=== PATIENT | female | born 1955 | race African-American/Black ===

== ENCOUNTER 2016-12-27 11:03 | Emergency (ER) | payer MEDICARE, OTHER ==
[~2016-12-27] VITALS: Ht 170.2 cm; Wt 100.7 kg
[~2016-12-27 11:03] MED LIST: ALBUTEROL SULF8.5 GM INH; ATORVASTATIN CA20 MG ORAL; BENADRYL50 MG ORAL; ELIMITE 5% CREA60 GM TOPIC; FUROSEMIDE40 MG ORAL; HYDROCHLOROTHIA25 MG ORAL; LANTUS SOL100 UNIT/1 SUBQ; LEVAQUIN500 MG ORAL; LEVAQUIN750 MG ORAL; LIPITOR20 MG ORAL; LOSARTAN POTASS50 MG ORAL; LOTREL 10-20 M1 EACH ORAL; METOPROLOL SUCC50 MG ORAL; NITROSTAT0.4 M1 SL; NORCO 5-325 TA1 EACH ORAL; NORVASC5 MG ORAL; PREDNISONE10 M2 PO; PREDNISONE20 MG ORAL; PREDNISONE5 MG ORAL; TRAMADOL HCL50 MG ORAL; TRAZODONE HCL100 MG ORAL; ativan; lasix
[2016-12-27 11:43] VITALS: BP 152/81
[2016-12-27] MEDS ORDERED: CLINDAMYCIN HC150 MG ORAL (11:44)
[2016-12-27] MEDS ORDERED: NORCO 5-325 TA1 EACH ORAL (11:44)
[2016-12-27 11:56] VITALS: BP 146/76
--- NOTE | 2016-12-27 15:38 | Emergency Room Report ---
History of Present Illness General Chief Complaint: Skin Rash/Abscess Source: Patient, Medical Record Present Illness HPI Patient presents emergency department today complaining of right axilla pain and swelling for 2 days. Patient denies any fever nausea vomiting diarrhea chills. She denies prior episodes of this. No other complaints were noted.No other modifying factors. No other associated signs and symptoms. No other complaints were noted. Symptoms noted to be moderate. Allergies: Coded Allergies: MIDAZOLAM (Verified Adverse Reaction, Unknown, 05/15/15) Patient History Past Medical History: DM, HTN, CHF, COPD, CVA/TIA, other - hernia Past Surgical History: none Pertinent Family History: none Social History: Denies: alcohol use, drug use, smoking Reviewed Nursing Documentation: PMH: Agreed, PSxH: Agreed Nursing Documentation-PMH Past Medical History: No History, Except For Hx Cardiac Problems: Yes - CHF Hx Hypertension: Yes Hx COPD: Yes Hx Diabetes: Yes Hx Cancer: No Hx Gastrointestinal Problems: Yes - hernia Hx Neurological Problems: Yes Hx Cerebrovascular Accident: Yes - 2006 Hx Headaches: Yes Hx Neurologic Surgery: No Hx Brain Shunt: No Review of Systems All Other Systems: negative except mentioned in HPI Physical Exam Vital Signs Date Time Temp Pulse Resp B/P Pulse Ox O2 Delivery O2 Flow Rate FiO2 12/27/16 11:12 98.4 90 16 152/81 100 Room Air Sp02 EP Interpretation: reviewed, normal General Appearance: normal inspection, well appearing, no apparent distress, alert Head: atraumatic Eyes: bilateral eye normal inspection ENT: normal ENT inspection, hearing grossly normal, normal voice Neck: normal inspection, full range of motion, supple, no bony tend Respiratory: normal inspection, lungs clear, normal breath sounds, no respiratory distress, no retraction, no wheezing Cardiovascular #1: regular rate, rhythm, no edema Gastrointestinal: normal inspection, normal bowel sounds, non tender, soft, no guarding, no hernia Genitourinary: no CVA tenderness Musculoskeletal: back normal, normal range of motion, swelling - right axilla swelling and tenderness Neurologic: normal inspection, alert, responsive, speech normal Psychiatric: normal inspection, judgement/insight normal, mood/affect normal Skin: other - right axila swelling/abscess Medical Decision Making Diagnostic Impression: Primary Impression: Hidradenitis suppurativa Additional Impression: Hidradenitis axillaris ER Course Patient presents emergency department today complaining of right axilla swelling. Differential diagnoses include abscess, cellulitis, allergic reaction , lymphadenopathy. Patient exam is consistent with hidradenitis. I felt the patient would benefit antibiotics. I offered any incision and drainage today patient preferred to try a therapeutic trial of antibiotics. I felt that this is reasonable given that there was no evidence of sepsis. We'll start patient on clindamycin recommend close followup.Patient is advised to follow up with primary doctor in 2-3 days and return the emergency room for any worsening symptoms and as needed. Last Vital Signs Date Time Temp Pulse Resp B/P Pulse Ox O2 Delivery O2 Flow Rate FiO2 12/27/16 11:56 98.4 85 16 146/76 100 Room Air Status: improved Disposition: HOME, SELF-CARE Condition: Stable Scripts Hydrocodone Bit/Acetaminophen 5-325* (NORCO 5-325*) 1 Each Tablet 1 TAB ORAL Q6H Y for For Pain, #10 TAB 0 Refills Prov: KAMINI GONZALEZ M.D. 12/27/16 Clindamycin Hcl* (CLINDAMYCIN HCL*) 150 Mg Capsule 150 MG ORAL FOUR TIMES A DAY for 7 Days, CAP Prov: KAMINI GONZALEZ M.D. 12/27/16 Referrals: TONE MATTA (PCP) Patient Instructions: Hidradenitis Suppurativa KAMINI GONZALEZ M.D. Dec 27, 2016 15:38
== END 2016-12-27 12:35 | disposition home or self-care (01) ==
LOC: EMR 12:25
DX: L73.2 Hidradenitis suppurativa (principal); I10 Essential (primary) hypertension; I50.9 Heart failure, unspecified; Z86.73 Personal history of transient ischemic attack (TIA), and cerebral infarction without residual deficits; E11.9 Type 2 diabetes mellitus without complications; J44.9 Chronic obstructive pulmonary disease, unspecified
CPT/HCPCS: 99284

== ENCOUNTER 2017-08-05 12:07 | Emergency (ER) | payer MEDICARE, OTHER ==
[~2017-08-05] VITALS: Ht 170.2 cm; Wt 95.3 kg
[~2017-08-05 12:07] MED LIST changes: +CLINDAMYCIN HC150 MG ORAL
--- NOTE | 2017-08-05 12:51 | Emergency Room Report ---
History of Present Illness General Chief Complaint: Skin Rash/Abscess Source: Patient Present Illness HPI 62 yo female patient presents to ER complaining of nail infection of middle nail x1 week. Patient reports she "pulled out her hangnail" a week ago and then was seen at an Urgent Care where they drained pus from the finger. Patient reports they gave her Keflex but the pus returned and finger is swollen again. Patient denies use of medication for pain relief. Patient denies fever, chest pain, SOB. Allergies: Coded Allergies: MIDAZOLAM (Verified Adverse Reaction, Unknown, 05/15/15) Patient History Past Medical History: see triage record Reviewed Nursing Documentation: PMH: Agreed, PSxH: Agreed Nursing Documentation-PMH Past Medical History: No History, Except For Hx Cardiac Problems: Yes - CHF Hx Hypertension: Yes Hx COPD: Yes Hx Diabetes: Yes Hx Cancer: No Hx Gastrointestinal Problems: Yes - hernia Hx Neurological Problems: Yes Hx Cerebrovascular Accident: Yes - 2006 Hx Headaches: Yes Hx Neurologic Surgery: No Hx Brain Shunt: No Review of Systems All Other Systems: negative except mentioned in HPI Physical Exam Vital Signs Date Time Temp Pulse Resp B/P (MAP) Pulse Ox O2 Delivery O2 Flow Rate FiO2 08/05/17 12:22 98.6 76 18 145/70 97 Room Air 98.6 Sp02 EP Interpretation: reviewed, normal General Appearance: well appearing, no apparent distress, alert, GCS 15 Head: normocephalic, atraumatic Eyes: bilateral eye normal inspection, bilateral eye PERRL ENT: hearing grossly normal, normal pharynx, no angioedema, normal voice, uvula midline, moist mucus membranes Neck: full range of motion Respiratory: lungs clear, normal breath sounds, no rhonchi, no respiratory distress, no accessory muscle use, no wheezing, speaking full sentences Cardiovascular #1: regular rate, rhythm Cardiovascular #2: 2+ radial (R), 2+ radial (L) Genitourinary: no CVA tenderness Musculoskeletal: back normal, gait/station normal, normal range of motion, non- tender, other - NVI Neurologic: alert, oriented x3, responsive, motor strength/tone normal, sensory intact Psychiatric: mood/affect normal Skin: no rash, other - left hand: middle finger, 1cm swelling at lateral nail, TTP, no pus draining, no open wound Lymphatic: no adenopathy Procedures Incision and Drainage Incision and Drainage : Consent: Verbal Site: left hand middle finger Blade Size: 11 I & D Procedure: betadine prep, sterile dressing applied Wound Location: upper extremity Wound's Depth, Shape: superficial Wound Length (cm): 1 Wound Explored: contaminated Anesthesia: 1% Lidocaine Splint Applied?: No Sling Applied?: No Patient Tolerated: Well Complications: None Medical Decision Making PA Attestation Dr. Cuellar is my supervising Physician whom patient management has been discussed with. Diagnostic Impression: Primary Impression: Paronychia ER Course Pt. presents to the ED c/o abscess on finger. Ddx considered but are not limited to rash, cellulitis, abscess, felon, paronychia, hangnail, herpetic charli. Vital signs: are WNL, pt. is afebrile Ordered Bacitracin and culture. ED COURSE: Digital block of finger performed with lidocaine. I&D of paronychia performed. Pus expressed from finger and sample sent for culture. Will contact patient with results of culture if new antibiotic is required. Patient finger no longer swollen, patient reports decrease in pain symptoms. Sterile dressing and Bacitracin applied to wound following procedure. Patient instructed to keep wound clean and dry and to followup with primary care provider in 2 days for wound check. Patient previously treated with Keflex, will treat with Clindamycin to cover for possible MRSA. DISCHARGE: -Rx provided for Clindamycin to cover for MRSA. -Rx provided for Tylenol At this time pt. is stable for d/c to home. Patient resting comfortably, in no acute distress, nontoxic appearing, laughing and smiling. Will provide printed patient care instructions and any necessary prescriptions. Care plan and follow up instructions have been discussed with the patient prior to discharge. Patient instructed to follow-up with primary care provider in 2 - 3 days for wound recheck. Patient questions asked and answered. Patient reports understanding and agreement to treatment plan. ER precautions given. Patient instructed to return to ER immediately for any new or worsening of symptoms including but not limited to fever, worsening of pain symptoms, worsening of erythema, red streaking. Last Vital Signs Date Time Temp Pulse Resp B/P (MAP) Pulse Ox O2 Delivery O2 Flow Rate FiO2 3 12:22 98.6 76 18 145/70 97 Room Air 98.6 Disposition: HOME, SELF-CARE Condition: Stable Scripts Acetaminophen* (TYLENOL EXTRA STRENGTH*) 500 Mg Tablet 500 MG ORAL Q8H Y for Prn Headache/Temp > 101, #30 TAB 0 Refills Prov: Morales Sanchez 08/05/17 Clindamycin Hcl* (CLINDAMYCIN HCL*) 150 Mg Capsule 150 MG ORAL TID for 7 Days, #21 CAP Prov: Morales Sanchez 08/05/17 Patient Instructions: Paronychia, [id number] Additional Instructions: Followup with primary care provider in 2-3 days for wound check. Take medications as directed. Patient questions asked and answered. ER precautions given, patient instructed to return to ER immediately for any new or worsening of symptoms. Morales Sanchez Aug 05, 2017 12:51
[2017-08-05] MEDS ORDERED: Bacitracin Oint UD TOPIC ONE (13:00)
[2017-08-05 13:43] VITALS: BP 145/70
[2017-08-05] MEDS ORDERED: CLINDAMYCIN HC150 MG ORAL (14:29)
[2017-08-05] MEDS ORDERED: TYLENOL EXTRA500 MG ORAL (14:29)
[2017-08-05 15:03] VITALS: BP 145/70
== END 2017-08-05 15:05 | disposition home or self-care (01) ==
LOC: EMR 13:30
DX: L03.012 Cellulitis of left finger (principal); I11.0 Hypertensive heart disease with heart failure; I50.9 Heart failure, unspecified; E11.9 Type 2 diabetes mellitus without complications; J44.9 Chronic obstructive pulmonary disease, unspecified; Z86.73 Personal history of transient ischemic attack (TIA), and cerebral infarction without residual deficits
CPT/HCPCS: 10060; 87070; 87181; 87205; 99284

== ENCOUNTER 2017-09-11 23:40 | Inpatient (IN) | payer MEDICARE, OTHER ==
[~2017-09-11] VITALS: Ht 167.6 cm; Wt 94.7 kg
[~2017-09-11 23:40] MED LIST changes: +TYLENOL EXTRA500 MG ORAL
[2017-09-11 23:50] VITALS: BP 174/89
[2017-09-12] VITALS (35 sets, daily range): BP systolic 115–206; BP diastolic 53–131
[2017-09-12] MEDS ORDERED: Solu-MEDROL 125mg Inj IVP ONE
[2017-09-12] MEDS ORDERED: dilTIAZem HCl 25mg/5ml Inj IVP ONE
[2017-09-12] MEDS ORDERED: LORazepam Inj 2mg/ml 1ml IV ONE
[2017-09-12] MEDS ORDERED: Levalbuterol Inh UD 1.25mg/0.5ml HHN ONE
[2017-09-12 00:17] LABS: HEMATOCRIT 48.6 % (37.0-47.0); HEMOGLOBIN 16.9 G/DL (12.0-16.0); MEAN CORPUSCULAR VOLUME 89 FL (80-99); PLATELET COUNT 278 K/UL (150-450); RED BLOOD COUNT 5.45 M/UL (4.20-5.40); RED CELL DISTRIBUTION WIDTH 12.4 % (11.6-14.8); WHITE BLOOD COUNT 18.5 K/UL (4.8-10.8)
--- NOTE | 2017-09-12 00:19 | Emergency Room Report ---
History of Present Illness General Chief Complaint: Dyspnea/Respdistress Source: Patient Present Illness HPI 62-year-old female with history of COPD, P/w SOB and chest pain for few hours Patient denies using any albuterol at home Not providing much history, denying any fever chills abdominal pain Allergies: Coded Allergies: MIDAZOLAM (Verified Adverse Reaction, Unknown, 05/15/15) Patient History Past Medical History: see triage record Past Surgical History: none Pertinent Family History: none Reviewed Nursing Documentation: PMH: Agreed; PSxH: Agreed Nursing Documentation-PMH Hx Cardiac Problems: Yes - CHF Hx Hypertension: Yes Hx COPD: Yes Hx Diabetes: Yes Hx Cancer: No Hx Gastrointestinal Problems: Yes - hernia Hx Neurological Problems: Yes Hx Cerebrovascular Accident: Yes - 2006 Hx Headaches: Yes Hx Neurologic Surgery: No Hx Brain Shunt: No Review of Systems All Other Systems: negative except mentioned in HPI Physical Exam Vital Signs Date Time Temp Pulse Resp B/P (MAP) Pulse Ox O2 Delivery O2 Flow Rate FiO2 09/11/17 23:41 72 22 174/89 100 Non-Rebreather 15.0 09/11/17 23:50 98.0 98.0 09/11/17 23:50 90 Sp02 EP Interpretation: abnormal General Appearance: alert, GCS 15, severe distress Head: normocephalic, atraumatic Eyes: bilateral eye normal inspection, bilateral eye PERRL, bilateral eye EOMI ENT: normal ENT inspection, normal pharynx, normal voice, moist mucus membranes Neck: normal inspection, full range of motion, supple Respiratory: respiratory distress, decreased breath sounds, accessory muscle use, other - DEC B/S B/L Cardiovascular #1: tachycardia, irregularly irregular Cardiovascular #2: 2+ radial (R), 2+ radial (L) Gastrointestinal: normal inspection, non tender, soft, non-distended, no guarding Musculoskeletal: normal inspection, back normal, normal range of motion, non- tender Neurologic: normal inspection, alert, oriented x3, responsive, motor strength/ tone normal, sensory intact, speech normal Psychiatric: normal inspection, judgement/insight normal, memory normal Skin: normal inspection, normal color, no rash, warm/dry, well hydrated, normal turgor Procedures Critical Care Time Critical Care Time 40 minutes of CC time 62-year-old female with shortness of breath VS: Tachycardic, tachypneic, hypoxic PLAN: IV access, labs, lactate, troponin, Blood/Urine Cx, Abx, IVF Anticipate admission to Tele vs. YURIDIA CC time also includes review of labs, review of EMR, discussion with family and paperwork from SNF, d/w hospitalist CC could include dosing of pressors, additional Abx CC time does not include procedures Medical Decision Making Diagnostic Impression: Primary Impression: CHF exacerbation Additional Impressions: COPD exacerbation Respiratory distress ER Course 62-year-old female with COPD p/w SOB DDX: COPD/asthma, CHF exacerbation, ACS, pneumonia Plan: IV access, potline monitor, O2 nasal cannula obtain basic labs including blood gas, troponin, BNP Nitro, lasix, Will consider BIPAP for persistent or worsening respiratory status Anticipate admission ER course: BIPAP required immediately upon arrival Unclear if COPD or CHF, Solu-Medrol was given, upon bedside ultrasound patient with multiple B lines on lung ultrasound so more likely pulm edema/chf Nitroglycerin and Lasix was given. Patient now feels much better, she is currently on nitro drip. Empiric antibiotics also given to cover for pneumonia Disposition: Patient to be admitted to ICU D/w hospitalist Dr Briceño who is covering for Dr tai Please note that this Emergency Department Report was dictated using [employer] coordinator technology software, occasionally this can lead to erroneous entry secondary to interpretation by the dictation equipment. EKG Diagnostic Results EP Interpretation: Yes Rate: Tachycardic Rhythm: Atrial fibrillation ST Segments: No acute changes ASA given to patient: NO Rhythm Strip EP Interpretation: Yes Rate: 120 Rhythm: Atrial fibrillation Chest X-ray CXR: Ordered: Yes 1 view Indication: SOB EP interpretation: Yes Interpretation: CARDIOMEGALY, ++congestion Impression: CARDIOMEGALY, ++congestion Electronically signed by Kate Palmer MD Laboratory Tests Test 09/12/17 00:10 09/12/17 00:20 09/12/17 00:50 White Blood Count 18.5 K/UL (4.8-10.8) H Red Blood Count 5.45 M/UL (4.20-5.40) H Hemoglobin 16.9 G/DL (12.0-16.0) H Hematocrit 48.6 % (37.0-47.0) H Mean Corpuscular Volume 89 FL (80-99) Mean Corpuscular Hemoglobin 31.1 PG (27.0-31.0) H Mean Corpuscular Hemoglobin Concent 34.9 G/DL (32.0-36.0) Red Cell Distribution Width 12.4 % (11.6-14.8) Platelet Count 278 K/UL (150-450) Mean Platelet Volume 8.8 FL (6.5-10.1) Neutrophils (%) (Auto) % (45.0-75.0) Lymphocytes (%) (Auto) % (20.0-45.0) Monocytes (%) (Auto) % (1.0-10.0) Eosinophils (%) (Auto) % (0.0-3.0) Basophils (%) (Auto) % (0.0-2.0) Neutrophils % (Manual) Pending Lymphocytes % (Manual) Pending Platelet Estimate Pending Platelet Morphology Pending Sodium Level 140 MMOL/L (136-145) Potassium Level 3.6 MMOL/L (3.5-5.1) Chloride Level 104 MMOL/L (98-107) Carbon Dioxide Level 25 MMOL/L (21-32) Anion Gap 11 mmol/L (5-15) Blood Urea Nitrogen 17 mg/dL (7-18) Creatinine 0.9 MG/DL (0.55-1.30) Estimate Glomerular Filtration Rate > 60 mL/min (>60) Glucose Level 233 MG/DL (74-106) H Lactic Acid Level 2.50 mmol/L (0.66-2.22) H Calcium Level 10.1 MG/DL (8.5-10.1) Total Bilirubin 0.6 MG/DL (0.2-1.0) Aspartate Amino Transferase (AST) 31 U/L (15-37) Alanine Aminotransferase (ALT) 80 U/L (12-78) H Alkaline Phosphatase 114 U/L (46-116) Troponin I 0.034 ng/mL (0.000-0.056) Pro-B-Type Natriuretic Peptide 547 pg/mL (0-125) H Total Protein 8.9 G/DL (6.4-8.2) H Albumin 4.4 G/DL (3.4-5.0) Globulin 4.5 g/dL Albumin/Globulin Ratio 1.0 (1.0-2.7) Arterial Blood pH 7.338 (7.350-7.450) Arterial Blood Partial Pressure CO2 45.5 mmHg (35.0-45.0) H Arterial Blood Partial Pressure O2 92.0 mmHg (75.0-100.0) Arterial Blood HCO3 23.9 mmol/L (22.0-26.0) Arterial Blood Oxygen Saturation 96.2 % (92.0-98.0) Arterial Blood Base Excess -2.2 [place] Test Positive Urine Color Pending Urine Appearance Pending Urine pH Pending Urine Specific [place] Pending Urine Protein Pending Urine Glucose (UA) Pending Urine Ketones Pending Urine Occult Blood Pending Urine Nitrite Pending Urine Bilirubin Pending Urine Urobilinogen Pending Urine Leukocyte Esterase Pending Last Vital Signs Date Time Temp Pulse Resp B/P (MAP) Pulse Ox O2 Delivery O2 Flow Rate FiO2 09/11/17 23:50 72 22 Non-Rebreather 15.0 90 09/11/17 23:50 98.0 174/89 90 98.0 Disposition: ADMITTED INPATIENT Condition: Critical Kate Palmer M.D. Sep 12, 2017 00:18
[2017-09-12 00:28] LABS: ANION GAP 11 mmol/L (5-15); BLOOD UREA NITROGEN 17 mg/dL (7-18); CALCIUM 10.1 MG/DL (8.5-10.1); CARBON DIOXIDE 25 MMOL/L (21-32); CHLORIDE 104 MMOL/L (98-107); CREATININE 0.9 MG/DL (0.55-1.30); POTASSIUM 3.6 MMOL/L (3.5-5.1); SODIUM 140 MMOL/L (136-145)
[2017-09-12] MEDS: Nitroglycerin Subl 0.4mg tab SL PRN ×2 (00:28→00:37)
[2017-09-12 00:38] LABS: ALANINE AMINOTRANSFERASE 80 U/L (12-78); ALBUMIN 4.4 G/DL (3.4-5.0); ALKALINE PHOSPHATASE 114 U/L (46-116); ASPARTATE AMINO TRANSFERASE 31 U/L (15-37); BILIRUBIN,TOTAL 0.6 MG/DL (0.2-1.0)
[2017-09-12] MEDS: Nitroglycerin 50mg/250ml btl 250 ML IV SCH ×2 (00:39→08:44)
[2017-09-12 01:09] LABS: BILIRUBIN, URINE NEGATIVE (NEGATIVE); COLOR,URINE PALE YELLOW; GLUCOSE, URINE (UA) 3+ (NEGATIVE); KETONES,URINE NEGATIVE (NEGATIVE); NITRITE,URINE NEGATIVE (NEGATIVE); PH,URINE 7 (4.5-8.0); PROTEIN,URINE 4+ (NEGATIVE); UROBILINOGEN,URINE NORMAL MG/DL (0.0-1.0)
[2017-09-12] MEDS ORDERED: Azithromycin 500 MG in NS 275 ML IV ONE (01:15)
[2017-09-12] MEDS ORDERED: cefTRIAXone 1 GM in NS 55 ML IVPB ONE (01:15)
[2017-09-12 01:20] LABS: APPEARANCE,URINE SLIGHTLY CLOUDY; LEUKOCYTE ESTERASE ,URINE 1+ (NEGATIVE)
[2017-09-12] MEDS ORDERED: Pantoprazole 80 MG in NS 250 ML IV SCH (02:15)
[2017-09-12] MEDS ORDERED: Heparin 5000 units/ml inj SUBQ ONE (04:15)
[2017-09-12 06:23] LABS: HEMATOCRIT 43.8 % (37.0-47.0); HEMOGLOBIN 14.7 G/DL (12.0-16.0); MEAN CORPUSCULAR VOLUME 90 FL (80-99); PLATELET COUNT 264 K/UL (150-450); RED BLOOD COUNT 4.88 M/UL (4.20-5.40); RED CELL DISTRIBUTION WIDTH 12.5 % (11.6-14.8); WHITE BLOOD COUNT 14.9 K/UL (4.8-10.8)
[2017-09-12 06:30] LABS: ANION GAP 8 mmol/L (5-15); BLOOD UREA NITROGEN 20 mg/dL (7-18); CALCIUM 9.3 MG/DL (8.5-10.1); CARBON DIOXIDE 26 MMOL/L (21-32); CHLORIDE 103 MMOL/L (98-107); POTASSIUM 3.9 MMOL/L (3.5-5.1); SODIUM 137 MMOL/L (136-145)
[2017-09-12] MEDS: NovoLOG Insulin Flexpen SUBQ SCH ×4 (06:44→21:18)
[2017-09-12] MEDS ORDERED: Metoprolol Succinate XL 50mg tab ORAL SCH (09:00)
[2017-09-12] MEDS ORDERED: Aspirin EC 81mg tab ORAL SCH (09:00)
[2017-09-12] MEDS ORDERED: Pantoprazole Inj IVP SCH (09:00)
--- NOTE | 2017-09-12 09:25 | History and Physical ---
History of Present Illness General Date patient seen: Sep 12, 2017 Time patient seen: 09:23 Reason for Hospitalization: Dyspnea/Respdistress Present Illness HPI 62y/o female with pmh of HTN, HLD, DM2, CHF, COPD, CVA in 2006 who presented with chest pain and SOB. Pt is poor historian. Per notes, pt had chest pain and SOB abt 20min prior to arrival in ER. Chest pain is substernal and constant, no association with activity. Pt states she had angiogram at [facility] 2 weeks ago but doesn't know results. She is on lasix, but unclear compliance. C/o cough. Denies f/c, n/v, d/c, abd pain. In ED, pt was noted to be in fluid overload w/ pulmonary edema and to be in hypertensive emergency. Pt was hypoxic. She was placed on BiPAP. She was given lasix IV and started on nitro gtt. She was also in Afib with rate to 120-130s. She was given diltiazem IV w/ improvement in rate. WBC 18K. Given ceftriaxone and azithro for possible pneumonia. Given solumdrol 125mg IV and duonebs for possible COPD exacerbation. Allergies: Coded Allergies: MIDAZOLAM (Verified Adverse Reaction, Unknown, 05/15/15) Medication History Scheduled Amlodipine Besylate (Norvasc), 5 MG ORAL BID, (Reported) Atorvastatin Calcium* (Lipitor*), 20 MG ORAL BEDTIME, (Reported) Clindamycin Hcl* (Clindamycin Hcl*), 150 MG ORAL FOUR TIMES A DAY Clindamycin Hcl* (Clindamycin Hcl*), 150 MG ORAL TID Furosemide* (Lasix*), 40 MG ORAL BID, (Reported) Insulin Glargine (Lantus), 30 SUBQ BEDTIME, (Reported) Levofloxacin* (Levaquin*), 500 MG ORAL DAILY, (Reported) Losartan Potassium* (Losartan Potassium*), 100 MG ORAL DAILY, (Reported) Metoprolol Succinate* (Metoprolol Succinate*), 50 MG ORAL DAILY, (Reported) Prednisone (Prednisone), 5 MG ORAL DAILY, (Reported) Trazodone Hcl* (Desyrel*), 150 MG ORAL BEDTIME, (Reported) Scheduled PRN Acetaminophen* (Tylenol Extra Strength*), 500 MG ORAL Q8H PRN for Prn Headache/ Temp > 101 Albuterol Sulfate* (Albuterol Sulfate Mdi*), 2 PUFF INH Q4H PRN for For Cough Hydrocodone Bit/Acetaminophen 5-325* ([place] 5-325*), 1 TAB ORAL Q6H PRN for For Pain Nitroglycerin (Nitrostat), 0.4 MG SL Q5M X3 DOSES PRN for For Pain, (Reported) Tramadol Hcl* (Ultram*), 50 MG ORAL BID PRN for For Pain, (Reported) Patient History History Provided By: Patient, Medical Record Healthcare decision maker Resuscitation status Full Code Advanced Directive on File No Past Medical/Surgical History Past Medical/Surgical History: (1) Hypertensive heart disease (2) DM2 (diabetes mellitus, type 2) (3) HTN (hypertension) (4) HLD (hyperlipidemia) (5) s/p brain aneurysm clipping (6) H/o CVA (7) CHF (congestive heart failure) Family History Family History: Patient reports no known family medical history. Social History Social History: (1) lives at home (2) smokes 1 pack cig every 2 days for many years Review of Systems Constitutional: Reports: weakness Eye: Reports: no symptoms ENT: Reports: no symptoms Respiratory: Reports: cough, shortness of breath Cardiovascular: Reports: no symptoms, chest pain, edema Gastrointestinal: Reports: no symptoms Genitourinary: Reports: no symptoms Musculoskeletal: Reports: no symptoms Skin: Reports: no symptoms Psychiatric: Reports: no symptoms Neurological: Reports: no symptoms Endocrine: Reports: no symptoms Hematologic/Lymphatic: Reports: no symptoms All Other Systems: negative except mentioned in HPI Physical Exam Physical Exam Narrative General: alert, cooperative, no distress, appears stated age, lethargic Head: normocephalic, without obvious abnormality, atraumatic Eyes: conjunctivae/corneas clear. PERRL, EOM's intact Throat: lips, mucosa, and tongue normal. MMM Neck: supple, symmetrical, trachea midline, and no JVD Lungs:+decreased breath sunds b/l Heart: irregularly irregular rhythm, S1, S2 normal, no murmur, click, rub or gallop Abdomen: soft, non-tender, non-distended, bowel sounds normal; no masses or organomegaly Extremities: extremities normal, atraumatic, no cyanosis, 1+ BLE edema Pulses: 2+ and symmetric Skin: skin color, texture, turgor normal; no rashes or lesions Neurologic: grossly normal, no focal deficits Last 24 Hour Vital Signs Date Time Temp Pulse Resp B/P (MAP) Pulse Ox O2 Delivery O2 Flow Rate FiO2 09/12/17 08:44 122/86 09/12/17 08:42 90 122/86 09/12/17 07:00 95 18 137/83 95 Nasal Cannula 2.0 09/12/17 06:30 90 18 159/85 95 Nasal Cannula 2.0 09/12/17 06:00 95 18 159/92 95 Nasal Cannula 2.0 09/12/17 05:30 95 18 150/92 95 Nasal Cannula 2.0 09/12/17 05:00 98.0 95 18 139/76 95 Nasal Cannula 2.0 98.0 09/12/17 04:50 98.2 101 22 142/68 96 Nasal Cannula 4.0 100 98.2 09/12/17 04:30 98.2 95 20 142/88 96 Nasal Cannula 2.0 98.2 09/12/17 04:00 96 09/12/17 03:21 98.2 101 22 142/68 96 Nasal Cannula 4.0 98.2 09/12/17 02:35 98.2 107 22 149/89 96 Bi-pap 98.2 09/12/17 02:20 98.4 103 24 141/53 94 Bi-pap 98.4 09/12/17 02:00 98.4 104 27 141/53 94 Bi-pap 98.4 09/12/17 01:45 98.2 104 22 164/65 94 Bi-pap 98.2 09/12/17 01:30 98.2 110 26 160/66 94 Bi-pap 98.2 09/12/17 01:00 98.4 118 28 170/89 94 Bi-pap 98.4 09/12/17 00:49 15.0 100 09/12/17 00:40 98.2 109 27 178/109 93 Bi-pap 98.2 09/12/17 00:39 175/112 09/12/17 00:37 174/107 09/12/17 00:37 127 34 93 Nasal 100 09/12/17 00:28 206/131 09/12/17 00:17 127 206/131 09/12/17 00:14 98.2 132 27 206/131 93 Bi-pap 98.2 09/11/17 23:50 72 22 Non-Rebreather 15.0 90 09/11/17 23:50 98.0 22 174/89 90 Non-Rebreather 15.0 98.0 09/11/17 23:41 72 22 174/89 100 Non-Rebreather 15.0 Intake and Output 09/11/17 09/12/17 19:00 07:00 Intake Total 520 ml Output Total 2750 ml Balance -2230 ml Intake Oral 0 ml IV Total 520 ml Output Urine Total 2750 ml # Bowel Movements 4 Laboratory Tests Test 09/12/17 00:10 09/12/17 00:20 09/12/17 00:50 09/12/17 04:00 White Blood Count 18.5 K/UL (4.8-10.8) H Red Blood Count 5.45 M/UL (4.20-5.40) H Hemoglobin 16.9 G/DL (12.0-16.0) H Hematocrit 48.6 % (37.0-47.0) H Mean Corpuscular Volume 89 FL (80-99) Mean Corpuscular Hemoglobin 31.1 PG (27.0-31.0) H Mean Corpuscular Hemoglobin Concent 34.9 G/DL (32.0-36.0) Red Cell Distribution Width 12.4 % (11.6-14.8) Platelet Count 278 K/UL (150-450) Mean Platelet Volume 8.8 FL (6.5-10.1) Neutrophils (%) (Auto) % (45.0-75.0) Lymphocytes (%) (Auto) % (20.0-45.0) Monocytes (%) (Auto) % (1.0-10.0) Eosinophils (%) (Auto) % (0.0-3.0) Basophils (%) (Auto) % (0.0-2.0) Differential Total Cells Counted 100 Neutrophils % (Manual) 68 % (45-75) Lymphocytes % (Manual) 24 % (20-45) Monocytes % (Manual) 8 % (1-10) Eosinophils % (Manual) 0 % (0-3) Basophils % (Manual) 0 % (0-2) Band Neutrophils 0 % (0-8) Platelet Estimate Adequate Platelet Morphology Normal Sodium Level 140 MMOL/L (136-145) Potassium Level 3.6 MMOL/L (3.5-5.1) Chloride Level 104 MMOL/L (98-107) Carbon Dioxide Level 25 MMOL/L (21-32) Anion Gap 11 mmol/L (5-15) Blood Urea Nitrogen 17 mg/dL (7-18) Creatinine 0.9 MG/DL (0.55-1.30) Estimat Glomerular Filtration Rate > 60 mL/min (>60) Glucose Level 233 MG/DL (74-106) H Lactic Acid Level 2.50 mmol/L (0.66-2.22) H 1.10 mmol/L (0.66-2.22) Calcium Level 10.1 MG/DL (8.5-10.1) Total Bilirubin 0.6 MG/DL (0.2-1.0) Aspartate Amino Transf (AST/SGOT) 31 U/L (15-37) Alanine Aminotransferase (ALT/SGPT) 80 U/L (12-78) H Alkaline Phosphatase 114 U/L (46-116) Troponin I 0.034 ng/mL (0.000-0.056) Pro-B-Type Natriuretic Peptide 547 pg/mL (0-125) H Total Protein 8.9 G/DL (6.4-8.2) H Albumin 4.4 G/DL (3.4-5.0) Globulin 4.5 g/dL Albumin/Globulin Ratio 1.0 (1.0-2.7) Arterial Blood pH 7.338 (7.350-7.450) Arterial Blood Partial Pressure CO2 45.5 mmHg (35.0-45.0) H Arterial Blood Partial Pressure O2 92.0 mmHg (75.0-100.0) Arterial Blood HCO3 23.9 mmol/L (22.0-26.0) Arterial Blood Oxygen Saturation 96.2 % (92.0-98.0) Arterial Blood Base Excess -2.2 Devon Test Positive Urine Color Pale yellow Urine Appearance Slightly cloudy Urine pH 7 (4.5-8.0) Urine Specific [place] 1.010 (1.005-1.035) Urine Protein 4+ (NEGATIVE) H Urine Glucose (UA) 3+ (NEGATIVE) H Urine Ketones Negative (NEGATIVE) Urine Occult Blood 2+ (NEGATIVE) H Urine Nitrite Negative (NEGATIVE) Urine Bilirubin Negative (NEGATIVE) Urine Urobilinogen Normal MG/DL (0.0-1.0) Urine Leukocyte Esterase 1+ (NEGATIVE) H Urine RBC 5-10 /HPF (0 - 2) H Urine WBC 5-10 /HPF (0 - 2) H Urine Squamous Epithelial Cells Few /LPF (NONE/OCC) Urine Bacteria Many /HPF (NONE) H Test 09/12/17 05:00 White Blood Count 14.9 K/UL (4.8-10.8) H Red Blood Count 4.88 M/UL (4.20-5.40) Hemoglobin 14.7 G/DL (12.0-16.0) Hematocrit 43.8 % (37.0-47.0) Mean Corpuscular Volume 90 FL (80-99) Mean Corpuscular Hemoglobin 30.1 PG (27.0-31.0) Mean Corpuscular Hemoglobin Concent 33.6 G/DL (32.0-36.0) Red Cell Distribution Width 12.5 % (11.6-14.8) Platelet Count 264 K/UL (150-450) Mean Platelet Volume 9.0 FL (6.5-10.1) Neutrophils (%) (Auto) % (45.0-75.0) Lymphocytes (%) (Auto) % (20.0-45.0) Monocytes (%) (Auto) % (1.0-10.0) Eosinophils (%) (Auto) % (0.0-3.0) Basophils (%) (Auto) % (0.0-2.0) Differential Total Cells Counted 100 Neutrophils % (Manual) 96 % (45-75) H Lymphocytes % (Manual) 2 % (20-45) L Monocytes % (Manual) 2 % (1-10) Eosinophils % (Manual) 0 % (0-3) Basophils % (Manual) 0 % (0-2) Band Neutrophils 0 % (0-8) Platelet Estimate Adequate Platelet Morphology Normal Sodium Level 137 MMOL/L (136-145) Potassium Level 3.9 MMOL/L (3.5-5.1) Chloride Level 103 MMOL/L (98-107) Carbon Dioxide Level 26 MMOL/L (21-32) Anion Gap 8 mmol/L (5-15) Blood Urea Nitrogen 20 mg/dL (7-18) H Creatinine 1.0 MG/DL (0.55-1.30) Estimat Glomerular Filtration Rate > 60 mL/min (>60) Glucose Level 371 MG/DL (74-106) #H Calcium Level 9.3 MG/DL (8.5-10.1) Height (Feet): 5 Height (Inches): 6.00 Weight (Pounds): 211 Medications Current Medications Medications (Trade) Dose Ordered Sig/Guillermo Route PRN Reason Start Time Stop Time Status Last Admin Dose Admin Acetaminophen (Tylenol) 650 mg Q4H PRN ORAL Mild Pain/Temp > 100.5 09/12/17 09:15 10/12/17 09:14 UNV Aspirin (Ecotrin) 81 mg DAILY ORAL 09/12/17 09:00 10/12/17 08:59 09/12/17 08:41 Azithromycin 500 mg/Dextrose 275 ml @ 275 mls/hr ONCE ONCE IV 09/13/17 02:30 09/13/17 03:29 Ceftriaxone Sodium 1 gm/ Dextrose 55 ml @ 110 mls/hr ONCE ONCE IVPB 09/13/17 01:00 09/13/17 01:29 Dextrose 1,000 ml @ 50 mls/hr Q20H IV 09/12/17 04:15 09/12/17 10:15 09/12/17 05:27 Dextrose (Dextrose 50%) 25 ml STAT PRN IV Hypoglycemia 09/12/17 04:45 10/12/17 04:44 Dextrose (Dextrose 50%) 50 ml STAT PRN IV Hypoglycemia 09/12/17 04:45 10/12/17 04:44 Furosemide (Lasix) 40 mg DAILY IV 09/12/17 09:00 10/12/17 08:59 09/12/17 08:42 Insulin Aspart (NovoLOG) BEFORE MEALS AND HS SUBQ 09/12/17 06:30 10/12/17 06:29 09/12/17 06:44 Metoprolol Succinate (Toprol XL) 50 mg DAILY ORAL 09/12/17 09:00 10/12/17 08:59 09/12/17 08:42 Nitroglycerin 250 ml @ 0 mls/hr Q24H IV 09/12/17 00:15 10/12/17 00:14 09/12/17 08:44 Pantoprazole (Protonix) 40 mg EVERY 12 HOURS IVP 09/12/17 09:00 10/12/17 08:59 09/12/17 08:41 Assessment/Plan Problem List: (1) Acute on chronic diastolic (congestive) heart failure ICD Codes: I50.33 - Acute on chronic diastolic (congestive) heart failure SNOMED: 02957249, 589394969 (2) Acute respiratory failure with hypoxia and hypercapnia ICD Codes: J96.01 - Acute respiratory failure with hypoxia; J96.02 - Acute respiratory failure with hypercapnia SNOMED: 75433952, 10671398, 234926596 (3) Atrial fibrillation with RVR ICD Codes: I48.91 - Unspecified atrial fibrillation SNOMED: 339853499710779 (4) Sepsis ICD Codes: A41.9 - Sepsis, unspecified organism SNOMED: 18222436 (5) Lactic acidosis ICD Codes: E87.2 - Acidosis SNOMED: 36022367 (6) Hypertensive heart disease ICD Codes: I11.9 - Hypertensive heart disease without heart failure SNOMED: 00188940 (7) HTN (hypertension) ICD Codes: I10 - Essential (primary) hypertension SNOMED: 53031966 (8) COPD (chronic obstructive pulmonary disease) ICD Codes: J44.9 - Chronic obstructive pulmonary disease, unspecified SNOMED: 64596374 (9) UTI (urinary tract infection) ICD Codes: N39.0 - Urinary tract infection, site not specified SNOMED: 21192074 (10) DM2 (diabetes mellitus, type 2) ICD Codes: E11.9 - Type 2 diabetes mellitus without complications SNOMED: 13420416 (11) HLD (hyperlipidemia) ICD Codes: E78.5 - Hyperlipidemia, unspecified SNOMED: 61783230 (12) H/o CVA (13) Tobacco abuse ICD Codes: Z72.0 - Tobacco use SNOMED: 071782069 Status: stable Assessment/Plan Admit to ICU Cardiology, pulmonology consulted Trend trop Diurese w/ lasix 40mg IV BID Strict I/O's, daily weights Monitor lytes and replete Wean nitro gtt as tolerated Cardiology to assess abt starting AC (Afib appears to be new onset) Check TTE BiPAP qHS and PRN Check BLE venous duplex Duonebs ATC and PRN Empiric ceftriaxone and azithro F/u urine culture, blood cultures Cont home meds Pain control, bowel regimen Supportive care Integration Aide on tobacco cessation DVT ppx: SCDs, HSQ At the time of my involvement, the patient's condition was critical with high potential for and/or physiologic deterioration secondary to acute respiratory failure, hypertensive emergency, CHF as delineated in the note above. On the above date of service, I spent a total of 50 minutes in the ICU evaluating, managing, and providing critical care services to this patient, including time spent documenting these activities, counseling patient/family, and coordinating care. Critical care services performed include: Telemetry Review Hemodynamic measurement interpretation Laboratory data review and interpretation Discussion of care plans with patient, family, and/or surrogate decision makers Discussion of patient's care with primary medical team, surgical team, and/or consulting service Decision to obtain further radiologic evaluation, after consideration of risk/ benefit ratio Decision to perform invasive procedure, after consideration of risk/benefit ratio Review of most recent microbiology results with assessment and modification of antimicrobial coverage Discussion of patient's code status and further advancement towards the ultimate goals of care Plan outlined above discussed with patient/family, cardiology, and pulmonology regarding mgmt and dispo. Time of note may not reflect time of encounter. Venkat Marquez M.D. Sep 12, 2017 09:25
[2017-09-12] MEDS ORDERED: TraZODone 50mg tab ORAL PRN ×2 (09:45→17:30)
[2017-09-12] MEDS ORDERED: traMADol 50mg tab ORAL PRN ×4 (09:45→17:30)
[2017-09-12] MEDS ORDERED: Levemir Flexpen SUBQ SCH (10:00)
[2017-09-12] MEDS ORDERED: Morphine Sulfate 2mg/ml Inj IVP PRN (10:15)
--- NOTE | 2017-09-12 10:16 | Cardiac Electrophysiology PN ---
Subjective Subjective [id number] Objective Last 24 Hour Vital Signs Date Time Temp Pulse Resp B/P (MAP) Pulse Ox O2 Delivery O2 Flow Rate FiO2 09/12/17 08:44 122/86 09/12/17 08:42 90 122/86 09/12/17 07:00 95 18 137/83 95 Nasal Cannula 2.0 09/12/17 06:30 90 18 159/85 95 Nasal Cannula 2.0 09/12/17 06:00 95 18 159/92 95 Nasal Cannula 2.0 09/12/17 05:30 95 18 150/92 95 Nasal Cannula 2.0 09/12/17 05:00 98.0 95 18 139/76 95 Nasal Cannula 2.0 98.0 09/12/17 04:50 98.2 101 22 142/68 96 Nasal Cannula 4.0 100 98.2 09/12/17 04:30 98.2 95 20 142/88 96 Nasal Cannula 2.0 98.2 09/12/17 04:00 96 09/12/17 03:21 98.2 101 22 142/68 96 Nasal Cannula 4.0 98.2 09/12/17 02:35 98.2 107 22 149/89 96 Bi-pap 98.2 09/12/17 02:20 98.4 103 24 141/53 94 Bi-pap 98.4 09/12/17 02:00 98.4 104 27 141/53 94 Bi-pap 98.4 09/12/17 01:45 98.2 104 22 164/65 94 Bi-pap 98.2 09/12/17 01:30 98.2 110 26 160/66 94 Bi-pap 98.2 09/12/17 01:00 98.4 118 28 170/89 94 Bi-pap 98.4 09/12/17 00:49 15.0 100 09/12/17 00:40 98.2 109 27 178/109 93 Bi-pap 98.2 09/12/17 00:39 175/112 09/12/17 00:37 174/107 09/12/17 00:37 127 34 93 Nasal 100 09/12/17 00:28 206/131 09/12/17 00:17 127 206/131 09/12/17 00:14 98.2 132 27 206/131 93 Bi-pap 98.2 09/11/17 23:50 72 22 Non-Rebreather 15.0 90 09/11/17 23:50 98.0 22 174/89 90 Non-Rebreather 15.0 98.0 09/11/17 23:41 72 22 174/ 100 Non-Rebreather 15.0 Intake and Output 09/11/17 09/12/17 19:00 07:00 Intake Total 520 ml Output Total 2750 ml Balance -2230 ml Intake Oral 0 ml IV Total 520 ml Output Urine Total 2750 ml # Bowel Movements 4 Laboratory Tests Test 09/12/17 00:10 09/12/17 00:20 09/12/17 00:50 09/12/17 04:00 White Blood Count 18.5 K/UL (4.8-10.8) H Red Blood Count 5.45 M/UL (4.20-5.40) H Hemoglobin 16.9 G/DL (12.0-16.0) H Hematocrit 48.6 % (37.0-47.0) H Mean Corpuscular Volume 89 FL (80-99) Mean Corpuscular Hemoglobin 31.1 PG (27.0-31.0) H Mean Corpuscular Hemoglobin Concent 34.9 G/DL (32.0-36.0) Red Cell Distribution Width 12.4 % (11.6-14.8) Platelet Count 278 K/UL (150-450) Mean Platelet Volume 8.8 FL (6.5-10.1) Neutrophils (%) (Auto) % (45.0-75.0) Lymphocytes (%) (Auto) % (20.0-45.0) Monocytes (%) (Auto) % (1.0-10.0) Eosinophils (%) (Auto) % (0.0-3.0) Basophils (%) (Auto) % (0.0-2.0) Differential Total Cells Counted 100 Neutrophils % (Manual) 68 % (45-75) Lymphocytes % (Manual) 24 % (20-45) Monocytes % (Manual) 8 % (1-10) Eosinophils % (Manual) 0 % (0-3) Basophils % (Manual) 0 % (0-2) Band Neutrophils 0 % (0-8) Platelet Estimate Adequate Platelet Morphology Normal Sodium Level 140 MMOL/L (136-145) Potassium Level 3.6 MMOL/L (3.5-5.1) Chloride Level 104 MMOL/L (98-107) Carbon Dioxide Level 25 MMOL/L (21-32) Anion Gap 11 mmol/L (5-15) Blood Urea Nitrogen 17 mg/dL (7-18) Creatinine 0.9 MG/DL (0.55-1.30) Estimat Glomerular Filtration Rate > 60 mL/min (>60) Glucose Level 233 MG/DL (74-106) H Lactic Acid Level 2.50 mmol/L (0.66-2.22) H 1.10 mmol/L (0.66-2.22) Calcium Level 10.1 MG/DL (8.5-10.1) Total Bilirubin 0.6 MG/DL (0.2-1.0) Aspartate Amino Transf (AST/SGOT) 31 U/L (15-37) Alanine Aminotransferase (ALT/SGPT) 80 U/L (12-78) H Alkaline Phosphatase 114 U/L (46-116) Troponin I 0.034 ng/mL (0.000-0.056) Pro-B-Type Natriuretic Peptide 547 pg/mL (0-125) H Total Protein 8.9 G/DL (6.4-8.2) H Albumin 4.4 G/DL (3.4-5.0) Globulin 4.5 g/dL Albumin/Globulin Ratio 1.0 (1.0-2.7) Arterial Blood pH 7.338 (7.350-7.450) Arterial Blood Partial Pressure CO2 45.5 mmHg (35.0-45.0) H Arterial Blood Partial Pressure O2 92.0 mmHg (75.0-100.0) Arterial Blood HCO3 23.9 mmol/L (22.0-26.0) Arterial Blood Oxygen Saturation 96.2 % (92.0-98.0) Arterial Blood Base Excess -2.2 Devon Test Positive Urine Color Pale yellow Urine Appearance Slightly cloudy Urine pH 7 (4.5-8.0) Urine Specific [place] 1.010 (1.005-1.035) Urine Protein 4+ (NEGATIVE) H Urine Glucose (UA) 3+ (NEGATIVE) H Urine Ketones Negative (NEGATIVE) Urine Occult Blood 2+ (NEGATIVE) H Urine Nitrite Negative (NEGATIVE) Urine Bilirubin Negative (NEGATIVE) Urine Urobilinogen Normal MG/DL (0.0-1.0) Urine Leukocyte Esterase 1+ (NEGATIVE) H Urine RBC 5-10 /HPF (0 - 2) H Urine WBC 5-10 /HPF (0 - 2) H Urine Squamous Epithelial Cells Few /LPF (NONE/OCC) Urine Bacteria Many /HPF (NONE) H Test 09/12/17 05:00 White Blood Count 14.9 K/UL (4.8-10.8) H Red Blood Count 4.88 M/UL (4.20-5.40) Hemoglobin 14.7 G/DL (12.0-16.0) Hematocrit 43.8 % (37.0-47.0) Mean Corpuscular Volume 90 FL (80-99) Mean Corpuscular Hemoglobin 30.1 PG (27.0-31.0) Mean Corpuscular Hemoglobin Concent 33.6 G/DL (32.0-36.0) Red Cell Distribution Width 12.5 % (11.6-14.8) Platelet Count 264 K/UL (150-450) Mean Platelet Volume 9.0 FL (6.5-10.1) Neutrophils (%) (Auto) % (45.0-75.0) Lymphocytes (%) (Auto) % (20.0-45.0) Monocytes (%) (Auto) % (1.0-10.0) Eosinophils (%) (Auto) % (0.0-3.0) Basophils (%) (Auto) % (0.0-2.0) Differential Total Cells Counted 100 Neutrophils % (Manual) 96 % (45-75) H Lymphocytes % (Manual) 2 % (20-45) L Monocytes % (Manual) 2 % (1-10) Eosinophils % (Manual) 0 % (0-3) Basophils % (Manual) 0 % (0-2) Band Neutrophils 0 % (0-8) Platelet Estimate Adequate Platelet Morphology Normal Sodium Level 137 MMOL/L (136-145) Potassium Level 3.9 MMOL/L (3.5-5.1) Chloride Level 103 MMOL/L (98-107) Carbon Dioxide Level 26 MMOL/L (21-32) Anion Gap 8 mmol/L (5-15) Blood Urea Nitrogen 20 mg/dL (7-18) H Creatinine 1.0 MG/DL (0.55-1.30) Estimat Glomerular Filtration Rate > 60 mL/min (>60) Glucose Level 371 MG/DL (74-106) #H Calcium Level 9.3 MG/DL (8.5-10.1) René Roman MD Sep 12, 2017 10:16
--- NOTE | 2017-09-12 10:56 | Consultation ---
History of Present Illness General Date patient seen: Sep 12, 2017 Chief Complaint: Dyspnea/Respdistress Reason for Consultation: dysnpnea Present Illness HPI 62-year-old female with history of COPD, HTN, CHF, prsented to ER with CC of SOB and chest pain for few hours. Pt was found to be in pulmonary edema. She had hypertensive emergency as well. She was started on BIPAP and nitro drip and transferred to ICU. Pt is still complaining of chest pain and epigastric pain. BP is controlled Allergies: Coded Allergies: MIDAZOLAM (Verified Adverse Reaction, Unknown, 05/15/15) Medication History Scheduled Amlodipine Besylate (Norvasc), 5 MG ORAL BID, (Reported) Atorvastatin Calcium* (Lipitor*), 20 MG ORAL BEDTIME, (Reported) Clindamycin Hcl* (Clindamycin Hcl*), 150 MG ORAL FOUR TIMES A DAY Clindamycin Hcl* (Clindamycin Hcl*), 150 MG ORAL TID Furosemide* (Lasix*), 40 MG ORAL BID, (Reported) Insulin Glargine (Lantus), 30 SUBQ BEDTIME, (Reported) Levofloxacin* (Levaquin*), 500 MG ORAL DAILY, (Reported) Losartan Potassium* (Losartan Potassium*), 100 MG ORAL DAILY, (Reported) Metoprolol Succinate* (Metoprolol Succinate*), 50 MG ORAL DAILY, (Reported) Prednisone (Prednisone), 5 MG ORAL DAILY, (Reported) Trazodone Hcl* (Desyrel*), 150 MG ORAL BEDTIME, (Reported) Scheduled PRN Acetaminophen* (Tylenol Extra Strength*), 500 MG ORAL Q8H PRN for Prn Headache/ Temp > 101 Albuterol Sulfate* (Albuterol Sulfate Mdi*), 2 PUFF INH Q4H PRN for For Cough Hydrocodone Bit/Acetaminophen 5-325* ([place] 5-325*), 1 TAB ORAL Q6H PRN for For Pain Nitroglycerin (Nitrostat), 0.4 MG SL Q5M X3 DOSES PRN for For Pain, (Reported) Tramadol Hcl* (Ultram*), 50 MG ORAL BID PRN for For Pain, (Reported) Patient History Healthcare decision maker Resuscitation status Full Code Advanced Directive on File No Past Medical/Surgical History Past Medical/Surgical History: (1) COPD (chronic obstructive pulmonary disease) (2) CHF (congestive heart failure) (3) Diabetes mellitus Review of Systems Cardiovascular: Reports: chest pain Physical Exam General Appearance: WD/WN Lines, tubes and drains: peripheral HEENT: normocephalic, atraumatic Neck: non-tender, normal alignment Respiratory/Chest: chest wall non-tender, lungs clear Breasts: no masses Cardiovascular/Chest: normal peripheral pulses Abdomen: normal bowel sounds, soft Genitourinary/Rectal: normal rectal exam Extremities: normal range of motion Last 24 Hour Vital Signs Date Time Temp Pulse Resp B/P (MAP) Pulse Ox O2 Delivery O2 Flow Rate FiO2 09/12/17 10:32 98.0 09/12/17 10:17 98.0 09/12/17 08:44 122/86 09/12/17 08:42 90 122/86 09/12/17 07:00 95 18 137/83 95 Nasal Cannula 2.0 09/12/17 06:30 90 18 159/85 95 Nasal Cannula 2.0 09/12/17 06:00 95 18 159/92 95 Nasal Cannula 2.0 09/12/17 05:30 95 18 150/92 95 Nasal Cannula 2.0 09/12/17 05:00 98.0 95 18 139/76 95 Nasal Cannula 2.0 98.0 09/12/17 04:50 98.2 101 22 142/68 96 Nasal Cannula 4.0 100 98.2 09/12/17 04:30 98.2 95 20 142/88 96 Nasal Cannula 2.0 98.2 09/12/17 04:00 96 09/12/17 03:21 98.2 101 22 142/68 96 Nasal Cannula 4.0 98.2 09/12/17 02:35 98.2 107 22 149/89 96 Bi-pap 98.2 09/12/17 02:20 98.4 103 24 141/53 94 Bi-pap 98.4 09/12/17 02:00 98.4 104 27 141/53 94 Bi-pap 98.4 09/12/17 01:45 98.2 104 22 164/65 94 Bi-pap 98.2 09/12/17 01:30 98.2 110 26 160/66 94 Bi-pap 98.2 09/12/17 01:00 98.4 118 28 170/89 94 Bi-pap 98.4 09/12/17 00:49 15.0 100 09/12/17 00:40 98.2 109 27 178/109 93 Bi-pap 98.2 09/12/17 00:39 175/112 09/12/17 00:37 174/107 09/12/17 00:37 127 34 93 Nasal 100 09/12/17 00:28 206/131 09/12/17 00:17 127 206/131 09/12/17 00:14 98.2 132 27 206/131 93 Bi-pap 98.2 09/11/17 23:50 72 22 Non-Rebreather 15.0 90 09/11/17 23:50 98.0 22 174/89 90 Non-Rebreather 15.0 98.0 09/11/17 23:41 72 22 174/89 100 Non-Rebreather 15.0 Intake and Output 09/11/17 09/12/17 19:00 07:00 Intake Total 520 ml Output Total 2750 ml Balance -2230 ml Intake Oral 0 ml IV Total 520 ml Output Urine Total 2750 ml # Bowel Movements 4 Laboratory Tests Test 09/12/17 00:10 09/12/17 00:20 09/12/17 00:50 09/12/17 04:00 White Blood Count 18.5 K/UL (4.8-10.8) H Red Blood Count 5.45 M/UL (4.20-5.40) H Hemoglobin 16.9 G/DL (12.0-16.0) H Hematocrit 48.6 % (37.0-47.0) H Mean Corpuscular Volume 89 FL (80-99) Mean Corpuscular Hemoglobin 31.1 PG (27.0-31.0) H Mean Corpuscular Hemoglobin Concent 34.9 G/DL (32.0-36.0) Red Cell Distribution Width 12.4 % (11.6-14.8) Platelet Count 278 K/UL (150-450) Mean Platelet Volume 8.8 FL (6.5-10.1) Neutrophils (%) (Auto) % (45.0-75.0) Lymphocytes (%) (Auto) % (20.0-45.0) Monocytes (%) (Auto) % (1.0-10.0) Eosinophils (%) (Auto) % (0.0-3.0) Basophils (%) (Auto) % (0.0-2.0) Differential Total Cells Counted 100 Neutrophils % (Manual) 68 % (45-75) Lymphocytes % (Manual) 24 % (20-45) Monocytes % (Manual) 8 % (1-10) Eosinophils % (Manual) 0 % (0-3) Basophils % (Manual) 0 % (0-2) Band Neutrophils 0 % (0-8) Platelet Estimate Adequate Platelet Morphology Normal Sodium Level 140 MMOL/L (136-145) Potassium Level 3.6 MMOL/L (3.5-5.1) Chloride Level 104 MMOL/L (98-107) Carbon Dioxide Level 25 MMOL/L (21-32) Anion Gap 11 mmol/L (5-15) Blood Urea Nitrogen 17 mg/dL (7-18) Creatinine 0.9 MG/DL (0.55-1.30) Estimat Glomerular Filtration Rate > 60 mL/min (>60) Glucose Level 233 MG/DL (74-106) H Lactic Acid Level 2.50 mmol/L (0.66-2.22) H 1.10 mmol/L (0.66-2.22) Calcium Level 10.1 MG/DL (8.5-10.1) Total Bilirubin 0.6 MG/DL (0.2-1.0) Aspartate Amino Transf (AST/SGOT) 31 U/L (15-37) Alanine Aminotransferase (ALT/SGPT) 80 U/L (12-78) H Alkaline Phosphatase 114 U/L (46-116) Troponin I 0.034 ng/mL (0.000-0.056) Pro-B-Type Natriuretic Peptide 547 pg/mL (0-125) H Total Protein 8.9 G/DL (6.4-8.2) H Albumin 4.4 G/DL (3.4-5.0) Globulin 4.5 g/dL Albumin/Globulin Ratio 1.0 (1.0-2.7) Arterial Blood pH 7.338 (7.350-7.450) Arterial Blood Partial Pressure CO2 45.5 mmHg (35.0-45.0) H Arterial Blood Partial Pressure O2 92.0 mmHg (75.0-100.0) Arterial Blood HCO3 23.9 mmol/L (22.0-26.0) Arterial Blood Oxygen Saturation 96.2 % (92.0-98.0) Arterial Blood Base Excess -2.2 [place] Test Positive Urine Color Pale yellow Urine Appearance Slightly cloudy Urine pH 7 (4.5-8.0) Urine Specific [place] 1.010 (1.005-1.035) Urine Protein 4+ (NEGATIVE) H Urine Glucose (UA) 3+ (NEGATIVE) H Urine Ketones Negative (NEGATIVE) Urine Occult Blood 2+ (NEGATIVE) H Urine Nitrite Negative (NEGATIVE) Urine Bilirubin Negative (NEGATIVE) Urine Urobilinogen Normal MG/DL (0.0-1.0) Urine Leukocyte Esterase 1+ (NEGATIVE) H Urine RBC 5-10 /HPF (0 - 2) H Urine WBC 5-10 /HPF (0 - 2) H Urine Squamous Epithelial Cells Few /LPF (NONE/OCC) Urine Bacteria Many /HPF (NONE) H Test 09/12/17 05:00 White Blood Count 14.9 K/UL (4.8-10.8) H Red Blood Count 4.88 M/UL (4.20-5.40) Hemoglobin 14.7 G/DL (12.0-16.0) Hematocrit 43.8 % (37.0-47.0) Mean Corpuscular Volume 90 FL (80-99) Mean Corpuscular Hemoglobin 30.1 PG (27.0-31.0) Mean Corpuscular Hemoglobin Concent 33.6 G/DL (32.0-36.0) Red Cell Distribution Width 12.5 % (11.6-14.8) Platelet Count 264 K/UL (150-450) Mean Platelet Volume 9.0 FL (6.5-10.1) Neutrophils (%) (Auto) % (45.0-75.0) Lymphocytes (%) (Auto) % (20.0-45.0) Monocytes (%) (Auto) % (1.0-10.0) Eosinophils (%) (Auto) % (0.0-3.0) Basophils (%) (Auto) % (0.0-2.0) Differential Total Cells Counted 100 Neutrophils % (Manual) 96 % (45-75) H Lymphocytes % (Manual) 2 % (20-45) L Monocytes % (Manual) 2 % (1-10) Eosinophils % (Manual) 0 % (0-3) Basophils % (Manual) 0 % (0-2) Band Neutrophils 0 % (0-8) Platelet Estimate Adequate Platelet Morphology Normal Sodium Level 137 MMOL/L (136-145) Potassium Level 3.9 MMOL/L (3.5-5.1) Chloride Level 103 MMOL/L (98-107) Carbon Dioxide Level 26 MMOL/L (21-32) Anion Gap 8 mmol/L (5-15) Blood Urea Nitrogen 20 mg/dL (7-18) H Creatinine 1.0 MG/DL (0.55-1.30) Estimat Glomerular Filtration Rate > 60 mL/min (>60) Glucose Level 371 MG/DL (74-106) #H Calcium Level 9.3 MG/DL (8.5-10.1) Troponin I Pending Height (Feet): 5 Height (Inches): 6.00 Weight (Pounds): 211 Medications Current Medications Medications (Trade) Dose Ordered Sig/Guillermo Route PRN Reason Start Time Stop Time Status Last Admin Dose Admin Acetaminophen (Tylenol) 650 mg Q4H PRN ORAL Mild Pain/Temp > 100.5 09/12/17 09:15 10/12/17 09:14 09/12/17 10:17 Amlodipine Besylate (Norvasc) 5 mg BID ORAL 09/12/17 18:00 10/12/17 17:59 Aspirin (Ecotrin) 81 mg DAILY ORAL 09/12/17 09:00 10/12/17 08:59 09/12/17 08:41 Atorvastatin Calcium (Lipitor) 20 mg BEDTIME ORAL 09/12/17 21:00 10/12/17 20:59 Azithromycin 500 mg/Dextrose 275 ml @ 275 mls/hr DAILY@0100 IV 09/13/17 01:00 09/20/17 00:59 Ceftriaxone Sodium 1 gm/ Dextrose 110 ml @ 220 mls/hr DAILY@0030 IVPB 09/13/17 00:30 09/20/17 00:29 Dextrose (Dextrose 50%) 25 ml STAT PRN IV Hypoglycemia 09/12/17 04:45 10/12/17 04:44 Dextrose (Dextrose 50%) 50 ml STAT PRN IV Hypoglycemia 09/12/17 04:45 10/12/17 04:44 Furosemide (Lasix) 40 mg BID IV 09/12/17 18:00 10/12/17 08:59 Insulin Aspart (NovoLOG) BEFORE MEALS AND HS SUBQ 09/12/17 06:30 10/12/17 06:29 09/12/17 06:44 Insulin Detemir (Levemir) 25 units DAILY SUBQ 09/12/17 10:00 10/12/17 09:59 09/12/17 10:32 Losartan Potassium (Cozaar) 100 mg DAILY ORAL 09/13/17 09:00 10/13/17 08:59 Metoprolol Succinate (Toprol XL) 50 mg DAILY ORAL 09/12/17 09:00 10/12/17 08:59 09/12/17 08:42 Morphine Sulfate (Morphine Sulfate) 1 mg Q2H PRN IVP Moderate Pain (Pain Scale 4-6) 09/12/17 10:15 09/19/17 10:14 09/12/17 10:32 Nitroglycerin 250 ml @ 0 mls/hr Q24H IV 09/12/17 00:15 09/12/17 13:00 09/12/17 08:44 Pantoprazole (Protonix) 40 mg EVERY 12 HOURS IVP 09/12/17 09:00 10/12/17 08:59 09/12/17 08:41 Tramadol HCl (Ultram) 50 mg Q6H PRN ORAL MOD-SEVERE BREAKTHRU PAIN >4 09/12/17 10:30 09/19/17 09:44 Trazodone HCl (Desyrel) 150 mg HSPRN PRN ORAL insomnia 09/12/17 09:45 10/12/17 09:44 Assessment/Plan Problem List: (1) Acute respiratory failure ICD Codes: J96.00 - Acute respiratory failure, unspecified whether with hypoxia or hypercapnia SNOMED: 80382721 (2) Hypertensive emergency ICD Codes: I16.1 - Hypertensive emergency SNOMED: 133536316588337 (3) COPD exacerbation ICD Codes: J44.1 - Chronic obstructive pulmonary disease with (acute) exacerbation SNOMED: 952540427 (4) Diabetes mellitus ICD Codes: E11.9 - Type 2 diabetes mellitus without complications SNOMED: 60106279 (5) COPD (chronic obstructive pulmonary disease) ICD Codes: J44.9 - Chronic obstructive pulmonary disease, unspecified SNOMED: 10065863 Respiratory: monitor respiratory rate, adjust FIO2, CXR - no w and in am. if pulmonary edema resolved i will taper down lasix Cardiac: continue to monitor HR/BP, other - on nitro drip Renal: F/U I&O, check electrolytes Infectious Disease: continue antibiotics - on Ceftriaxone for UTI Gastrointestinal: continue feedings/current rate Endocrine: monitor blood sugar Hematologic: monitor H/H Neurologic: PRN Ativan Prophylaxis: Protonix Time Spent (Minutes): 40 Notes Reviewed: exhauster, cardio Discussed with: nurses, consultants, family independence case manager aMvis Edward MD Sep 12, 2017 10:56
--- NOTE | 2017-09-12 11:30 | Diagnostic Imaging Report ---
Indication: Chest pain Comparison: 08/26/2015 A single view chest radiograph was obtained. Findings: Moderate interstitial edema present with prominent vascularity and heart size. IMPRESSION: Congestive heart failure
--- NOTE | 2017-09-12 12:50 | Diagnostic Imaging Report ---
Indication: Dyspnea Comparison: 09/11/2017 A single view chest radiograph was obtained. Findings: Pulmonary edema significantly improved since the last study. Heart size is normal size. IMPRESSION: Interval resolution of CHF
--- NOTE | 2017-09-12 19:15 | Consultation ---
DATE OF CONSULTATION: 09/12/2017 CARDIOLOGY CONSULTATION CONSULTING PHYSICIAN: René Roman M.D. REFERRING PHYSICIANS: 1. Venkat Marquez M.D. 2. Joseph Muñoz M.D. REASON FOR CONSULTATION: Exacerbation of congestive heart failure as well as atrial fibrillation with rapid ventricular response. HISTORY OF PRESENT ILLNESS: The patient is a 62-year-old -[place] lady with history of hypertension, congestive heart failure as well as diabetes and COPD who presented to the emergency room complaining of chest pain and shortness of breath of few hours duration. The patient's blood pressure was 174/89. The patient was placed initially on non-rebreather and BiPAP and was transferred to intensive care unit on nitroglycerin drip. The patient, however states that she has had a cardiac catheterization last week at [facility] that was negative for any coronary artery disease. In the emergency room, the patient was in atrial fibrillation with rapid ventricular response, heart rate of 144 beats per minute with nonspecific ST-T wave abnormalities. PAST MEDICAL HISTORY: 1. hypertension. 2. Congestive heart failure. 3. COPD. 4. Diabetes. 5. History of hernia. 6. History of cardiac catheterization last week at [facility]. FAMILY HISTORY: Noncontributory. SOCIAL HISTORY: Denies smoking or drinking alcohol. REVIEW OF SYSTEMS: Review of systems was performed and was negative other than what was mentioned in the history of present illness. PHYSICAL EXAMINATION: VITAL SIGNS: Blood pressure of 122/86, pulse is 80, respirations 18, and she is afebrile. HEAD AND NECK: Positive JVD. LUNGS: Coarse rhonchi with decreased breath sounds. CARDIOVASCULAR: Regular S1 and S2 with no gallop or murmur, already converted to sinus rhythm. ABDOMEN: Soft. EXTREMITIES: There is 1+ pitting edema. LABORATORY AND DIAGNOSTIC DATA: Labs show white count was 18.5 went down to 14.9, hemoglobin of 14.7, hematocrit 42.8, and platelet count 264,000. Sodium 137, potassium 3.9, BUN of 21, and glucose of 371. Troponin is negative. Urinalysis showed many bacteria. ASSESSMENT AND PLAN: 1. Exacerbation of congestive heart failure. This is likely due to nonischemic cardiomyopathy based on cardiac catheterization from [facility]. We will obtain a cardiac catheterization report for confirmation. In the meantime, increase the Lasix to 40 mg IV b.i.d. Continue Cozaar 100 mg daily. The patient is also on metoprolol 50 mg daily. 2. Accelerated hypertension. Continue Cozaar 100 mg daily and Norvasc 5 mg b.i.d. and 50 mg daily. Add p.r.n. clonidine to her medical regimen. I will try to taper off nitroglycerin. 3. Atrial fibrillation with rapid ventricular response. The patient converted already to sinus rhythm. Toprol-XL 50 mg daily. The patient is on aspirin. No known prior history of atrial fibrillation, could be precipitated by congestive heart failure. She has clear evidence of recurrent atrial fibrillation. She needs anticoagulation in view of her high risk for thromboembolic event in view of high [id number] score. 4. Possible pneumonia, on ceftriaxone and azithromycin. Thank you very much, Dr. Muñoz, for allowing me to participate in the care of this patient. Please do not hesitate to contact me for any questions regarding my evaluation. René Roman M.D. DR: CÉSAR JOB#: [id number] CC:
[2017-09-12] MEDS: Morphine Sulfate 4mg/ml Inj IVP PRN (20:02)
[2017-09-12] MEDS ORDERED: Atorvastatin 20mg tab ORAL SCH ×2 (21:00)
[2017-09-12] MEDS ORDERED: Heparin 5000 units/ml inj SUBQ SCH (21:00)
[2017-09-12] MEDS: Heparin 5000 units/ml inj SUBQ SCH (21:15)
[2017-09-12] MEDS: Pantoprazole Inj IVP SCH (21:16)
[2017-09-13] VITALS: BP 145/71
[2017-09-13] MEDS: Morphine Sulfate 4mg/ml Inj IVP PRN ×4 (00:06→23:19)
[2017-09-13] MEDS ORDERED: cefTRIAXone 1 GM in D5W 110 ML IVPB SCH ×4 (00:30)
[2017-09-13] MEDS ORDERED: Azithromycin 500 MG in D5W 275 ML IV SCH ×4 (01:00)
[2017-09-13] MEDS ORDERED: cefTRIAXone 1 GM in D5W 55 ML IVPB ONE (01:00)
[2017-09-13] MEDS ORDERED: Azithromycin 500 MG in D5W 275 ML IV ONE (02:30)
[2017-09-13 03:57] LABS: BASOPHILS % (AUTO) 0.4 % (0.0-2.0); EOSINOPHILS % (AUTO) 0.1 % (0.0-3.0); HEMOGLOBIN 13.7 G/DL (12.0-16.0); LYMPHOCYTES % (AUTO) 14.5 % (20.0-45.0); MEAN CORPUSCULAR VOLUME 89 FL (80-99); MONOCYTES % (AUTO) 7.4 % (1.0-10.0); NEUTROPHILS % (AUTO) 77.6 % (45.0-75.0); PLATELET COUNT 233 K/UL (150-450); RED BLOOD COUNT 4.37 M/UL (4.20-5.40); RED CELL DISTRIBUTION WIDTH 12.4 % (11.6-14.8); WHITE BLOOD COUNT 15.3 K/UL (4.8-10.8)
[2017-09-13 04:00] VITALS: BP 157/82
[2017-09-13 04:22] LABS: CHOLESTEROL 183 MG/DL (< 200); HDL CHOLESTEROL 33 MG/DL (40-60); PHOSPHORUS 2.7 MG/DL (2.5-4.9); TRIGLYCERIDES 223 MG/DL (30-150)
[2017-09-13 04:34] LABS: ALANINE AMINOTRANSFERASE 51 U/L (12-78); ALBUMIN 3.4 G/DL (3.4-5.0); ALKALINE PHOSPHATASE 83 U/L (46-116); ANION GAP 10 mmol/L (5-15); ASPARTATE AMINO TRANSFERASE 14 U/L (15-37); BILIRUBIN,TOTAL 0.4 MG/DL (0.2-1.0); BLOOD UREA NITROGEN 26 mg/dL (7-18); CARBON DIOXIDE 27 MMOL/L (21-32); CHLORIDE 102 MMOL/L (98-107); CREATININE 1.1 MG/DL (0.55-1.30); POTASSIUM 3.4 MMOL/L (3.5-5.1); SODIUM 139 MMOL/L (136-145)
[2017-09-13] MEDS: NovoLOG Insulin Flexpen SUBQ SCH ×4 (05:58→21:27)
[2017-09-13 08:00] VITALS: BP 155/83
[2017-09-13] MEDS ORDERED: Aspirin EC 81mg tab ORAL SCH (09:00)
[2017-09-13] MEDS ORDERED: Levemir Flexpen SUBQ SCH (09:00)
[2017-09-13] MEDS ORDERED: Metoprolol Succinate XL 50mg tab ORAL SCH (09:00)
[2017-09-13] MEDS ORDERED: Losartan 50mg tab ORAL SCH ×2 (09:00)
[2017-09-13] MEDS: Pantoprazole Inj IVP SCH ×2 (09:26→21:23)
[2017-09-13] MEDS: Heparin 5000 units/ml inj SUBQ SCH ×2 (09:56→21:25)
[2017-09-13 12:00] VITALS: BP 157/92
[2017-09-13] MEDS ORDERED: NS 275ml ONE (12:09)
[2017-09-13] MEDS ORDERED: Tubing IV Secondary IV ONE (12:09)
--- NOTE | 2017-09-13 12:20 | Pulmonology Progress Note ---
Assessment/Plan Problems: (1) Acute respiratory failure (2) Hypertensive emergency (3) COPD exacerbation (4) Diabetes mellitus (5) COPD (chronic obstructive pulmonary disease) Assessment/Plan respiratory treatment watch intake and output add Spiriva, as she was taking it before sliding scale taper down lasix? Subjective ROS Limited/Unobtainable: No Constitutional: Reports: no symptoms HEENT: Repors: no symptoms Allergies: Coded Allergies: MIDAZOLAM (Verified Adverse Reaction, Unknown, 05/15/15) Objective Last 24 Hour Vital Signs Date Time Temp Pulse Resp B/P (MAP) Pulse Ox O2 Delivery O2 Flow Rate FiO2 09/13/17 09:53 Nasal Cannula 2.0 28 09/13/17 09:52 94 Nasal Cannula 2.0 28 09/13/17 09:27 64 155/83 09/13/17 09:26 155/83 09/13/17 09:26 64 155/83 09/13/17 08:00 97.3 64 24 155/83 100 Bi-pap 97.3 09/13/17 07:53 71 09/13/17 04:00 98.2 65 20 157/82 95 Room Air 98.2 09/13/17 03:41 67 09/13/17 00:00 97.9 69 20 145/71 93 Room Air 97.9 09/13/17 00:00 73 09/12/17 20:00 98.0 105 24 146/84 98 98.0 09/12/17 19:30 Room Air 21 09/12/17 19:30 93 Room Air 21 09/12/17 19:03 85 09/12/17 18:32 65 146/78 09/12/17 17:00 80 14 120/80 100 09/12/17 16:00 98.8 87 16 119/79 99 98.8 09/12/17 16:00 87 09/12/17 15:30 89 16 134/77 100 Nasal Cannula 2.0 09/12/17 15:00 90 18 136/81 100 Nasal Cannula 2.0 09/12/17 14:30 92 16 131/79 100 Nasal Cannula 2.0 09/12/17 14:00 92 16 127/80 100 Nasal Cannula 2.0 09/12/17 13:30 94 17 133/79 99 Nasal Cannula 2.0 09/12/17 13:00 95 18 115/83 98 Nasal Cannula 2.0 09/12/17 12:30 93 17 119/81 99 Nasal Cannula 2.0 Intake and Output 09/12/17 09/13/17 19:00 07:00 Intake Total 368 ml 585 ml Output Total 1770 ml 750 ml Balance -1402 ml -165 ml Intake Oral 250 ml 200 ml IV Total 118 ml 385 ml Output Urine Total 1770 ml 750 ml # Bowel Movements 1 2 General Appearance: WD/WN HEENT: normocephalic Respiratory/Chest: chest wall non-tender, lungs clear Cardiovascular: normal peripheral pulses, regular rhythm Abdomen: normal bowel sounds, soft, non tender, no scars Extremities: no clubbing Skin: no lesions Microbiology Date/Time Source Procedure Growth Status 09/12/17 01:00 Blood Blood Culture - Preliminary NO GROWTH AFTER 24 HOURS Resulted 09/12/17 00:45 Blood Blood Culture - Preliminary NO GROWTH AFTER 24 HOURS Resulted 09/12/17 00:50 Urine,Clean Catch Urine Culture - Preliminary Gram Negative Bacillus 1 Resulted Laboratory Tests 09/13/17 03:25: White Blood Count 15.3H, Red Blood Count 4.37, Hemoglobin 13.7, Hematocrit 39.0 , Mean Corpuscular Volume 89, Mean Corpuscular Hemoglobin 31.4H, Mean Corpuscular Hemoglobin Concent 35.2, Red Cell Distribution Width 12.4, Platelet Count 233, Mean Platelet Volume 9.3, Neutrophils (%) (Auto) 77.6H, Lymphocytes ( %) (Auto) 14.5L, Monocytes (%) (Auto) 7.4, Eosinophils (%) (Auto) 0.1, Basophils (%) (Auto) 0.4, Sodium Level 139, Potassium Level 3.4L, Chloride Level 102, Carbon Dioxide Level 27, Anion Gap 10, Blood Urea Nitrogen 26H, Creatinine 1.1, Estimat Glomerular Filtration Rate > 60, Glucose Level 271#H, Hemoglobin A1c 8.6H, Calcium Level 9.0, Phosphorus Level 2.7, Magnesium Level 1.8, Total Bilirubin 0.4, Aspartate Amino Transf (AST/SGOT) 14L, Alanine Aminotransferase (ALT/SGPT) 51, Alkaline Phosphatase 83, Total Protein 6.8, Albumin 3.4, Globulin 3.4, Albumin/Globulin Ratio 1.0, Triglycerides Level 223H , Cholesterol Level 183, LDL Cholesterol 120H, HDL Cholesterol 33L, Cholesterol/ HDL Ratio 5.5H, Thyroid Stimulating Hormone (TSH) 0.332L Current Medications Medications (Trade) Dose Ordered Sig/Guillermo Route PRN Reason Start Time Stop Time Status Last Admin Dose Admin Acetaminophen (Tylenol) 650 mg Q4H PRN ORAL Mild Pain/Temp > 100.5 09/12/17 17:30 10/12/17 17:29 Amlodipine Besylate (Norvasc) 5 mg BID ORAL 09/12/17 18:00 10/12/17 17:59 09/13/17 09:26 Aspirin (Ecotrin) 81 mg DAILY ORAL 09/13/17 09:00 10/12/17 08:59 09/13/17 09:27 Atorvastatin Calcium (Lipitor) 20 mg BEDTIME ORAL 09/12/17 21:00 10/12/17 20:59 09/12/17 21:14 Azithromycin 500 mg/Dextrose 275 ml @ 275 mls/hr DAILY@0100 IV 09/13/17 01:00 09/20/17 00:59 09/13/17 01:29 Ceftriaxone Sodium 1 gm/ Dextrose 110 ml @ 220 mls/hr DAILY@0030 IVPB 09/13/17 00:30 09/20/17 00:29 09/13/17 00:49 Dextrose (Dextrose 50%) 25 ml STAT PRN IV Hypoglycemia 09/12/17 17:30 10/12/17 17:29 Dextrose (Dextrose 50%) 50 ml STAT PRN IV Hypoglycemia 09/12/17 17:30 10/12/17 17:29 Furosemide (Lasix) 40 mg BID IV 09/12/17 18:00 10/12/17 08:59 09/13/17 09:25 Heparin Sodium (Porcine) (Heparin 5000 units/ml) 5,000 units EVERY 12 HOURS SUBQ 09/12/17 21:00 10/12/17 20:59 09/13/17 09:56 Insulin Aspart (NovoLOG) BEFORE MEALS AND HS SUBQ 09/12/17 21:00 10/12/17 06:29 09/13/17 05:58 Insulin Detemir (Levemir) 25 units DAILY SUBQ 09/13/17 09:00 10/12/17 09:59 09/13/17 10:00 Losartan Potassium (Cozaar) 100 mg DAILY ORAL 09/13/17 09:00 10/13/17 08:59 09/13/17 09:26 Metoprolol Succinate (Toprol XL) 50 mg DAILY ORAL 09/13/17 09:00 10/12/17 08:59 09/13/17 09:27 Morphine Sulfate (Morphine Sulfate) 1 mg Q2H PRN IVP Moderate Pain (Pain Scale 4-6) 09/12/17 18:00 09/19/17 17:59 09/13/17 10:04 Ondansetron HCl (Zofran) 4 mg Q6H PRN IVP Nausea & Vomiting 09/12/17 17:30 10/12/17 11:29 09/13/17 10:25 Pantoprazole (Protonix) 40 mg EVERY 12 HOURS IVP 09/12/17 21:00 10/12/17 08:59 09/13/17 09:26 Tramadol HCl (Ultram) 50 mg Q6H PRN ORAL MOD-SEVERE BREAKTHRU PAIN >4 09/12/17 17:30 09/19/17 17:29 09/12/17 18:32 Trazodone HCl (Desyrel) 150 mg HSPRN PRN ORAL insomnia 09/12/17 17:30 10/12/17 17:29 Mavis Edward MD Sep 13, 2017 12:20
[2017-09-13 16:00] VITALS: BP 140/81
--- NOTE | 2017-09-13 16:06 | Cardiac Electrophysiology PN ---
Assessment/Plan Assessment/Plan 1. Exacerbation of congestive heart failure. This is likely due to nonischemic cardiomyopathy based on cardiac catheterization from [facility].EF 60-65% ?! Awaiting cardiac catheterization report. Continue Lasix to 40 mg IV b.i.d. Cozaar 100 mg daily and metoprolol 50 mg daily. 2. Accelerated hypertension. Continue Cozaar 100 mg daily and Norvasc 5 mg b.i.d., Lasix and Toprol 50 mg daily. 3. Atrial fibrillation with rapid ventricular response. The patient converted already to sinus rhythm. Toprol-XL 50 mg daily. The patient is on aspirin. No known prior history of atrial fibrillation, could be precipitated by congestive heart failure. If she has clear evidence of recurrent atrial fibrillation, she needs anticoagulation in view of her high risk for thromboembolic event in view of high [id number] score. 4. Possible pneumonia, on ceftriaxone and azithromycin. Subjective Subjective Comfortable in NAD. No chest pain. Objective Last 24 Hour Vital Signs Date Time Temp Pulse Resp B/P (MAP) Pulse Ox O2 Delivery O2 Flow Rate FiO2 09/13/17 12:00 97.2 65 19 157/92 99 Bi-pap 97.2 09/13/17 11:37 66 09/13/17 09:53 Nasal Cannula 2.0 28 09/13/17 09:52 94 Nasal Cannula 2.0 28 09/13/17 09:27 64 155/83 09/13/17 09:26 155/83 09/13/17 09:26 64 155/83 09/13/17 08:00 97.3 64 24 155/83 100 Bi-pap 97.3 09/13/17 07:53 71 09/13/17 04:00 98.2 65 20 157/82 95 Room Air 98.2 09/13/17 03:41 67 09/13/17 00:00 97.9 69 20 145/71 93 Room Air 97.9 09/13/17 00:00 73 09/12/17 20:00 98.0 105 24 146/84 98 98.0 09/12/17 19:30 Room Air 21 09/12/17 19:30 93 Room Air 21 09/12/17 19:03 85 09/12/17 18:32 65 146/78 09/12/17 17:00 80 14 120/80 100 09/12/17 16:00 98.8 87 16 119/79 99 98.8 09/12/17 16:00 87 Intake and Output 09/12/17 09/13/17 19:00 07:00 Intake Total 368 ml 585 ml Output Total 1770 ml 750 ml Balance -1402 ml -165 ml Intake Oral 250 ml 200 ml IV Total 118 ml 385 ml Output Urine Total 1770 ml 750 ml # Bowel Movements 1 2 Laboratory Tests Test 09/13/17 03:25 White Blood Count 15.3 K/UL (4.8-10.8) H Red Blood Count 4.37 M/UL (4.20-5.40) Hemoglobin 13.7 G/DL (12.0-16.0) Hematocrit 39.0 % (37.0-47.0) Mean Corpuscular Volume 89 FL (80-99) Mean Corpuscular Hemoglobin 31.4 PG (27.0-31.0) H Mean Corpuscular Hemoglobin Concent 35.2 G/DL (32.0-36.0) Red Cell Distribution Width 12.4 % (11.6-14.8) Platelet Count 233 K/UL (150-450) Mean Platelet Volume 9.3 FL (6.5-10.1) Neutrophils (%) (Auto) 77.6 % (45.0-75.0) H Lymphocytes (%) (Auto) 14.5 % (20.0-45.0) L Monocytes (%) (Auto) 7.4 % (1.0-10.0) Eosinophils (%) (Auto) 0.1 % (0.0-3.0) Basophils (%) (Auto) 0.4 % (0.0-2.0) Sodium Level 139 MMOL/L (136-145) Potassium Level 3.4 MMOL/L (3.5-5.1) L Chloride Level 102 MMOL/L (98-107) Carbon Dioxide Level 27 MMOL/L (21-32) Anion Gap 10 mmol/L (5-15) Blood Urea Nitrogen 26 mg/dL (7-18) H Creatinine 1.1 MG/DL (0.55-1.30) Estimat Glomerular Filtration Rate > 60 mL/min (>60) Glucose Level 271 MG/DL (74-106) #H Hemoglobin A1c 8.6 % (4.3-6.0) H Calcium Level 9.0 MG/DL (8.5-10.1) Phosphorus Level 2.7 MG/DL (2.5-4.9) Magnesium Level 1.8 MG/DL (1.8-2.4) Total Bilirubin 0.4 MG/DL (0.2-1.0) Aspartate Amino Transf (AST/SGOT) 14 U/L (15-37) L Alanine Aminotransferase (ALT/SGPT) 51 U/L (12-78) Alkaline Phosphatase 83 U/L (46-116) Total Protein 6.8 G/DL (6.4-8.2) Albumin 3.4 G/DL (3.4-5.0) Globulin 3.4 g/dL Albumin/Globulin Ratio 1.0 (1.0-2.7) Triglycerides Level 223 MG/DL (30-150) H Cholesterol Level 183 MG/DL (< 200) LDL Cholesterol 120 mg/dL (<100) H HDL Cholesterol 33 MG/DL (40-60) L Cholesterol/HDL Ratio 5.5 (3.3-4.4) H Thyroid Stimulating Hormone (TSH) 0.332 uiU/mL (0.358-3.740) Microbiology Date/Time Source Procedure Growth Status 09/12/17 01:00 Blood Blood Culture - Preliminary NO GROWTH AFTER 24 HOURS Resulted 09/12/17 00:45 Blood Blood Culture - Preliminary NO GROWTH AFTER 24 HOURS Resulted 09/12/17 00:50 Urine,Clean Catch Urine Culture - Preliminary Gram Negative Bacillus 1 Resulted Objective HEAD AND NECK: Positive JVD. LUNGS: Coarse rhonchi with decreased breath sounds. CARDIOVASCULAR: Regular S1 and S2 with no gallop or murmur, already converted to sinus rhythm. ABDOMEN: Soft. EXTREMITIES: 1+ pitting edema. René Roman MD Sep 13, 2017 16:06
[2017-09-13 20:00] VITALS: BP 140/81
[2017-09-13] MEDS: Atorvastatin 20mg tab ORAL SCH (21:23)
--- NOTE | 2017-09-13 23:05 | General Progress Note ---
Assessment/Plan Problem List: (1) UTI (urinary tract infection) ICD Codes: N39.0 - Urinary tract infection, site not specified SNOMED: 91447540 (2) Lactic acidosis ICD Codes: E87.2 - Acidosis SNOMED: 97695055 (3) Acute respiratory failure with hypoxia and hypercapnia ICD Codes: J96.01 - Acute respiratory failure with hypoxia; J96.02 - Acute respiratory failure with hypercapnia SNOMED: 63964108, 15511638, 894850317 (4) Acute on chronic diastolic (congestive) heart failure ICD Codes: I50.33 - Acute on chronic diastolic (congestive) heart failure SNOMED: 12977073, 877135108 (5) Atrial fibrillation with RVR ICD Codes: I48.91 - Unspecified atrial fibrillation SNOMED: 040322096950730 (6) Sepsis ICD Codes: A41.9 - Sepsis, unspecified organism SNOMED: 30968368 (7) Tobacco abuse ICD Codes: Z72.0 - Tobacco use SNOMED: 568354945 (8) lives at home (9) smokes 1 pack cig every 2 days for many years (10) s/p brain aneurysm clipping (11) smokes 1 pack cigarettes every 2 days (12) H/o CVA (13) DM2 (diabetes mellitus, type 2) ICD Codes: E11.9 - Type 2 diabetes mellitus without complications SNOMED: 22421572 (14) HLD (hyperlipidemia) ICD Codes: E78.5 - Hyperlipidemia, unspecified SNOMED: 00233737 (15) HTN (hypertension) ICD Codes: I10 - Essential (primary) hypertension SNOMED: 35076667 (16) Hypertensive heart disease ICD Codes: I11.9 - Hypertensive heart disease without heart failure SNOMED: 72418340 (17) Acute respiratory failure ICD Codes: J96.00 - Acute respiratory failure, unspecified whether with hypoxia or hypercapnia SNOMED: 04848682 (18) CHF (congestive heart failure) ICD Codes: I50.9 - Heart failure, unspecified SNOMED: 83853179 (19) Diabetes mellitus ICD Codes: E11.9 - Type 2 diabetes mellitus without complications SNOMED: 63435617 (20) COPD (chronic obstructive pulmonary disease) ICD Codes: J44.9 - Chronic obstructive pulmonary disease, unspecified SNOMED: 43373356 Status: stable Assessment/Plan Cardiology, pulmonology consulted Trend trop, downtrending Diurese w/ lasix 40mg IV BID Strict I/O's, daily weights Monitor lytes and replete Wean nitro gtt as tolerated Cardiology to assess abt starting AC (Afib appears to be new onset) - patient's CHADS-VASC2 score is high At this time, patient is on ASA but will need anticoagulation prior to discharge. Check TTE BiPAP qHS and PRN Check BLE venous duplex Duonebs ATC and PRN Empiric ceftriaxone and azithro F/u urine culture, blood cultures Cont home meds Pain control, bowel regimen Supportive care Credentialing Specialist on tobacco cessation DVT ppx: SCDs, HSQ At the time of my involvement, the patient's condition was critical with high potential for and/or physiologic deterioration secondary to acute respiratory failure, hypertensive emergency, CHF as delineated in the note above. On the above date of service, I spent a total of 50 minutes in the ICU evaluating, managing, and providing critical care services to this patient, including time spent documenting these activities, counseling patient/family, and coordinating care. Critical care services performed include: Telemetry Review Hemodynamic measurement interpretation Laboratory data review and interpretation Discussion of care plans with patient, family, and/or surrogate decision makers Discussion of patient's care with primary medical team, surgical team, and/or consulting service Decision to obtain further radiologic evaluation, after consideration of risk/ benefit ratio Decision to perform invasive procedure, after consideration of risk/benefit ratio Review of most recent microbiology results with assessment and modification of antimicrobial coverage Discussion of patient's code status and further advancement towards the ultimate goals of care Plan outlined above discussed with patient/family, cardiology, and pulmonology regarding mgmt and dispo. Time of note may not reflect time of encounter. Subjective Date patient seen: Sep 13, 2017 Time patient seen: 15:00 Allergies: Coded Allergies: MIDAZOLAM (Verified Adverse Reaction, Unknown, 05/15/15) Subjective - doing well, denies chest pain or sob - patient continues to be sinus rhythm on tele - TTE showing 55-60% - net negative output 1700 Objective Last 24 Hour Vital Signs Date Time Temp Pulse Resp B/P (MAP) Pulse Ox O2 Delivery O2 Flow Rate FiO2 09/13/17 21:54 81 23 98 Facial 30 09/13/17 20:00 68 09/13/17 20:00 98.1 65 18 140/81 98 Bi-pap 98.1 09/13/17 19:54 98 Nasal Cannula 3.0 32 09/13/17 19:54 70 22 98 Facial 30 09/13/17 19:54 Nasal Cannula 3.0 32 09/13/17 18:00 Room Air 09/13/17 17:46 64 140/81 09/13/17 16:40 92 19 97 Nasal 97 09/13/17 16:00 61 09/13/17 16:00 98.0 64 20 140/81 97 Bi-pap 98.0 09/13/17 15:00 Room Air 09/13/17 14:30 Bi-pap 30 09/13/17 13:30 Bi-pap 30 09/13/17 12:00 97.2 65 19 157/92 99 Bi-pap 97.2 09/13/17 11:37 66 09/13/17 09:53 Nasal Cannula 2.0 28 09/13/17 09:52 94 Nasal Cannula 2.0 28 09/13/17 09:27 64 155/83 09/13/17 09:26 155/83 09/13/17 09:26 64 155/83 09/13/17 08:00 97.3 64 24 155/83 100 Bi-pap 97.3 09/13/17 07:53 71 09/13/17 04:00 98.2 65 20 157/82 95 Room Air 98.2 09/13/17 03:41 67 09/13/17 00:00 97.9 69 20 145/71 93 Room Air 97.9 09/13/17 00:00 73 Intake and Output 09/12/17 09/13/17 19:00 07:00 Intake Total 368 ml 585 ml Output Total 1770 ml 750 ml Balance -1402 ml -165 ml Intake Oral 250 ml 200 ml IV Total 118 ml 385 ml Output Urine Total 1770 ml 750 ml # Bowel Movements 1 2 Laboratory Tests Test 09/13/17 03:25 White Blood Count 15.3 K/UL (4.8-10.8) H Red Blood Count 4.37 M/UL (4.20-5.40) Hemoglobin 13.7 G/DL (12.0-16.0) Hematocrit 39.0 % (37.0-47.0) Mean Corpuscular Volume 89 FL (80-99) Mean Corpuscular Hemoglobin 31.4 PG (27.0-31.0) H Mean Corpuscular Hemoglobin Concent 35.2 G/DL (32.0-36.0) Red Cell Distribution Width 12.4 % (11.6-14.8) Platelet Count 233 K/UL (150-450) Mean Platelet Volume 9.3 FL (6.5-10.1) Neutrophils (%) (Auto) 77.6 % (45.0-75.0) H Lymphocytes (%) (Auto) 14.5 % (20.0-45.0) L Monocytes (%) (Auto) 7.4 % (1.0-10.0) Eosinophils (%) (Auto) 0.1 % (0.0-3.0) Basophils (%) (Auto) 0.4 % (0.0-2.0) Sodium Level 139 MMOL/L (136-145) Potassium Level 3.4 MMOL/L (3.5-5.1) L Chloride Level 102 MMOL/L (98-107) Carbon Dioxide Level 27 MMOL/L (21-32) Anion Gap 10 mmol/L (5-15) Blood Urea Nitrogen 26 mg/dL (7-18) H Creatinine 1.1 MG/DL (0.55-1.30) Estimat Glomerular Filtration Rate > 60 mL/min (>60) Glucose Level 271 MG/DL (74-106) #H Hemoglobin A1c 8.6 % (4.3-6.0) H Calcium Level 9.0 MG/DL (8.5-10.1) Phosphorus Level 2.7 MG/DL (2.5-4.9) Magnesium Level 1.8 MG/DL (1.8-2.4) Total Bilirubin 0.4 MG/DL (0.2-1.0) Aspartate Amino Transf (AST/SGOT) 14 U/L (15-37) L Alanine Aminotransferase (ALT/SGPT) 51 U/L (12-78) Alkaline Phosphatase 83 U/L (46-116) Total Protein 6.8 G/DL (6.4-8.2) Albumin 3.4 G/DL (3.4-5.0) Globulin 3.4 g/dL Albumin/Globulin Ratio 1.0 (1.0-2.7) Triglycerides Level 223 MG/DL (30-150) H Cholesterol Level 183 MG/DL (< 200) LDL Cholesterol 120 mg/dL (<100) H HDL Cholesterol 33 MG/DL (40-60) L Cholesterol/HDL Ratio 5.5 (3.3-4.4) H Thyroid Stimulating Hormone (TSH) 0.332 uiU/mL (0.358-3.740) Intake and Output 09/13/17 09/14/17 19:00 07:00 Intake Total 1050 ml Output Total 2700 ml Balance -1650 ml Intake Oral 1050 ml Output Urine Total 2700 ml # Voids 4 Laboratory Tests 09/13/17 03:25: White Blood Count 15.3H, Red Blood Count 4.37, Hemoglobin 13.7, Hematocrit 39.0 , Mean Corpuscular Volume 89, Mean Corpuscular Hemoglobin 31.4H, Mean Corpuscular Hemoglobin Concent 35.2, Red Cell Distribution Width 12.4, Platelet Count 233, Mean Platelet Volume 9.3, Neutrophils (%) (Auto) 77.6H, Lymphocytes ( %) (Auto) 14.5L, Monocytes (%) (Auto) 7.4, Eosinophils (%) (Auto) 0.1, Basophils (%) (Auto) 0.4, Sodium Level 139, Potassium Level 3.4L, Chloride Level 102, Carbon Dioxide Level 27, Anion Gap 10, Blood Urea Nitrogen 26H, Creatinine 1.1, Estimat Glomerular Filtration Rate > 60, Glucose Level 271#H, Hemoglobin A1c 8.6H, Calcium Level 9.0, Phosphorus Level 2.7, Magnesium Level 1.8, Total Bilirubin 0.4, Aspartate Amino Transf (AST/SGOT) 14L, Alanine Aminotransferase (ALT/SGPT) 51, Alkaline Phosphatase 83, Total Protein 6.8, Albumin 3.4, Globulin 3.4, Albumin/Globulin Ratio 1.0, Triglycerides Level 223H , Cholesterol Level 183, LDL Cholesterol 120H, HDL Cholesterol 33L, Cholesterol/ HDL Ratio 5.5H, Thyroid Stimulating Hormone (TSH) 0.332L Height (Feet): 5 Height (Inches): 6.00 Weight (Pounds): 209 General Appearance: no apparent distress, alert EENT: PERRL/EOMI, normal ENT inspection Neck: non-tender, normal alignment Cardiovascular: normal peripheral pulses, normal rate, regular rhythm Respiratory/Chest: chest wall non-tender, lungs clear, normal breath sounds Abdomen: normal bowel sounds, non tender Edema: trace edema 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 Sep 13, 2017 23:05
[2017-09-13] MEDS ORDERED: traMADol 50mg tab ORAL PRN (23:30)
[2017-09-14] VITALS: BP 142/90
[2017-09-14] MEDS: cefTRIAXone 1 GM in D5W 110 ML IVPB SCH (00:30)
[2017-09-14] MEDS: Azithromycin 500 MG in D5W 275 ML IV SCH (01:00)
[2017-09-14 04:00] VITALS: BP 134/81
[2017-09-14] MEDS: NovoLOG Insulin Flexpen SUBQ SCH ×4 (06:08→21:28)
[2017-09-14 08:01] VITALS: BP 154/84
[2017-09-14] MEDS: Levemir Flexpen SUBQ SCH (09:00)
[2017-09-14] MEDS: Losartan 50mg tab ORAL SCH (09:39)
[2017-09-14] MEDS: Aspirin EC 81mg tab ORAL SCH (09:42)
[2017-09-14] MEDS: Metoprolol Succinate XL 50mg tab ORAL SCH (09:42)
[2017-09-14] MEDS: Pantoprazole Inj IVP SCH ×2 (09:43→21:57)
[2017-09-14] MEDS: Heparin 5000 units/ml inj SUBQ SCH ×2 (09:46→21:29)
[2017-09-14 10:23] LABS: ANION GAP 11 mmol/L (5-15); BLOOD UREA NITROGEN 20 mg/dL (7-18); CALCIUM 9.8 MG/DL (8.5-10.1); CARBON DIOXIDE 22 MMOL/L (21-32); CHLORIDE 103 MMOL/L (98-107); CREATININE 0.9 MG/DL (0.55-1.30); POTASSIUM 3.5 MMOL/L (3.5-5.1); SODIUM 136 MMOL/L (136-145)
[2017-09-14 10:28] LABS: ALANINE AMINOTRANSFERASE 46 U/L (12-78); ALBUMIN 3.6 G/DL (3.4-5.0); ALBUMIN/GLOBULIN RATIO 0.8 (1.0-2.7); ALKALINE PHOSPHATASE 82 U/L (46-116); ASPARTATE AMINO TRANSFERASE 20 U/L (15-37); BILIRUBIN,TOTAL 0.6 MG/DL (0.2-1.0)
[2017-09-14 10:35] LABS: BASOPHILS % (AUTO) 0.8 % (0.0-2.0); EOSINOPHILS % (AUTO) 0.9 % (0.0-3.0); HEMATOCRIT 49.9 % (37.0-47.0); HEMOGLOBIN 17.3 G/DL (12.0-16.0); LYMPHOCYTES % (AUTO) 22.4 % (20.0-45.0); MEAN CORPUSCULAR VOLUME 89 FL (80-99); MONOCYTES % (AUTO) 7.5 % (1.0-10.0); NEUTROPHILS % (AUTO) 68.3 % (45.0-75.0); PLATELET COUNT 241 K/UL (150-450); RED BLOOD COUNT 5.59 M/UL (4.20-5.40); RED CELL DISTRIBUTION WIDTH 12.4 % (11.6-14.8); WHITE BLOOD COUNT 10.8 K/UL (4.8-10.8)
[2017-09-14] MEDS: Morphine Sulfate 4mg/ml Inj IVP PRN ×2 (11:54→21:58)
[2017-09-14 12:00] VITALS: BP 140/86
--- NOTE | 2017-09-14 12:30 | Pulmonology Progress Note ---
Assessment/Plan Problems: (1) Acute respiratory failure (2) Hypertensive emergency (3) COPD exacerbation (4) Diabetes mellitus (5) COPD (chronic obstructive pulmonary disease) Assessment/Plan respiratory treatment watch intake and output add Spiriva, as she was taking it before sliding scale check cxr and bnp in am on Lasix 40 BIC Subjective ROS Limited/Unobtainable: No Interval Events: st Constitutional: Reports: no symptoms HEENT: Repors: no symptoms Respiratory: Reports: no symptoms Allergies: Coded Allergies: MIDAZOLAM (Verified Adverse Reaction, Unknown, 05/15/15) Objective Last 24 Hour Vital Signs Date Time Temp Pulse Resp B/P (MAP) Pulse Ox O2 Delivery O2 Flow Rate FiO2 09/14/17 09:42 61 154/84 09/14/17 09:41 61 154/84 09/14/17 09:39 154/84 09/14/17 08:40 88 18 98 Room Air 21 09/14/17 08:37 88 18 98 Room Air 21 09/14/17 08:01 97.0 57 18 154/84 100 97.0 09/14/17 08:00 57 09/14/17 06:30 Room Air 21 09/14/17 06:30 97 Room Air 21 09/14/17 04:00 97.5 68 20 134/81 94 Bi-pap 97.5 09/14/17 04:00 68 09/14/17 00:00 66 09/14/17 00:00 97.7 64 20 142/90 96 Bi-pap 97.7 09/13/17 23:08 75 23 97 Facial 30 09/13/17 21:54 81 23 98 Facial 30 09/13/17 20:00 68 09/13/17 20:00 98.1 65 18 140/81 98 Bi-pap 98.1 09/13/17 19:54 98 Nasal Cannula 3.0 32 09/13/17 19:54 70 22 98 Facial 30 09/13/17 19:54 Nasal Cannula 3.0 32 09/13/17 18:00 Room Air 09/13/17 17:46 64 140/81 09/13/17 16:40 92 19 97 Nasal 97 09/13/17 16:00 61 09/13/17 16:00 98.0 64 20 140/81 97 Bi-pap 98.0 09/13/17 15:00 Room Air 09/13/17 14:30 Bi-pap 30 09/13/17 13:30 Bi-pap 30 Intake and Output 09/13/17 09/14/17 19:00 07:00 Intake Total 1050 ml Output Total 2700 ml 900 ml Balance -1650 ml -900 ml Intake Oral 1050 ml Output Urine Total 2700 ml 900 ml # Voids 4 Objective General Appearance: WD/WN Lines, tubes and drains: peripheral, central line HEENT: normocephalic, atraumatic Neck: non-tender, supple Chest: decreased breath sound Breasts: no masses Cardiovascular/Chest: normal rate Abdomen: normal bowel sounds, non tender Extremities: moderate edema Skin Exam: other Microbiology Date/Time Source Procedure Growth Status 09/12/17 01:00 Blood Blood Culture - Preliminary NO GROWTH AFTER 48 HOURS Resulted 09/12/17 00:45 Blood Blood Culture - Preliminary NO GROWTH AFTER 48 HOURS Resulted 09/12/17 02:00 Nasal Nares MRSA Culture - Final NO METHICILLIN RESISTANT STAPH AUREUS... Complete 09/12/17 00:50 Urine,Clean Catch Urine Culture - Final Escherichia Coli Mixed Gram Positive Organism Complete 09/12/17 02:00 Rectum VRE Culture - Final NO VANCOMYCIN RESISTANT ENTEROCOCCUS ... Complete Laboratory Tests 09/14/17 09:45: White Blood Count 10.8, Red Blood Count 5.59H, Hemoglobin 17.3H, Hematocrit 49.9H, Mean Corpuscular Volume 89, Mean Corpuscular Hemoglobin 31.0, Mean Corpuscular Hemoglobin Concent 34.7, Red Cell Distribution Width 12.4, Platelet Count 241, Mean Platelet Volume 9.0, Neutrophils (%) (Auto) 68.3, Lymphocytes (% ) (Auto) 22.4, Monocytes (%) (Auto) 7.5, Eosinophils (%) (Auto) 0.9, Basophils ( %) (Auto) 0.8, Sodium Level 136, Potassium Level 3.5, Chloride Level 103, Carbon Dioxide Level 22, Anion Gap 11, Blood Urea Nitrogen 20H, Creatinine 0.9, Estimat Glomerular Filtration Rate > 60, Glucose Level 190H, Calcium Level 9.8, Magnesium Level 2.0, Total Bilirubin 0.6, Aspartate Amino Transf (AST/SGOT) 20, Alanine Aminotransferase (ALT/SGPT) 46, Alkaline Phosphatase 82, Pro-B-Type Natriuretic Peptide 1101H, Total Protein 8.1, Albumin 3.6, Globulin 4.5, Albumin /Globulin Ratio 0.8L Current Medications Medications (Trade) Dose Ordered Sig/Guillermo Route PRN Reason Start Time Stop Time Status Last Admin Dose Admin Acetaminophen (Tylenol) 650 mg Q4H PRN ORAL Mild Pain/Temp > 100.5 09/13/17 21:30 10/12/17 17:29 Amlodipine Besylate (Norvasc) 5 mg BID ORAL 09/14/17 09:00 10/12/17 17:59 09/14/17 09:41 Aspirin (Ecotrin) 81 mg DAILY ORAL 09/14/17 09:00 10/12/17 08:59 09/14/17 09:42 Atorvastatin Calcium (Lipitor) 20 mg BEDTIME ORAL 09/13/17 21:00 10/12/17 20:59 09/13/17 21:23 Azithromycin 500 mg/Dextrose 275 ml @ 275 mls/hr DAILY@0100 IV 09/14/17 01:00 09/20/17 00:59 09/14/17 01:00 Ceftriaxone Sodium 1 gm/ Dextrose 110 ml @ 220 mls/hr DAILY@0030 IVPB 09/14/17 00:30 09/20/17 00:29 09/14/17 00:30 Dextrose (Dextrose 50%) 25 ml STAT PRN IV Hypoglycemia 09/14/17 17:30 10/12/17 17:29 Dextrose (Dextrose 50%) 50 ml STAT PRN IV Hypoglycemia 09/14/17 17:30 10/12/17 17:29 Furosemide (Lasix) 40 mg BID IV 09/14/17 09:00 10/12/17 08:59 09/14/17 09:43 Heparin Sodium (Porcine) (Heparin 5000 units/ml) 5,000 units EVERY 12 HOURS SUBQ 09/13/17 21:00 10/12/17 20:59 09/14/17 09:46 Insulin Aspart (NovoLOG) BEFORE MEALS AND HS SUBQ 09/13/17 21:00 10/12/17 06:29 09/14/17 06:08 Insulin Detemir (Levemir) 25 units DAILY SUBQ 09/14/17 09:00 10/12/17 09:59 Losartan Potassium (Cozaar) 100 mg DAILY ORAL 09/14/17 09:00 10/13/17 08:59 09/14/17 09:39 Metoprolol Succinate (Toprol XL) 50 mg DAILY ORAL 09/14/17 09:00 10/12/17 08:59 09/14/17 09:42 Morphine Sulfate (Morphine Sulfate) 1 mg Q2H PRN IVP Moderate Pain (Pain Scale 4-6) 09/13/17 20:00 09/19/17 17:59 09/14/17 11:54 Ondansetron HCl (Zofran) 4 mg Q6H PRN IVP Nausea & Vomiting 09/13/17 23:30 10/12/17 11:29 09/13/17 22:59 Pantoprazole (Protonix) 40 mg EVERY 12 HOURS IVP 09/13/17 21:00 10/12/17 08:59 09/14/17 09:43 Tiotropium [place] (Spiriva Inhaler) 1 puff TWICE A DAY INH 09/14/17 09:00 10/13/17 17:59 09/14/17 08:37 Tramadol HCl (Ultram) 50 mg Q6H PRN ORAL MOD-SEVERE BREAKTHRU PAIN >4 09/13/17 23:30 09/19/17 17:29 09/14/17 02:06 Trazodone HCl (Desyrel) 150 mg HSPRN PRN ORAL insomnia 09/14/17 17:30 10/12/17 17:29 Mavis Edward MD Sep 14, 2017 12:30
--- NOTE | 2017-09-14 12:38 | Cardiac Electrophysiology PN ---
Assessment/Plan Assessment/Plan 1. Exacerbation of congestive heart failure. Has Hx of nonischemic cardiomyopathy based on cardiac catheterization from [facility].Here EF 60-65% ?! Awaiting cardiac catheterization report. Decrease Lasix to 40 mg IV daily Cozaar 100 mg daily and metoprolol 50 mg daily. 2. Accelerated hypertension. Continue Cozaar 100 mg daily and Norvasc 5mg b.i.d., Lasix and Toprol 50 mg daily. 3. Atrial fibrillation with rapid ventricular response. The patient converted already to sinus rhythm. Toprol-XL 50 mg daily. The patient is on aspirin. No known prior history of atrial fibrillation, could be precipitated by congestive heart failure. If she has recurrent atrial fibrillation, she needs anticoagulation in view of her high risk for thromboembolic event in view of high [id number] score. 4. Possible pneumonia, on ceftriaxone and azithromycin. JITENDRA RN Subjective Subjective Comfortable in NAD. No chest pain or arrhythmias Objective Last 24 Hour Vital Signs Date Time Temp Pulse Resp B/P (MAP) Pulse Ox O2 Delivery O2 Flow Rate FiO2 09/14/17 09:42 61 154/84 09/14/17 09:41 61 154/84 09/14/17 09:39 154/84 09/14/17 08:40 88 18 98 Room Air 21 09/14/17 08:37 88 18 98 Room Air 21 09/14/17 08:01 97.0 57 18 154/84 100 97.0 09/14/17 08:00 57 09/14/17 06:30 Room Air 21 09/14/17 06:30 97 Room Air 21 09/14/17 04:00 97.5 68 20 134/81 94 Bi-pap 97.5 09/14/17 04:00 68 09/14/17 00:00 66 09/14/17 00:00 97.7 64 20 142/90 96 Bi-pap 97.7 09/13/17 23:08 75 23 97 Facial 30 09/13/17 21:54 81 23 98 Facial 30 09/13/17 20:00 68 09/13/17 20:00 98.1 65 18 140/81 98 Bi-pap 98.1 09/13/17 19:54 98 Nasal Cannula 3.0 32 09/13/17 19:54 70 22 98 Facial 30 09/13/17 19:54 Nasal Cannula 3.0 32 09/13/17 18:00 Room Air 09/13/17 17:46 64 140/81 09/13/17 16:40 92 19 97 Nasal 97 09/13/17 16:00 61 09/13/17 16:00 98.0 64 20 140/81 97 Bi-pap 98.0 09/13/17 15:00 Room Air 09/13/17 14:30 Bi-pap 30 09/13/17 13:30 Bi-pap 30 Intake and Output 09/13/17 09/14/17 19:00 07:00 Intake Total 1050 ml Output Total 2700 ml 900 ml Balance -1650 ml -900 ml Intake Oral 1050 ml Output Urine Total 2700 ml 900 ml # Voids 4 Laboratory Tests Test 09/14/17 09:45 White Blood Count 10.8 K/UL (4.8-10.8) Red Blood Count 5.59 M/UL (4.20-5.40) H Hemoglobin 17.3 G/DL (12.0-16.0) H Hematocrit 49.9 % (37.0-47.0) H Mean Corpuscular Volume 89 FL (80-99) Mean Corpuscular Hemoglobin 31.0 PG (27.0-31.0) Mean Corpuscular Hemoglobin Concent 34.7 G/DL (32.0-36.0) Red Cell Distribution Width 12.4 % (11.6-14.8) Platelet Count 241 K/UL (150-450) Mean Platelet Volume 9.0 FL (6.5-10.1) Neutrophils (%) (Auto) 68.3 % (45.0-75.0) Lymphocytes (%) (Auto) 22.4 % (20.0-45.0) Monocytes (%) (Auto) 7.5 % (1.0-10.0) Eosinophils (%) (Auto) 0.9 % (0.0-3.0) Basophils (%) (Auto) 0.8 % (0.0-2.0) Sodium Level 136 MMOL/L (136-145) Potassium Level 3.5 MMOL/L (3.5-5.1) Chloride Level 103 MMOL/L (98-107) Carbon Dioxide Level 22 MMOL/L (21-32) Anion Gap 11 mmol/L (5-15) Blood Urea Nitrogen 20 mg/dL (7-18) H Creatinine 0.9 MG/DL (0.55-1.30) Estimat Glomerular Filtration Rate > 60 mL/min (>60) Glucose Level 190 MG/DL (74-106) H Calcium Level 9.8 MG/DL (8.5-10.1) Magnesium Level 2.0 MG/DL (1.8-2.4) Total Bilirubin 0.6 MG/DL (0.2-1.0) Aspartate Amino Transf (AST/SGOT) 20 U/L (15-37) Alanine Aminotransferase (ALT/SGPT) 46 U/L (12-78) Alkaline Phosphatase 82 U/L (46-116) Pro-B-Type Natriuretic Peptide 1101 pg/mL (0-125) H Total Protein 8.1 G/DL (6.4-8.2) Albumin 3.6 G/DL (3.4-5.0) Globulin 4.5 g/dL Albumin/Globulin Ratio 0.8 (1.0-2.7) L Microbiology Date/Time Source Procedure Growth Status 09/12/17 01:00 Blood Blood Culture - Preliminary NO GROWTH AFTER 48 HOURS Resulted 09/12/17 00:45 Blood Blood Culture - Preliminary NO GROWTH AFTER 48 HOURS Resulted 09/12/17 02:00 Nasal Nares MRSA Culture - Final NO METHICILLIN RESISTANT STAPH AUREUS... Complete 09/12/17 00:50 Urine,Clean Catch Urine Culture - Final Escherichia Coli Mixed Gram Positive Organism Complete 09/12/17 02:00 Rectum VRE Culture - Final NO VANCOMYCIN RESISTANT ENTEROCOCCUS ... Complete Objective HEAD AND NECK: Positive JVD. LUNGS: Coarse rhonchi with decreased breath sounds. CARDIOVASCULAR: Regular S1 and S2 with no gallop or murmur ABDOMEN: Soft. EXTREMITIES: 1+ pitting edema. René Roman MD Sep 14, 2017 12:38
[2017-09-14 16:00] VITALS: BP 160/92
[2017-09-14] MEDS ORDERED: TraZODone 50mg tab ORAL PRN (17:30)
[2017-09-14 20:00] VITALS: BP 143/91
[2017-09-14] MEDS: Atorvastatin 20mg tab ORAL SCH (21:24)
[2017-09-14] MEDS: Miralax 17gm pkt ORAL SCH (21:24)
--- NOTE | 2017-09-14 23:43 | General Progress Note ---
Assessment/Plan Problem List: (1) UTI (urinary tract infection) ICD Codes: N39.0 - Urinary tract infection, site not specified SNOMED: 57307618 (2) Lactic acidosis ICD Codes: E87.2 - Acidosis SNOMED: 84234772 (3) Acute respiratory failure with hypoxia and hypercapnia ICD Codes: J96.01 - Acute respiratory failure with hypoxia; J96.02 - Acute respiratory failure with hypercapnia SNOMED: 77054493, 53309108, 655497638 (4) Acute on chronic diastolic (congestive) heart failure ICD Codes: I50.33 - Acute on chronic diastolic (congestive) heart failure SNOMED: 54573964, 838710154 (5) Atrial fibrillation with RVR ICD Codes: I48.91 - Unspecified atrial fibrillation SNOMED: 193884115851724 (6) Sepsis ICD Codes: A41.9 - Sepsis, unspecified organism SNOMED: 19633026 (7) Tobacco abuse ICD Codes: Z72.0 - Tobacco use SNOMED: 589479955 (8) lives at home (9) smokes 1 pack cig every 2 days for many years (10) s/p brain aneurysm clipping (11) smokes 1 pack cigarettes every 2 days (12) H/o CVA (13) DM2 (diabetes mellitus, type 2) ICD Codes: E11.9 - Type 2 diabetes mellitus without complications SNOMED: 87554903 (14) HLD (hyperlipidemia) ICD Codes: E78.5 - Hyperlipidemia, unspecified SNOMED: 97587237 (15) HTN (hypertension) ICD Codes: I10 - Essential (primary) hypertension SNOMED: 12794041 (16) Hypertensive heart disease ICD Codes: I11.9 - Hypertensive heart disease without heart failure SNOMED: 28165285 (17) Acute respiratory failure ICD Codes: J96.00 - Acute respiratory failure, unspecified whether with hypoxia or hypercapnia SNOMED: 41428316 (18) CHF (congestive heart failure) ICD Codes: I50.9 - Heart failure, unspecified SNOMED: 59539885 (19) Diabetes mellitus ICD Codes: E11.9 - Type 2 diabetes mellitus without complications SNOMED: 64406803 (20) COPD (chronic obstructive pulmonary disease) ICD Codes: J44.9 - Chronic obstructive pulmonary disease, unspecified SNOMED: 16058590 Status: stable Assessment/Plan Cardiology, pulmonology consulted Trend trop, downtrending Diurese w/ lasix 40mg IV BID --> decreased to lasix 40mg IV qd Strict I/O's, daily weights Monitor lytes and replete Wean nitro gtt as tolerated Cardiology to assess abt starting AC (Afib appears to be new onset) - patient's CHADS-VASC2 score is high At this time, patient is on ASA and if patient has recurrent A. fibb, patient will need anticoagulation Check TTE --> 55-60% EF BiPAP qHS and PRN Check BLE venous duplex - negative Duonebs ATC and PRN Empiric ceftriaxone and azithro F/u urine culture - E. 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 Time of note may not reflect time of encounter. Subjective Date patient seen: Sep 14, 2017 Time patient seen: 11:10 Allergies: Coded Allergies: MIDAZOLAM (Verified Adverse Reaction, Unknown, 05/15/15) Subjective - WBC 10.8 today - awaiting cardiac cath report - doing well, denies chest pain or sob - patient continues to be sinus rhythm on tele - TTE showing 55-60% Objective Last 24 Hour Vital Signs Date Time Temp Pulse Resp B/P (MAP) Pulse Ox O2 Delivery O2 Flow Rate FiO2 09/14/17 20:27 65 18 94 Room Air 21 09/14/17 20:22 65 18 94 Room Air 21 09/14/17 20:20 94 Room Air 21 09/14/17 20:20 Room Air 21 09/14/17 20:00 98.1 65 18 143/91 94 98.1 09/14/17 17:51 64 160/92 09/14/17 16:00 97.3 60 18 160/92 100 Room Air 97.3 09/14/17 16:00 64 09/14/17 12:00 61 09/14/17 12:00 97.9 83 18 140/86 100 Room Air 97.9 09/14/17 09:42 61 154/84 09/14/17 09:41 61 154/84 09/14/17 09:39 154/84 09/14/17 08:40 88 18 98 Room Air 21 09/14/17 08:37 88 18 98 Room Air 21 09/14/17 08:01 97.0 57 18 154/84 100 97.0 09/14/17 08:00 57 09/14/17 06:30 Room Air 21 09/14/17 06:30 97 Room Air 21 09/14/17 04:00 97.5 68 20 134/81 94 Bi-pap 97.5 09/14/17 04:00 68 09/14/17 00:00 66 09/14/17 00:00 97.7 64 20 142/90 96 Bi-pap 97.7 Intake and Output 09/13/17 09/14/17 19:00 07:00 Intake Total 1050 ml Output Total 2700 ml 900 ml Balance -1650 ml -900 ml Intake Oral 1050 ml Output Urine Total 2700 ml 900 ml # Voids 4 Intake and Output 09/13/17 09/14/17 19:00 07:00 Intake Total 1050 ml Output Total 2700 ml 900 ml Balance -1650 ml -900 ml Intake Oral 1050 ml Output Urine Total 2700 ml 900 ml # Voids 4 Laboratory Tests Test 09/14/17 09:45 White Blood Count 10.8 K/UL (4.8-10.8) Red Blood Count 5.59 M/UL (4.20-5.40) H Hemoglobin 17.3 G/DL (12.0-16.0) H Hematocrit 49.9 % (37.0-47.0) H Mean Corpuscular Volume 89 FL (80-99) Mean Corpuscular Hemoglobin 31.0 PG (27.0-31.0) Mean Corpuscular Hemoglobin Concent 34.7 G/DL (32.0-36.0) Red Cell Distribution Width 12.4 % (11.6-14.8) Platelet Count 241 K/UL (150-450) Mean Platelet Volume 9.0 FL (6.5-10.1) Neutrophils (%) (Auto) 68.3 % (45.0-75.0) Lymphocytes (%) (Auto) 22.4 % (20.0-45.0) Monocytes (%) (Auto) 7.5 % (1.0-10.0) Eosinophils (%) (Auto) 0.9 % (0.0-3.0) Basophils (%) (Auto) 0.8 % (0.0-2.0) Sodium Level 136 MMOL/L (136-145) Potassium Level 3.5 MMOL/L (3.5-5.1) Chloride Level 103 MMOL/L (98-107) Carbon Dioxide Level 22 MMOL/L (21-32) Anion Gap 11 mmol/L (5-15) Blood Urea Nitrogen 20 mg/dL (7-18) H Creatinine 0.9 MG/DL (0.55-1.30) Estimat Glomerular Filtration Rate > 60 mL/min (>60) Glucose Level 190 MG/DL (74-106) H Calcium Level 9.8 MG/DL (8.5-10.1) Magnesium Level 2.0 MG/DL (1.8-2.4) Total Bilirubin 0.6 MG/DL (0.2-1.0) Aspartate Amino Transf (AST/SGOT) 20 U/L (15-37) Alanine Aminotransferase (ALT/SGPT) 46 U/L (12-78) Alkaline Phosphatase 82 U/L (46-116) Pro-B-Type Natriuretic Peptide 1101 pg/mL (0-125) H Total Protein 8.1 G/DL (6.4-8.2) Albumin 3.6 G/DL (3.4-5.0) Globulin 4.5 g/dL Albumin/Globulin Ratio 0.8 (1.0-2.7) L Laboratory Tests 09/14/17 09:45: White Blood Count 10.8, Red Blood Count 5.59H, Hemoglobin 17.3H, Hematocrit 49.9H, Mean Corpuscular Volume 89, Mean Corpuscular Hemoglobin 31.0, Mean Corpuscular Hemoglobin Concent 34.7, Red Cell Distribution Width 12.4, Platelet Count 241, Mean Platelet Volume 9.0, Neutrophils (%) (Auto) 68.3, Lymphocytes (% ) (Auto) 22.4, Monocytes (%) (Auto) 7.5, Eosinophils (%) (Auto) 0.9, Basophils ( %) (Auto) 0.8, Sodium Level 136, Potassium Level 3.5, Chloride Level 103, Carbon Dioxide Level 22, Anion Gap 11, Blood Urea Nitrogen 20H, Creatinine 0.9, Estimat Glomerular Filtration Rate > 60, Glucose Level 190H, Calcium Level 9.8, Magnesium Level 2.0, Total Bilirubin 0.6, Aspartate Amino Transf (AST/SGOT) 20, Alanine Aminotransferase (ALT/SGPT) 46, Alkaline Phosphatase 82, Pro-B-Type Natriuretic Peptide 1101H, Total Protein 8.1, Albumin 3.6, Globulin 4.5, Albumin /Globulin Ratio 0.8L Height (Feet): 5 Height (Inches): 6.00 Weight (Pounds): 209 General Appearance: no apparent distress, alert EENT: PERRL/EOMI, normal ENT inspection Neck: non-tender, normal alignment, supple Cardiovascular: normal peripheral pulses, normal rate, regular rhythm Respiratory/Chest: chest wall non-tender, lungs clear, normal breath sounds Abdomen: normal bowel sounds, non tender, soft Extremities: normal range of motion, non-tender 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 Sep 14, 2017 23:43
[2017-09-15] VITALS: BP 155/85
[2017-09-15] MEDS: cefTRIAXone 1 GM in D5W 110 ML IVPB SCH (00:39)
[2017-09-15] MEDS: Azithromycin 500 MG in D5W 275 ML IV SCH (01:29)
[2017-09-15 04:00] VITALS: BP 134/66
[2017-09-15] MEDS: NovoLOG Insulin Flexpen SUBQ SCH ×2 (07:04→12:25)
[2017-09-15 07:51] LABS: BASOPHILS % (AUTO) 0.8 % (0.0-2.0); EOSINOPHILS % (AUTO) 1.7 % (0.0-3.0); HEMATOCRIT 42.6 % (37.0-47.0); HEMOGLOBIN 14.9 G/DL (12.0-16.0); LYMPHOCYTES % (AUTO) 29.3 % (20.0-45.0); MEAN CORPUSCULAR VOLUME 89 FL (80-99); MONOCYTES % (AUTO) 7.4 % (1.0-10.0); NEUTROPHILS % (AUTO) 60.8 % (45.0-75.0); PLATELET COUNT 229 K/UL (150-450); RED BLOOD COUNT 4.79 M/UL (4.20-5.40); WHITE BLOOD COUNT 7.9 K/UL (4.8-10.8)
[2017-09-15 08:00] VITALS: BP 139/66
[2017-09-15 08:14] LABS: ALANINE AMINOTRANSFERASE 36 U/L (12-78); ALBUMIN 3.2 G/DL (3.4-5.0); ALBUMIN/GLOBULIN RATIO 0.9 (1.0-2.7); ALKALINE PHOSPHATASE 71 U/L (46-116); ANION GAP 6 mmol/L (5-15); ASPARTATE AMINO TRANSFERASE 12 U/L (15-37); BILIRUBIN,TOTAL 0.7 MG/DL (0.2-1.0); BLOOD UREA NITROGEN 19 mg/dL (7-18); CALCIUM 9.7 MG/DL (8.5-10.1); CARBON DIOXIDE 29 MMOL/L (21-32); CHLORIDE 104 MMOL/L (98-107); CREATININE 0.9 MG/DL (0.55-1.30); POTASSIUM 3.4 MMOL/L (3.5-5.1); SODIUM 138 MMOL/L (136-145)
[2017-09-15] MEDS: Miralax 17gm pkt ORAL SCH (09:13)
[2017-09-15] MEDS: Pantoprazole Inj IVP SCH (09:14)
[2017-09-15] MEDS: Aspirin EC 81mg tab ORAL SCH (09:15)
[2017-09-15] MEDS: Losartan 50mg tab ORAL SCH (09:15)
[2017-09-15] MEDS: Metoprolol Succinate XL 50mg tab ORAL SCH (09:15)
[2017-09-15] MEDS: Heparin 5000 units/ml inj SUBQ SCH (09:24)
[2017-09-15] MEDS: Levemir Flexpen SUBQ SCH (09:25)
--- NOTE | 2017-09-15 10:39 | Pulmonology Progress Note ---
Assessment/Plan Problems: (1) Acute respiratory failure (2) Hypertensive emergency (3) COPD exacerbation (4) Diabetes mellitus (5) COPD (chronic obstructive pulmonary disease) Assessment/Plan respiratory treatment watch intake and output add Spiriva, as she was taking it before sliding scale dc abx, sputum negative, no fever, on Lasix 40 QD now Subjective ROS Limited/Unobtainable: No Interval Events: less SOB, sinus rhythm with PVC' Allergies: Coded Allergies: MIDAZOLAM (Verified Adverse Reaction, Unknown, 05/15/15) Objective Last 24 Hour Vital Signs Date Time Temp Pulse Resp B/P (MAP) Pulse Ox O2 Delivery O2 Flow Rate FiO2 09/15/17 09:43 72 18 95 Room Air 21 09/15/17 09:41 72 18 96 Room Air 21 09/15/17 09:15 68 139/66 09/15/17 09:15 139/66 09/15/17 09:15 68 139/66 09/15/17 08:12 Room Air 21 09/15/17 08:12 95 Room Air 21 09/15/17 08:00 96.8 68 18 139/66 100 Room Air 96.8 09/15/17 04:00 98.1 65 20 134/66 97 Room Air 21 98.1 09/15/17 04:00 60 09/15/17 00:00 61 09/15/17 00:00 98.1 68 20 155/85 94 98.1 09/14/17 20:27 65 18 94 Room Air 21 09/14/17 20:22 65 18 94 Room Air 21 09/14/17 20:20 94 Room Air 21 09/14/17 20:20 Room Air 21 09/14/17 20:00 58 09/14/17 20:00 98.1 65 18 143/91 94 98.1 09/14/17 17:51 64 160/92 09/14/17 16:00 97.3 60 18 160/92 100 Room Air 97.3 09/14/17 16:00 64 09/14/17 12:00 61 09/14/17 12:00 97.9 83 18 140/86 100 Room Air 97.9 Intake and Output 09/14/17 09/15/17 19:00 07:00 Intake Total 640 ml 625 ml Output Total 1 ml Balance 639 ml 625 ml Intake Oral 640 ml 240 ml IV Total 385 ml Output Urine Total 1 ml # Voids 5 Objective General Appearance: WD/WN Lines, tubes and drains: peripheral, central line HEENT: normocephalic, atraumatic Neck: non-tender, supple Chest: decreased breath sound Breasts: no masses Cardiovascular/Chest: normal rate Abdomen: normal bowel sounds, non tender Extremities: moderate edema Skin Exam: other Laboratory Tests 09/15/17 06:35: White Blood Count 7.9, Red Blood Count 4.79, Hemoglobin 14.9, Hematocrit 42.6, Mean Corpuscular Volume 89, Mean Corpuscular Hemoglobin 31.0, Mean Corpuscular Hemoglobin Concent 34.9, Red Cell Distribution Width 12.0, Platelet Count 229, Mean Platelet Volume 8.9, Neutrophils (%) (Auto) 60.8, Lymphocytes (%) (Auto) 29.3, Monocytes (%) (Auto) 7.4, Eosinophils (%) (Auto) 1.7, Basophils (%) (Auto ) 0.8, Sodium Level 138, Potassium Level 3.4L, Chloride Level 104, Carbon Dioxide Level 29, Anion Gap 6, Blood Urea Nitrogen 19H, Creatinine 0.9, Estimat Glomerular Filtration Rate > 60, Glucose Level 169H, Calcium Level 9.7, Total Bilirubin 0.7, Aspartate Amino Transf (AST/SGOT) 12L, Alanine Aminotransferase ( ALT/SGPT) 36, Alkaline Phosphatase 71, Pro-B-Type Natriuretic Peptide 1007H, Total Protein 6.9, Albumin 3.2L, Globulin 3.7, Albumin/Globulin Ratio 0.9L Current Medications Medications (Trade) Dose Ordered Sig/Guillermo Route PRN Reason Start Time Stop Time Status Last Admin Dose Admin Acetaminophen (Tylenol) 650 mg Q4H PRN ORAL Mild Pain/Temp > 100.5 09/13/17 21:30 10/12/17 17:29 Amlodipine Besylate (Norvasc) 5 mg BID ORAL 09/14/17 09:00 10/12/17 17:59 09/15/17 09:15 Aspirin (Ecotrin) 81 mg DAILY ORAL 09/14/17 09:00 10/12/17 08:59 09/15/17 09:15 Atorvastatin Calcium (Lipitor) 20 mg BEDTIME ORAL 09/13/17 21:00 10/12/17 20:59 09/14/17 21:24 Azithromycin 500 mg/Dextrose 275 ml @ 275 mls/hr DAILY@0100 IV 09/14/17 01:00 09/20/17 00:59 09/15/17 01:29 Ceftriaxone Sodium 1 gm/ Dextrose 110 ml @ 220 mls/hr DAILY@0030 IVPB 09/14/17 00:30 09/20/17 00:29 09/15/17 00:39 Dextrose (Dextrose 50%) 25 ml STAT PRN IV Hypoglycemia 09/14/17 17:30 10/12/17 17:29 Dextrose (Dextrose 50%) 50 ml STAT PRN IV Hypoglycemia 09/14/17 17:30 10/12/17 17:29 Furosemide (Lasix) 40 mg DAILY IV 09/15/17 09:00 10/12/17 08:59 09/15/17 09:14 Heparin Sodium (Porcine) (Heparin 5000 units/ml) 5,000 units EVERY 12 HOURS SUBQ 09/13/17 21:00 10/12/17 20:59 09/15/17 09:24 Insulin Aspart (NovoLOG) BEFORE MEALS AND HS SUBQ 09/13/17 21:00 10/12/17 06:29 09/15/17 07:04 Insulin Detemir (Levemir) 25 units DAILY SUBQ 09/14/17 09:00 10/12/17 09:59 09/15/17 09:25 Losartan Potassium (Cozaar) 100 mg DAILY ORAL 09/14/17 09:00 10/13/17 08:59 09/15/17 09:15 Metoprolol Succinate (Toprol XL) 50 mg DAILY ORAL 09/14/17 09:00 10/12/17 08:59 09/15/17 09:15 Morphine Sulfate (Morphine Sulfate) 1 mg Q2H PRN IVP Moderate Pain (Pain Scale 4-6) 09/13/17 20:00 09/19/17 17:59 09/14/17 21:58 Ondansetron HCl (Zofran) 4 mg Q6H PRN IVP Nausea & Vomiting 09/13/17 23:30 10/12/17 11:29 09/14/17 21:57 Pantoprazole (Protonix) 40 mg EVERY 12 HOURS IVP 09/13/17 21:00 10/12/17 08:59 09/15/17 09:14 Polyethylene Glycol (Miralax) 17 gm DAILY ORAL 09/14/17 20:30 10/14/17 20:29 09/15/17 09:13 Tiotropium Colman (Spiriva Inhaler) 1 puff TWICE A DAY INH 09/14/17 09:00 10/13/17 17:59 09/15/17 09:33 Tramadol HCl (Ultram) 50 mg Q6H PRN ORAL MOD-SEVERE BREAKTHRU PAIN >4 09/13/17 23:30 09/19/17 17:29 09/14/17 02:06 Trazodone HCl (Desyrel) 150 mg HSPRN PRN ORAL insomnia 09/14/17 17:30 10/12/17 17:29 09/14/17 23:19 Mavis Edward MD Sep 15, 2017 10:39
--- NOTE | 2017-09-15 11:19 | Diagnostic Imaging Report ---
Indication: Dyspnea Technique: One view of the chest Comparison: 09/12/2017 Findings: Patient is rotated to the right. The lungs and pleural spaces are clear. The aorta is tortuous and ectatic. Findings are unchanged Impression: Unchanged, over 3 days, findings as above.
[2017-09-15 12:00] VITALS: BP 139/77
[2017-09-15] MEDS ORDERED: CEPHALEXIN500 MG ORAL (12:42)
[2017-09-15] MEDS ORDERED: ASPIRIN EC81 MG ORAL (12:42)
[2017-09-15 16:00] VITALS: BP 128/69
--- NOTE | 2017-09-16 08:30 | Cardiology Report ---
APPROVED REPORT EXAM: Two-dimensional and M-mode echocardiogram with Doppler and color Doppler. INDICATION Congestive Heart Failure M-Mode DIMENSIONS IVSd1.3 (0.7-1.1cm)Left Atrium (MM)3.6 (1.6-4.0cm) LVDd5.2 (3.5-5.6cm)Aortic Root3.5 (2.0-3.7cm) PWd1.5 (0.7-1.1cm)Aortic Cusp Exc.2.3 (1.5-2.0cm) IVSs1.7 cm LVDs3.9 (2.5-4.0cm) PWs2.1 cm Normal left ventricular chamber size, systolic function and wall motion . Left ventricular ejection fraction estimated to be 60-65 %. Moderate left ventricular hypertrophy by 2-D. No evidence of pericardial effusion. Mild left atrial enlargements . All other cardiac chamber sizes are within normal limits. Focal aortic valve sclerosis with adequate cusp excursion. Mildly Thickened mitral valve leaflets with normal excursion. Mildly Mitral annulus and aortic root calcification. Pulmonic valve not well visualized. Normal tricuspid valve structure. IVC dilated at 2.7 cm without physiologic collapse suggestive of increased RA pressure. A color flow and spectral Doppler study was performed and revealed: Trace aortic regurgitation. Trace mitral regurgitation. Normal left ventricular diastolic function . Mild tricuspid regurgitation. Tricuspid systolic velocities suggests peak right ventricular systolic pressure of 32mmHg, consistent with mild pulmonary hypertension. No Pulmonic regurgitation present.
--- NOTE | 2017-09-16 11:57 | Discharge Summary ---
Discharge Summary Hospital Course Date of Admission Sep 12, 2017 at 00:48 Date of Discharge Sep 15, 2017 at 16:00 Admitting Diagnosis RESPIRATORY DISTRESS HPI Wen Thompson is a 62 year old female who was admitted on Sep 12, 2017 at 00: 48 for Respiratory Distress History of COPD, P/w SOB and chest pain for few hours. Not providing much history, denying any fever chills abdominal pain Past Medical/Surgical History (1) Hypertensive heart disease (2) DM2 (diabetes mellitus, type 2) (3) HTN (hypertension) (4) HLD (hyperlipidemia) (5) s/p brain aneurysm clipping (6) H/o CVA (7) CHF (congestive heart failure) Diagnostic Impression: Primary Impression: CHF exacerbation Additional Impressions: COPD exacerbation Respiratory distress ER Course BIPAP required immediately upon arrival Unclear if COPD or CHF, Solu-Medrol was given, upon bedside ultrasound patient with multiple B lines on lung ultrasound so more likely pulm edema/chf Nitroglycerin and Lasix was given. Patient now feels much better, she is currently on nitro drip. Empiric antibiotics also given to cover for pneumonia Consultations Cardiology - René Roman MD Pulmonary - Mavis Barber MD Procedures EKG Diagnostic Results EP Interpretation: Yes Rate: Tachycardic Rhythm: Atrial fibrillation ST Segments: No acute changes ASA given to patient: NO Rhythm Strip EP Interpretation: Yes Rate: 120 Rhythm: Atrial fibrillation Chest X-ray CXR: Ordered: Yes 1 view Indication: SOB EP interpretation: Yes Interpretation: CARDIOMEGALY, ++congestion Impression: CARDIOMEGALY, ++congestion Hospital Course Primary Assessment/Plan Admit to ICU Cardiology, pulmonology consulted Trend trop Diurese w/ lasix 40mg IV BID Strict I/O's, daily weights Monitor lytes and replete Wean nitro gtt as tolerated Cardiology to assess abt starting AC (Afib appears to be new onset) Check TTE BiPAP qHS and PRN Check BLE venous duplex Duonebs ATC and PRN Empiric ceftriaxone and azithro F/u urine culture, blood cultures Cont home meds Pain control, bowel regimen 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 Exacerbation of congestive heart failure. This is likely due to nonischemic cardiomyopathy based on cardiac catheterization from [facility]. We will obtain a cardiac catheterization report for confirmation. In the meantime, increase the Lasix to 40 mg IV b.i.d. Continue Cozaar 100 mg daily. The patient is also on metoprolol 50 mg daily. 2. Accelerated hypertension. Continue Cozaar 100 mg daily and Norvasc 5 mg b.i.d. and metoprolol 50 mg daily. Add p.r.n. clonidine to her medical regimen. I will try to taper off nitroglycerin. 3. Atrial fibrillation with rapid ventricular response. The patient converted already to sinus rhythm. Toprol-XL 50 mg daily. The patient is on aspirin. No known prior history of atrial fibrillation, could be precipitated by congestive heart failure. She has clear evidence of recurrent atrial fibrillation. She needs anticoagulation in view of her high risk for thromboembolic event in view of high [id number] score. 4. Possible pneumonia, on ceftriaxone and azithromycin. Pulmonary - Mavis Barber MD Begin patient on respiratory treatment. Monitor/record strict intake and output. Continue Spiriva, in which the patient has taken before. Standard insulin sliding scale. Discharge Course Cardiology, pulmonary consultations reviewed. Downtrending troponin levels. Tapered Lasix 40mg IV BID to daily for diurese. continue strict I/O's and daily weight. Nitro gtt was weaned off as tolerated. Cardiology to assess about starting AC (Afib appears to be new onset) - patient's CHADS-VASC2 score is high At this time, patient is on ASA and if patient has recurrent A. fibb, patient will need anticoagulation. TTE --> 55-60% EF. BiPAP to continue qHS and PRN. BLE venous duplex - negative. Duonebs ATC and PRN Empiric ceftriaxone and azithro, at this time was dc'd due to negative sputum culture and no fever. F/u urine culture - E. coli, sensitive to CTX. Blood cx NGTD. Cont home meds. Pain control, bowel regimen. Supportive care. 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 Will need follow up with cardiac catheterization report. At this time, the patient was stable for discharge. Discharge Condition Upon Discharge: stable Discharge Disposition Patient was discharged to Home with Home Health(06) Please refer to the medical reconciliation for home medications. Discharge Diagnoses: (1) Acute respiratory failure with hypoxia and hypercapnia (2) Atrial fibrillation with RVR (3) Tobacco abuse (4) DM2 (diabetes mellitus, type 2) (5) HLD (hyperlipidemia) (6) Hypertensive emergency (7) CHF exacerbation Discharge Instructions Discharge Instructions Special Instructions Note I have been assigned to create this discharge summary, but did not partake in any care for the patient. Lana Carter N.P. Sep 16, 2017 11:57
--- NOTE | 2017-09-16 21:23 | Cardiology Report ---
APPROVED REPORT EKG Measurement Heart [id number] Sinus bradycardia with 1st degree AV block Left axis deviation Left ventricular hypertrophy with repolarization abnormality Prolonged QT Abnormal ECG
== END 2017-09-15 16:00 | disposition home health service (06) | DRG 291 ==
LOC: EDUNIT# 23:40 → EDBD 23:40 → EMR 23:55 → EDBEDREQDT 09-12 00:43 → EDBEDREQTM 09-12 00:43 → EDBEDREQSVC 09-12 00:43 → ICU 09-12 00:48 → EDBEDREQ 09-12 01:05 → 2W 09-12 17:30 → 2E 09-13 20:25
PROC: 5A09357 Assistance with Respiratory Ventilation, Less than 24 Consecutive Hours, Continuous Positive Airway Pressure (ICD-10-PCS; principal; 2017-09-13)
DX: I11.0 Hypertensive heart disease with heart failure (principal); J96.01 Acute respiratory failure with hypoxia; J96.02 Acute respiratory failure with hypercapnia; J18.9 Pneumonia, unspecified organism; I16.1 Hypertensive emergency; J44.1 Chronic obstructive pulmonary disease with (acute) exacerbation; N39.0 Urinary tract infection, site not specified; I50.33 Acute on chronic diastolic (congestive) heart failure; E11.9 Type 2 diabetes mellitus without complications; E78.5 Hyperlipidemia, unspecified; I48.91 Unspecified atrial fibrillation; Z86.73 Personal history of transient ischemic attack (TIA), and cerebral infarction without residual deficits; F17.200 Nicotine dependence, unspecified, uncomplicated; Z88.8 Allergy status to other drugs, medicaments and biological substances; I25.5 Ischemic cardiomyopathy
CPT/HCPCS: 36415; 36600; 71045; 80048; 80053; 80061; 81003; 82803; 82962; 83036; 83605; 83735; 83880; 84100; 84443; 84484; 85007; 85025; 87040; 87081; 87086; 87181; 93005; 93306; 93970; 94640; 94660; 94760; 99291; J1815; J2405; J8499; S5561

== ENCOUNTER 2018-09-06 07:18 | Inpatient (IN) | payer MEDICARE, OTHER ==
[~2018-09-06] VITALS: Ht 167.6 cm; Wt 93.0 kg
[~2018-09-06 07:18] MED LIST changes: +ASPIRIN EC81 MG ORAL; +CEPHALEXIN500 MG ORAL
--- NOTE | 2018-09-06 07:18 | NUR ---
ED Nurse Note: Patient brought in by ambulance from home RA #[id number] from home c/o SOB for 3 days. Patient is on 99% on room air. Alert awake x4 ambulatory. patient c/o SOB on exertion. patient reports hx of CHF, HTN, DM, Stroke.
[2018-09-06] MEDS ORDERED: Ipratropium 0.02% Inh Soln 2.5ml UD HHN ONE (07:30)
[2018-09-06] MEDS ORDERED: Albuterol ud Inhalation HHN ONE ×2 (07:30→11:15)
--- NOTE | 2018-09-06 07:31 | Emergency Room Report ---
History of Present Illness General Chief Complaint: Dyspnea/Respdistress Source: Patient, EMS Present Illness HPI Patient presents with 3 days of increasing dyspnea with nonproductive cough. She has a history of CHF and COPD. She states that his been 2 days since she's not been smoking. She denies any nausea or vomiting. She denies fevers or chills. No edema or calf pain. She also complains of some chest pressure. She rates this pain at 10/10, substernal and not radiating. She has not taken her blood pressure medications today. Patient diabetic, on insulin. Not check glucose recently. Last admitted September 2017 with these d/c diagnoses: (1) Acute respiratory failure with hypoxia and hypercapnia (2) Atrial fibrillation with RVR (3) Tobacco abuse (4) DM2 (diabetes mellitus, type 2) (5) HLD (hyperlipidemia) (6) Hypertensive emergency (7) CHF exacerbation Allergies: Coded Allergies: MIDAZOLAM (Verified Adverse Reaction, Unknown, 05/15/15) Patient History Past Medical History: see triage record Past Surgical History: PTCA, hysterectomy Social History: Reports: smoking, drug use - [facility] Social History Narrative from home Last Menstrual Period: N/A Now: No Reviewed Nursing Documentation: PMH: Agreed; PSxH: Agreed Nursing Documentation-PMH Hx Cardiac Problems: Yes - CHF, CVA Hx Hypertension: Yes Hx COPD: Yes Hx Diabetes: Yes Hx Cancer: No Hx Gastrointestinal Problems: Yes - hernia Hx Neurological Problems: Yes Hx Cerebrovascular Accident: Yes - 2006 Hx Headaches: Yes Hx Neurologic Surgery: No Hx Brain Shunt: No Review of Systems All Other Systems: negative except mentioned in HPI Physical Exam Vital Signs Date Time Temp Pulse Resp B/P (MAP) Pulse Ox O2 Delivery O2 Flow Rate FiO2 09/06/18 07:09 97.9 86 18 212/121 99 Room Air Sp02 EP Interpretation: reviewed, normal General Appearance: well appearing, no apparent distress, GCS 15 Head: normocephalic Eyes: bilateral eye normal inspection, bilateral eye PERRL ENT: moist mucus membranes Neck: supple Respiratory: rales, wheezing, expiration Cardiovascular #1: regular rate, rhythm, no edema, JVD Cardiovascular #2: 2+ radial (R) Gastrointestinal: normal inspection, normal bowel sounds, non tender, no mass, non-distended Genitourinary: no CVA tenderness Musculoskeletal: back normal, normal range of motion, no calf tenderness Neurologic: alert, oriented x3, grossly normal Psychiatric: mood/affect normal - tearful Skin: normal inspection, warm/dry Medical Decision Making Diagnostic Impression: Primary Impression: Dyspnea Qualified Codes: R06.09 - Other forms of dyspnea Additional Impressions: Elevated troponin Hyperglycemia CHF exacerbation Qualified Codes: I50.33 - Acute on chronic diastolic (congestive) heart failure Hypertensive urgency ER Course Patient is a history of CHF and COPD presents with dyspnea. Differential includes acute myocardial infarction, congestive heart failure, COPD exacerbation, bronchitis, pneumonia amongst others. Based on her exam PE is less likely. Evaluation will be with EKG, chest x-ray and labs. The patient will be treated with breathing treatments and depending with the x-ray reveals she may need to receive Lasix and nitrates. Blood pressure is high. Nitrates ordered. EKG NSR, LVH, NSSTTW changes. CXR with increased evans bilaterally. Normal WBC. Elevated BUN. Elevated glucose. BNP also elevated. Meds given for HTN. Called with elevated troponin. Aspirin given. Still with dyspnea and rales. Tachycardia - metoprolol, lasix and morphine given. IV insulin given for hyperglycemia. Glucose improved. BP improved. (Each metoprolol dose with review of VS.) Discussed with Dr. Bella. Admit tele - Dr. Han will cover. Laboratory Tests Test 09/06/18 08:11 09/06/18 18:05 White Blood Count 8.7 K/UL (4.8-10.8) Red Blood Count 5.14 M/UL (4.20-5.40) Hemoglobin 15.0 G/DL (12.0-16.0) Hematocrit 44.5 % (37.0-47.0) Mean Corpuscular Volume 87 FL (80-99) Mean Corpuscular Hemoglobin 29.2 PG (27.0-31.0) Mean Corpuscular Hemoglobin Concent 33.7 G/DL (32.0-36.0) Red Cell Distribution Width 13.2 % (11.6-14.8) Platelet Count 208 K/UL (150-450) Mean Platelet Volume 8.1 FL (6.5-10.1) Neutrophils (%) (Auto) 71.2 % (45.0-75.0) Lymphocytes (%) (Auto) 20.7 % (20.0-45.0) Monocytes (%) (Auto) 6.5 % (1.0-10.0) Eosinophils (%) (Auto) 0.8 % (0.0-3.0) Basophils (%) (Auto) 0.8 % (0.0-2.0) Prothrombin Time 10.4 SEC (9.30-11.50) Prothrombin Time INR 1.0 (0.9-1.1) PTT 27 SEC (23-33) Urine Color Pale yellow Pale yellow Urine Appearance Clear Slightly cloudy Urine pH 7 (4.5-8.0) 5 (4.5-8.0) Urine Specific [place] 1.010 (1.005-1.035) 1.015 (1.005-1.035) Urine Protein 2+ (NEGATIVE) H 2+ (NEGATIVE) H Urine Glucose (UA) 4+ (NEGATIVE) H 4+ (NEGATIVE) H Urine Ketones 2+ (NEGATIVE) H Negative (NEGATIVE) Urine Blood Negative (NEGATIVE) Negative (NEGATIVE) Urine Nitrite Negative (NEGATIVE) Negative (NEGATIVE) Urine Bilirubin Negative (NEGATIVE) Negative (NEGATIVE) Urine Urobilinogen Normal MG/DL (0.0-1.0) Normal MG/DL (0.0-1.0) Urine Leukocyte Esterase Negative (NEGATIVE) 1+ (NEGATIVE) H Urine RBC 0 /HPF (0 - 2) 0-2 /HPF (0 - 2) Urine WBC 0-2 /HPF (0 - 2) 5-10 /HPF (0 - 2) H Urine Squamous Epithelial Cells Few /LPF (NONE/OCC) Moderate /LPF (NONE/OCC) H Urine Bacteria Occasional /HPF (NONE) Moderate /HPF (NONE) H Sodium Level 139 MMOL/L (136-145) Potassium Level 4.0 MMOL/L (3.5-5.1) Chloride Level 103 MMOL/L (98-107) Carbon Dioxide Level 25 MMOL/L (21-32) Anion Gap 11 mmol/L (5-15) Blood Urea Nitrogen 21 mg/dL (7-18) H Creatinine 1.0 MG/DL (0.55-1.30) Estimate Glomerular Filtration Rate > 60 mL/min (>60) Glucose Level 392 MG/DL (74-106) H Calcium Level 9.7 MG/DL (8.5-10.1) Total Bilirubin 0.6 MG/DL (0.2-1.0) Aspartate Amino Transferase (AST) 25 U/L (15-37) Alanine Aminotransferase (ALT) 46 U/L (12-78) Alkaline Phosphatase 117 U/L (46-116) H Total Creatine Kinase 71 U/L (26-308) Troponin I 0.118 ng/mL (0.000-0.056) Pro-B-Type Natriuretic Peptide 986 pg/mL (0-125) H Total Protein 7.4 G/DL (6.4-8.2) Albumin 3.7 G/DL (3.4-5.0) Globulin 3.7 g/dL Albumin/Globulin Ratio 1.0 (1.0-2.7) Urine Opiates Screen Negative (NEGATIVE) Urine Barbiturates Screen Negative (NEGATIVE) Phencyclidine (PCP) Screen Negative (NEGATIVE) Urine Amphetamines Screen Negative (NEGATIVE) Urine Benzodiazepines Screen Negative (NEGATIVE) Urine Cocaine Screen Negative (NEGATIVE) Urine Marijuana (THC) Screen Positive (NEGATIVE) H Urine Mucus Few /LPF (NONE/OCC) H Urine Yeast Few /HPF (NONE) H EKG Diagnostic Results Rate: normal Rhythm: NSR ST Segments: no acute changes - LVH Rhythm Strip Diag. Results EP Interpretation: yes Rhythm: NSR, no PVC's, no ectopy Chest X-Ray Diagnostic Results Chest X-Ray Diagnostic Results : Chest X-Ray Ordered: Yes # of Views/Limited/Complete: 1 View Indication: Shortness of Breath EP Interpretation: Yes Interpretation: no effusion, no pneumothorax, other - increased evans R base Impression: Other Electronically Signed by: Electronically signed by Ant Jett MD Last Vital Signs Date Time Temp Pulse Resp B/P (MAP) Pulse Ox O2 Delivery O2 Flow Rate FiO2 09/06/18 16:00 70 09/06/18 16:00 97.6 18 168/94 (118) 96 09/06/18 14:34 Room Air 21 Status: improved Disposition: ADMITTED INPATIENT Condition: Serious Ant Jett MD Sep 06, 2018 07:31
[2018-09-06] MEDS ORDERED: Nitroglycerin Subl 0.4mg tab SL STA (07:42)
[2018-09-06] MEDS ORDERED: Nitroglycerin 2% oint pkt TOPIC ONE (07:45)
[2018-09-06 07:48] VITALS: BP 193/103
[2018-09-06] MEDS ORDERED: Losartan 25mg tab ORAL ONE (08:00)
[2018-09-06 08:39] LABS: APPEARANCE,URINE CLEAR; BILIRUBIN, URINE NEGATIVE (NEGATIVE); COLOR,URINE PALE YELLOW; GLUCOSE, URINE (UA) 4+ (NEGATIVE); KETONES,URINE 2+ (NEGATIVE); LEUKOCYTE ESTERASE ,URINE NEGATIVE (NEGATIVE); NITRITE,URINE NEGATIVE (NEGATIVE); PH,URINE 7 (4.5-8.0); PROTEIN,URINE 2+ (NEGATIVE); UROBILINOGEN,URINE NORMAL MG/DL (0.0-1.0)
[2018-09-06 08:40] LABS: BASOPHILS % (AUTO) 0.8 % (0.0-2.0); EOSINOPHILS % (AUTO) 0.8 % (0.0-3.0); HEMATOCRIT 44.5 % (37.0-47.0); LYMPHOCYTES % (AUTO) 20.7 % (20.0-45.0); MEAN CORPUSCULAR VOLUME 87 FL (80-99); MONOCYTES % (AUTO) 6.5 % (1.0-10.0); NEUTROPHILS % (AUTO) 71.2 % (45.0-75.0); PLATELET COUNT 208 K/UL (150-450); RED BLOOD COUNT 5.14 M/UL (4.20-5.40); RED CELL DISTRIBUTION WIDTH 13.2 % (11.6-14.8); WHITE BLOOD COUNT 8.7 K/UL (4.8-10.8)
[2018-09-06 08:59] LABS: ANION GAP 11 mmol/L (5-15); BLOOD UREA NITROGEN 21 mg/dL (7-18); CALCIUM 9.7 MG/DL (8.5-10.1); CARBON DIOXIDE 25 MMOL/L (21-32); CHLORIDE 103 MMOL/L (98-107); SODIUM 139 MMOL/L (136-145)
[2018-09-06 09:10] LABS: ALANINE AMINOTRANSFERASE 46 U/L (12-78); ALBUMIN 3.7 G/DL (3.4-5.0); ALKALINE PHOSPHATASE 117 U/L (46-116); ASPARTATE AMINO TRANSFERASE 25 U/L (15-37); BILIRUBIN,TOTAL 0.6 MG/DL (0.2-1.0); CREATINE KINASE 71 U/L (26-308)
[2018-09-06] MEDS ORDERED: Insulin Human Regular 100units/ml 3ml IV ONE (09:15)
[2018-09-06] MEDS ORDERED: Morphine Sulfate 4mg/ml Inj (IV USE ONLY) IVP ONE (09:30)
[2018-09-06] MEDS: Metoprolol 5mg/5ml Inj IVP SCH ×3 (09:31→10:26)
--- NOTE | 2018-09-06 10:31 | NUR ---
ED Nurse Note: patient provided with breakfast tray, per Dr. Jett ok to eat
--- NOTE | 2018-09-06 11:21 | NUR ---
ED Nurse Note: report given to Sulaiman RN Sulaiman said to give 10 minutes.
[2018-09-06 11:40] VITALS: BP 153/89
--- NOTE | 2018-09-06 11:46 | NUR ---
ED Nurse Note: transferred patient to room 205-2 without complication endorsed all belongings to Sulaiman HUNT
--- NOTE | 2018-09-06 11:47 | NUR ---
NURSE NOTES: Patient is transferred from ED and received report from GILBERT Vang. Patient is alert and oriented x4 and is in stable condition. on Room air. No acute distress/SOB noted. Was able to transfer shahidarney to hospital bed with steady gait. No edema on all extremities. Patient still complains of chest pain, 5/10. Will continue plan of care.
--- NOTE | 2018-09-06 12:02 | NUR ---
NURSE NOTES: Called Dr. Han for admission orders. He said he will come to see patient within 15min.
[2018-09-06] MEDS ORDERED: Nitroglycerin Subl 0.4mg tab SL PRN (12:56)
[2018-09-06] MEDS ORDERED: HYDROcodone/Acetamin 5/325 tab ORAL PRN ×2 (13:06→13:15)
[2018-09-06] MEDS ORDERED: Metoprolol Succinate XL 50mg tab ORAL SCH (14:00)
[2018-09-06] MEDS: Albuterol/Ipratropium 3ml neb HHN SCH ×3 (14:23→22:46)
--- NOTE | 2018-09-06 14:45 | History and Physical Report ---
DATE OF ADMISSION: 09/06/2018 CHIEF COMPLAINT/REASON FOR HOSPITALIZATION: The patient admitted with chest tightness and shortness of breath. HISTORY OF PRESENT ILLNESS: The patient is a 63-year-old lady with a history of hypertension, hyperlipidemia, type 2 diabetes, CHF, and COPD. She presents with a new onset of chest tightness, feeling like they are bricks in her chest and shortness of breath, onset today. She stated she stopped smoking three days ago, but she does smoke weed. The patient has had a coronary angiogram in the past a few years ago and she states that no stents were done or angioplasty, but I do not have the details nor try to get them. She was hospitalized at [place] in September 2017 with pulmonary edema. ALLERGIES: To [employer]. HOME MEDICATIONS: She could not give me a list, but the list apparently taken from the paramedics include Tylenol p.r.n., albuterol inhaler p.r.n., Norvasc 5 mg b.i.d., aspirin 81 mg daily, Lipitor 20 mg daily, furosemide 40 mg b.i.d., [employer] p.r.n., Lantus 30 units at bedtime, losartan 100 mg daily, metoprolol succinate 50 mg daily, nitroglycerin 0.4 p.r.n., tramadol 50 mg b.i.d. p.r.n., and Desyrel 100 mg at bedtime. HABITS: She has been a cigarette smoker most of her life. She does use marijuana. Denies alcohol or drugs. SURGICAL HISTORY: She has had surgery for cerebral aneurysm on the left side, colostomy for diverticular disease and takedown of colostomy and hysterectomy. SYSTEM REVIEW: HEAD, EYES, EARS, NOSE, AND THROAT: Vision and hearing is good. ENDOCRINE: No diabetes. No obesity. Hyperlipidemia. No thyroid disease. PULMONARY: History of COPD and bronchospasm. CARDIAC: History of paroxysmal atrial fibrillation in the past and CHF, and hypertensive heart disease. GASTROINTESTINAL: History of queasy stomach on and off. She has had GI bleeding associated with diverticular disease in the past. No recent hematochezia or melena or vomiting. GENITOURINARY: No dysuria, hematuria, or kidney stones. MUSCULOSKELETAL: History of some back pain and chest pain. PHYSICAL EXAMINATION: GENERAL: The patient is an alert lady, looking in no acute distress. VITAL SIGNS: Temperature 97.9, pulse 69, respiratory rate 20, blood pressure 149/97. HEAD, EYES, EARS, NOSE, AND THROAT: Sclerae are nonicteric. Ocular motions intact in all directions. Oral mucosa moist. NECK: No adenopathy or thyroid enlargement. LUNGS: Clear. No wheezes. HEART: Regular rhythm. Normal S1, S2. No murmur. ABDOMEN: Soft without organomegaly or masses. EXTREMITIES: No edema, cyanosis, or clubbing. NEUROLOGIC: She is alert and oriented. No focal findings. LABORATORY AND DIAGNOSTIC DATA: Pertinent labs show white count of 8.7, hemoglobin of 15. Electrolytes normal. Glucose 392. Troponin 0.118. BNP 8986. The EKG shows sinus rhythm with PVCs, left anterior fascicular block, left ventricular hypertrophy with repolarization abnormality, prolonged QT. IMPRESSION: 1. Acute coronary syndrome, rule out acute IL. Note that in the past, it is noted that she has a nonischemic cardiomyopathy. The patient prior angiogram, which I do not have records of at this time. 2. Chronic diastolic congestive heart failure. 3. COPD with acute exacerbation. 4. Diabetes with hyperglycemia. 5. Hyperlipidemia. 6. History of paroxysmal atrial fibrillation. PLAN: The patient will be placed on anti-ischemic regimen, telemetry, rule out myocardial infarction. Get Cardiology consultation. Pulmonary care and we will watch closely in view of her comorbidities. Matti Han M.D. : ILDA JOB#: [id number] CC:
[2018-09-06 16:00] VITALS: BP 168/94
[2018-09-06] MEDS: NovoLOG Insulin Flexpen SUBQ SCH ×2 (16:23→20:30)
[2018-09-06] MEDS: Furosemide 40mg tab ORAL SCH (18:05)
[2018-09-06 18:33] LABS: APPEARANCE,URINE SLIGHTLY CLOUDY; BILIRUBIN, URINE NEGATIVE (NEGATIVE); COLOR,URINE PALE YELLOW; GLUCOSE, URINE (UA) 4+ (NEGATIVE); KETONES,URINE NEGATIVE (NEGATIVE); LEUKOCYTE ESTERASE ,URINE 1+ (NEGATIVE); NITRITE,URINE NEGATIVE (NEGATIVE); PH,URINE 5 (4.5-8.0); PROTEIN,URINE 2+ (NEGATIVE); UROBILINOGEN,URINE NORMAL MG/DL (0.0-1.0)
--- NOTE | 2018-09-06 19:01 | NUR ---
NURSE NOTES: Talked with Dr. Han regarding c/o chest pain. New orders carried out.
--- NOTE | 2018-09-06 19:34 | NUR ---
HAND-OFF: Report given to GILBERT Camilo. Patient is in stable condition. Family members are at the bedside. Will continue plan of care.
--- NOTE | 2018-09-06 19:35 | NUR ---
NURSE NOTES: Received pt from GILBERT Hilario. Pt awake, alert, and talkative. Bed in lowest position. Call light within reach. Family at bedside. Will continue to monitor.
[2018-09-06 20:00] VITALS: BP 178/99
[2018-09-06] MEDS: Atorvastatin 20mg tab ORAL SCH (20:26)
[2018-09-06] MEDS: Docusate 100mg cap ORAL SCH (20:28)
[2018-09-06] MEDS: Heparin 5000 units/ml inj SUBQ SCH (20:31)
[2018-09-06] MEDS ORDERED: Zolpidem 5mg tab ORAL PRN (21:00)
[2018-09-06] MEDS ORDERED: Levemir Flexpen SUBQ SCH (21:00)
[2018-09-06] MEDS ORDERED: Milk of Magnesia 30ml Ud ORAL PRN (21:00)
[2018-09-06] MEDS: TraZODone 50mg tab ORAL SCH (21:34)
[2018-09-07] VITALS: BP 155/87
--- NOTE | 2018-09-07 00:23 | NUR ---
NURSE NOTES: Called and left a message with Dr. Bella regarding pts request for morphine. Awaiting call back
[2018-09-07] MEDS ORDERED: HYDROmorphone 1mg/ml Carpuject IVP PRN (00:45)
--- NOTE | 2018-09-07 02:01 | Consultation ---
DATE OF CONSULTATION: 09/06/2018 CARDIOLOGY CONSULTATION Cardiology consult being done as coverage for Dr. Messina. REQUESTING PHYSICIAN: Miguel A Bella M.D. REASON FOR CONSULTATION: Chest pain and shortness of breath. HISTORY OF PRESENT ILLNESS: The patient is a 63-year-old woman with a history of type 2 diabetes, hypertension, hyperlipidemia, previous tobacco use, chronic obstructive pulmonary disease, and diastolic heart failure, who was admitted with chest pain and shortness of breath. She states that over the past week, she has been increasingly short of breath. She denied cough, sputum production, fever, chills, or sweats. Over the past one to two days, she has experienced episodes of chest tightness, which occur at rest with no clear precipitant. She has a history of tobacco use 10 to 15 cigarettes per day, but last smoked 5 days ago. Her cardiac history is significant for a stress nuclear study done at [facility] last year, which showed a large fixed anteroseptal perfusion defect and with no clear precipitant. She has not had diaphoresis, dizziness, palpitations, nausea, or vomiting. Her past cardiac history is significant for a stress myocardial perfusion study in 2013 showing a large anteroseptal infarct and some tez-infarct ischemia, ejection fraction was 34%. Subsequently, she had an echo in September 2017 showing an EF of 60 to 65 percent, normal wall motion, and no significant valve lesions. The patient reports having had a coronary angiogram showing no lesions ([facility]). She reports having had a coronary angiogram, which did not show any lesions (done at [facility], patient unsure of the year). PAST MEDICAL HISTORY: As noted above. PAST SURGICAL HISTORY: Status post partial colectomy for diverticulitis and previous colostomy with subsequent closure, history of surgery for cerebral aneurysm in 2006, and hysterectomy. MEDICATIONS: Per chart, Tylenol, Norvasc 5 mg b.i.d., aspirin 81 mg daily, Lipitor 20 mg daily, Lasix 40 mg b.i.d., Lantus 30 units at bedtime, Losartan 100 mg daily, metoprolol 50 mg daily, nitroglycerin p.r.n., tramadol 50 mg b.i.d. p.r.n., and Desyrel 100 mg at bedtime. SOCIAL HISTORY: The patient has history of tobacco use 10 to 15 cigarettes per day. No history of alcohol abuse. She smokes marijuana occasionally. REVIEW OF SYSTEMS: Negative except as per history of present illness. PHYSICAL EXAMINATION: VITAL SIGNS: Blood pressure is 178/99, pulse 70 and regular, respiration 18, afebrile. GENERAL: Alert, well-developed female, in no acute distress. HEENT: Normocephalic and atraumatic. Pupils are equal, round, and reactive to light. Sclerae anicteric. Oral mucosa are moist. NECK: Supple. There is no adenopathy. No jugular venous distention. Carotid pulses 2+ with normal upstrokes. No bruits. LUNGS: Clear to auscultation bilaterally. HEART: Regular S1 and S2. No murmurs, rubs, S3, or S4. ABDOMEN: Soft, obese, and nontender. No palpable mass. EXTREMITIES: No cyanosis, clubbing, or edema. NEUROLOGIC: No gross focal motor deficits. LABORATORY AND DIAGNOSTIC DATA: Troponin 0.118. ProBNP 986. Sodium 139, potassium 4.0, chloride 103, bicarbonate 25, BUN 21, and creatinine 1.0. Hemoglobin 15, hematocrit 44, white blood count 8700, and platelets 208,000. EKG shows normal sinus rhythm at a rate of 70 beats per minute, occasional premature ventricular contractions, left anterior fascicular block, left ventricular hypertrophy with inverted T-waves in 1 and L consistent with repolarization. Chest x-ray shows clear lungs. ASSESSMENT AND RECOMMENDATIONS: The patient is a 63-year-old woman with a history of hypertension, type 2 diabetes, tobacco use, chronic obstructive pulmonary disease, history of diastolic heart failure, hyperlipidemia, tobacco use, chronic obstructive pulmonary disease, and previous diastolic heart failure, who presents with chest pain and dyspnea. Her troponin is mildly elevated. BNP is elevated. She is noted to be hypertensive. She has had normal coronaries per report by cardiac catheterization. We will check records from [facility] to confirm her symptoms. Currently, may be due to diastolic dysfunction in the setting of uncontrolled hypertension. I would recommend up titrating her medications. We will increase metoprolol. Continue amlodipine and losartan. Continue diuretics if blood pressure does not improve with that hydralazine, further recommendations will be made. Based on her clinical course, additional EKGs and troponin levels will be obtained though doubt acute coronary syndrome causing her presentation. Chantal Flores M.D. DR: RADHIKA JOB#: [id number] CC:
[2018-09-07 04:00] VITALS: BP 156/102
[2018-09-07] MEDS: NovoLOG Insulin Flexpen SUBQ SCH ×4 (05:31→20:23)
[2018-09-07] MEDS ORDERED: HydrALAZINE 25mg tab ORAL SCH (06:00)
[2018-09-07] MEDS: Albuterol/Ipratropium 3ml neb HHN SCH ×6 (07:00→23:52)
--- NOTE | 2018-09-07 07:17 | NUR ---
HAND-OFF: Report given to GILBERT Hilario. Pt stable.
[2018-09-07 08:00] VITALS: BP 158/104
--- NOTE | 2018-09-07 08:01 | NUR ---
NURSE NOTES: Received report from GILBERT Camilo. Pt is sitting up in bed complaining of headache. Bed is in lowest position, side rails up X2, and call light is within reach. Will continue to monitor.
[2018-09-07 08:03] LABS: BASOPHILS % (AUTO) 0.6 % (0.0-2.0); EOSINOPHILS % (AUTO) 1.4 % (0.0-3.0); HEMATOCRIT 43.5 % (37.0-47.0); HEMOGLOBIN 14.7 G/DL (12.0-16.0); MEAN CORPUSCULAR VOLUME 87 FL (80-99); PLATELET COUNT 206 K/UL (150-450); RED BLOOD COUNT 4.99 M/UL (4.20-5.40); RED CELL DISTRIBUTION WIDTH 13.2 % (11.6-14.8); WHITE BLOOD COUNT 8.3 K/UL (4.8-10.8)
[2018-09-07] MEDS: Metoprolol Succinate XL 50mg tab ORAL SCH (08:34)
[2018-09-07] MEDS: Docusate 100mg cap ORAL SCH ×2 (08:35→20:19)
[2018-09-07] MEDS: Aspirin Baby 81mg ORAL SCH (08:35)
[2018-09-07] MEDS: Furosemide 40mg tab ORAL SCH ×2 (08:35→17:24)
[2018-09-07] MEDS: Losartan 50mg tab ORAL SCH (08:36)
[2018-09-07] MEDS: Heparin 5000 units/ml inj SUBQ SCH ×2 (08:38→20:20)
[2018-09-07 08:54] LABS: ANION GAP 12 mmol/L (5-15); BLOOD UREA NITROGEN 21 mg/dL (7-18); CALCIUM 9.6 MG/DL (8.5-10.1); CARBON DIOXIDE 26 MMOL/L (21-32); CHLORIDE 104 MMOL/L (98-107); CREATININE 1.1 MG/DL (0.55-1.30); SODIUM 142 MMOL/L (136-145)
[2018-09-07] MEDS: HYDROmorphone 1mg/ml Carpuject IVP PRN ×2 (11:42→18:39)
[2018-09-07 12:00] VITALS: BP 161/111
--- NOTE | 2018-09-07 12:05 | General Progress Note ---
Assessment/Plan Problem List: (1) Shortness of breath ICD Codes: R06.02 - Shortness of breath SNOMED: 908762837 (2) COPD exacerbation ICD Codes: J44.1 - Chronic obstructive pulmonary disease with (acute) exacerbation SNOMED: 421885722 (3) Diabetes mellitus ICD Codes: E11.9 - Type 2 diabetes mellitus without complications SNOMED: 84749880 (4) CHF (congestive heart failure) ICD Codes: I50.9 - Heart failure, unspecified SNOMED: 73867125 (5) HTN (hypertension) ICD Codes: I10 - Essential (primary) hypertension SNOMED: 85296782 (6) Acute on chronic diastolic (congestive) heart failure ICD Codes: I50.33 - Acute on chronic diastolic (congestive) heart failure SNOMED: 84990109, 919713514 (7) Hyperglycemia ICD Codes: R73.9 - Hyperglycemia, unspecified SNOMED: 33550767 (8) Elevated troponin ICD Codes: R74.8 - Abnormal levels of other serum enzymes SNOMED: 160708266, 186034506, 472064214 Assessment/Plan diuresis, replace K, spironolactone, addd hydralazine, increase insulin Subjective Constitutional: Reports: weakness HEENT: Reports: no symptoms Cardiovascular: Reports: chest pain Respiratory: Reports: shortness of breath Gastrointestinal/Abdominal: Reports: nausea Genitourinary: Reports: no symptoms Neurologic/Psychiatric: Reports: headache Endocrine: Reports: no symptoms Hematologic/Lymphatic: Reports: no symptoms Allergies: Coded Allergies: MIDAZOLAM (Verified Adverse Reaction, Unknown, 05/15/15) Objective Last 24 Hour Vital Signs Date Time Temp Pulse Resp B/P (MAP) Pulse Ox O2 Delivery O2 Flow Rate FiO2 09/07/18 11:11 70 18 96 Room Air 09/07/18 09:00 Room Air 09/07/18 08:36 158/104 09/07/18 08:35 102 158/104 09/07/18 08:34 102 158/104 09/07/18 08:00 98.1 102 23 158/104 (122) 93 102 09/07/18 08:00 66 09/07/18 07:41 90 18 100 Room Air 09/07/18 07:31 99 18 99 Room Air 09/07/18 07:31 99 18 Room Air 09/07/18 05:20 155/87 09/07/18 04:00 98.4 66 12 156/102 (120) 98 66 09/07/18 04:00 67 09/07/18 00:00 66 09/07/18 00:00 98.0 63 18 155/87 (109) 95 63 09/06/18 22:46 Room Air 21 09/06/18 22:46 Room Air 21 09/06/18 21:00 Room Air 09/06/18 20:28 70 178/99 09/06/18 20:00 98.0 70 18 178/99 (125) 95 09/06/18 19:44 69 18 98 Room Air 21 09/06/18 19:33 68 18 Room Air 21 09/06/18 19:33 68 18 96 Room Air 21 09/06/18 16:00 70 09/06/18 16:00 97.6 67 18 168/94 (118) 96 09/06/18 14:34 66 20 100 Room Air 21 09/06/18 14:23 82 20 98 Room Air 21 09/06/18 13:33 69 149/97 09/06/18 13:03 Room Air Intake and Output 09/06/18 09/07/18 18:59 06:59 Intake Total 120 ml Output Total 250 ml Balance -130 ml Intake Oral 120 ml Output Urine Total 250 ml # Voids 1 4 Laboratory Tests 09/06/18 18:05: Urine Color Pale yellow, Urine Appearance Slightly cloudy, Urine pH 5, Urine Specific [place] 1.015, Urine Protein 2+H, Urine Glucose (UA) 4+H, Urine Ketones Negative, Urine Blood Negative, Urine Nitrite Negative, Urine Bilirubin Negative, Urine Urobilinogen Normal, Urine Leukocyte Esterase 1+H, Urine RBC 0-2 , Urine WBC 5-10H, Urine Squamous Epithelial Cells ModerateH, Urine Bacteria ModerateH, Urine Mucus FewH, Urine Yeast FewH 09/07/18 06:40: White Blood Count 8.3, Red Blood Count 4.99, Hemoglobin 14.7, Hematocrit 43.5, Mean Corpuscular Volume 87, Mean Corpuscular Hemoglobin 29.4, Mean Corpuscular Hemoglobin Concent 33.8, Red Cell Distribution Width 13.2, Platelet Count 206, Mean Platelet Volume 8.5, Neutrophils (%) (Auto) 67.0, Lymphocytes (%) (Auto) 24.0, Monocytes (%) (Auto) 7.0, Eosinophils (%) (Auto) 1.4, Basophils (%) (Auto ) 0.6, Sodium Level 142, Potassium Level 3.0L, Chloride Level 104, Carbon Dioxide Level 26, Anion Gap 12, Blood Urea Nitrogen 21H, Creatinine 1.1, Estimat Glomerular Filtration Rate > 60, Glucose Level 245#H, Calcium Level 9.6 , Troponin I 0.097H, Thyroid Stimulating Hormone (TSH) 1.250 Height (Feet): 5 Height (Inches): 6.00 Weight (Pounds): 205 General Appearance: no apparent distress, alert EENT: normal ENT inspection Neck: normal alignment Cardiovascular: normal rate, regular rhythm Respiratory/Chest: lungs clear, no respiratory distress Abdomen: non tender, soft Edema: no edema noted Arm (L), no edema noted Arm (R), no edema noted Leg (L), no edema noted Leg (R), no edema noted Pedal (L), no edema noted Pedal (R), no edema noted Generalized Neurologic: supervisor cab II-XII grossly normal Matti Han MD Sep 07, 2018 12:05
--- NOTE | 2018-09-07 12:25 | NUR ---
HAND-OFF: Report given to GILBERT Hilario. Plan of care endorsed.
--- NOTE | 2018-09-07 12:28 | NUR ---
NURSE NOTES: Received report from GILBERT Frederick. Patient is in stable condition. No acute distress/SOB noted. Patient denies any pain/discomfort. Will continue plan of care.
[2018-09-07] MEDS: Spironolactone 25mg tab ORAL SCH (12:47)
[2018-09-07] MEDS ORDERED: HydrALAZINE 50mg tab ORAL SCH (14:00)
--- NOTE | 2018-09-07 14:36 | Cardiology Progress Note ---
Assessment/Plan Status: stable, unchanged Status Narrative Chest pain. Mild troponin elevation.? small vessel CAD. ? demand ischemia w/ uncontrolled HTN. Prev cath without significant epicardial disease HTN- bp not controlled COPD hx of tobacco use Assessment/Plan Adjust meds - inc hydralazine and change norvasc to procardia XL Review records from [facility] regarding previous cardiac eval. Dr Messina to follow starting 09/08 Subjective ROS Limited/Unobtainable: No Subjective Cardiology for Dr. Messina Pt reports dizziness. Some improvement in chest pain and dyspnea Objective Last 24 Hour Vital Signs Date Time Temp Pulse Resp B/P (MAP) Pulse Ox O2 Delivery O2 Flow Rate FiO2 09/07/18 14:13 159/89 09/07/18 12:00 98.4 100 23 161/111 (128) 95 102 09/07/18 12:00 87 09/07/18 11:21 72 18 100 Room Air 21 09/07/18 11:11 70 18 96 Room Air 21 09/07/18 09:00 Room Air 09/07/18 08:36 158/104 09/07/18 08:35 102 158/104 09/07/18 08:34 102 158/104 09/07/18 08:00 98.1 102 23 158/104 (122) 93 102 09/07/18 08:00 66 09/07/18 07:41 90 18 100 Room Air 09/07/18 07:31 99 18 99 Room Air 09/07/18 07:31 99 18 Room Air 09/07/18 05:20 155/87 09/07/18 04:00 98.4 66 12 156/102 (120) 98 66 09/07/18 04:00 67 09/07/18 00:00 66 09/07/18 00:00 98.0 63 18 155/87 (109) 95 63 09/06/18 22:46 Room Air 21 09/06/18 22:46 Room Air 21 09/06/18 21:00 Room Air 09/06/18 20:28 70 178/99 09/06/18 20:00 98.0 70 18 178/99 (125) 95 09/06/18 19:44 69 18 98 Room Air 21 09/06/18 19:33 68 18 Room Air 21 09/06/18 19:33 68 18 96 Room Air 21 09/06/18 16:00 70 09/06/18 16:00 97.6 67 18 168/94 (118) 96 09/06/18 14:34 66 20 100 Room Air 21 General Appearance: WD/WN, no apparent distress, alert Neck: supple, no JVD Rhythm: NSR Cardiovascular: normal rate, regular rhythm, no gallop/murmur Respiratory/Chest: lungs clear, normal breath sounds Abdomen: non tender, soft, no mass Extremities: non-tender, no swelling Intake and Output 09/06/18 09/07/18 18:59 06:59 Intake Total 120 ml Output Total 250 ml Balance -130 ml Intake Oral 120 ml Output Urine Total 250 ml # Voids 1 4 Laboratory Tests Test 09/06/18 18:05 09/07/18 06:40 Urine Color Pale yellow Urine Appearance Slightly cloudy Urine pH 5 (4.5-8.0) Urine Specific [place] 1.015 (1.005-1.035) Urine Protein 2+ (NEGATIVE) H Urine Glucose (UA) 4+ (NEGATIVE) H Urine Ketones Negative (NEGATIVE) Urine Blood Negative (NEGATIVE) Urine Nitrite Negative (NEGATIVE) Urine Bilirubin Negative (NEGATIVE) Urine Urobilinogen Normal MG/DL (0.0-1.0) Urine Leukocyte Esterase 1+ (NEGATIVE) H Urine RBC 0-2 /HPF (0 - 2) Urine WBC 5-10 /HPF (0 - 2) H Urine Squamous Epithelial Cells Moderate /LPF (NONE/OCC) H Urine Bacteria Moderate /HPF (NONE) H Urine Mucus Few /LPF (NONE/OCC) H Urine Yeast Few /HPF (NONE) H White Blood Count 8.3 K/UL (4.8-10.8) Red Blood Count 4.99 M/UL (4.20-5.40) Hemoglobin 14.7 G/DL (12.0-16.0) Hematocrit 43.5 % (37.0-47.0) Mean Corpuscular Volume 87 FL (80-99) Mean Corpuscular Hemoglobin 29.4 PG (27.0-31.0) Mean Corpuscular Hemoglobin Concent 33.8 G/DL (32.0-36.0) Red Cell Distribution Width 13.2 % (11.6-14.8) Platelet Count 206 K/UL (150-450) Mean Platelet Volume 8.5 FL (6.5-10.1) Neutrophils (%) (Auto) 67.0 % (45.0-75.0) Lymphocytes (%) (Auto) 24.0 % (20.0-45.0) Monocytes (%) (Auto) 7.0 % (1.0-10.0) Eosinophils (%) (Auto) 1.4 % (0.0-3.0) Basophils (%) (Auto) 0.6 % (0.0-2.0) Sodium Level 142 MMOL/L (136-145) Potassium Level 3.0 MMOL/L (3.5-5.1) L Chloride Level 104 MMOL/L (98-107) Carbon Dioxide Level 26 MMOL/L (21-32) Anion Gap 12 mmol/L (5-15) Blood Urea Nitrogen 21 mg/dL (7-18) H Creatinine 1.1 MG/DL (0.55-1.30) Estimat Glomerular Filtration Rate > 60 mL/min (>60) Glucose Level 245 MG/DL (74-106) #H Calcium Level 9.6 MG/DL (8.5-10.1) Troponin I 0.097 ng/mL (0.000-0.056) Thyroid Stimulating Hormone (TSH) 1.250 uiU/mL (0.358-3.740) Microbiology Date/Time Source Procedure Growth Status 09/06/18 18:05 Urine,Clean Catch Urine Culture - Preliminary NO GROWTH Resulted Chantal Flores MD Sep 07, 2018 14:36
[2018-09-07 16:00] VITALS: BP 135/73
--- NOTE | 2018-09-07 17:14 | NUR ---
CASE MANAGEMENT: REVIEW 63/F BIBA FROM HOME CC: SOB X3 DAYS SI: ACUTE RESP FAILURE w/HYPOXIA & HYPERCAPNIA . A-FIB w/RVR . CHF EXACERBATION T 97.9 HR 69 RR 18 BP 212/121 SAT 96% ROOM AIR GLUCOSE 392 TROPONIN I 0.118 BNP 986 IS: ATROVENT HHN X1 ALBUTEROL HHN X1 NITRO SL X1 ASA PO X1 LASIX IV X1 MORPHINE IV X1 NORVASC PO X1 LOPRESSOR IV X3 PATIENT ADMITTED TO TELEMETRY UNIT 09/06/2018 DCP: PATIENT IS FROM HOME
[2018-09-07] MEDS: HydrALAZINE 50mg tab ORAL SCH (17:24)
[2018-09-07] MEDS: Atorvastatin 20mg tab ORAL SCH (20:19)
[2018-09-07] MEDS: Levemir Flexpen SUBQ SCH (20:23)
[2018-09-07] MEDS: TraZODone 50mg tab ORAL SCH (22:50)
[2018-09-08 00:37] VITALS: BP 141/80
[2018-09-08] MEDS: HydrALAZINE 50mg tab ORAL SCH ×5 (00:39→23:37)
[2018-09-08] MEDS: HYDROmorphone 1mg/ml Carpuject IVP PRN ×4 (00:39→23:38)
[2018-09-08] MEDS: Albuterol/Ipratropium 3ml neb HHN SCH ×6 (02:59→23:18)
[2018-09-08 05:36] VITALS: BP 133/89
[2018-09-08] MEDS: NovoLOG Insulin Flexpen SUBQ SCH ×4 (05:39→20:48)
--- NOTE | 2018-09-08 07:47 | NUR ---
HAND-OFF: Report given to GILBERT Aden. Pt stable.
--- NOTE | 2018-09-08 07:49 | NUR ---
NURSE NOTES: Pt received from GILBERT Camilo currently resting in bed, sleeping. With no acute s/s of distress. IV site asymptomatic and patent. Bed in lowest position, call light and belongings within reach.
[2018-09-08 08:00] VITALS: BP 152/95
[2018-09-08 08:01] LABS: BASOPHILS % (AUTO) 0.8 % (0.0-2.0); EOSINOPHILS % (AUTO) 1.5 % (0.0-3.0); HEMATOCRIT 43.9 % (37.0-47.0); HEMOGLOBIN 14.7 G/DL (12.0-16.0); LYMPHOCYTES % (AUTO) 34.3 % (20.0-45.0); MEAN CORPUSCULAR VOLUME 88 FL (80-99); MONOCYTES % (AUTO) 6.5 % (1.0-10.0); PLATELET COUNT 201 K/UL (150-450); RED CELL DISTRIBUTION WIDTH 13.2 % (11.6-14.8)
[2018-09-08 08:29] LABS: ANION GAP 10 mmol/L (5-15); BLOOD UREA NITROGEN 21 mg/dL (7-18); CALCIUM 9.9 MG/DL (8.5-10.1); CARBON DIOXIDE 26 MMOL/L (21-32); CHLORIDE 104 MMOL/L (98-107); CREATININE 1.1 MG/DL (0.55-1.30); POTASSIUM 3.4 MMOL/L (3.5-5.1); SODIUM 140 MMOL/L (136-145)
[2018-09-08] MEDS: Furosemide 40mg tab ORAL SCH ×2 (08:52→17:22)
[2018-09-08] MEDS: Docusate 100mg cap ORAL SCH ×2 (08:52→20:43)
[2018-09-08] MEDS: Spironolactone 25mg tab ORAL SCH (08:53)
[2018-09-08] MEDS: Metoprolol Succinate XL 50mg tab ORAL SCH (08:53)
[2018-09-08] MEDS: Aspirin Baby 81mg ORAL SCH (08:53)
[2018-09-08] MEDS: Heparin 5000 units/ml inj SUBQ SCH ×2 (08:53→20:46)
[2018-09-08] MEDS: Losartan 50mg tab ORAL SCH (08:54)
--- NOTE | 2018-09-08 11:15 | NUR ---
NURSE NOTES: RN called Mirta from Medical Records ([phone]) from [facility] to obtain and Mikhail from Medical Records ([phone]) from [facility]. Per Dannie, fax over the Medical Records Request form and they will process it.
--- NOTE | 2018-09-08 11:20 | NUR ---
NURSE NOTES: RN faxed the signed Medical Records Request form to both [facility] and [facility]. Per Ruben from [facility], "I received fax, I will process it." Per Mikki from [facility], "I received the fax, I will process it as soon as I can."
[2018-09-08 12:00] VITALS: BP 145/86
--- NOTE | 2018-09-08 12:15 | NUR ---
NURSE NOTES: Pt in no acute s/s of distress. Currently eating lunch and watching television.
--- NOTE | 2018-09-08 12:44 | NUR ---
RADIOLOGY DEPT., CHEST X-RAY DONE.-P.DYE
[2018-09-08 16:00] VITALS: BP 138/89
--- NOTE | 2018-09-08 16:05 | NUR ---
NURSE NOTES: Received medical records from [facility]. Placed in chart, endorsed to Charge Nurse Michelle.
--- NOTE | 2018-09-08 16:35 | NUR ---
NURSE NOTES: Received fax from [facility] with patient's medical records. Placed in chart, endorsed to Charge Nurse Michelle.
--- NOTE | 2018-09-08 16:39 | General Progress Note ---
Assessment/Plan Assessment/Plan COPD Exacerbation - bronchodilators. AODM - stable. DJD - pain control Subjective Allergies: Coded Allergies: MIDAZOLAM (Verified Adverse Reaction, Unknown, 05/15/15) Subjective Still c/o SOB + diffuse joint pain. Objective Last 24 Hour Vital Signs Date Time Temp Pulse Resp B/P (MAP) Pulse Ox O2 Delivery O2 Flow Rate FiO2 09/08/18 15:00 Room Air 21 09/08/18 15:00 Room Air 21 09/08/18 12:36 165/86 09/08/18 12:00 94 09/08/18 11:26 68 18 100 Room Air 21 09/08/18 11:17 66 18 96 Room Air 21 09/08/18 09:00 Room Air 09/08/18 08:54 152/95 09/08/18 08:53 68 152/95 09/08/18 08:53 68 152/95 09/08/18 08:10 70 18 100 Room Air 21 09/08/18 08:00 68 18 99 Room Air 21 09/08/18 08:00 103 09/08/18 08:00 98.3 68 16 152/95 (114) 100 09/08/18 08:00 68 16 Room Air 09/08/18 05:36 67 133/89 (104) 09/08/18 05:36 133/89 09/08/18 04:00 92 09/08/18 02:59 Room Air 21 09/08/18 02:59 Room Air 21 09/08/18 00:39 141/80 09/08/18 00:37 98.3 66 18 141/80 (100) 96 09/08/18 00:00 63 09/07/18 23:59 63 16 98 Room Air 21 09/07/18 23:51 65 18 99 Room Air 21 09/07/18 21:00 Room Air 09/07/18 20:46 65 16 99 Room Air 21 09/07/18 20:38 73 16 Room Air 21 09/07/18 20:38 73 16 98 Room Air 21 09/07/18 17:24 135/73 Intake and Output 09/07/18 09/08/18 18:59 06:59 Intake Total 240 ml Balance 240 ml Intake Oral 240 ml # Voids 2 2 Laboratory Tests 09/08/18 06:00: White Blood Count 7.0, Red Blood Count 5.00, Hemoglobin 14.7, Hematocrit 43.9, Mean Corpuscular Volume 88, Mean Corpuscular Hemoglobin 29.5, Mean Corpuscular Hemoglobin Concent 33.6, Red Cell Distribution Width 13.2, Platelet Count 201, Mean Platelet Volume 8.4, Neutrophils (%) (Auto) 57.0, Lymphocytes (%) (Auto) 34.3, Monocytes (%) (Auto) 6.5, Eosinophils (%) (Auto) 1.5, Basophils (%) (Auto ) 0.8, Sodium Level 140, Potassium Level 3.4L, Chloride Level 104, Carbon Dioxide Level 26, Anion Gap 10, Blood Urea Nitrogen 21H, Creatinine 1.1, Estimat Glomerular Filtration Rate > 60, Glucose Level 257H, Calcium Level 9.9 Height (Feet): 5 Height (Inches): 6.00 Weight (Pounds): 205 Objective Obese. CV RR Lungs B wheezes Abd SNT. BS + E DjD. No CCE Miguel A Bella MD Sep 08, 2018 16:39
--- NOTE | 2018-09-08 17:54 | Diagnostic Imaging Report ---
Indication: Cough Technique: One view of the chest Comparison: 09/06/2018 Findings: There is minimal interstitial edema, appearing somewhat improved since the prior exam. The heart is enlarged. The pleural spaces are grossly clear Impression: Improving but persistent mild interstitial edema, since prior study 09/06/2018
--- NOTE | 2018-09-08 19:17 | Cardiology Report ---
APPROVED REPORT EXAM: Two-dimensional and M-mode echocardiogram with Doppler and color Doppler. INDICATION Congestive Heart Failure M-Mode DIMENSIONS IVSd1.4 (0.7-1.1cm)Left Atrium (MM)4.4 (1.6-4.0cm) LVDd5.9 (3.5-5.6cm)Aortic Root3.4 (2.0-3.7cm) PWd1.5 (0.7-1.1cm)Aortic Cusp Exc.1.6 (1.5-2.0cm) LVDs4.8 (2.5-4.0cm) PWs1.6 cm Mild left ventricular enlargement. Normal left ventricular systolic function with left ventricular ejection fraction estimated at 50%. Mild left ventricular hypertrophy. Anterior Echo-free space, may be due to pericardial fat or effusion. Moderate left atrial enlargement. Right cardiac chamber sizes are within normal limits. Focal aortic valve sclerosis with adequate cusp excursion. Thickened mitral valve leaflets with normal excursion. Mitral annulus and aortic root calcification. Pulmonic valve not well visualized. Normal tricuspid valve structure. IVC at 1.9 cm with physiologic collapse. A color flow and spectral Doppler study was performed and revealed: Mild mitral regurgitation. Mitral inflow velocities indicates possible pseudo normalization pattern implying moderately elevated left atrial pressure (Grade II). Mild tricuspid regurgitation. Tricuspid systolic velocities suggests peak right ventricular systolic pressure of 47 mmHg, consistent with moderate pulmonary hypertension.
--- NOTE | 2018-09-08 19:18 | NUR ---
HAND-OFF: Report given to GILBERT Salgado. Endorsed that pt's records from [facility] are in the chart.
--- NOTE | 2018-09-08 19:20 | NUR ---
NURSE NOTES: Got report from Markie RN. Pt in stable condition. Denies any pain. No s/s of distress noted. Pt resting in bed comfortably. Bed in low and locked position, call light within reach, bedside table within reach. continue to monitor.
--- NOTE | 2018-09-08 19:28 | Cardiology Report ---
APPROVED REPORT EKG Measurement Heart [id number] Sinus rhythm with occasional premature ventricular complexes Left anterior fascicular block Left ventricular hypertrophy with repolarization abnormality Prolonged QT Abnormal ECG
[2018-09-08 20:00] VITALS: BP 156/87
--- NOTE | 2018-09-08 20:34 | Cardiology Progress Note ---
Assessment/Plan Assessment/Plan chest pain- CHF exacerbation, acute on chronic systlic and diastolic, will diurese and place on guideline directed medical management, including b-blcokers , diuretics and arb Subjective Subjective the patient is resting in bed she feels like suffocation in her throat but it is better than when she came Objective Last 24 Hour Vital Signs Date Time Temp Pulse Resp B/P (MAP) Pulse Ox O2 Delivery O2 Flow Rate FiO2 09/08/18 19:45 74 18 100 Room Air 09/08/18 19:34 69 18 Room Air 21 09/08/18 19:32 69 18 98 Room Air 21 09/08/18 17:22 138/89 09/08/18 16:00 98.8 98 17 138/89 (105) 99 09/08/18 16:00 100 09/08/18 15:00 Room Air 21 09/08/18 15:00 Room Air 09/08/18 12:36 165/86 09/08/18 12:00 94 09/08/18 12:00 98.5 71 17 145/86 (105) 99 09/08/18 11:26 68 18 100 Room Air 09/08/18 11:17 66 18 96 Room Air 09/08/18 09:00 Room Air 09/08/18 08:54 152/95 09/08/18 08:53 68 152/95 09/08/18 08:53 68 152/95 09/08/18 08:10 70 18 100 Room Air 09/08/18 08:00 68 18 99 Room Air 09/08/18 08:00 103 09/08/18 08:00 98.3 68 16 152/95 (114) 100 09/08/18 08:00 68 16 Room Air 09/08/18 05:36 67 133/89 (104) 09/08/18 05:36 133/89 09/08/18 04:00 92 09/08/18 02:59 Room Air 09/08/18 02:59 Room Air 09/08/18 00:39 141/80 09/08/18 00:37 98.3 66 18 141/80 (100) 96 09/08/18 00:00 63 09/07/18 23:59 63 16 98 Room Air 09/07/18 23:51 65 18 99 Room Air 21 09/07/18 21:00 Room Air 09/07/18 20:46 65 16 99 Room Air 21 09/07/18 20:38 73 16 Room Air 21 09/07/18 20:38 73 16 98 Room Air 21 General Appearance: no apparent distress EENT: PERRL/EOMI Neck: JVD Rhythm: NSR Cardiovascular: normal rate Respiratory/Chest: crackles/rales Abdomen: soft, other - distended, pst srugical scar Extremities: pitting Intake and Output 09/07/18 09/08/18 18:59 06:59 Intake Total 240 ml Balance 240 ml Intake Oral 240 ml # Voids 2 2 Laboratory Tests Test 09/08/18 06:00 White Blood Count 7.0 K/UL (4.8-10.8) Red Blood Count 5.00 M/UL (4.20-5.40) Hemoglobin 14.7 G/DL (12.0-16.0) Hematocrit 43.9 % (37.0-47.0) Mean Corpuscular Volume 88 FL (80-99) Mean Corpuscular Hemoglobin 29.5 PG (27.0-31.0) Mean Corpuscular Hemoglobin Concent 33.6 G/DL (32.0-36.0) Red Cell Distribution Width 13.2 % (11.6-14.8) Platelet Count 201 K/UL (150-450) Mean Platelet Volume 8.4 FL (6.5-10.1) Neutrophils (%) (Auto) 57.0 % (45.0-75.0) Lymphocytes (%) (Auto) 34.3 % (20.0-45.0) Monocytes (%) (Auto) 6.5 % (1.0-10.0) Eosinophils (%) (Auto) 1.5 % (0.0-3.0) Basophils (%) (Auto) 0.8 % (0.0-2.0) Sodium Level 140 MMOL/L (136-145) Potassium Level 3.4 MMOL/L (3.5-5.1) L Chloride Level 104 MMOL/L (98-107) Carbon Dioxide Level 26 MMOL/L (21-32) Anion Gap 10 mmol/L (5-15) Blood Urea Nitrogen 21 mg/dL (7-18) H Creatinine 1.1 MG/DL (0.55-1.30) Estimat Glomerular Filtration Rate > 60 mL/min (>60) Glucose Level 257 MG/DL (74-106) H Calcium Level 9.9 MG/DL (8.5-10.1) Microbiology Date/Time Source Procedure Growth Status 09/06/18 18:05 Urine,Clean Catch Urine Culture - Preliminary Resulted Jimena Messina MD Sep 08, 2018 20:34
[2018-09-08] MEDS: TraZODone 50mg tab ORAL SCH (20:43)
[2018-09-08] MEDS: Atorvastatin 20mg tab ORAL SCH (20:44)
[2018-09-08] MEDS: Levemir Flexpen SUBQ SCH (20:47)
[2018-09-09] VITALS: BP 162/97
[2018-09-09] MEDS: Albuterol/Ipratropium 3ml neb HHN SCH ×4 (02:14→13:25)
[2018-09-09 04:07] VITALS: BP 142/78
[2018-09-09] MEDS: HydrALAZINE 50mg tab ORAL SCH ×2 (05:49→12:00)
[2018-09-09] MEDS: NovoLOG Insulin Flexpen SUBQ SCH ×2 (06:21→11:30)
--- NOTE | 2018-09-09 07:20 | NUR ---
HAND-OFF: Report given to Markie HUNT. Endorsed plan of care.
--- NOTE | 2018-09-09 07:23 | NUR ---
NURSE NOTES: Pt received from GILBERT Salgado alert and oriented x4 with no acute s/s of distress. IV site asymptomatic and patent. Bed in lowest position, call light and belongings within reach.
[2018-09-09 08:00] VITALS: BP 176/102
[2018-09-09] MEDS: Docusate 100mg cap ORAL SCH (08:27)
[2018-09-09] MEDS: Losartan 50mg tab ORAL SCH (08:27)
[2018-09-09] MEDS: Aspirin Baby 81mg ORAL SCH (08:28)
[2018-09-09] MEDS: Furosemide 40mg tab ORAL SCH (08:28)
[2018-09-09] MEDS: Metoprolol Succinate XL 50mg tab ORAL SCH (08:28)
[2018-09-09] MEDS: Spironolactone 25mg tab ORAL SCH (08:28)
[2018-09-09] MEDS: Heparin 5000 units/ml inj SUBQ SCH (08:28)
[2018-09-09] MEDS: HYDROmorphone 1mg/ml Carpuject IVP PRN (08:29)
[2018-09-09 08:45] VITALS: BP 155/82
[2018-09-09 12:00] VITALS: BP 152/94
--- NOTE | 2018-09-09 12:28 | NUR ---
CASE MANAGEMENT:REVIEW 09/09/18 SI: AC/CHR CHF 98.8 73 18 176/102 97% ON RA IS: PROCARDIA PO QD HYDRALAZINE PO Q6 ALDACTONE PO QD K-DUR PO BID ASA PO QD PROTONIX PO QD COZAAR PO QD TOPROL XL PO QD HEPARIN SQ Q12 : TELEMETRY STATUS DCPz: FROM HOME
--- NOTE | 2018-09-09 13:05 | General Progress Note ---
Assessment/Plan Assessment/Plan COPD Exacerbation - improved AODM - stable. DJD - pain control DC home Subjective Allergies: Coded Allergies: MIDAZOLAM (Verified Adverse Reaction, Unknown, 05/15/15) Subjective Less SOB. Objective Last 24 Hour Vital Signs Date Time Temp Pulse Resp B/P (MAP) Pulse Ox O2 Delivery O2 Flow Rate FiO2 09/09/18 10:57 73 16 100 Room Air 21 09/09/18 10:48 69 16 98 Room Air 21 09/09/18 08:28 73 176/102 09/09/18 08:27 73 176/102 09/09/18 08:27 176/102 09/09/18 08:00 98.8 73 18 176/102 (126) 97 09/09/18 08:00 100 09/09/18 07:25 Room Air 21 09/09/18 07:25 Room Air 21 09/09/18 05:49 142/78 09/09/18 04:28 65 09/09/18 04:07 98.6 68 18 142/78 (99) 97 09/09/18 02:15 Room Air 21 09/09/18 02:15 Room Air 21 09/09/18 00:08 98.2 09/09/18 00:00 98.3 95 18 162/97 (118) 96 09/09/18 00:00 62 09/08/18 23:37 156/87 09/08/18 23:32 70 18 100 Room Air 21 09/08/18 23:24 65 18 97 Room Air 21 09/08/18 21:00 Room Air 09/08/18 20:00 98.2 97 18 156/87 (110) 96 09/08/18 20:00 68 09/08/18 19:45 74 18 100 Room Air 21 09/08/18 19:34 69 18 Room Air 21 09/08/18 19:32 69 18 98 Room Air 21 09/08/18 17:22 138/89 09/08/18 16:00 98.8 98 17 138/89 (105) 99 09/08/18 16:00 100 09/08/18 15:00 Room Air 21 09/08/18 15:00 Room Air 21 Intake and Output 09/08/18 09/09/18 19:00 07:00 Intake Total 1000 ml Balance 1000 ml Intake Oral 1000 ml # Voids 3 Height (Feet): 5 Height (Inches): 6.00 Weight (Pounds): 205 Objective Obese. CV RR Lungs B wheezes Abd SNT. BS + E DjD. No CCE Miguel A Bella MD Sep 09, 2018 13:05
--- NOTE | 2018-09-09 13:45 | NUR ---
NURSE NOTES: Pt discharged in safe condition to home with home meds per Dr. Bella's orders. RN educated pt on discharge and medication information, pt verbalized understanding. IV site d/kwame and wrist band removed per protocol. No wounds noted upon discharge. Belongings signed by patient upon discharge - all with her upon discharge. Pt picked up by private vehicle in safe condition.
--- NOTE | 2018-09-09 18:19 | Cardiology Progress Note ---
Assessment/Plan Assessment/Plan the patient should take her home medications, she is not compliant. d/w with her , and nursing Subjective Subjective the patient feels a little better, still has some shortness of breath, but she wants to go home and follow as outpatient, Objective Last 24 Hour Vital Signs Date Time Temp Pulse Resp B/P (MAP) Pulse Ox O2 Delivery O2 Flow Rate FiO2 09/09/18 13:35 79 16 100 Room Air 21 09/09/18 13:25 75 16 98 Room Air 21 09/09/18 12:00 98 09/09/18 12:00 97.5 70 18 152/94 (113) 98 09/09/18 10:57 73 16 100 Room Air 21 09/09/18 10:48 69 16 98 Room Air 21 09/09/18 09:00 Room Air 09/09/18 08:45 88 155/82 (106) 09/09/18 08:28 73 176/102 09/09/18 08:27 73 176/102 09/09/18 08:27 176/102 09/09/18 08:00 98.8 73 18 176/102 (126) 97 09/09/18 08:00 100 09/09/18 07:25 Room Air 21 09/09/18 07:25 Room Air 21 09/09/18 05:49 142/78 09/09/18 04:28 65 09/09/18 04:07 98.6 68 18 142/78 (99) 97 09/09/18 02:15 Room Air 21 09/09/18 02:15 Room Air 21 09/09/18 00:08 98.2 09/09/18 00:00 98.3 95 18 162/97 (118) 96 09/09/18 00:00 62 09/08/18 23:37 156/87 09/08/18 23:32 70 18 100 Room Air 21 09/08/18 23:24 65 18 97 Room Air 21 09/08/18 21:00 Room Air 09/08/18 20:00 98.2 97 18 156/87 (110) 96 09/08/18 20:00 68 09/08/18 19:45 74 18 100 Room Air 21 09/08/18 19:34 69 18 Room Air 21 09/08/18 19:32 69 18 98 Room Air 21 General Appearance: mild distress EENT: PERRL/EOMI Neck: JVD Rhythm: NSR Cardiovascular: regular rhythm Respiratory/Chest: decreased breath sounds, crackles/rales - few Abdomen: distended Extremities: no swelling Intake and Output 09/08/18 09/09/18 19:00 07:00 Intake Total 1000 ml Balance 1000 ml Intake Oral 1000 ml # Voids 3 Jimena Messina MD Sep 09, 2018 18:19
--- NOTE | 2018-09-11 10:10 | Discharge Summary ---
Discharge Summary Discharge Summary _ DATE OF ADMISSION: 09/06/2018 DATE OF DISCHARGE: 09/09/2018 DISCHARGED BY: Dr. Bella REASON FOR ADMISSION: 63 years old female with past medical history of hypertension, hyperlipidemia, type 2 diabetes mellitus, COPD, congestive heart failure, presented with new onset of chest tightness and shortness of breath. Patient described chest discomfort feeling like bricks in her chest. She stopped smoking 3 days ago , but she still smoking weed. Patient had a history of coronary angiogram in the past/ few years ago At that time no stents were placed as per patient. Prior hospitalization in this facility was in September 2017 for pulmonary edema. Upon evaluation blood pressure was severely elevated to 12/121, pulse oximetry was stable on room air. Laboratory workup revealed no leukocytosis, stable hemoglobin and hematocrit. Stable electrolytes. Glucose 392. Troponin -0.118. Pro BNP 8986. EKG revealed sinus rhythm with premature ventricular contraction, left anterior fascicular block, left ventricular hypertrophy with repolarization abnormality and prolonged QT. Patient admitted with acute coronary syndrome. CONSULTANTS: social service liaison Dr. Messina HOSPITAL COURSE: Patient admitted to telemetry floor. Second troponin trended down -0.097. EKG and telemetry still revealed no acute ischemic changes. Echocardiogram revealed ejection fraction of 50% with mild left ventricular hypertrophy. Right ventricular systolic pressure of 47 consistent with moderate pulmonary hypertension. Moderately elevated left atrial pressure with grade 2. Patient had prior ECHO with reduced ejection fraction Website Designer closely follow. Prior cardiac catheterization records were reviewed by social service liaison , which showed normal coronary. Chest pain was likely due to exacerbation of congestive heart failure, as per social service liaison. Patient started on diuretic with close monitoring, volumes and cardiorenal parameters. Blood pressure initially was uncontrolled. Patient initially was on calcium channel magui, ARB, beta-magui and diuretics. Hydralazine later was added to existing antihypertensive regimen , and dose was uptitrated to keep blood pressure under control. Blood pressures eventually stabilized. Patient was placed on guideline directed medical management, including beta- magui, ARB, and diuretics. Antiplatelet therapy with aspirin and statin were continued. Nitroglycerin was on board as needed. Patient was encouraged on compliance with medication regimen. Blood sugar was managed with long-acting insulin and sliding scale of short acting insulin was used as needed. TSH was within normal limits. Patient started on nicotine patch. Patient was counseled to continue abstinence from smoking. Supplemental oxygen provided as needed to keep pulse oximetry above 92%. Pulmonary toilet with bronchodilator provided [id number] and as needed. Respiratory status stabilized. Pulse oximetry was stable on room air. Pain management was addressed for degenerative joint disease. Renal parameters and electrolytes were closely monitored, electrolytes/ potassium corrected as needed. Supportive care provided. Patient was counseled on compliance with medication regimen at home. 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 DISCHARGE INSTRUCTIONS: Patient was discharged home. Follow up with primary care provider in one week. I have been assigned to dictate discharge summary for this account. I was not involved in the patient's management. Alison Ruvalcaba NP Sep 11, 2018 10:10
== END 2018-09-09 13:45 | disposition home or self-care (01) | DRG 292 ==
LOC: EDBD 07:18 → EMR 07:48 → 2E 09:36 → EDBEDREQ 11:02 → 2E 09-08 13:19
DX: I11.0 Hypertensive heart disease with heart failure (principal); J44.1 Chronic obstructive pulmonary disease with (acute) exacerbation; I50.43 Acute on chronic combined systolic (congestive) and diastolic (congestive) heart failure; Z88.8 Allergy status to other drugs, medicaments and biological substances; E78.5 Hyperlipidemia, unspecified; I48.0 Paroxysmal atrial fibrillation; Z87.891 Personal history of nicotine dependence; E11.65 Type 2 diabetes mellitus with hyperglycemia; M19.90 Unspecified osteoarthritis, unspecified site; I27.20 Pulmonary hypertension, unspecified
CPT/HCPCS: 36415; 71045; 80048; 80053; 80307; 81003; 82550; 82962; 83880; 84443; 84484; 85025; 85610; 85730; 87086; 93005; 93306; 94640; 94664; 96374; 96375; 99285; J1815; J2405; J7620; J8499; S5561

== ENCOUNTER 2019-01-19 16:51 | Inpatient (IN) | payer MEDICARE, OTHER ==
[~2019-01-19] VITALS: Ht 162.6 cm; Wt 101.7 kg
--- NOTE | 2019-01-19 18:50 | NUR ---
NURSE NOTES: Received report from GILBERT Cain, from [facility]. Patient not arrived, was told chicken picker time at 1900.
--- NOTE | 2019-01-19 19:18 | NUR ---
HAND-OFF: Report given to GILBERT Bradshaw.
--- NOTE | 2019-01-19 20:20 | NUR ---
NURSE NOTES: Received patient from [facility] via gurney accompanied by 2 commercial light fixture assembler under the service of Dr. Bella. Patient is awake, lying in semi lundberg's; resting comfortably. A/O x4. Ambulatory with supervision. Verbalizes pain located at the head with a pain scale of 10/10. Able to make needs known. No signs of acute cardiorespiratory distress. Checked IV site intact and flushed. Belongings checked with patient. Body assessment done. No wounds noted. Skin is intact. Patient is placed on legal records clerk - SR>All admitting orders verified by Dr. Newton and carried out. Bed at lowest position, brakes on, siderails x3. Call light within reach. Comfort care provided. Will continue to monitor. Addendum: 01/19/19 at 2335 by Cailin Fraga RN Report received from GILBERT Graves.
[2019-01-19 20:30] VITALS: BP 163/104
--- NOTE | 2019-01-19 21:05 | NUR ---
NURSE NOTES: Paged Dr. Bella for admission orders. Received new orders including continuing [facility] medications and no lab draws for now. Noted and carried out.
[2019-01-19] MEDS ORDERED: PROAIR HFA8.5 GM INH (21:17)
[2019-01-19] MEDS ORDERED: NORCO 5-325 TA1 EACH ORAL (21:17)
[2019-01-19] MEDS ORDERED: XANAX2 MG ORAL (21:17)
[2019-01-19] MEDS ORDERED: MILK OF MA400 MG/51 ORAL (21:17)
[2019-01-19] MEDS ORDERED: COREG CR40 MG ORAL (21:17)
[2019-01-19] MEDS ORDERED: LANTUS SOL100 UNIT/1 SUBQ (21:17)
[2019-01-19] MEDS ORDERED: ENTRESTO 49 MG1 EACH PO (21:17)
[2019-01-19] MEDS ORDERED: POTASSIUM CHLO20 ME1 ORAL (21:17)
[2019-01-19] MEDS ORDERED: Albuterol/Ipratropium 3ml neb HHN PRN (21:30)
--- NOTE | 2019-01-19 21:54 | NUR ---
NURSE NOTES: Verified with patient if she has allergies to Xanax. Was told, "no I don't think so."
[2019-01-19] MEDS: Metoprolol Succinate XL 50mg tab ORAL SCH (22:30)
[2019-01-19] MEDS: HYDROcodone/Acetamin 5/325 tab ORAL PRN (22:34)
[2019-01-20] MEDS: ALPRAZolam 0.5mg tab ORAL SCH ×2 (01:10→20:57)
--- NOTE | 2019-01-20 02:12 | NUR ---
NURSE NOTES: Safety maintained throughout the night. No significant change of condition noted. Will continue to monitor.
[2019-01-20 04:00] VITALS: BP 138/66
[2019-01-20] MEDS: NovoLOG Insulin Flexpen SUBQ SCH ×4 (05:40→21:11)
--- NOTE | 2019-01-20 07:30 | NUR ---
HAND-OFF: Report given to GILBERT Wang. Addendum: 01/20/19 at 0740 by Cailin Fraga RN Plan of care endorsed.
--- NOTE | 2019-01-20 07:59 | NUR ---
NURSE NOTES: Received patient from Leslee HUNT, in bed resting, A/O X4, no signs or symptoms of acute distress noted, bed is in lowest position, brakes engaged for safety, call light is within easy reach, bed alarm on, side rails up X2. Patient is on RA. Patient has RFA 22G and LFA 20G SL, both IV's intact and patent. Will continue with the plan of care.
[2019-01-20 08:00] VITALS: BP 133/85
[2019-01-20] MEDS: Losartan 50mg tab ORAL SCH (08:55)
[2019-01-20] MEDS: Aspirin EC 81mg tab ORAL SCH (08:55)
[2019-01-20] MEDS: Metoprolol Succinate XL 50mg tab ORAL SCH (08:56)
[2019-01-20] MEDS: Furosemide 40mg tab ORAL SCH (08:56)
[2019-01-20] MEDS: Heparin 5000 units/ml inj SUBQ SCH ×2 (08:58→21:10)
[2019-01-20 12:00] VITALS: BP 141/67
--- NOTE | 2019-01-20 12:49 | NUR ---
NURSE NOTES: AGUSTINA Chavira saw and assessed the patient. Will continue to monitor.
--- NOTE | 2019-01-20 13:11 | History & Physical ---
History of Present Illness Present Illness Allergies: Coded Allergies: LEVOFLOXACIN (Verified Allergy, Severe, Hives, 01/19/19) LORAZEPAM (Verified Allergy, Severe, 01/19/19) Patient gets confusion MIDAZOLAM (Verified Adverse Reaction, Unknown, 05/15/15) Medication History Scheduled Alprazolam* (Xanax*), 2 MG ORAL DAILY, (Reported) Amlodipine Besylate (Norvasc), 5 MG ORAL BID, (Reported) Aspirin Ec* (Aspirin Ec*), 81 MG ORAL DAILY Atorvastatin Calcium* (Lipitor*), 20 MG ORAL BEDTIME, (Reported) Carvedilol Phosphate (Coreg Cr), 40 MG ORAL DAILY, (Reported) Furosemide* (Lasix*), 40 MG ORAL DAILY, (Reported) Insulin Glargine (Lantus), 35 SUBQ BEDTIME, (Reported) Losartan Potassium* (Losartan Potassium*), 100 MG ORAL DAILY, (Reported) Metoprolol Succinate* (Metoprolol Succinate*), 50 MG ORAL DAILY, (Reported) Potassium Chloride* (K-Dur*), 20 MEQ ORAL BID, (Reported) Sacubitril/Valsartan (Entresto 49 mg-51 mg Tablet), 1 EACH PO BID, (Reported) Scheduled PRN Albuterol Sulfate* (Albuterol Sulfate Mdi*), 2 PUFF INH Q4H PRN for For Cough Albuterol Sulfate* (Proair Hfa*), 2 PUFFS INH Q4HR PRN for WHEEZING, (Reported) Hydrocodone Bit/Acetaminophen 5-325* ([place] 5-325*), 1 TAB ORAL Q4H PRN for For Pain, (Reported) Magnesium Hydroxide* (Milk Of Magnesia*), 30 ML ORAL TID PRN for Constipation, ( Reported) Discontinued Medications Acetaminophen* (Tylenol Extra Strength*), 500 MG ORAL Q8H PRN for Prn Headache/ Temp > 101 Discontinued Reason: Pt stopped taking med Nitroglycerin (Nitrostat), 0.4 MG SL Q5M X3 DOSES PRN for For Pain, (Reported) Discontinued Reason: Pt stopped taking med Tramadol Hcl* (Ultram*), 50 MG ORAL BID PRN for For Pain, (Reported) Discontinued Reason: Pt stopped taking med Trazodone Hcl* (Desyrel*), 150 MG ORAL BEDTIME, (Reported) Discontinued Reason: Pt stopped taking med Patient History Healthcare decision maker N Resuscitation status Full Code Advanced Directive on File Family History Family History: Patient reports no known family medical history. Review of Systems Review of Symptoms General ROS: no weight loss or fever Psychological ROS: no depression or mood changes, no memory loss Ophthalmic ROS: no visual changes or eye irritation ENT ROS: no nasal congestion, hearing loss, dizziness Allergy and Immunology ROS: no allergic symptoms or urticaria Hematological and Lymphatic ROS: no swollen glands, unusual bleeding or bruising Endocrine ROS: reports polyuria Respiratory ROS: reports cough, shortness of breath Cardiovascular ROS: no chest pain, reports dyspnea on exertion Gastrointestinal ROS: reports abdominal pain, ttp to the RUQ and RLQ Musculoskeletal ROS: no myalgias or arthralgias Neurological ROS: no TIA or stroke symptoms, 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 PERRL, EOM's intact. Fundi benign Throat: Lips, mucosa, and tongue normal. Teeth and gums normal Neck: supple, symmetrical, trachea midline, no adenopathy, thyroid: not enlarged, symmetric, no tenderness/mass/nodules, no carotid bruit and no JVD Lungs: diminished bilat. Heart: regular rate and rhythm, S1, S2 normal, no murmur, click, rub or gallop Abdomen: Tender to palpation, greater to the RUQ/RLQ and suprapubic ttp. Bowel sounds normal. No masses, no organomegaly Extremities: extremities normal, atraumatic, no cyanosis or edema Pulses: 2+ and symmetric Skin: Skin color, texture, turgor normal. No rashes or lesions Neurologic: Grossly normal Last 24 Hour Vital Signs Date Time Temp Pulse Resp B/P (MAP) Pulse Ox O2 Delivery O2 Flow Rate FiO2 01/20/19 12:00 98.7 73 18 141/67 (91) 96 01/20/19 09:04 73 20 97 Room Air 21 01/20/19 09:00 Room Air 01/20/19 08:57 72 133/85 01/20/19 08:56 72 133/85 01/20/19 08:55 133/85 01/20/19 08:00 69 01/20/19 08:00 98.3 69 20 133/85 (101) 98 01/20/19 04:00 98.6 75 20 138/66 (90) 100 01/20/19 04:00 74 01/20/19 00:00 44 01/19/19 22:30 70 163/104 01/19/19 21:33 Room Air 01/19/19 20:30 98.5 70 18 163/104 (123) 95 01/19/19 20:25 67 Intake and Output 01/19/19 01/20/19 19:00 07:00 Intake Total 120 ml Balance 120 ml Intake Oral 120 ml # Voids 1 Height (Feet): 5 Height (Inches): 4.00 Weight (Pounds): 208 Medications Current Medications Medications (Trade) Dose Ordered Sig/Guillermo Route PRN Reason Start Time Stop Time Status Last Admin Dose Admin Acetaminophen/ Hydrocodone Bitart ([place] 5/325) 1 tab Q4H PRN ORAL For Pain 01/19/19 21:30 01/26/19 21:29 01/19/19 22:34 Albuterol Sulfate (Proventil MDI) 2 puff Q4H PRN INH WHEEZING 01/19/19 21:30 02/18/19 21:29 Albuterol/ Ipratropium (Albuterol/ Ipratropium) 3 ml Q4H PRN HHN Shortness of Breath 01/19/19 21:30 01/24/19 21:29 Alprazolam (Xanax) 2 mg BEDTIME ORAL 01/20/19 01:00 01/27/19 00:59 01/20/19 01:10 Amlodipine Besylate (Norvasc) 5 mg BID ORAL 01/20/19 09:00 02/19/19 08:59 01/20/19 08:57 Aspirin (Ecotrin) 81 mg DAILY ORAL 01/20/19 09:00 02/19/19 08:59 01/20/19 08:55 Atorvastatin Calcium (Lipitor) 20 mg BEDTIME ORAL 01/20/19 21:00 02/19/19 20:59 Dextrose (Dextrose 50%) 25 ml Q30M PRN IV Hypoglycemia 01/19/19 21:30 02/18/19 21:29 Dextrose (Dextrose 50%) 50 ml Q30M PRN IV Hypoglycemia 01/19/19 21:30 02/18/19 21:29 Furosemide (Lasix) 40 mg DAILY ORAL 01/20/19 09:00 02/19/19 08:59 01/20/19 08:56 Heparin Sodium (Porcine) (Heparin 5000 units/ml) 5,000 units EVERY 12 HOURS SUBQ 01/20/19 09:00 02/19/19 08:59 01/20/19 08:58 Insulin Aspart (NovoLOG) BEFORE MEALS AND HS SUBQ 01/20/19 06:30 02/19/19 06:29 01/20/19 11:23 Insulin Detemir (Levemir) 35 units QHS SUBQ 01/20/19 21:00 02/19/19 20:59 Losartan Potassium (Cozaar) 100 mg DAILY ORAL 01/20/19 09:00 02/19/19 08:59 01/20/19 08:55 Magnesium Hydroxide (Mom) 30 ml TIDPRN PRN ORAL Constipation 01/19/19 21:30 02/18/19 21:29 Metoprolol Succinate (Toprol XL) 50 mg DAILY ORAL 01/19/19 21:30 02/18/19 21:29 01/20/19 08:56 Nicotine (Nicoderm) 1 patch Q24H TDERMAL 01/19/19 21:30 02/18/19 21:29 01/19/19 22:31 Ondansetron HCl (Zofran) 4 mg Q6H PRN IVP Nausea & Vomiting 01/19/19 21:30 02/18/19 21:29 Potassium Chloride (K-Dur) 20 meq BID ORAL 01/20/19 09:00 02/19/19 08:59 01/20/19 08:55 Sacubitril/ Valsartan (Entresto 49mg/ 51mg) 1 tab Q12HR ORAL 01/20/19 09:00 02/19/19 08:59 01/20/19 09:09 Assessment/Plan Status: unchanged Status Narrative The patient is observed to be resting upon arrival. She is easily awoken. Endorses SOB, cough, nausea, abd pain (RUQ/LUQ), suprapubic pain and polyuria. Denies bilateral lower edema, diarrhea, polydipsia, wounds. Assessment/Plan: CBC CMP Trop BNP urinalysis HgbA1C chest x-ray MIPS Hospital declaration INPATIENT level of care is warranted for this patient because patient is a 89 year old with who presents with suspicion of . I have a high level of concern because . Patient is at high risk for . Plan of care/treatment include . Patient care is expected to be greater than 2 midnights. OBSERVATION level of care is warranted for this patient. Patient is a 89 year old with who presents with . Patient will be admitted for 1 midnight, but if additional night(s) is/are necessary, patient will be converted to inpatient status for the entire hospitalization Disposition: Once the patient is stable to leave the hospital, I anticipate the patient will likely be discharged to the following environment: Estimated discharge date: I spent 70 minutes on this patient's case, and minutes was dedicated to counseling and/or care coordination. MIPS (Merit-based Incentive Payment System) Applicable CPT: 35971, 43268 CHECK ALL THAT ARE MET: Measure #5 (CHF): All ages. Prescribe WILLIS/ARB upon discharge for patients with left ventricular systolic dysfunction. If not, the reason is clearly documented in the medical chart. Measure #8 (CHF): All ages. Prescribe a beta magui upon discharge for patients with left ventricular systolic dysfunction. If not, the reason is clearly documented in the medical chart. Measure #47 Advance care plan or surrogate decision maker documented in the medical record. Measure #130 The provider has documented, updated, or reviewed the patients current medication list and has documented it in the patients note. Measure #374 (All): Send report to referring provider. Measure #407(Sepsis due to MSSA bacteremia): Age 18+ Patient treated with a beta-lactam antibiotic (Nafcillin, Oxacillin or Cefazolin) as definitive therapy. MEDICAL COMPLEXITY High complexity medical decision making (need 2/3 categories) Problem - need 4 points Acute/new problem with new plan for workup (4 points, 1 max) Acute/new problem without additional workup (3 points, 1 max) Unstable chronic problem actively being managed (2 point each, 2 max) Stable chronic problem actively being managed (1 point each, 2 max) Self-limited/transient process (constipation, muscle ache, etc) (1 point each , 2 max) Data - need 4 points Reviewed labs/imaging studies (1 points, 2 max) Independent review of imaging (EKG, xrays, etc) (2 points, 2 max) Discussed case with consult/other MD/RN (2 points, 2 max) High Risk - qualify if have one of the following: Severe exacerbation of acute problem, acute mental status change, IV narcotics , monitoring drug levels (vancomycin, INR, tacrolimus etc) Beth Chavira N.P. Jan 20, 2019 13:11
[2019-01-20 13:39] LABS: BASOPHILS % (AUTO) 0.9 % (0.0-2.0); EOSINOPHILS % (AUTO) 1.7 % (0.0-3.0); HEMATOCRIT 43.9 % (37.0-47.0); HEMOGLOBIN 14.4 G/DL (12.0-16.0); LYMPHOCYTES % (AUTO) 28.4 % (20.0-45.0); MEAN CORPUSCULAR VOLUME 91 FL (80-99); MONOCYTES % (AUTO) 8.9 % (1.0-10.0); NEUTROPHILS % (AUTO) 60.1 % (45.0-75.0); PLATELET COUNT 219 K/UL (150-450); RED BLOOD COUNT 4.81 M/UL (4.20-5.40); WHITE BLOOD COUNT 7.5 K/UL (4.8-10.8)
[2019-01-20 14:17] LABS: ALANINE AMINOTRANSFERASE 24 U/L (12-78); ALBUMIN 3.2 G/DL (3.4-5.0); ALBUMIN/GLOBULIN RATIO 0.8 (1.0-2.7); ALKALINE PHOSPHATASE 76 U/L (46-116); ANION GAP 3 mmol/L (5-15); ASPARTATE AMINO TRANSFERASE 13 U/L (15-37); BILIRUBIN,TOTAL 0.5 MG/DL (0.2-1.0); BLOOD UREA NITROGEN 28 mg/dL (7-18); CALCIUM 10.2 MG/DL (8.5-10.1); CARBON DIOXIDE 30 MMOL/L (21-32); CHLORIDE 110 MMOL/L (98-107); CREATININE 1.5 MG/DL (0.55-1.30); POTASSIUM 3.8 MMOL/L (3.5-5.1); SODIUM 143 MMOL/L (136-145)
--- NOTE | 2019-01-20 14:29 | NUR ---
NURSE NOTES: Lab called to report Troponin of 0.169. Dr. Fletcher made aware. No new order yet.
--- NOTE | 2019-01-20 15:31 | NUR ---
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
[2019-01-20 16:00] VITALS: BP 125/77
--- NOTE | 2019-01-20 16:46 | Diagnostic Imaging Report ---
Indication: Shortness of breath Technique: 2 views of the chest Comparison: 09/08/2018 Findings: Better inspiration currently. The heart is borderline enlarged. The aorta is tortuous and ectatic. The upper mediastinum is unremarkable. Previously reported minimal interstitial edema is no longer evident Impression: No acute process
[2019-01-20] MEDS ORDERED: CRESTOR20 MG ORAL (19:26)
--- NOTE | 2019-01-20 19:39 | NUR ---
HAND-OFF: Report given to Leeann Simeon, GILBERT's.Patient is in stable condition.
--- NOTE | 2019-01-20 19:40 | NUR ---
NURSE NOTES: Received patient awake, lying in semi lundberg's; resting comfortably. A/O x 4. Denies pain at this time. No signs of acute cardiorespiratory distress noted. Able to make needs known. Checked IV site intact and flushed. No erythema, bleeding or infiltration noted. Bed at lowest position, brakes on, siderails x3. Call light within reach. Comfort care provided. Will continue to monitor.
[2019-01-20 20:00] VITALS: BP 153/83
[2019-01-20 20:15] LABS: APPEARANCE,URINE CLEAR; BILIRUBIN, URINE NEGATIVE (NEGATIVE); COLOR,URINE PALE YELLOW; GLUCOSE, URINE (UA) NEGATIVE (NEGATIVE); KETONES,URINE NEGATIVE (NEGATIVE); LEUKOCYTE ESTERASE ,URINE 1+ (NEGATIVE); NITRITE,URINE NEGATIVE (NEGATIVE); PH,URINE 5 (4.5-8.0); PROTEIN,URINE 2+ (NEGATIVE); UROBILINOGEN,URINE NORMAL MG/DL (0.0-1.0)
[2019-01-20] MEDS: Atorvastatin 20mg tab ORAL SCH (21:10)
[2019-01-20] MEDS: Levemir Flexpen SUBQ SCH (21:13)
[2019-01-20] MEDS: HYDROcodone/Acetamin 5/325 tab ORAL PRN (23:59)
[2019-01-21] VITALS: BP 144/84
--- NOTE | 2019-01-21 00:40 | NUR ---
NURSE NOTES: Patient is resting throughout the night. No significant change of condition noted. Will continue to monitor.
[2019-01-21 04:00] VITALS: BP 136/84
[2019-01-21] MEDS: NovoLOG Insulin Flexpen SUBQ SCH ×4 (05:43→20:49)
--- NOTE | 2019-01-21 07:25 | NUR ---
HAND-OFF: Report given to GILBERT Wang. Patient is in stable condition. No signs of acute distress noted.
--- NOTE | 2019-01-21 07:27 | NUR ---
NURSE NOTES: Received patient from Marshall RN's, in bed resting, A/O X4, no signs or symptoms of acute distress noted, bed is in lowest position, brakes engaged for safety, call light is within easy reach, bed alarm on, side rails up X2. Patient is on RA. Patient has LFA 20G SL, intact and patent. Will continue with the plan of care.
[2019-01-21 08:00] VITALS: BP 157/85
[2019-01-21] MEDS: Losartan 50mg tab ORAL SCH (08:33)
[2019-01-21] MEDS: Aspirin EC 81mg tab ORAL SCH (08:34)
[2019-01-21] MEDS: Furosemide 40mg tab ORAL SCH (08:35)
[2019-01-21] MEDS: Metoprolol Succinate XL 50mg tab ORAL SCH (08:35)
[2019-01-21] MEDS: Heparin 5000 units/ml inj SUBQ SCH ×2 (08:37→20:39)
[2019-01-21 11:07] LABS: HEMATOCRIT 44.6 % (37.0-47.0); HEMOGLOBIN 14.6 G/DL (12.0-16.0); MEAN CORPUSCULAR VOLUME 91 FL (80-99); RED BLOOD COUNT 4.87 M/UL (4.20-5.40); WHITE BLOOD COUNT 7.2 K/UL (4.8-10.8)
[2019-01-21 11:08] LABS: EOSINOPHILS % (AUTO) 1.2 % (0.0-3.0); LYMPHOCYTES % (AUTO) 28.4 % (20.0-45.0); MONOCYTES % (AUTO) 9.7 % (1.0-10.0); NEUTROPHILS % (AUTO) 59.8 % (45.0-75.0); PLATELET COUNT 218 K/UL (150-450); RED CELL DISTRIBUTION WIDTH 11.6 % (11.6-14.8)
--- NOTE | 2019-01-21 11:12 | Nephrology Progress Note ---
Assessment/Plan Plan CBC, CMP, Trop Today CBC, BMP, BNP tomorrow Increase Furosemide from 40mg to 60mg daily CT w/o chest, abdomen, pelvis urinalysis Subjective Interval Events/Complaints This is a 63 y.o female who reports N/V, productive cough, RUQ/RLQ pain, polyuria/polydipsia and orthopnea. The patient denies chest pain, diarrhea/ constipation, flank pain and dysuria. When questioned, the pt reports not taking her furosemide and insulin regularly. Stating "I may have skipped a few doses." Objective Objective Last 24 Hour Vital Signs Date Time Temp Pulse Resp B/P (MAP) Pulse Ox O2 Delivery O2 Flow Rate FiO2 01/21/19 08:35 67 157/85 01/21/19 08:34 67 157/85 01/21/19 08:33 157/85 01/21/19 08:06 99 18 97 Room Air 21 01/21/19 04:00 63 01/21/19 04:00 97.9 61 18 136/84 (101) 97 01/21/19 00:00 98.2 69 20 144/84 (104) 98 01/21/19 00:00 74 01/20/19 21:45 68 16 93 Room Air 21 01/20/19 21:00 Room Air 01/20/19 20:00 79 01/20/19 20:00 98.2 61 18 153/83 (106) 96 01/20/19 17:52 72 125/77 01/20/19 16:00 97.2 72 18 125/77 (93) 97 01/20/19 16:00 72 01/20/19 12:00 98.7 73 18 141/67 (91) 96 01/20/19 12:00 67 Intake and Output 01/20/19 01/21/19 19:00 07:00 Intake Total 270 ml Balance 270 ml Intake Oral 270 ml # Voids 4 # Bowel Movements 2 2 Laboratory Tests 01/20/19 13:20: White Blood Count 7.5, Red Blood Count 4.81, Hemoglobin 14.4, Hematocrit 43.9, Mean Corpuscular Volume 91, Mean Corpuscular Hemoglobin 29.9, Mean Corpuscular Hemoglobin Concent 32.8, Red Cell Distribution Width 12.0, Platelet Count 219, Mean Platelet Volume 8.3, Neutrophils (%) (Auto) 60.1, Lymphocytes (%) (Auto) 28.4, Monocytes (%) (Auto) 8.9, Eosinophils (%) (Auto) 1.7, Basophils (%) (Auto ) 0.9, Sodium Level 143, Potassium Level 3.8, Chloride Level 110H, Carbon Dioxide Level 30, Anion Gap 3L, Blood Urea Nitrogen 28H, Creatinine 1.5H, Estimat Glomerular Filtration Rate 42.8, Glucose Level 138H, Hemoglobin A1c 8.0H , Calcium Level 10.2H, Total Bilirubin 0.5, Aspartate Amino Transf (AST/SGOT) 13L, Alanine Aminotransferase (ALT/SGPT) 24, Alkaline Phosphatase 76, Troponin I 0.169H, Pro-B-Type Natriuretic Peptide 884H, Total Protein 7.2, Albumin 3.2L, Globulin 4.0, Albumin/Globulin Ratio 0.8L 01/20/19 18:50: Urine Color Pale yellow, Urine Appearance Clear, Urine pH 5, Urine Specific [place] 1.015, Urine Protein 2+H, Urine Glucose (UA) Negative, Urine Ketones Negative, Urine Blood 2+H, Urine Nitrite Negative, Urine Bilirubin Negative, Urine Urobilinogen Normal, Urine Leukocyte Esterase 1+H, Urine RBC 0-2, Urine WBC 2-4, Urine Squamous Epithelial Cells Few, Urine Transitional Epithelial Cells OccasionalH, Urine Bacteria Occasional, Urine Yeast OccasionalH Height (Feet): 5 Height (Inches): 4.00 Weight (Pounds): 217 Objective Neuro: A&Ox4, [employer]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 Jan 21, 2019 11:12
[2019-01-21 11:24] LABS: ALANINE AMINOTRANSFERASE 20 U/L (12-78); ALBUMIN 3.1 G/DL (3.4-5.0); ALBUMIN/GLOBULIN RATIO 0.8 (1.0-2.7); ALKALINE PHOSPHATASE 74 U/L (46-116); ANION GAP 6 mmol/L (5-15); ASPARTATE AMINO TRANSFERASE 14 U/L (15-37); BILIRUBIN,TOTAL 0.4 MG/DL (0.2-1.0); BLOOD UREA NITROGEN 27 mg/dL (7-18); CARBON DIOXIDE 28 MMOL/L (21-32); CHLORIDE 107 MMOL/L (98-107); CREATININE 1.4 MG/DL (0.55-1.30); SODIUM 141 MMOL/L (136-145)
--- NOTE | 2019-01-21 11:34 | NUR ---
NURSE NOTES: Juan Manuel Mejias from lab called to report Troponin of 0.139. HAM ROLLING MACHINE OPERATOR belinda aware. Will continue to monitor.
[2019-01-21 12:00] VITALS: BP 138/72
[2019-01-21 16:00] VITALS: BP 130/84
--- NOTE | 2019-01-21 17:35 | Diagnostic Imaging Report ---
CLINICAL INDICATION:Nausea vomiting, productive cough, right upper quadrant and right lower quadrant pain, polyuria and polydipsia, orthopnea TECHNIQUE: Patient ingested oral contrast. No IV contrast, per referring physician request Spiral acquisitions obtained through the chest, abdomen, and pelvis. Multiplanar reconstructions were generated. Total dose length product 1654.3 mGycm. CTDIvol(s) 25.07 mGy. Radiation dose was minimized using automated exposure control COMPARISON: 06/05/[address] angiogram, 08/24/[address] abdomen and pelvis FINDINGS Chest: There are scattered small subpleural blebs in the upper lobes bilaterally. Small scattered parenchymal cystic spaces are seen in the right middle lobe and right lower lobe. Some areas of atelectasis are seen in the left lower lobe. These findings are all evident on the previous study. The lungs and pleural spaces are otherwise clear. No infiltrates, effusions, masses, or nodules are demonstrated. The heart is borderline enlarged. No pericardial effusion. The main, right, and left pulmonary arteries are somewhat ectatic, measuring 35, 26, and 28 mm. These dimensions are grossly unchanged. No mediastinal or hilar mass or adenopathy. No axillary or chest wall mass or adenopathy. The visualized portion of the thyroid is unremarkable. The bones are unremarkable. When compared to prior study, previously demonstrated infiltrates and adenopathy are no longer evident. Abdomen pelvis: The appendix is normal. There is colonic diverticulosis. No evidence of diverticulitis. There is broad-based diastasis of the rectus abdominis tendon, with borderline broad-based ventral hernia protruding into the inferior pannus. No evidence of obstruction related to such. This appearance is similar to the previous study. No small bowel distention or small bowel wall thickening. No free or loculated intraperitoneal gas or fluid is evident. Lack of IV contrast limits assessment of the solid organs. The liver again contains multiple granulomatous calcifications. No other focal abnormality. The gallbladder, bile ducts, pancreas, spleen, adrenals are unremarkable. Again demonstrated is unusual ectasia of the right ureter. There is also unusual appearance of the bladder and apparent unusual insertion of the ureter into the bladder. The left kidney demonstrates a 3 cm soft tissue attenuation mass in the interpolar region which is not evident previously. This is very slightly hyperattenuating as compared to normal parenchyma. There are also multiple left renal cysts again demonstrated. There is a 2 mm renal calyceal calculus again noted. The uterus is surgically absent. No pelvic mass or adenopathy. There are a few prominent pericaval lymph nodes noted. IMPRESSION: No acute abdominal or thoracic pathology 3 cm mass in the left renal interpolar region, not evident previously. This is concerning for renal neoplasm. Further evaluation with contrast CT or MRI is recommended. This finding was phoned to patient's nurse at the time of interpretation Ectasia of the right ureter. Unusual appearance to the bladder, similar to previous exam. Query prior ureteral implantation surgery-correlate with surgical history. Very large broad-based ventral hernia with associated diastases of the rectus abdominis tendon, also previously reported and unchanged. No evidence of obstruction or stricture attenuation related to such Colonic diverticulosis. No evidence of diverticulitis Subpleural blebs and pulmonary pneumatoceles as described, also previously reported Ectatic but not frankly dilated pulmonary arteries, also demonstrated previously, suggestive of hypertension. Borderline cardiomegaly Other findings as noted, including granulomas calcified lesions within the liver, nonobstructive left renal calculus, left renal cysts, evidence of prior hysterectomy The CT scanner at [facility] is accredited by the [employer] and the scans are performed using protocols designed to limit radiation exposure to as low as reasonably achievable to attain images of sufficient resolution adequate for diagnostic evaluation.
--- NOTE | 2019-01-21 18:05 | NUR ---
NURSE NOTES: Dr iLra called to report the result of the CT ABD/PELVIS/ CHEST of left renal mass - 3cm, possibly kidney cancer. Notified SUPERVISOR EXTRUDING DEPARTMENT BENITEZ. Will continue to monitor.
--- NOTE | 2019-01-21 19:30 | NUR ---
NURSE NOTES: Received patient from Kathleen HUNT. Patient sitting at edge of bed. On room air, no s/s of respiratory distress. Calm and cooperative, alert and oriented x4. Bed in low position, locked, call light within reach. Patient requested that her 2100 xanax be given later when she goes to sleep.
--- NOTE | 2019-01-21 19:36 | NUR ---
HAND-OFF: Report given to Milton HUNT.Patient is in stable condition
[2019-01-21] MEDS: HYDROcodone/Acetamin 5/325 tab ORAL PRN (19:53)
[2019-01-21 20:00] VITALS: BP 152/83
[2019-01-21] MEDS: Atorvastatin 20mg tab ORAL SCH (20:32)
[2019-01-21] MEDS: Levemir Flexpen SUBQ SCH (20:48)
[2019-01-21] MEDS: ALPRAZolam 0.5mg tab ORAL SCH (22:07)
[2019-01-22] VITALS: BP 156/88
[2019-01-22 04:00] VITALS: BP 139/73
[2019-01-22] MEDS: NovoLOG Insulin Flexpen SUBQ SCH ×4 (06:27→21:20)
[2019-01-22 07:23] LABS: BASOPHILS % (AUTO) 1.2 % (0.0-2.0); EOSINOPHILS % (AUTO) 2.5 % (0.0-3.0); HEMATOCRIT 44.5 % (37.0-47.0); HEMOGLOBIN 14.7 G/DL (12.0-16.0); LYMPHOCYTES % (AUTO) 32.8 % (20.0-45.0); MEAN CORPUSCULAR VOLUME 91 FL (80-99); MONOCYTES % (AUTO) 10.7 % (1.0-10.0); NEUTROPHILS % (AUTO) 52.8 % (45.0-75.0); PLATELET COUNT 227 K/UL (150-450); RED BLOOD COUNT 4.89 M/UL (4.20-5.40); RED CELL DISTRIBUTION WIDTH 11.7 % (11.6-14.8); WHITE BLOOD COUNT 6.4 K/UL (4.8-10.8)
--- NOTE | 2019-01-22 07:37 | NUR ---
NURSE NOTES: Received report from GILBERT Rose. Pt is laying in bed, sleeping. No distress noted. Bed is in lowest position, side rails up X2, and call light is within reach. Will continue to monitor.
[2019-01-22 08:00] VITALS: BP 156/82
[2019-01-22 08:22] LABS: ANION GAP 8 mmol/L (5-15); BLOOD UREA NITROGEN 27 mg/dL (7-18); CALCIUM 9.9 MG/DL (8.5-10.1); CARBON DIOXIDE 27 MMOL/L (21-32); CHLORIDE 107 MMOL/L (98-107); CREATININE 1.3 MG/DL (0.55-1.30); POTASSIUM 3.6 MMOL/L (3.5-5.1); SODIUM 142 MMOL/L (136-145)
[2019-01-22] MEDS: Heparin 5000 units/ml inj SUBQ SCH ×2 (09:00→21:18)
[2019-01-22] MEDS: Metoprolol Succinate XL 50mg tab ORAL SCH (09:06)
[2019-01-22] MEDS: Aspirin EC 81mg tab ORAL SCH (09:06)
[2019-01-22] MEDS: Losartan 50mg tab ORAL SCH (09:07)
[2019-01-22 12:00] VITALS: BP 147/84
--- NOTE | 2019-01-22 12:21 | General Progress Note ---
Assessment/Plan Status: unchanged Assessment/Plan: QUYEN resolving COPD - better LUQ tenderness unknown etiology. GS eval Subjective Allergies: Coded Allergies: LEVOFLOXACIN (Verified Allergy, Severe, Hives, 01/19/19) LORAZEPAM (Verified Allergy, Severe, 01/19/19) Patient gets confusion MIDAZOLAM (Verified Adverse Reaction, Unknown, 05/15/15) Subjective c/o severe LUQ flank pain. Objective Last 24 Hour Vital Signs Date Time Temp Pulse Resp B/P (MAP) Pulse Ox O2 Delivery O2 Flow Rate FiO2 01/22/19 09:07 156/82 01/22/19 09:07 65 156/82 01/22/19 09:06 65 156/83 01/22/19 08:20 70 18 100 Room Air 21 01/22/19 08:00 98.1 65 18 156/82 (106) 95 01/22/19 04:00 97.5 67 19 139/73 (95) 100 01/22/19 04:00 65 01/22/19 00:00 98.1 66 18 156/88 (110) 94 01/22/19 00:00 99 01/21/19 21:00 Room Air 01/21/19 20:00 98.3 69 18 152/83 (106) 96 01/21/19 20:00 83 01/21/19 19:58 94 18 97 Room Air 21 01/21/19 17:06 69 130/84 01/21/19 16:00 74 01/21/19 16:00 98.7 69 20 130/84 (99) 97 Intake and Output 01/21/19 01/22/19 18:59 06:59 Intake Total 260 ml Balance 260 ml Intake Oral 260 ml # Voids 3 1 # Bowel Movements 2 2 Laboratory Tests 01/22/19 06:42: White Blood Count 6.4, Red Blood Count 4.89, Hemoglobin 14.7, Hematocrit 44.5, Mean Corpuscular Volume 91, Mean Corpuscular Hemoglobin 30.0, Mean Corpuscular Hemoglobin Concent 32.9, Red Cell Distribution Width 11.7, Platelet Count 227, Mean Platelet Volume 8.3, Neutrophils (%) (Auto) 52.8, Lymphocytes (%) (Auto) 32.8, Monocytes (%) (Auto) 10.7H, Eosinophils (%) (Auto) 2.5, Basophils (%) ( Auto) 1.2, Sodium Level 142, Potassium Level 3.6, Chloride Level 107, Carbon Dioxide Level 27, Anion Gap 8, Blood Urea Nitrogen 27H, Creatinine 1.3, Estimat Glomerular Filtration Rate 50.4, Glucose Level 161H, Calcium Level 9.9, Pro-B- Type Natriuretic Peptide 361H Height (Feet): 5 Height (Inches): 4.00 Weight (Pounds): 217 Objective CV RR Lungs CTA Abd -soft. Tender LUQ! E No CCE Miguel A Bella MD Jan 22, 2019 12:21
--- NOTE | 2019-01-22 13:08 | NUR ---
NURSE NOTES: PT can not have an MRI. Called Dr. Bella and notified him Per Jena Car ok to cancel orders. No other orders at this time.
--- NOTE | 2019-01-22 14:31 | NUR ---
RD ASSESSMENT & RECOMMENDATIONS SEE CARE ACTIVITY FOR COMPLETE ASSESSMENT DAILY ESTIMATED NEEDS: Needs based on DM, CHF/ 70kg abw 25-30 kcals/kg 8176-1138 total kcals 1-1.3 g protein/kg 70-91 g total protein 20-22 mL/kg 4161-6222 total fluid mLs NUTRITION DIAGNOSIS: Decreased sodium intake needs R/T cardiac dx as evidenced hy CHF + HTN dx, on lasix and BP lowering meds. CURRENT DIET:CCHO MED PO DIET RECOMMENDATIONS: LOW NA, CCHO MED ADDITIONAL RECOMMENDATIONS: * Daily standing weight * Monitor lytes daily, replete as needed: pt on lasix
[2019-01-22 16:00] VITALS: BP 130/79
--- NOTE | 2019-01-22 17:45 | Consultation ---
History of Present Illness General Date patient seen: Jan 22, 2019 Present Illness HPI This is a 63-year-old female currently admitted for medical care management that began to complain of left upper quadrant abdominal pain. CT scan was ordered and reviewed. Surgery was called to evaluate for pain and CT findings. Patient seen, patient evaluated, chart reviewed. Currently states pain is 4 out of 10. No nausea vomiting fever chills. Pain intermittent is been present for some time now. Patient states that many years ago she had perforated diverticulitis requiring a [facility] and since had a takedown. Since the takedown is when she believes most of the pain began. Allergies: Coded Allergies: LEVOFLOXACIN (Verified Allergy, Severe, Hives, 01/19/19) LORAZEPAM (Verified Allergy, Severe, 01/19/19) Patient gets confusion MIDAZOLAM (Verified Adverse Reaction, Unknown, 05/15/15) Medication History Scheduled Alprazolam* (Xanax*), 2 MG ORAL DAILY, (Reported) Aspirin Ec* (Aspirin Ec*), 81 MG ORAL DAILY Carvedilol Phosphate (Coreg Cr), 40 MG ORAL DAILY, (Reported) Furosemide* (Lasix*), 40 MG ORAL BID, (Reported) Insulin Glargine (Lantus), 35 SUBQ BEDTIME, (Reported) Potassium Chloride* (K-Dur*), 20 MEQ ORAL BID, (Reported) Rosuvastatin Calcium* (Crestor*), 20 MG ORAL BEDTIME, (Reported) Sacubitril/Valsartan (Entresto 49 mg-51 mg Tablet), 1 EACH PO BID, (Reported) Scheduled PRN Albuterol Sulfate* (Albuterol Sulfate Mdi*), 2 PUFF INH Q4H PRN for For Cough Albuterol Sulfate* (Proair Hfa*), 2 PUFFS INH Q4HR PRN for WHEEZING, (Reported) Hydrocodone Bit/Acetaminophen 5-325* ([place] 5-325*), 1 TAB ORAL Q4H PRN for For Pain, (Reported) Discontinued Medications Acetaminophen* (Tylenol Extra Strength*), 500 MG ORAL Q8H PRN for Prn Headache/ Temp > 101 Discontinued Reason: Pt stopped taking med Amlodipine Besylate (Norvasc), 5 MG ORAL BID, (Reported) Discontinued Reason: Pt stopped taking med Atorvastatin Calcium* (Lipitor*), 20 MG ORAL BEDTIME, (Reported) Discontinued Reason: Prescription changed Losartan Potassium* (Losartan Potassium*), 100 MG ORAL DAILY, (Reported) Discontinued Reason: Pt stopped taking med Magnesium Hydroxide* (Milk Of Magnesia*), 30 ML ORAL TID PRN for Constipation, ( Reported) Discontinued Reason: Pt stopped taking med Metoprolol Succinate* (Metoprolol Succinate*), 50 MG ORAL DAILY, (Reported) Discontinued Reason: Pt stopped taking med Nitroglycerin (Nitrostat), 0.4 MG SL Q5M X3 DOSES PRN for For Pain, (Reported) Discontinued Reason: Pt stopped taking med Tramadol Hcl* (Ultram*), 50 MG ORAL BID PRN for For Pain, (Reported) Discontinued Reason: Pt stopped taking med Trazodone Hcl* (Desyrel*), 150 MG ORAL BEDTIME, (Reported) Discontinued Reason: Pt stopped taking med Patient History History Provided By: Patient, Medical Record, PMD Healthcare decision maker N Resuscitation status Full Code Advanced Directive on File Past Medical/Surgical History Past Medical/Surgical History: (1) Knee contusion (2) Knee contusion (3) Pruritus (4) Rash and other nonspecific skin eruption (5) Scabies (6) Pneumonia (7) Hidradenitis suppurativa (8) Hidradenitis axillaris (9) COPD (chronic obstructive pulmonary disease) (10) Acute respiratory failure (11) Hypertensive emergency (12) Hypertensive heart disease (13) HLD (hyperlipidemia) (14) DM2 (diabetes mellitus, type 2) (15) s/p brain aneurysm clipping (16) H/o CVA (17) smokes 1 pack cigarettes every 2 days (18) lives at home (19) smokes 1 pack cig every 2 days for many years (20) Tobacco abuse (21) Sepsis (22) Atrial fibrillation with RVR (23) Acute respiratory failure with hypoxia and hypercapnia (24) Lactic acidosis (25) UTI (urinary tract infection) (26) Chest pain (27) Shortness of breath (28) Diabetes mellitus (29) CHF (congestive heart failure) (30) HTN (hypertension) (31) COPD exacerbation (32) Acute on chronic diastolic (congestive) heart failure (33) CHF exacerbation Family History Family History: Patient reports no known family medical history. Review of Systems Review of Symptoms General ROS: no weight loss or fever Psychological ROS: no depression or mood changes, no memory loss Ophthalmic ROS: no visual changes or eye irritation ENT ROS: no nasal congestion, hearing loss, dizziness Allergy and Immunology ROS: no allergic symptoms or urticaria Hematological and Lymphatic ROS: no swollen glands, unusual bleeding or bruising Endocrine ROS: no polyuria, polydipsia, weight changes, temperature intolerance Respiratory ROS: no cough, shortness of breath, or wheezing Cardiovascular ROS: no chest pain or dyspnea on exertion Gastrointestinal ROS: abdominal pain, no bright red blood in stool. Musculoskeletal ROS: no myalgias or arthralgias Neurological ROS: no TIA or stroke symptoms Dermatological ROS: no new or changing skin lesions, rashes or pruritis Physical Exam Physical Exam General appearance: alert, cooperative, no distress, appears stated age Head: Normocephalic, without obvious abnormality, atraumatic Eyes: conjunctivae/corneas clear. PERRL, EOM's intact. Fundi benign Throat: Lips, mucosa, and tongue normal. Teeth and gums normal Neck: supple, symmetrical, trachea midline, no adenopathy, thyroid: not enlarged, symmetric, no tenderness/mass/nodules, no carotid bruit and no JVD Lungs: clear to auscultation bilaterally Heart: regular rate and rhythm, S1, S2 normal, no murmur, click, rub or gallop Abdomen: soft, non-tender. Bowel sounds normal. No masses, no organomegaly. multiple well healed surgical scars Extremities: extremities normal, atraumatic, no cyanosis or edema Pulses: 2+ and symmetric Skin: Skin color, texture, turgor normal. No rashes or lesions Neurologic: Grossly normal Last 24 Hour Vital Signs Date Time Temp Pulse Resp B/P (MAP) Pulse Ox O2 Delivery O2 Flow Rate FiO2 01/22/19 16:00 98.1 71 19 130/79 (96) 95 01/22/19 12:00 98.2 66 18 147/84 (105) 94 01/22/19 12:00 75 01/22/19 09:07 156/82 01/22/19 09:07 65 156/82 01/22/19 09:06 65 156/83 01/22/19 09:00 Room Air 01/22/19 08:20 70 18 100 Room Air 21 01/22/19 08:00 98.1 65 18 156/82 (106) 95 01/22/19 08:00 75 01/22/19 04:00 97.5 67 19 139/73 (95) 100 01/22/19 04:00 65 01/22/19 00:00 98.1 66 18 156/88 (110) 94 01/22/19 00:00 99 01/21/19 21:00 Room Air 01/21/19 20:00 98.3 69 18 152/83 (106) 96 01/21/19 20:00 83 01/21/19 19:58 94 18 97 Room Air 21 Intake and Output 01/21/19 01/22/19 19:00 07:00 Intake Total 140 ml Balance 140 ml Intake Oral 140 ml # Voids 3 1 # Bowel Movements 2 2 Laboratory Tests Test 01/22/19 06:42 White Blood Count 6.4 K/UL (4.8-10.8) Red Blood Count 4.89 M/UL (4.20-5.40) Hemoglobin 14.7 G/DL (12.0-16.0) Hematocrit 44.5 % (37.0-47.0) Mean Corpuscular Volume 91 FL (80-99) Mean Corpuscular Hemoglobin 30.0 PG (27.0-31.0) Mean Corpuscular Hemoglobin Concent 32.9 G/DL (32.0-36.0) Red Cell Distribution Width 11.7 % (11.6-14.8) Platelet Count 227 K/UL (150-450) Mean Platelet Volume 8.3 FL (6.5-10.1) Neutrophils (%) (Auto) 52.8 % (45.0-75.0) Lymphocytes (%) (Auto) 32.8 % (20.0-45.0) Monocytes (%) (Auto) 10.7 % (1.0-10.0) H Eosinophils (%) (Auto) 2.5 % (0.0-3.0) Basophils (%) (Auto) 1.2 % (0.0-2.0) Sodium Level 142 MMOL/L (136-145) Potassium Level 3.6 MMOL/L (3.5-5.1) Chloride Level 107 MMOL/L (98-107) Carbon Dioxide Level 27 MMOL/L (21-32) Anion Gap 8 mmol/L (5-15) Blood Urea Nitrogen 27 mg/dL (7-18) H Creatinine 1.3 MG/DL (0.55-1.30) Estimat Glomerular Filtration Rate 50.4 mL/min (>60) Glucose Level 161 MG/DL (74-106) H Calcium Level 9.9 MG/DL (8.5-10.1) Pro-B-Type Natriuretic Peptide 361 pg/mL (0-125) H Height (Feet): 5 Height (Inches): 4.00 Weight (Pounds): 217 Medications Current Medications Medications (Trade) Dose Ordered Sig/Guillermo Route PRN Reason Start Time Stop Time Status Last Admin Dose Admin Acetaminophen/ Hydrocodone Bitart ([place] 5/325) 1 tab Q4H PRN ORAL For Pain 01/19/19 21:30 01/26/19 21:29 01/21/19 19:53 Albuterol Sulfate (Proventil MDI) 2 puff Q4H PRN INH WHEEZING 01/19/19 21:30 02/18/19 21:29 Albuterol/ Ipratropium (Albuterol/ Ipratropium) 3 ml Q4H PRN HHN Shortness of Breath 01/19/19 21:30 01/24/19 21:29 Alprazolam (Xanax) 2 mg BEDTIME ORAL 01/20/19 01:00 01/27/19 00:59 01/21/19 22:07 Amlodipine Besylate (Norvasc) 5 mg BID ORAL 01/20/19 09:00 02/19/19 08:59 01/22/19 09:07 Aspirin (Ecotrin) 81 mg DAILY ORAL 01/20/19 09:00 02/19/19 08:59 01/22/19 09:06 Atorvastatin Calcium (Lipitor) 20 mg BEDTIME ORAL 01/20/19 21:00 02/19/19 20:59 01/21/19 20:32 Barium Sulfate (Readi-Cat 2) 450 ml NOW PRN ORAL Radiology Procedure 01/21/19 11:15 01/23/19 11:14 Dextrose (Dextrose 50%) 25 ml Q30M PRN IV Hypoglycemia 01/19/19 21:30 02/18/19 21:29 Dextrose (Dextrose 50%) 50 ml Q30M PRN IV Hypoglycemia 01/19/19 21:30 02/18/19 21:29 Furosemide (Lasix) 60 mg DAILY IV 01/22/19 09:00 02/21/19 08:59 01/22/19 09:05 Heparin Sodium (Porcine) (Heparin 5000 units/ml) 5,000 units EVERY 12 HOURS SUBQ 01/20/19 09:00 02/19/19 08:59 01/21/19 20:39 Insulin Aspart (NovoLOG) BEFORE MEALS AND HS SUBQ 01/20/19 06:30 02/19/19 06:29 01/22/19 06:27 Insulin Detemir (Levemir) 35 units QHS SUBQ 01/20/19 21:00 02/19/19 20:59 01/21/19 20:48 Losartan Potassium (Cozaar) 100 mg DAILY ORAL 01/20/19 09:00 02/19/19 08:59 01/22/19 09:07 Magnesium Hydroxide (Mom) 30 ml TIDPRN PRN ORAL Constipation 01/19/19 21:30 02/18/19 21:29 Metoprolol Succinate (Toprol XL) 50 mg DAILY ORAL 01/19/19 21:30 02/18/19 21:29 01/22/19 09:06 Nicotine (Nicoderm) 1 patch Q24H TDERMAL 01/19/19 21:30 02/18/19 21:29 01/21/19 20:52 Ondansetron HCl (Zofran) 4 mg Q6H PRN IVP Nausea & Vomiting 01/20/19 13:00 02/19/19 12:59 01/21/19 20:33 Potassium Chloride (K-Dur) 20 meq BID ORAL 01/20/19 09:00 02/19/19 08:59 01/22/19 09:06 Sacubitril/ Valsartan (Entresto 49mg/ 51mg) 1 tab Q12HR ORAL 01/20/19 09:00 02/19/19 08:59 01/22/19 09:06 Assessment/Plan Problem List: (1) Abdominal pain Assessment & Plan: CT with findings : 3 cm mass in the left renal interpolar region, not evident previously. This is concerning for renal neoplasm. Ectasia of the right ureter. Unusual appearance to the bladder, similar to previous exam. Query prior ureteral implantation surgery-correlate with surgical history. Very large broad-based ventral hernia with associated diastases of the rectus abdominis tendon, also previously reported and unchanged. No evidence of obstruction or stricture attenuation related to such Colonic diverticulosis. No evidence of diverticulitis Hernia noted on exam and large with loss of domain. do not recommend intervention during hospitalization. can follow up outpatient if desired left renal mass new and concerning. will order CT with contrast to evaluation. may need MRI Consider Urology consult but can be done as outpatient as well. okay for diet will follow with recs thank you ICD Codes: R10.9 - Unspecified abdominal pain SNOMED: [id number] Qualifiers: Qualified Codes: R10.12 - Left upper quadrant pain Shiva Cunha Jan 22, 2019 17:45
[2019-01-22] MEDS ORDERED: Gadavist 7.5mMol/7.5ml vial IV PRN (18:15)
[2019-01-22] MEDS ORDERED: Isovue-300 100ml vial INJ PRN (18:45)
--- NOTE | 2019-01-22 19:29 | NUR ---
HAND-OFF: Report given to GILBERT Aden. Plan of care endorsed
--- NOTE | 2019-01-22 19:30 | NUR ---
NURSE NOTES: Pt received from GILBERT Frederick alert and oriented x4 with no acute s/s of distress noted. IV site asymptomatic and patent on L fa 20g, saline lock. Bed in lowest position, call light and belongings within reach.
[2019-01-22 20:00] VITALS: BP 132/77
[2019-01-22] MEDS: ALPRAZolam 0.5mg tab ORAL SCH (21:12)
[2019-01-22] MEDS: Atorvastatin 20mg tab ORAL SCH (21:12)
[2019-01-22] MEDS: Levemir Flexpen SUBQ SCH (21:19)
[2019-01-23] VITALS: BP 141/80
--- NOTE | 2019-01-23 01:15 | NUR ---
NURSE NOTES: Pt asleep in bed with no acute s/s of distress noted. SR on monitor. Bed alarm on, bed in lowest position. Call light and belongings within reach.
[2019-01-23 04:00] VITALS: BP 145/88
[2019-01-23] MEDS: NovoLOG Insulin Flexpen SUBQ SCH ×4 (06:26→21:55)
[2019-01-23 06:46] LABS: BASOPHILS % (AUTO) 0.9 % (0.0-2.0); HEMATOCRIT 45.2 % (37.0-47.0); HEMOGLOBIN 14.8 G/DL (12.0-16.0); LYMPHOCYTES % (AUTO) 25.7 % (20.0-45.0); MEAN CORPUSCULAR VOLUME 92 FL (80-99); MONOCYTES % (AUTO) 8.8 % (1.0-10.0); NEUTROPHILS % (AUTO) 62.5 % (45.0-75.0); PLATELET COUNT 243 K/UL (150-450); RED BLOOD COUNT 4.92 M/UL (4.20-5.40); RED CELL DISTRIBUTION WIDTH 11.6 % (11.6-14.8)
[2019-01-23 07:21] LABS: ALANINE AMINOTRANSFERASE 32 U/L (12-78); ALBUMIN 3.1 G/DL (3.4-5.0); ALBUMIN/GLOBULIN RATIO 0.8 (1.0-2.7); ALKALINE PHOSPHATASE 69 U/L (46-116); ANION GAP 7 mmol/L (5-15); ASPARTATE AMINO TRANSFERASE 24 U/L (15-37); BILIRUBIN,TOTAL 0.3 MG/DL (0.2-1.0); BLOOD UREA NITROGEN 25 mg/dL (7-18); CALCIUM 9.9 MG/DL (8.5-10.1); CARBON DIOXIDE 26 MMOL/L (21-32); CHLORIDE 109 MMOL/L (98-107); CREATININE 1.2 MG/DL (0.55-1.30); POTASSIUM 4.1 MMOL/L (3.5-5.1); SODIUM 142 MMOL/L (136-145)
--- NOTE | 2019-01-23 07:56 | NUR ---
HAND-OFF: Report given to GILBERT Kaur.
[2019-01-23 08:30] VITALS: BP 157/90
--- NOTE | 2019-01-23 08:44 | NUR ---
NURSE NOTES: pt is sleeping. Food tray is at bedside. pt is having US and CT of the abdomen with contrast this morning. 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 Bed is in lowest position and locked. Call light is within reach. She'll be having carotid vertebral duplex today. Will continue to follow plan of care.
--- NOTE | 2019-01-23 09:19 | NUR ---
CASE MANAGEMENT:REVIEW 01/23/19 SI: ABDOMINAL PAIN. DIVERTICULOSIS. COPD. QUYEN LT RENAL MASS 98.1 63 18 145/88 95% ON RA GLUCOSE+178 IS: IV LASIX QD LIPITOR PO QHS LEVEMIR SQ QHS NORVASC PO BID ASA PO QD COZAAR PO QD K-DUR PO BID HEPARIN SQ Q12 TOPROL XL PO QD : TELEMETRY STATUS DCP: FROM HOME
[2019-01-23] MEDS: Metoprolol Succinate XL 50mg tab ORAL SCH (09:59)
[2019-01-23] MEDS: Losartan 50mg tab ORAL SCH (10:00)
[2019-01-23] MEDS: Aspirin EC 81mg tab ORAL SCH (10:00)
[2019-01-23] MEDS: Heparin 5000 units/ml inj SUBQ SCH ×2 (10:03→21:56)
[2019-01-23 12:00] VITALS: BP 139/68
--- NOTE | 2019-01-23 12:50 | Surgery Progress Note ---
Surgery Progress Note Subjective Additional Comments no acute events comfortable still with abdominal discomfort all over today but improved overall no n/v/f/c had CT scan performed today pending results. Objective Last 24 Hour Vital Signs Date Time Temp Pulse Resp B/P (MAP) Pulse Ox O2 Delivery O2 Flow Rate FiO2 01/23/19 10:40 68 20 98 Room Air 21 01/23/19 10:00 157/90 01/23/19 10:00 67 157/90 01/23/19 09:59 67 157/90 01/23/19 08:30 98.0 67 17 157/90 (112) 96 01/23/19 04:00 64 01/23/19 04:00 98.1 63 18 145/88 (107) 95 01/23/19 00:00 98.3 67 18 141/80 (100) 96 01/23/19 00:00 70 01/22/19 21:44 77 18 96 Room Air 21 01/22/19 21:00 Room Air 01/22/19 20:00 68 01/22/19 20:00 97.8 73 18 132/77 (95) 95 01/22/19 18:27 71 130/79 01/22/19 16:00 98.1 71 19 130/79 (96) 95 01/22/19 16:00 72 I&O Intake and Output 01/22/19 01/23/19 18:59 06:59 Intake Total 840 ml 300 ml Balance 840 ml 300 ml Intake Oral 840 ml 300 ml # Voids 3 2 # Bowel Movements 2 Cardiovascular: RSR Respiratory: clear Abdomen: soft, non-tender, present bowel sounds, other - large ventral wide base hernia , non-distended Laboratory Tests Test 01/23/19 06:22 White Blood Count 7.0 K/UL (4.8-10.8) Red Blood Count 4.92 M/UL (4.20-5.40) Hemoglobin 14.8 G/DL (12.0-16.0) Hematocrit 45.2 % (37.0-47.0) Mean Corpuscular Volume 92 FL (80-99) Mean Corpuscular Hemoglobin 30.1 PG (27.0-31.0) Mean Corpuscular Hemoglobin Concent 32.8 G/DL (32.0-36.0) Red Cell Distribution Width 11.6 % (11.6-14.8) Platelet Count 243 K/UL (150-450) Mean Platelet Volume 8.4 FL (6.5-10.1) Neutrophils (%) (Auto) 62.5 % (45.0-75.0) Lymphocytes (%) (Auto) 25.7 % (20.0-45.0) Monocytes (%) (Auto) 8.8 % (1.0-10.0) Eosinophils (%) (Auto) 2.0 % (0.0-3.0) Basophils (%) (Auto) 0.9 % (0.0-2.0) Erythrocyte Sedimentation Rate 30 MM/HR (0-30) Prothrombin Time 10.3 SEC (9.30-11.50) Prothromb Time International Ratio 1.0 (0.9-1.1) Activated Partial Thromboplast Time 28 SEC (23-33) Sodium Level 142 MMOL/L (136-145) Potassium Level 4.1 MMOL/L (3.5-5.1) Chloride Level 109 MMOL/L (98-107) H Carbon Dioxide Level 26 MMOL/L (21-32) Anion Gap 7 mmol/L (5-15) Blood Urea Nitrogen 25 mg/dL (7-18) H Creatinine 1.2 MG/DL (0.55-1.30) Estimat Glomerular Filtration Rate 55.4 mL/min (>60) Glucose Level 178 MG/DL (74-106) H Calcium Level 9.9 MG/DL (8.5-10.1) Total Bilirubin 0.3 MG/DL (0.2-1.0) Aspartate Amino Transf (AST/SGOT) 24 U/L (15-37) Alanine Aminotransferase (ALT/SGPT) 32 U/L (12-78) Alkaline Phosphatase 69 U/L (46-116) C-Reactive Protein, Quantitative 0.8 mg/dL (0.00-0.90) Total Protein 7.2 G/DL (6.4-8.2) Albumin 3.1 G/DL (3.4-5.0) L Globulin 4.1 g/dL Albumin/Globulin Ratio 0.8 (1.0-2.7) L Plan Problems: (1) Abdominal pain Assessment & Plan: CT with findings : 3 cm mass in the left renal interpolar region, not evident previously. This is concerning for renal neoplasm. Ectasia of the right ureter. Unusual appearance to the bladder, similar to previous exam. Query prior ureteral implantation surgery-correlate with surgical history. Very large broad-based ventral hernia with associated diastases of the rectus abdominis tendon, also previously reported and unchanged. No evidence of obstruction or stricture attenuation related to such Colonic diverticulosis. No evidence of diverticulitis Hernia noted on exam and large with loss of domain. do not recommend intervention during hospitalization. can follow up outpatient if desired left renal mass new and concerning. will order CT with contrast to evaluation. cannot have MRI because of metal in head CT results pending Consider Urology consult but can be done as outpatient as well. okay for diet will follow with recs thank you Shiva Cunha Jan 23, 2019 12:50
--- NOTE | 2019-01-23 14:58 | Diagnostic Imaging Report ---
Clinical Indication: History of abdominal pain, left upper quadrant abdominal pain. Evaluation of left renal mass described on recent CT scan Technique: Patient ingested oral contrast. IV administration nonionic contrast. Arterial, venous, and delayed phase spiral acquisitions obtained through the abdomen and pelvis. Multiplanar reconstructions were generated. Total dose length product 2618.71 mGycm. CTDIvol(s) 18.6,19.07,19.07 mGy. Dose reduction achieved using automated exposure control Comparison: Noncontrast CT scan dated 01/21/2019 Findings: Contrast enhancing mass in the left renal interpolar region is confirmed, measures 2.6 cm in diameter. There is no evidence of renal vein invasion. This is slightly exophytic. It is remote from the hilar structures There is a 2 cm cyst in the left renal interpolar region, also previously demonstrated. A cyst is also seen in the left upper pole. There are subcentimeter low-attenuation renal lesions bilaterally which are too small to characterize. There is mild right hydronephrosis is again demonstrated. The right ureter is diffusely ectatic. The ureter terminates at the dome of the bladder, which is somewhat unusual in appearance. The left ureter terminates at usual location and is normal in caliber. Previously described left renal calyceal calculus is less well-demonstrated on postcontrast images. The liver demonstrates focal low-attenuation adjacent to the falciform ligament, consistent with focal fatty change. This is more apparent than on the prior noncontrast study. Granulomatous calcification again demonstrated within the liver parenchyma. The gallbladder, bile ducts, pancreas, spleen, adrenals are unremarkable. There are prominent and abundant but not frankly enlarged retroperitoneal nodes demonstrated. The uterus is surgically absent. No pelvic mass or adenopathy Again demonstrated is colonic diverticulosis. No evidence of diverticulitis. Normal appendix. No small bowel distention or small bowel wall thickening. Distal esophagus, stomach, duodenum are unremarkable. No free or loculated intraperitoneal gas or fluid. There is broad-based diastases of the rectus abdominis tendon and broad-based hernia containing bowel loops within the inferior pannus. An air cyst is again demonstrated at the right lung base. The bones are unremarkable. Impression: 2.6 cm left interpolar region enhancing mass as described above, appearance of which is concerning for renal neoplasm, confirming findings reported on prior noncontrast chest abdomen pelvis CT. Bilateral renal cysts. Bilateral subcentimeter low-attenuation renal lesions which are too small to characterize, most likely benign simple cysts. No further follow-up necessary. Ectatic right ureter and mild right hydronephrosis, with evidence of unusual ureteral insertion at the dome of the bladder which itself is unusual in appearance, also previously described. Presence of surgical clips in the region suggest that this is postsurgical in nature. Correlate with surgical history Focal fatty change in the usual location in the left hepatic lobe Colonic diverticulosis. No evidence of diverticulitis Broad-based diastases of the rectus abdominis tendon and broad-based hernia containing bowel loops within the inferior pannus, also previously reported Other findings as noted, including pneumatocele at the right lung base, right lobe liver granuloma The CT scanner at [facility] is accredited by the [employer] and the scans are performed using protocols designed to limit radiation exposure to as low as reasonably achievable to attain images of sufficient resolution adequate for diagnostic evaluation.
[2019-01-23] MEDS: HYDROcodone/Acetamin 5/325 tab ORAL PRN (15:19)
[2019-01-23 16:00] VITALS: BP 126/84
--- NOTE | 2019-01-23 16:20 | Diagnostic Imaging Report ---
Indication: Abdominal pain. Abnormal renal function tests Technique: Centeno-scale and duplex images of the upper abdomen were obtained Comparison: No comparison sonograms. Reference made to abdomen pelvis CT dated 01/21/2019 Findings: Gallbladder demonstrates a slightly shadowing but nonmobile focus at the posterior wall, wall adherent stone versus polyp. This measures 5 mm diameter. Sonographic Sanchez's sign is negative. Common bile duct measures 5 mm in diameter. No intrahepatic biliary ductal dilatation. Liver demonstrates normal echogenicity, no focal abnormality. Portal vein and hepatic veins are patent. Pancreas is unremarkable. Spleen is unremarkable. Left kidney measures 12.2 cm in length. Right kidney measures 13 cm length. Both kidneys demonstrate normal echogenicity. Small cyst is seen in the right kidney interpolar region, measuring 10 mm in diameter. Multiple left renal cysts are demonstrated, also demonstrate not recent CT. The left renal mass demonstrated on recent sonogram is not evident on sonogram, however. There is mild hydronephrosis on the right, better demonstrated on subsequent CT. Echogenic foci in the left kidney may reflect a small calculus demonstrated on earlier noncontrast study of 01/21/2019 . Abdominal aorta is partially obscured by bowel gas, visualized portions are non-aneurysmal . Impression: 5 mm nonmobile gallstone versus polyp Negative for dilated bile ducts Note that left renal mass demonstrated on CT scan later the same day is not sonographically evident Bilateral renal cysts, also previously described left renal calculus Inability visualized portions of the abdominal aorta Mild right hydronephrosis, also described on prior CT scans
--- NOTE | 2019-01-23 16:35 | Nephrology Progress Note ---
Assessment/Plan Plan CBC, CMP, Trop tomorrow morning Repeat BNP tomorrow Continue Furosemide 60mg daily Gram Positive cocci noted to initial culture results. No gram negative noted. Small colony, and pt asymptomatic. Will wait for results of full urine culture, sensitivity and resistance. Subjective Constitutional: Reports: no symptoms HEENT: Reports: no symptoms Genitourinary: Reports: no symptoms Neurologic/Psychiatric: Reports: no symptoms Subjective Reports abdominal pain greater on the LUQ and LLQ. Also endorses suprapubic pain with palpation. She denies N/V/D/C. Objective Objective Last 24 Hour Vital Signs Date Time Temp Pulse Resp B/P (MAP) Pulse Ox O2 Delivery O2 Flow Rate FiO2 01/23/19 15:49 98.0 01/23/19 10:40 68 20 98 Room Air 21 01/23/19 10:00 157/90 01/23/19 10:00 67 157/90 01/23/19 09:59 67 157/90 01/23/19 08:30 98.0 67 17 157/90 (112) 96 01/23/19 04:00 64 01/23/19 04:00 98.1 63 18 145/88 (107) 95 01/23/19 00:00 98.3 67 18 141/80 (100) 96 01/23/19 00:00 70 01/22/19 21:44 77 18 96 Room Air 21 01/22/19 21:00 Room Air 01/22/19 20:00 68 01/22/19 20:00 97.8 73 18 132/77 (95) 95 01/22/19 18:27 71 130/79 Intake and Output 01/22/19 01/23/19 19:00 07:00 Intake Total 840 ml 300 ml Balance 840 ml 300 ml Intake Oral 840 ml 300 ml # Voids 3 2 # Bowel Movements 2 Laboratory Tests 01/23/19 06:22: White Blood Count 7.0, Red Blood Count 4.92, Hemoglobin 14.8, Hematocrit 45.2, Mean Corpuscular Volume 92, Mean Corpuscular Hemoglobin 30.1, Mean Corpuscular Hemoglobin Concent 32.8, Red Cell Distribution Width 11.6, Platelet Count 243, Mean Platelet Volume 8.4, Neutrophils (%) (Auto) 62.5, Lymphocytes (%) (Auto) 25.7, Monocytes (%) (Auto) 8.8, Eosinophils (%) (Auto) 2.0, Basophils (%) (Auto ) 0.9, Erythrocyte Sedimentation Rate 30, Prothrombin Time 10.3, Prothromb Time International Ratio 1.0, Activated Partial Thromboplast Time 28, Sodium Level 142, Potassium Level 4.1, Chloride Level 109H, Carbon Dioxide Level 26, Anion Gap 7, Blood Urea Nitrogen 25H, Creatinine 1.2, Estimat Glomerular Filtration Rate 55.4, Glucose Level 178H, Calcium Level 9.9, Total Bilirubin 0.3, Aspartate Amino Transf (AST/SGOT) 24, Alanine Aminotransferase (ALT/SGPT) 32, Alkaline Phosphatase 69, C-Reactive Protein, Quantitative 0.8, Total Protein 7.2 , Albumin 3.1L, Globulin 4.1, Albumin/Globulin Ratio 0.8L Height (Feet): 5 Height (Inches): 4.00 Weight (Pounds): 217 General Appearance: WD/WN, no apparent distress EENT: PERRL/EOMI Neck: non-tender, normal alignment, supple Cardiovascular: normal peripheral pulses, normal rate, regular rhythm Respiratory/Chest: lungs clear, normal breath sounds Abdomen: normal bowel sounds, non tender Neurologic: alert, oriented x 3, normal mood/affect Objective Neuro: A&Ox4, DECORATOR MANNEQUIN intact HEENT: head atraumatic, PERRLA, denies ear pain, nose/mouth pink/moist mucosa, throat supple/no lymphadenopathy CVS:RRR, no murmur Lungs: bilateral fine rhonchi Abd: ttp ruq and llq, no organomegaly GI/: no huynh Extremities: "no" edema to the bilateral lower extremities Skin: normal for ethnicity, no wounds Beth Chavira N.P. Jan 23, 2019 16:35
--- NOTE | 2019-01-23 18:00 | NUR ---
NURSE NOTES: per pharmacy pt is positive is gram positive cocci in urine culture. contacted doctor BENITEZ to see if she wants to order antibiotics.
[2019-01-23 20:00] VITALS: BP 136/90
--- NOTE | 2019-01-23 20:00 | NUR ---
NURSE NOTES: Received pt and report from GILBERT Kaur. Observed pt resting in bed with both eyes open and watching television. Pt is A/Ox4. supervisor speech is in placed, IV site intact, asymptomatic, and patent. Bed is in the lowest position and locked, call light within reach. No signs/symptoms of acute distress noted at this time. Will continue plan of care.
--- NOTE | 2019-01-23 20:21 | NUR ---
HAND-OFF: Report given to Domenica/rn pt in stable condition,.
[2019-01-23] MEDS: Atorvastatin 20mg tab ORAL SCH (21:51)
[2019-01-23] MEDS: ALPRAZolam 0.5mg tab ORAL SCH (21:52)
[2019-01-23] MEDS: Levemir Flexpen SUBQ SCH (21:54)
--- NOTE | 2019-01-23 23:52 | Diagnostic Imaging Report ---
EXAM: US Duplex Bilateral Lower Extremity Veins CLINICAL HISTORY: PAIN TECHNIQUE: Real-time duplex ultrasound scan of the bilateral lower extremity veins integrating B-mode two-dimensional vascular structure, Doppler spectral analysis, color flow Doppler imaging and compression. COMPARISON: No relevant prior studies available. FINDINGS: Right deep veins: Unremarkable. No DVT in the right common femoral, femoral, proximal deep femoral or popliteal veins. The veins demonstrate normal color flow, are normally compressible, with normal phasic flow and/or augmentation response. Right superficial veins: Unremarkable. No thrombus in the visualized right great saphenous vein. Left deep veins: Unremarkable. No DVT in the left common femoral, femoral, proximal deep femoral or popliteal veins. The veins demonstrate normal color flow, are normally compressible, with normal phasic flow and/or augmentation response. Left superficial veins: Unremarkable. No thrombus in the visualized left great saphenous vein. IMPRESSION: No DVT
[2019-01-24] VITALS: BP 144/88
--- NOTE | 2019-01-24 03:00 | Consultation ---
DATE OF CONSULTATION: 01/23/2019 NOTE: POOR AUDIO REFERRING PHYSICIAN: Miguel A Bella M.D. REASON FOR CONSULTATION: Kidney mass. HISTORY OF PRESENT ILLNESS: The patient is a very pleasant female with multiple medical problems including history of hypertension, history of apparent perforated diverticulitis status post abdominal surgery, significant chronic abdominal pain. The patient had worsening abdominal pain as well as shortness of breath with COPD exacerbation. The patient had undergone CT scan of the chest, abdomen and pelvis and subsequently CT scan of the abdomen and pelvis with contrast demonstrating evidence of of approximately 3 cm kidney lesion with possible malignancy. Therefore, at this time, Hematology/Oncology consultation has been requested. PAST MEDICAL HISTORY: Hypertension, hyperlipidemia, diverticulitis, multiple abdominal surgeries, COPD, history of brain aneurysm. PAST SURGICAL HISTORY: Brain aneurysm clipping. MEDICATIONS: . FAMILY HISTORY: The patient does not recall any cancer in family. SOCIAL HISTORY: The patient has had extensive history of tobacco use. REVIEW OF SYSTEMS: CONSTITUTIONAL: The patient denies any headaches. PULMONARY: The patient has shortness of breath. The patient has significant COPD. GASTROINTESTINAL: The patient has abdominal pain. NEUROLOGIC: The patient has no focal weakness or numbness. SKIN: The patient denies any bruising or petechiae. PHYSICAL EXAMINATION: GENERAL: The patient is a relatively well-developed female, in no acute distress. VITAL SIGNS: Temperature 98.7, pulse 73, respirations 18, blood pressure 141/67. HEAD AND NECK: Pupils are equal and reactive to light. CHEST: Distant breath sounds. CARDIAC: Regular rhythm. S1 and S2. ABDOMEN: Multiple abdominal scars. Tenderness mostly in the left abdominal region and lower abdomen. EXTREMITIES: No cyanosis or clubbing. The patient does have trace edema bilaterally. NEUROLOGIC: Nonfocal. LABORATORY WELL INVESTIGATIONAL STUDIES: Have been noted. CT scan of her chest, abdomen, and pelvis has been ordered as noted above. White count 7, hemoglobin 14.8, platelet count 243,000. The patient did have a creatinine of 1.4 on admission and currently at 1.2. 61. Albumin of 3.1. Globulin of 4. ASSESSMENT AND PLAN: 1. Kidney lesion, left sided, consistent with possible malignancy. The patient is to be evaluated by Urology for possibility of nephrectomy. The patient had abnormal ureteral findings as well. Consideration of cystoscopy with upper and lower tract evaluation prior to surgery. the patient will most likely need a partial nephrectomy. This surgery would be quite complicated given significant abdominal surgeries done with abdominal scars. 2. History of COPD. The patient is a smoker nicotine patch. 3. Increased abdominal pain. The patient's abdomen is quite tender. Follow up with the surgical team. 4. Code status. Full code. 5. Trace edema, venous Duplex rule out DVT. Renard Thomas M.D. DR: DELANEY JOB#: [id number] CC:
[2019-01-24 04:00] VITALS: BP 147/91
[2019-01-24 06:02] LABS: EOSINOPHILS % (AUTO) 1.9 % (0.0-3.0); HEMATOCRIT 45.3 % (37.0-47.0); LYMPHOCYTES % (AUTO) 28.8 % (20.0-45.0); MEAN CORPUSCULAR VOLUME 91 FL (80-99); MONOCYTES % (AUTO) 8.8 % (1.0-10.0); NEUTROPHILS % (AUTO) 59.5 % (45.0-75.0); PLATELET COUNT 225 K/UL (150-450); RED BLOOD COUNT 4.97 M/UL (4.20-5.40); RED CELL DISTRIBUTION WIDTH 11.8 % (11.6-14.8)
[2019-01-24 06:25] LABS: ANION GAP 7 mmol/L (5-15); BLOOD UREA NITROGEN 25 mg/dL (7-18); CALCIUM 9.8 MG/DL (8.5-10.1); CARBON DIOXIDE 27 MMOL/L (21-32); CHLORIDE 108 MMOL/L (98-107); CREATININE 1.2 MG/DL (0.55-1.30); POTASSIUM 3.8 MMOL/L (3.5-5.1); SODIUM 142 MMOL/L (136-145)
[2019-01-24] MEDS: NovoLOG Insulin Flexpen SUBQ SCH ×4 (06:35→20:55)
--- NOTE | 2019-01-24 07:27 | NUR ---
HAND-OFF: Report given to GILBERT Kaur.
[2019-01-24 08:00] VITALS: BP 144/79
--- NOTE | 2019-01-24 08:14 | NUR ---
NURSE NOTES: pt is in bed will eat at a later time, food tray is at bedside. Pt AOx4. Pt on athletic monitor no signs of cardiac or respiratory distress. Call light within reach bed locked and in lowest position. Will continue to follow plan of care.
[2019-01-24] MEDS: Metoprolol Succinate XL 50mg tab ORAL SCH (09:52)
[2019-01-24] MEDS: Aspirin EC 81mg tab ORAL SCH (09:53)
[2019-01-24] MEDS: Losartan 50mg tab ORAL SCH (09:53)
[2019-01-24] MEDS: Heparin 5000 units/ml inj SUBQ SCH ×2 (09:56→20:53)
[2019-01-24 12:00] VITALS: BP 150/81
--- NOTE | 2019-01-24 12:09 | General Progress Note ---
Assessment/Plan Problem List: (1) Diabetes mellitus ICD Codes: E11.9 - Type 2 diabetes mellitus without complications SNOMED: 11731083 (2) CHF (congestive heart failure) ICD Codes: I50.9 - Heart failure, unspecified SNOMED: 44149359 (3) HTN (hypertension) ICD Codes: I10 - Essential (primary) hypertension SNOMED: 28724497 (4) CHF exacerbation ICD Codes: I50.9 - Heart failure, unspecified SNOMED: 42009552 (5) Renal mass ICD Codes: N28.89 - Other specified disorders of kidney and ureter SNOMED: 601329989 Status: unchanged Assessment/Plan: still some LLQ pain, no distress, consideration of partial nephrectomy, continue rx for copd, dm Subjective Constitutional: Reports: weakness HEENT: Reports: no symptoms Cardiovascular: Reports: no symptoms Respiratory: Reports: shortness of breath Gastrointestinal/Abdominal: Reports: abdominal pain Genitourinary: Reports: no symptoms Neurologic/Psychiatric: Reports: no symptoms Endocrine: Reports: no symptoms Hematologic/Lymphatic: Reports: no symptoms Allergies: Coded Allergies: LEVOFLOXACIN (Verified Allergy, Severe, Hives, 01/19/19) LORAZEPAM (Verified Allergy, Severe, 01/19/19) Patient gets confusion MIDAZOLAM (Verified Adverse Reaction, Unknown, 05/15/15) Objective Last 24 Hour Vital Signs Date Time Temp Pulse Resp B/P (MAP) Pulse Ox O2 Delivery O2 Flow Rate FiO2 01/24/19 09:54 78 144/79 01/24/19 09:53 144/79 01/24/19 09:52 78 144/79 01/24/19 09:16 78 18 97 Room Air 21 01/24/19 09:00 67 01/24/19 09:00 Room Air 01/24/19 08:00 97.3 60 20 144/79 (100) 97 01/24/19 04:00 98.2 70 19 147/91 (109) 96 01/24/19 04:00 69 01/24/19 00:00 98.3 71 18 144/88 (106) 95 01/24/19 00:00 70 01/23/19 21:00 Room Air 01/23/19 20:02 73 20 96 Room Air 21 01/23/19 20:00 69 01/23/19 20:00 98.8 69 18 136/90 (105) 98 01/23/19 18:08 69 126/84 01/23/19 16:00 67 01/23/19 16:00 98.1 69 17 126/84 (98) 95 01/23/19 15:49 98.0 Intake and Output 01/23/19 01/24/19 19:00 07:00 Intake Total 600 ml Balance 600 ml Other 600 ml # Voids 2 Laboratory Tests 01/24/19 05:10: White Blood Count 7.0, Red Blood Count 4.97, Hemoglobin 15.0, Hematocrit 45.3, Mean Corpuscular Volume 91, Mean Corpuscular Hemoglobin 30.1, Mean Corpuscular Hemoglobin Concent 33.0, Red Cell Distribution Width 11.8, Platelet Count 225, Mean Platelet Volume 8.3, Neutrophils (%) (Auto) 59.5, Lymphocytes (%) (Auto) 28.8, Monocytes (%) (Auto) 8.8, Eosinophils (%) (Auto) 1.9, Basophils (%) (Auto ) 1.0, Sodium Level 142, Potassium Level 3.8, Chloride Level 108H, Carbon Dioxide Level 27, Anion Gap 7, Blood Urea Nitrogen 25H, Creatinine 1.2, Estimat Glomerular Filtration Rate 55.4, Glucose Level 161H, Calcium Level 9.8, Pro-B- Type Natriuretic Peptide 299H Height (Feet): 5 Height (Inches): 4.00 Weight (Pounds): 217 General Appearance: no apparent distress, obese EENT: normal ENT inspection Neck: normal alignment Cardiovascular: normal rate, regular rhythm Respiratory/Chest: rhonchi - bilaterally Abdomen: non tender, soft Edema: no edema noted Arm (L), no edema noted Arm (R), no edema noted Leg (L), no edema noted Leg (R), no edema noted Pedal (L), no edema noted Pedal (R), no edema noted Generalized Neurologic: automotive tire tester II-XII grossly normal Matti Han MD Jan 24, 2019 12:09
--- NOTE | 2019-01-24 12:17 | Surgery Progress Note ---
Surgery Progress Note Subjective Symptoms: pain same, tolerating diet, voiding well, passing flatus Additional Comments no acute events CT noted oncology not noted discussed with patient Objective Last 24 Hour Vital Signs Date Time Temp Pulse Resp B/P (MAP) Pulse Ox O2 Delivery O2 Flow Rate FiO2 01/24/19 09:54 78 144/79 01/24/19 09:53 144/79 01/24/19 09:52 78 144/79 01/24/19 09:16 78 18 97 Room Air 21 01/24/19 09:00 67 01/24/19 09:00 Room Air 01/24/19 08:00 97.3 60 20 144/79 (100) 97 01/24/19 04:00 98.2 70 19 147/91 (109) 96 01/24/19 04:00 69 01/24/19 00:00 98.3 71 18 144/88 (106) 95 01/24/19 00:00 70 01/23/19 21:00 Room Air 01/23/19 20:02 73 20 96 Room Air 21 01/23/19 20:00 69 01/23/19 20:00 98.8 69 18 136/90 (105) 98 01/23/19 18:08 69 126/84 01/23/19 16:00 67 01/23/19 16:00 98.1 69 17 126/84 (98) 95 01/23/19 15:49 98.0 I&O Intake and Output 01/23/19 01/24/19 19:00 07:00 Intake Total 600 ml Balance 600 ml Other 600 ml # Voids 2 Drains: other Cardiovascular: RSR Respiratory: clear Abdomen: soft, distended, tenderness, present bowel sounds Extremities: no tenderness, no cyanosis Laboratory Tests Test 01/24/19 05:10 White Blood Count 7.0 K/UL (4.8-10.8) Red Blood Count 4.97 M/UL (4.20-5.40) Hemoglobin 15.0 G/DL (12.0-16.0) Hematocrit 45.3 % (37.0-47.0) Mean Corpuscular Volume 91 FL (80-99) Mean Corpuscular Hemoglobin 30.1 PG (27.0-31.0) Mean Corpuscular Hemoglobin Concent 33.0 G/DL (32.0-36.0) Red Cell Distribution Width 11.8 % (11.6-14.8) Platelet Count 225 K/UL (150-450) Mean Platelet Volume 8.3 FL (6.5-10.1) Neutrophils (%) (Auto) 59.5 % (45.0-75.0) Lymphocytes (%) (Auto) 28.8 % (20.0-45.0) Monocytes (%) (Auto) 8.8 % (1.0-10.0) Eosinophils (%) (Auto) 1.9 % (0.0-3.0) Basophils (%) (Auto) 1.0 % (0.0-2.0) Sodium Level 142 MMOL/L (136-145) Potassium Level 3.8 MMOL/L (3.5-5.1) Chloride Level 108 MMOL/L (98-107) H Carbon Dioxide Level 27 MMOL/L (21-32) Anion Gap 7 mmol/L (5-15) Blood Urea Nitrogen 25 mg/dL (7-18) H Creatinine 1.2 MG/DL (0.55-1.30) Estimat Glomerular Filtration Rate 55.4 mL/min (>60) Glucose Level 161 MG/DL (74-106) H Calcium Level 9.8 MG/DL (8.5-10.1) Pro-B-Type Natriuretic Peptide 299 pg/mL (0-125) H Plan Problems: (1) Abdominal pain Assessment & Plan: CT with findings : 3 cm mass in the left renal interpolar region, not evident previously. This is concerning for renal neoplasm. Ectasia of the right ureter. Unusual appearance to the bladder, similar to previous exam. Query prior ureteral implantation surgery-correlate with surgical history. Very large broad-based ventral hernia with associated diastases of the rectus abdominis tendon, also previously reported and unchanged. No evidence of obstruction or stricture attenuation related to such Colonic diverticulosis. No evidence of diverticulitis Hernia noted on exam and large with loss of domain. do not recommend intervention during hospitalization. can follow up outpatient if desired left renal mass new and concerning. will order CT with contrast to evaluation. cannot have MRI because of metal in head CT results noted Oncology notes noted Consider Urology consult for nephrectomy okay for diet will follow with recs thank you Shiva Cunha Jan 24, 2019 12:17
[2019-01-24 16:00] VITALS: BP 149/95
--- NOTE | 2019-01-24 20:00 | NUR ---
NURSE NOTES: Received pt and report from GILBERT Kaur. Observed pt sitting up in bed, resting, watching television. Pt is A/Ox4. agricultural engineering technician leads in place, NSR at 80 bpm, IV site intact, asymptomatic, and patent. Bed is in the lowest position and locked, call light within reach. No signs/symptoms of acute distress noted at this time. Will continue plan of care.
--- NOTE | 2019-01-24 20:04 | NUR ---
HAND-OFF: Report given to Farideh/wilner. Pt is in stable condition.
[2019-01-24 20:08] VITALS: BP 138/86
[2019-01-24] MEDS: ALPRAZolam 0.5mg tab ORAL SCH (20:51)
[2019-01-24] MEDS: Atorvastatin 20mg tab ORAL SCH (20:51)
[2019-01-24] MEDS: Levemir Flexpen SUBQ SCH (20:54)
[2019-01-25 00:51] VITALS: BP 152/90
--- NOTE | 2019-01-25 07:26 | NUR ---
HAND-OFF: Report given to GILBERT Patterson
[2019-01-25] MEDS: NovoLOG Insulin Flexpen SUBQ SCH ×4 (07:36→22:00)
--- NOTE | 2019-01-25 07:47 | NUR ---
NURSE NOTES: pt, resting and food is at bedside. pt AOx4. Pt would like to go home today, L/M for doct. Guille. Pt is on groundwater monitoring technician no signs of cardiac or respiratory distress at this time. Bed is in lowest position and locked. Call light is within reach. Will continue plan of care.
[2019-01-25 08:00] VITALS: BP 131/57
[2019-01-25] MEDS: Losartan 50mg tab ORAL SCH (08:55)
[2019-01-25] MEDS: Aspirin EC 81mg tab ORAL SCH (08:56)
[2019-01-25] MEDS: Metoprolol Succinate XL 50mg tab ORAL SCH (08:56)
[2019-01-25] MEDS: HYDROcodone/Acetamin 5/325 tab ORAL PRN (08:57)
[2019-01-25] MEDS: Heparin 5000 units/ml inj SUBQ SCH ×2 (09:02→21:59)
--- NOTE | 2019-01-25 11:03 | General Progress Note ---
Assessment/Plan Problem List: (1) Diabetes mellitus ICD Codes: E11.9 - Type 2 diabetes mellitus without complications SNOMED: 62658103 (2) CHF (congestive heart failure) ICD Codes: I50.9 - Heart failure, unspecified SNOMED: 97081430 (3) HTN (hypertension) ICD Codes: I10 - Essential (primary) hypertension SNOMED: 35845506 (4) CHF exacerbation ICD Codes: I50.9 - Heart failure, unspecified SNOMED: 85639420 (5) Renal mass ICD Codes: N28.89 - Other specified disorders of kidney and ureter SNOMED: 915700572 Status: unchanged Assessment/Plan: still some LLQ pain, no distress, consideration of partial nephrectomy, continue rx for copd, dm, laxatives Subjective Constitutional: Reports: weakness HEENT: Reports: no symptoms Cardiovascular: Reports: no symptoms Respiratory: Reports: cough Gastrointestinal/Abdominal: Reports: abdominal pain, constipated Endocrine: Reports: no symptoms Hematologic/Lymphatic: Reports: no symptoms Allergies: Coded Allergies: LEVOFLOXACIN (Verified Allergy, Severe, Hives, 01/19/19) LORAZEPAM (Verified Allergy, Severe, 01/19/19) Patient gets confusion MIDAZOLAM (Verified Adverse Reaction, Unknown, 05/15/15) Objective Last 24 Hour Vital Signs Date Time Temp Pulse Resp B/P (MAP) Pulse Ox O2 Delivery O2 Flow Rate FiO2 01/25/19 09:00 Room Air 01/25/19 08:56 72 131/57 01/25/19 08:56 72 131/57 01/25/19 08:55 131/57 01/25/19 08:00 96.8 58 20 131/57 (81) 100 01/25/19 04:00 74 01/25/19 00:51 98.2 68 18 152/90 (110) 98 01/25/19 00:00 65 01/24/19 21:00 Room Air 01/24/19 20:08 98.6 73 18 138/86 (103) 97 01/24/19 20:00 74 01/24/19 19:59 77 18 98 Room Air 21 01/24/19 17:44 68 149/95 01/24/19 16:00 68 01/24/19 16:00 98.8 66 20 149/95 (113) 96 01/24/19 12:00 64 01/24/19 12:00 97.6 64 18 150/81 (104) 98 Intake and Output 01/24/19 01/25/19 19:00 07:00 Intake Total 120 ml Balance 120 ml Intake Oral 120 ml # Voids 1 2 Height (Feet): 5 Height (Inches): 4.00 Weight (Pounds): 217 General Appearance: obese EENT: normal ENT inspection Neck: normal alignment Cardiovascular: normal rate, regular rhythm Respiratory/Chest: lungs clear, normal breath sounds Abdomen: soft, no organomegaly Edema: no edema noted Arm (L), no edema noted Arm (R), no edema noted Leg (L), no edema noted Leg (R), no edema noted Pedal (L), no edema noted Pedal (R), no edema noted Generalized Matti Han MD Jan 25, 2019 11:03
[2019-01-25] MEDS: Milk of Magnesia 30ml Ud ORAL PRN (11:13)
[2019-01-25 12:00] VITALS: BP 125/74
--- NOTE | 2019-01-25 13:50 | Surgery Progress Note ---
Surgery Progress Note Subjective Symptoms: tolerating diet, voiding well, passing flatus, BM Additional Comments no acute events comfortable stable exam unchanged pain improved Objective Last 24 Hour Vital Signs Date Time Temp Pulse Resp B/P (MAP) Pulse Ox O2 Delivery O2 Flow Rate FiO2 01/25/19 09:00 Room Air 01/25/19 08:56 72 131/57 01/25/19 08:56 72 131/57 01/25/19 08:55 131/57 01/25/19 08:00 96.8 58 20 131/57 (81) 100 01/25/19 04:00 74 01/25/19 00:51 98.2 68 18 152/90 (110) 98 01/25/19 00:00 65 01/24/19 21:00 Room Air 01/24/19 20:08 98.6 73 18 138/86 (103) 97 01/24/19 20:00 74 01/24/19 19:59 77 18 98 Room Air 21 01/24/19 17:44 68 149/95 01/24/19 16:00 68 01/24/19 16:00 98.8 66 20 149/95 (113) 96 I&O Intake and Output 01/24/19 01/25/19 18:59 06:59 Intake Total 120 ml Balance 120 ml Intake Oral 120 ml # Voids 1 2 Cardiovascular: RSR Respiratory: clear Abdomen: soft, non-tender, present bowel sounds, non-distended Extremities: no edema, no tenderness, no cyanosis Plan Problems: (1) Abdominal pain Assessment & Plan: CT with findings : 3 cm mass in the left renal interpolar region, not evident previously. This is concerning for renal neoplasm. Ectasia of the right ureter. Unusual appearance to the bladder, similar to previous exam. Query prior ureteral implantation surgery-correlate with surgical history. Very large broad-based ventral hernia with associated diastases of the rectus abdominis tendon, also previously reported and unchanged. No evidence of obstruction or stricture attenuation related to such Colonic diverticulosis. No evidence of diverticulitis Hernia noted on exam and large with loss of domain. do not recommend intervention during hospitalization. can follow up outpatient if desired left renal mass new and concerning. will order CT with contrast to evaluation. cannot have MRI because of metal in head CT results noted Oncology notes noted Consider Urology consult for nephrectomy - outpatient okay for diet will follow with recs thank you Shiva Cunha Jan 25, 2019 13:50
[2019-01-25 16:00] VITALS: BP 137/76
[2019-01-25] MEDS: Sennosides 8.6mg tab ORAL SCH (18:38)
[2019-01-25 20:00] VITALS: BP 144/83
--- NOTE | 2019-01-25 20:33 | NUR ---
HAND-OFF: Report given to Reji darby pt in stable condition.
--- NOTE | 2019-01-25 20:34 | NUR ---
NURSE NOTES: Got report from Natasha HUNT. Pt in stable condition. Denies any pain. No s/s of distress or discomfort noted. Pt resting in bed comfortably. Bed in low and locked position, call light within reach, bedside table within reach. Continue to monitor.
[2019-01-25] MEDS: ALPRAZolam 0.5mg tab ORAL SCH (21:56)
[2019-01-25] MEDS: Atorvastatin 20mg tab ORAL SCH (21:56)
[2019-01-25] MEDS: Levemir Flexpen SUBQ SCH (22:00)
[2019-01-25] MEDS: Albuterol 90mcg Inhaler 8gm INH PRN (22:21)
[2019-01-26] MEDS: NovoLOG Insulin Flexpen SUBQ SCH ×4 (06:20→20:41)
--- NOTE | 2019-01-26 07:00 | NUR ---
HAND-OFF: Report given to Natasha HUNT. Endorsed plan of care.
[2019-01-26 07:08] LABS: EOSINOPHILS % (AUTO) 0.8 % (0.0-3.0); HEMATOCRIT 45.6 % (37.0-47.0); HEMOGLOBIN 15.1 G/DL (12.0-16.0); LYMPHOCYTES % (AUTO) 16.2 % (20.0-45.0); MEAN CORPUSCULAR VOLUME 92 FL (80-99); MONOCYTES % (AUTO) 8.9 % (1.0-10.0); NEUTROPHILS % (AUTO) 73.1 % (45.0-75.0); PLATELET COUNT 240 K/UL (150-450); RED BLOOD COUNT 4.97 M/UL (4.20-5.40); RED CELL DISTRIBUTION WIDTH 11.9 % (11.6-14.8); WHITE BLOOD COUNT 9.2 K/UL (4.8-10.8)
[2019-01-26 07:34] LABS: ANION GAP 10 mmol/L (5-15); BLOOD UREA NITROGEN 22 mg/dL (7-18); CALCIUM 10.3 MG/DL (8.5-10.1); CARBON DIOXIDE 24 MMOL/L (21-32); CHLORIDE 107 MMOL/L (98-107); CREATININE 1.1 MG/DL (0.55-1.30); POTASSIUM 4.5 MMOL/L (3.5-5.1); SODIUM 141 MMOL/L (136-145)
[2019-01-26 08:00] VITALS: BP 148/78
[2019-01-26] MEDS: Aspirin EC 81mg tab ORAL SCH (09:18)
[2019-01-26] MEDS: Metoprolol Succinate XL 50mg tab ORAL SCH (09:19)
[2019-01-26] MEDS: Heparin 5000 units/ml inj SUBQ SCH ×2 (09:21→20:36)
[2019-01-26] MEDS ORDERED: Isovue-370 150ml vial INJ PRN (11:45)
[2019-01-26 12:00] VITALS: BP 131/71
--- NOTE | 2019-01-26 12:03 | Nephrology Progress Note ---
Assessment/Plan Problem List: (1) CHF (congestive heart failure) (2) UTI (urinary tract infection) (3) HTN (hypertension) (4) DM2 (diabetes mellitus, type 2) (5) Chest pain (6) Renal mass (7) Abdominal pain Plan EKG and Troponin this morning. Milk of Magnesia to r/o GERD PRN senokot for constipation Add on 2mg Morphine Q6 hours for pain CT PE to t/o PE Continue 2L 02 NC and increase if O2 < 92% Continue Furosemide 60mg daily Gram Positive cocci noted to initial culture results. No gram negative noted. Small colony, and pt asymptomatic. Will wait for results of full urine culture, sensitivity and resistance. Subjective HEENT: Reports: no symptoms Genitourinary: Reports: no symptoms Neurologic/Psychiatric: Reports: no symptoms Subjective Ms. Thompson reports pain with inspiration, greater on the left side. She endorses shortness of breath since last night. She continues to have breakthrough abdominal pain adjacent to location of renal mass. Ms. Thompson also endorses constipation unresolved by Senokot. Objective Objective Last 24 Hour Vital Signs Date Time Temp Pulse Resp B/P (MAP) Pulse Ox O2 Delivery O2 Flow Rate FiO2 01/26/19 09:19 85 148/78 01/26/19 09:19 85 148/78 01/26/19 08:00 97.7 85 22 148/78 (101) 95 01/26/19 04:00 73 01/26/19 00:00 71 01/25/19 22:26 84 18 96 Nasal Cannula 21 01/25/19 22:25 84 18 95 Nasal Cannula 21 01/25/19 21:00 Room Air 01/25/19 20:00 79 01/25/19 20:00 98.2 89 18 144/83 (103) 98 01/25/19 19:00 72 18 97 Room Air 21 01/25/19 18:38 71 137/76 01/25/19 16:00 73 01/25/19 16:00 96.6 71 20 137/76 (96) 100 01/25/19 12:00 68 01/25/19 12:00 97.7 65 18 125/74 (91) 100 Intake and Output 01/25/19 01/26/19 19:00 07:00 Intake Total 120 ml Output Total 300 ml Balance -180 ml Intake Oral 120 ml Output Urine Total 300 ml # Voids 3 2 Laboratory Tests 01/26/19 06:10: White Blood Count 9.2, Red Blood Count 4.97, Hemoglobin 15.1, Hematocrit 45.6, Mean Corpuscular Volume 92, Mean Corpuscular Hemoglobin 30.3, Mean Corpuscular Hemoglobin Concent 33.0, Red Cell Distribution Width 11.9, Platelet Count 240, Mean Platelet Volume 8.2, Neutrophils (%) (Auto) 73.1, Lymphocytes (%) (Auto) 16.2L, Monocytes (%) (Auto) 8.9, Eosinophils (%) (Auto) 0.8, Basophils (%) (Auto ) 1.0, Sodium Level 141, Potassium Level 4.5, Chloride Level 107, Carbon Dioxide Level 24, Anion Gap 10, Blood Urea Nitrogen 22H, Creatinine 1.1, Estimat Glomerular Filtration Rate > 60, Glucose Level 129H, Calcium Level 10.3H , Troponin I 0.043 Height (Feet): 5 Height (Inches): 4.00 Weight (Pounds): 217 General Appearance: alert, moderate distress, alert oriented x3 EENT: PERRL/EOMI Neck: non-tender, supple, normal inspection Cardiovascular: normal peripheral pulses, regular rhythm, no JVD Respiratory/Chest: lungs clear Abdomen: normal bowel sounds, non tender, soft Extremities: non-tender, normal inspection, no calf tenderness, normal capillary refill 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 Jan 26, 2019 12:03
--- NOTE | 2019-01-26 12:44 | NUR ---
CASE MANAGEMENT:REVIEW 01/23/19 SI: ABDOMINAL PAIN. DIVERTICULOSIS. CHF. UTI. 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
[2019-01-26] MEDS: Morphine Sulfate 2mg/ml Inj(IV/IM USE ONLY) IVP PRN ×2 (14:09→20:18)
[2019-01-26] MEDS: Milk of Magnesia 30ml Ud ORAL PRN (14:09)
--- NOTE | 2019-01-26 14:58 | Surgery Progress Note ---
Surgery Progress Note Subjective Additional Comments no acute events resting comfortable no n/v//fc +BM ambulatory no complaints Objective Last 24 Hour Vital Signs Date Time Temp Pulse Resp B/P (MAP) Pulse Ox O2 Delivery O2 Flow Rate FiO2 01/26/19 09:19 85 148/78 01/26/19 09:19 85 148/78 01/26/19 08:00 97.7 85 22 148/78 (101) 95 01/26/19 04:00 73 01/26/19 00:00 71 01/25/19 22:26 84 18 96 Nasal Cannula 21 01/25/19 22:25 84 18 95 Nasal Cannula 21 01/25/19 21:00 Room Air 01/25/19 20:00 79 01/25/19 20:00 98.2 89 18 144/83 (103) 98 01/25/19 19:00 72 18 97 Room Air 21 01/25/19 18:38 71 137/76 01/25/19 16:00 73 01/25/19 16:00 96.6 71 20 137/76 (96) 100 I&O Intake and Output 01/25/19 01/26/19 19:00 07:00 Intake Total 120 ml Output Total 300 ml Balance -180 ml Intake Oral 120 ml Output Urine Total 300 ml # Voids 3 2 Cardiovascular: RSR Respiratory: clear Abdomen: soft, distended, non-tender, present bowel sounds Extremities: no tenderness, no cyanosis Laboratory Tests Test 01/26/19 06:10 White Blood Count 9.2 K/UL (4.8-10.8) Red Blood Count 4.97 M/UL (4.20-5.40) Hemoglobin 15.1 G/DL (12.0-16.0) Hematocrit 45.6 % (37.0-47.0) Mean Corpuscular Volume 92 FL (80-99) Mean Corpuscular Hemoglobin 30.3 PG (27.0-31.0) Mean Corpuscular Hemoglobin Concent 33.0 G/DL (32.0-36.0) Red Cell Distribution Width 11.9 % (11.6-14.8) Platelet Count 240 K/UL (150-450) Mean Platelet Volume 8.2 FL (6.5-10.1) Neutrophils (%) (Auto) 73.1 % (45.0-75.0) Lymphocytes (%) (Auto) 16.2 % (20.0-45.0) L Monocytes (%) (Auto) 8.9 % (1.0-10.0) Eosinophils (%) (Auto) 0.8 % (0.0-3.0) Basophils (%) (Auto) 1.0 % (0.0-2.0) Sodium Level 141 MMOL/L (136-145) Potassium Level 4.5 MMOL/L (3.5-5.1) Chloride Level 107 MMOL/L (98-107) Carbon Dioxide Level 24 MMOL/L (21-32) Anion Gap 10 mmol/L (5-15) Blood Urea Nitrogen 22 mg/dL (7-18) H Creatinine 1.1 MG/DL (0.55-1.30) Estimat Glomerular Filtration Rate > 60 mL/min (>60) Glucose Level 129 MG/DL (74-106) H Calcium Level 10.3 MG/DL (8.5-10.1) H Troponin I 0.043 ng/mL (0.000-0.056) Plan Problems: (1) Abdominal pain Assessment & Plan: CT with findings : 3 cm mass in the left renal interpolar region, not evident previously. This is concerning for renal neoplasm. Ectasia of the right ureter. Unusual appearance to the bladder, similar to previous exam. Query prior ureteral implantation surgery-correlate with surgical history. Very large broad-based ventral hernia with associated diastases of the rectus abdominis tendon, also previously reported and unchanged. No evidence of obstruction or stricture attenuation related to such Colonic diverticulosis. No evidence of diverticulitis Hernia noted on exam and large with loss of domain. do not recommend intervention during hospitalization. can follow up outpatient if desired left renal mass new and concerning. will order CT with contrast to evaluation. cannot have MRI because of metal in head CT results noted Oncology notes noted Consider Urology consult for nephrectomy - outpatient okay for diet will follow with recs okay to d/c from surgical standpoint with outpatient follow thank you Shiva Cunha Jan 26, 2019 14:58
[2019-01-26 16:00] VITALS: BP 123/75
[2019-01-26] MEDS: Sennosides 8.6mg tab ORAL SCH (17:50)
--- NOTE | 2019-01-26 18:31 | Cardiology Progress Note ---
Subjective Subjective [id number] Objective Last 24 Hour Vital Signs Date Time Temp Pulse Resp B/P (MAP) Pulse Ox O2 Delivery O2 Flow Rate FiO2 01/26/19 17:49 74 123/75 01/26/19 16:00 74 01/26/19 16:00 98.2 75 21 123/75 (91) 96 01/26/19 12:00 75 01/26/19 12:00 99.3 73 24 131/71 (91) 93 01/26/19 09:19 85 148/78 01/26/19 09:19 85 148/78 01/26/19 09:00 Nasal Cannula 2.0 01/26/19 08:00 97.7 85 22 148/78 (101) 95 01/26/19 07:39 85 01/26/19 07:00 79 20 96 Room Air 21 01/26/19 04:00 73 01/26/19 00:00 71 01/25/19 22:26 84 18 96 Nasal Cannula 21 01/25/19 22:25 84 18 95 Nasal Cannula 21 01/25/19 21:00 Room Air 01/25/19 20:00 79 01/25/19 20:00 98.2 89 18 144/83 (103) 98 01/25/19 19:00 72 18 97 Room Air 21 01/25/19 18:38 71 137/76 Intake and Output 01/25/19 01/26/19 18:59 06:59 Intake Total 120 ml Output Total 300 ml Balance -180 ml Intake Oral 120 ml Output Urine Total 300 ml # Voids 3 2 Laboratory Tests Test 01/26/19 06:10 White Blood Count 9.2 K/UL (4.8-10.8) Red Blood Count 4.97 M/UL (4.20-5.40) Hemoglobin 15.1 G/DL (12.0-16.0) Hematocrit 45.6 % (37.0-47.0) Mean Corpuscular Volume 92 FL (80-99) Mean Corpuscular Hemoglobin 30.3 PG (27.0-31.0) Mean Corpuscular Hemoglobin Concent 33.0 G/DL (32.0-36.0) Red Cell Distribution Width 11.9 % (11.6-14.8) Platelet Count 240 K/UL (150-450) Mean Platelet Volume 8.2 FL (6.5-10.1) Neutrophils (%) (Auto) 73.1 % (45.0-75.0) Lymphocytes (%) (Auto) 16.2 % (20.0-45.0) L Monocytes (%) (Auto) 8.9 % (1.0-10.0) Eosinophils (%) (Auto) 0.8 % (0.0-3.0) Basophils (%) (Auto) 1.0 % (0.0-2.0) Sodium Level 141 MMOL/L (136-145) Potassium Level 4.5 MMOL/L (3.5-5.1) Chloride Level 107 MMOL/L (98-107) Carbon Dioxide Level 24 MMOL/L (21-32) Anion Gap 10 mmol/L (5-15) Blood Urea Nitrogen 22 mg/dL (7-18) H Creatinine 1.1 MG/DL (0.55-1.30) Estimat Glomerular Filtration Rate > 60 mL/min (>60) Glucose Level 129 MG/DL (74-106) H Calcium Level 10.3 MG/DL (8.5-10.1) H Troponin I 0.043 ng/mL (0.000-0.056) Jimena Messina MD Jan 26, 2019 18:31
[2019-01-26 20:00] VITALS: BP 126/71
--- NOTE | 2019-01-26 20:27 | NUR ---
HAND-OFF: Report given to Reji/Rn, pt in stable condition, pt is experiencing pain at this moment but Rn will give Morphine soon.
[2019-01-26] MEDS: Atorvastatin 20mg tab ORAL SCH (20:33)
[2019-01-26] MEDS: ALPRAZolam 0.5mg tab ORAL SCH (20:33)
[2019-01-26] MEDS: Levemir Flexpen SUBQ SCH (20:40)
[2019-01-26] MEDS: Albuterol 90mcg Inhaler 8gm INH PRN (23:25)
[2019-01-27] VITALS: BP 125/72
[2019-01-27] MEDS ORDERED: Albuterol/Ipratropium 3ml neb HHN PRN (01:00)
[2019-01-27 04:00] VITALS: BP 139/74
[2019-01-27] MEDS: Morphine Sulfate 2mg/ml Inj(IV/IM USE ONLY) IVP PRN ×4 (05:24→22:32)
[2019-01-27] MEDS: NovoLOG Insulin Flexpen SUBQ SCH ×4 (06:31→21:16)
--- NOTE | 2019-01-27 07:00 | NUR ---
HAND-OFF: Report given to Charly HUNT. Endorsed plan of care.
--- NOTE | 2019-01-27 07:09 | CDS Physician Query ---
Clarification is required for compliance, coding accuracy, and to reflect severity of illness for this patient Dear Matti Schaeffer MD Date: 01/27/2019 [employer] Architect/CDS Name: Jerry Damian "Heart Failure / CHF" documented in Progress Note Labs: BNP: 884 Tx: IV FUROSEMID Please Clarify: Acuity [] Acute [] Chronic [] Acute on Chronic Type [] Systolic [] Diastolic [] Systolic & Diastolic (Combined) [] Other: Present on Admission: [] Yes [] No [] Clinically Undetermined Physician signature Date Please also document in your Progress Notes and/or Discharge Summary and indicate if the condition was present on admission. BRYD
--- NOTE | 2019-01-27 07:30 | NUR ---
NURSE NOTES: Received report from Damian HUNT. Denies any pain at this time, no acute distress or shortness of breath noted. Bed is in the lowest position, call light in reach, fall and aspiration precaution reinforced. IV site on LFA 20G intact and patent. Bed is on lowest position, bedside rails up x2. Call light is within reach. Will continue with the plan of care.
[2019-01-27 07:32] LABS: BASOPHILS % (AUTO) 0.7 % (0.0-2.0); EOSINOPHILS % (AUTO) 1.5 % (0.0-3.0); HEMATOCRIT 44.2 % (37.0-47.0); HEMOGLOBIN 14.3 G/DL (12.0-16.0); LYMPHOCYTES % (AUTO) 20.1 % (20.0-45.0); MEAN CORPUSCULAR VOLUME 93 FL (80-99); MONOCYTES % (AUTO) 9.3 % (1.0-10.0); NEUTROPHILS % (AUTO) 68.4 % (45.0-75.0); PLATELET COUNT 246 K/UL (150-450); RED BLOOD COUNT 4.77 M/UL (4.20-5.40); RED CELL DISTRIBUTION WIDTH 12.3 % (11.6-14.8); WHITE BLOOD COUNT 8.1 K/UL (4.8-10.8)
[2019-01-27 07:56] LABS: ANION GAP 9 mmol/L (5-15); BLOOD UREA NITROGEN 21 mg/dL (7-18); CARBON DIOXIDE 26 MMOL/L (21-32); CHLORIDE 106 MMOL/L (98-107); CREATININE 1.2 MG/DL (0.55-1.30); POTASSIUM 4.3 MMOL/L (3.5-5.1); SODIUM 141 MMOL/L (136-145)
[2019-01-27 08:00] VITALS: BP 134/61
[2019-01-27] MEDS: Metoprolol Succinate XL 50mg tab ORAL SCH (09:10)
[2019-01-27] MEDS: Aspirin EC 81mg tab ORAL SCH (09:10)
[2019-01-27] MEDS: Heparin 5000 units/ml inj SUBQ SCH ×2 (09:15→21:14)
--- NOTE | 2019-01-27 10:44 | Diagnostic Imaging Report ---
Indication: Chest pain Technique: Continuous helical transaxial imaging of the chest was obtained from the thoracic inlet to the upper abdomen during rapid intravenous contrast administration. Arterial phase of enhancement obtained. Coronal 2-D reformats were also obtained and maximum intensity projection images in multiple planes. Study obtained in a Siemens sensation [address] Automatic Exposure Control was utilized. Total Dose length Product (DLP): 1110.[address] Dose Index Volume (CTDIvol): 34.26 mGy Comparison: 01/21/2019 CT abdomen pelvis and chest Findings: The pulmonary artery is well opacified and shows no filling defects. There is no adenopathy, pleural or pericardial effusions are identified. There is no aortic dissection or aneurysm identified within the chest. The heart is enlarged. There are patchy infiltrates at the lung bases. There is a thin-walled, sharply circumscribed cystic focus at the right lung base measuring 2.4 cm. This is probably a pneumatocele. There is a trace right pleural effusion. There is a second adjacent cystic focus measuring 7 mm. There is a calcification within the liver. IMPRESSION: No evidence of pulmonary embolus, aortic dissection or aneurysm. Patchy bilateral infiltrates mostly at the lung bases. Trace right pleural effusion. Correlate clinically for pneumonia. The CT scanner at [facility] is accredited by the [employer] and the scans are performed using dose optimization techniques as appropriate to a performed exam including Automatic Exposure control.
--- NOTE | 2019-01-27 11:21 | Cardiology Report ---
APPROVED REPORT EKG Measurement Heart [id number] [place] 188P [id number] Normal sinus rhythm suspect arm lead reversal consider repeating the ekg
[2019-01-27 12:00] VITALS: BP 126/71
--- NOTE | 2019-01-27 13:04 | Surgery Progress Note ---
Surgery Progress Note Subjective Additional Comments CTA Chest noted and okay no acute events comfortable stable. Objective Last 24 Hour Vital Signs Date Time Temp Pulse Resp B/P (MAP) Pulse Ox O2 Delivery O2 Flow Rate FiO2 01/27/19 10:21 68 20 98 Room Air 21 01/27/19 10:19 68 20 98 Room Air 21 67 20 98 01/27/19 09:10 82 134/61 01/27/19 09:10 82 134/61 01/27/19 09:00 Nasal Cannula 2.0 01/27/19 08:00 98.3 82 18 134/61 (85) 94 01/27/19 08:00 82 01/27/19 05:54 98.2 01/27/19 04:00 98.2 72 18 139/74 (95) 99 01/27/19 04:00 75 01/27/19 00:00 98.4 81 18 125/72 (89) 97 01/27/19 00:00 77 01/26/19 23:26 80 20 96 Room Air 21 01/26/19 23:26 80 20 96 Room Air 21 01/26/19 21:00 Nasal Cannula 2.0 01/26/19 20:00 97.9 71 18 126/71 (89) 97 01/26/19 20:00 67 01/26/19 19:00 68 18 97 Room Air 21 01/26/19 17:49 74 123/75 01/26/19 16:00 74 01/26/19 16:00 98.2 75 21 123/75 (91) 96 I&O Intake and Output 01/26/19 01/27/19 19:00 07:00 Intake Total 720 ml Output Total 300 ml Balance 420 ml Intake Oral 120 ml Other 600 ml Output Urine Total 300 ml # Voids 7 3 # Bowel Movements 2 Cardiovascular: RSR Respiratory: clear Abdomen: soft, non-tender, present bowel sounds Extremities: no cyanosis Laboratory Tests Test 01/27/19 05:20 White Blood Count 8.1 K/UL (4.8-10.8) Red Blood Count 4.77 M/UL (4.20-5.40) Hemoglobin 14.3 G/DL (12.0-16.0) Hematocrit 44.2 % (37.0-47.0) Mean Corpuscular Volume 93 FL (80-99) Mean Corpuscular Hemoglobin 30.1 PG (27.0-31.0) Mean Corpuscular Hemoglobin Concent 32.5 G/DL (32.0-36.0) Red Cell Distribution Width 12.3 % (11.6-14.8) Platelet Count 246 K/UL (150-450) Mean Platelet Volume 7.4 FL (6.5-10.1) Neutrophils (%) (Auto) 68.4 % (45.0-75.0) Lymphocytes (%) (Auto) 20.1 % (20.0-45.0) Monocytes (%) (Auto) 9.3 % (1.0-10.0) Eosinophils (%) (Auto) 1.5 % (0.0-3.0) Basophils (%) (Auto) 0.7 % (0.0-2.0) Sodium Level 141 MMOL/L (136-145) Potassium Level 4.3 MMOL/L (3.5-5.1) Chloride Level 106 MMOL/L (98-107) Carbon Dioxide Level 26 MMOL/L (21-32) Anion Gap 9 mmol/L (5-15) Blood Urea Nitrogen 21 mg/dL (7-18) H Creatinine 1.2 MG/DL (0.55-1.30) Estimat Glomerular Filtration Rate 55.4 mL/min (>60) Glucose Level 116 MG/DL (74-106) H Calcium Level 10.0 MG/DL (8.5-10.1) Plan Problems: (1) Abdominal pain Assessment & Plan: CT with findings : 3 cm mass in the left renal interpolar region, not evident previously. This is concerning for renal neoplasm. Ectasia of the right ureter. Unusual appearance to the bladder, similar to previous exam. Query prior ureteral implantation surgery-correlate with surgical history. Very large broad-based ventral hernia with associated diastases of the rectus abdominis tendon, also previously reported and unchanged. No evidence of obstruction or stricture attenuation related to such Colonic diverticulosis. No evidence of diverticulitis Hernia noted on exam and large with loss of domain. do not recommend intervention during hospitalization. can follow up outpatient if desired left renal mass new and concerning. will order CT with contrast to evaluation. cannot have MRI because of metal in head CT results noted Oncology notes noted Consider Urology consult for nephrectomy - outpatient okay for diet will follow with recs okay to d/c from surgical standpoint with outpatient follow thank you Shiva Cunha Jan 27, 2019 13:04
--- NOTE | 2019-01-27 14:34 | Nephrology Progress Note ---
Assessment/Plan Problem List: (1) CHF (congestive heart failure) (2) UTI (urinary tract infection) (3) HTN (hypertension) (4) DM2 (diabetes mellitus, type 2) (5) Chest pain (6) Renal mass (7) Abdominal pain Plan CBC, BMP in morning Continue observation Incentive Spirometer and pt teaching ID Consult Dr. Medel for pt hospital acquired pneumonia Will start patient today on Zosyn 3.375 Q8, choosing Q8 given patient renal function. Subjective Constitutional: Reports: other HEENT: Reports: no symptoms Genitourinary: Reports: no symptoms Neurologic/Psychiatric: Reports: no symptoms Subjective Ms. Thompson reports pain with inspiration, greater on the right side today. She endorses shortness of breath since last night. Objective Objective Last 24 Hour Vital Signs Date Time Temp Pulse Resp B/P (MAP) Pulse Ox O2 Delivery O2 Flow Rate FiO2 01/27/19 12:00 73 01/27/19 12:00 98.3 73 18 126/71 (89) 93 01/27/19 10:21 68 20 98 Room Air 21 01/27/19 10:19 68 20 98 Room Air 21 67 20 98 01/27/19 09:10 82 134/61 01/27/19 09:10 82 134/61 01/27/19 09:00 Nasal Cannula 2.0 01/27/19 08:00 98.3 82 18 134/61 (85) 94 01/27/19 08:00 82 01/27/19 05:54 98.2 01/27/19 04:00 98.2 72 18 139/74 (95) 99 01/27/19 04:00 75 01/27/19 00:00 98.4 81 18 125/72 (89) 97 01/27/19 00:00 77 01/26/19 23:26 80 20 96 Room Air 21 01/26/19 23:26 80 20 96 Room Air 21 01/26/19 21:00 Nasal Cannula 2.0 01/26/19 20:00 97.9 71 18 126/71 (89) 97 01/26/19 20:00 67 01/26/19 19:00 68 18 97 Room Air 21 01/26/19 17:49 74 123/75 01/26/19 16:00 74 01/26/19 16:00 98.2 75 21 123/75 (91) 96 Intake and Output 01/26/19 01/27/19 19:00 07:00 Intake Total 720 ml Output Total 300 ml Balance 420 ml Intake Oral 120 ml Other 600 ml Output Urine Total 300 ml # Voids 7 3 # Bowel Movements 2 Laboratory Tests 01/27/19 05:20: White Blood Count 8.1, Red Blood Count 4.77, Hemoglobin 14.3, Hematocrit 44.2, Mean Corpuscular Volume 93, Mean Corpuscular Hemoglobin 30.1, Mean Corpuscular Hemoglobin Concent 32.5, Red Cell Distribution Width 12.3, Platelet Count 246, Mean Platelet Volume 7.4, Neutrophils (%) (Auto) 68.4, Lymphocytes (%) (Auto) 20.1, Monocytes (%) (Auto) 9.3, Eosinophils (%) (Auto) 1.5, Basophils (%) (Auto ) 0.7, Sodium Level 141, Potassium Level 4.3, Chloride Level 106, Carbon Dioxide Level 26, Anion Gap 9, Blood Urea Nitrogen 21H, Creatinine 1.2, Estimat Glomerular Filtration Rate 55.4, Glucose Level 116H, Calcium Level 10.0 Height (Feet): 5 Height (Inches): 4.00 Weight (Pounds): 217 General Appearance: alert, obese, alert oriented x3 EENT: PERRL/EOMI Neck: non-tender, normal alignment, supple, normal inspection Cardiovascular: normal rate, regular rhythm, no JVD Abdomen: normal bowel sounds, tender Extremities: non-tender, normal inspection Neurologic: no motor/sensory deficits, alert, oriented x 3, normal mood/affect Objective Neuro: A&Ox4, 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 Jan 27, 2019 14:34
[2019-01-27 16:00] VITALS: BP 111/65
[2019-01-27] MEDS: Piperacillin/Tazobactam 3.375 GM in NS 110 ML IVPB SCH ×2 (16:36→22:38)
--- NOTE | 2019-01-27 16:56 | Consultation ---
DATE OF CONSULTATION: 01/26/2019 CARDIOLOGY CONSULTATION IDENTIFICATION: The patient is a 63-year-old female. REASON FOR EVALUATION: Congestive heart failure. HISTORY OF PRESENT ILLNESS: The patient is pretty well known to me. The patient with systolic and diastolic dysfunction, dilated cardiomyopathy, ejection fraction around 40%. She was at [facility] over a month ago with chest pain and her nuclear stress test was normal. She was discharged and then she apparently was out partying with friends and then she went in complete respiratory distress. She was admitted to [facility] on January 18, 2019. She required intubation and stayed in an intensive care unit until she was diuresed and stabilized. Her echo repeated ejection fraction was 50%. So, the patient eventually was transferred here. She also had elevated troponin, which is mildly elevated without significant EKG changes. PAST MEDICAL HISTORY: In addition to above significant for hyperlipidemia, severe COPD, history of seizures. She has a brain surgery in the past and multiple drug abuse in the past, but now she is abstinent from smoking and cocaine. ALLERGIES: She is allergic to the lorazepam, levofloxacin, and midazolam. HABITS: Again used to smoke heavily. REVIEW OF SYSTEMS: Now, she is breathing much better. She does not have any significant pain. She is very concerned about a kidney mass, which was found on her CAT scan. PHYSICAL EXAMINATION: GENERAL: This is pleasant female. VITAL SIGNS: Blood pressure 123/75, heart rate 74, temperature is normal, oxygen saturation is 96%. HEENT: PERRLA. EOMI. NECK: Neck veins are distended to approximately 8 cm. She has normal carotid upstroke without bruit. LUNGS: She has scattered crackles. HEART: Regular with positive S4, systolic ejection murmur in aorta 2/6. ABDOMEN: Soft. There is post multiple surgery and abdominal ventral hernia, which is large. EXTREMITIES: Lower extremity, no edema. Distal pulses palpable. LABORATORY AND DIAGNOSTIC DATA: Her EKG shows sinus rhythm with LVH without significant ST changes but T inversion due to LVH with strain. Her labs are all reviewed. Chest x-ray also reviewed is unremarkable. Her white count is normal. IMPRESSION AND RECOMMENDATION: Acute on chronic systolic and diastolic heart failure. The patient probably was not very compliant with fluid intake and medications. She admits and accepts that. We will now diurese her. She is going to be on Entresto and kidney surgery she is stable at present time. No additional recommendations, but she definitely needs to be euvolemic and she probably needs to wait a week or 2 until surgery to make sure that she is totally stabilized. She just had a stress nuclear at [facility], which was normal, so she does not need ischemia workup anymore. Thank you for your consultation. Jimena Messina M.D. DR: Jayla JOB#: [id number] CC:
[2019-01-27] MEDS: Sennosides 8.6mg tab ORAL SCH (18:06)
--- NOTE | 2019-01-27 19:32 | NUR ---
HAND-OFF: Report given to GILBERT Chavez.
--- NOTE | 2019-01-27 19:33 | NUR ---
NURSE NOTES: Received report on pt from GILBERT Parks. Pt is awake and resting in bed. IV site intact and patent. Bed locked in lowest position, bed light within reach. Will continue with plan of care.
[2019-01-27 20:00] VITALS: BP 135/78
[2019-01-27] MEDS: Atorvastatin 20mg tab ORAL SCH (21:12)
[2019-01-27] MEDS: Levemir Flexpen SUBQ SCH (21:15)
[2019-01-28] VITALS: BP 131/74
[2019-01-28 04:00] VITALS: BP 126/73
[2019-01-28] MEDS: Piperacillin/Tazobactam 3.375 GM in NS 110 ML IVPB SCH ×2 (06:19→15:14)
[2019-01-28] MEDS: NovoLOG Insulin Flexpen SUBQ SCH ×2 (06:21→12:10)
--- NOTE | 2019-01-28 07:15 | NUR ---
HAND-OFF: Report given to GILBERT Durham. Endorsed plan of care.
--- NOTE | 2019-01-28 07:20 | NUR ---
NURSE NOTES: Report received from GILBERT Chavez. Pt. AOx4. In RA. Ambulated steady to the restroom. IV intact, running Zosyn. Bed on lowest position, side rails upx2, brakes engaged. Call light within easy reach.
[2019-01-28] MEDS: Morphine Sulfate 2mg/ml Inj(IV/IM USE ONLY) IVP PRN (08:34)
[2019-01-28] MEDS: Aspirin EC 81mg tab ORAL SCH (08:36)
[2019-01-28] MEDS: Metoprolol Succinate XL 50mg tab ORAL SCH (08:36)
[2019-01-28] MEDS: Heparin 5000 units/ml inj SUBQ SCH ×2 (08:43→08:50)
[2019-01-28 09:00] VITALS: BP 120/74
--- NOTE | 2019-01-28 10:43 | CDS Physician Query ---
Clarification is required for compliance, coding accuracy, and to reflect severity of illness for this patient Dear Miguel A Griffiths MD Date: 01/27/2019 [employer]/CDS Name: Jerry Damian "Heart Failure / CHF" documented in Progress Note Labs: BNP: 884 Tx: IV FUROSEMID Please Clarify: Acuity [] Acute [X] Chronic [] Acute on Chronic Type [] Systolic [] Diastolic [X] Systolic & Diastolic (Combined) [] Other: Present on Admission: [] Yes [] No [] Clinically Undetermined Physician signature Date Please also document in your Progress Notes and/or Discharge Summary and indicate if the condition was present on admission. MTDD
--- NOTE | 2019-01-28 11:36 | NUR ---
RD ASSESSMENT & RECOMMENDATIONS SEE CARE ACTIVITY FOR COMPLETE ASSESSMENT DAILY ESTIMATED NEEDS: Needs based on DM, CHF/ 70kg abw 25-30 kcals/kg 8430-5683 total kcals 1-1.3 g protein/kg 70-91 g total protein Fluid per MD, on lasix NUTRITION DIAGNOSIS: Decreased sodium intake needs R/T cardiac dx as evidenced hy CHF + HTN dx, on lasix and BP lowering meds. CURRENT DIET: [facility] MED PO DIET RECOMMENDATIONS: LOW NA, [facility] MED ADDITIONAL RECOMMENDATIONS: * Daily standing weight * Monitor lytes daily, replete as needed/ on lasix * Add B-complex daily while on lasix therapy
[2019-01-28 12:00] VITALS: BP 124/80
[2019-01-28] MEDS ORDERED: Fluconazole 100mg tab ORAL SCH (12:00)
--- NOTE | 2019-01-28 12:10 | NUR ---
CASE MANAGEMENT:REVIEW 01/28/19 SI: CHF. UTI. ABDOMINAL PAIN. RENAL MASS CXR(+) BILATERAL INFILTRATES 98.3 70 18 120/74 95% ON 2L/NC IS: IV ZOSYN Q8HRS DIFLUCAN PO QD IV LASIX QD NORVASC PO BID ASA PO QD HEPARIN SQ Q12 IV MORPHINE Q4HRS PRN : TELEMETRY STATUS DCP: FROM HOME
--- NOTE | 2019-01-28 12:39 | Nephrology Progress Note ---
Assessment/Plan Problem List: (1) CHF (congestive heart failure) (2) UTI (urinary tract infection) (3) HTN (hypertension) (4) DM2 (diabetes mellitus, type 2) (5) Chest pain (6) Renal mass (7) Abdominal pain Plan Pt to be discharged today. Patient to be admitted to [facility] for ongoing care, after stable. Per Dr. Quick, Cardiology, pt to wait two weeks to be euvolemic prior to renal surgery to be totally stabilized. Continue abx for pneumonia post discharge for total duration of 7 days. Subjective Constitutional: Reports: no symptoms HEENT: Reports: no symptoms Genitourinary: Reports: no symptoms Neurologic/Psychiatric: Reports: no symptoms Subjective Ms. Thompson denies any new signs/symptoms at this time. She is questioning the plan at this time, including discharge. Objective Objective Last 24 Hour Vital Signs Date Time Temp Pulse Resp B/P (MAP) Pulse Ox O2 Delivery O2 Flow Rate FiO2 01/28/19 11:39 72 20 95 Room Air 21 01/28/19 09:00 Nasal Cannula 2.0 01/28/19 09:00 98.3 70 18 120/74 (89) 95 01/28/19 08:36 70 120/74 01/28/19 08:35 70 120/74 01/28/19 08:00 73 01/28/19 04:00 70 01/28/19 04:00 98.1 70 18 126/73 (90) 95 01/28/19 00:00 66 01/28/19 00:00 98.1 66 18 131/74 (93) 96 01/27/19 21:00 Nasal Cannula 2.0 01/27/19 20:00 67 01/27/19 20:00 98.1 67 18 135/78 (97) 96 01/27/19 19:46 73 20 96 Room Air 21 01/27/19 18:06 73 111/65 01/27/19 16:00 73 01/27/19 16:00 98.3 72 18 111/65 (80) 93 Intake and Output 01/27/19 01/28/19 19:00 07:00 Intake Total 930 ml Balance 930 ml Intake Oral 930 ml # Voids 5 2 Height (Feet): 5 Height (Inches): 4.00 Weight (Pounds): 224 General Appearance: WD/WN, no apparent distress, alert EENT: PERRL/EOMI Neck: non-tender, normal alignment, supple Cardiovascular: normal peripheral pulses, normal rate, regular rhythm Respiratory/Chest: chest wall non-tender, lungs clear, normal breath sounds, no respiratory distress Abdomen: normal bowel sounds, tender Extremities: normal range of motion, non-tender 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 Jan 28, 2019 12:39
[2019-01-28 16:00] VITALS: BP 129/74
--- NOTE | 2019-01-28 16:08 | Surgery Progress Note ---
Surgery Progress Note Subjective Symptoms: improved, pain absent, tolerating diet, voiding well, passing flatus , BM Objective Last 24 Hour Vital Signs Date Time Temp Pulse Resp B/P (MAP) Pulse Ox O2 Delivery O2 Flow Rate FiO2 01/28/19 12:00 98.5 66 18 124/80 (95) 95 01/28/19 11:39 72 20 95 Room Air 21 01/28/19 09:00 Nasal Cannula 2.0 01/28/19 09:00 98.3 70 18 120/74 (89) 95 01/28/19 08:36 70 120/74 01/28/19 08:35 70 120/74 01/28/19 08:00 73 01/28/19 04:00 70 01/28/19 04:00 98.1 70 18 126/73 (90) 95 01/28/19 00:00 66 01/28/19 00:00 98.1 66 18 131/74 (93) 96 01/27/19 21:00 Nasal Cannula 2.0 01/27/19 20:00 67 01/27/19 20:00 98.1 67 18 135/78 (97) 96 01/27/19 19:46 73 20 96 Room Air 21 01/27/19 18:06 73 111/65 I&O Intake and Output 01/27/19 01/28/19 19:00 07:00 Intake Total 930 ml Balance 930 ml Intake Oral 930 ml # Voids 5 2 Cardiovascular: RSR Respiratory: clear Abdomen: soft, flat, non-tender, present bowel sounds, non-distended Extremities: no edema, no tenderness, no cyanosis Plan Problems: (1) Abdominal pain Assessment & Plan: CT with findings : 3 cm mass in the left renal interpolar region, not evident previously. This is concerning for renal neoplasm. Ectasia of the right ureter. Unusual appearance to the bladder, similar to previous exam. Query prior ureteral implantation surgery-correlate with surgical history. Very large broad-based ventral hernia with associated diastases of the rectus abdominis tendon, also previously reported and unchanged. No evidence of obstruction or stricture attenuation related to such Colonic diverticulosis. No evidence of diverticulitis Hernia noted on exam and large with loss of domain. do not recommend intervention during hospitalization. can follow up outpatient if desired left renal mass new and concerning. will order CT with contrast to evaluation. cannot have MRI because of metal in head CT results noted Oncology notes noted Consider Urology consult for nephrectomy - outpatient okay for diet will follow with recs okay to d/c from surgical standpoint with outpatient follow d/c today patient ready to go thank you Shiva Cunha Jan 28, 2019 16:08
--- NOTE | 2019-01-28 17:00 | NUR ---
NURSE NOTES: Pt aware of DC planning. Family notified. VS stable. Discharge teaching done. Pt. aware to follow up with [facility] on 02/15 and to follow up with PMD within a week. Verbalized understanding, to take medications as ordered. IV removed. Name band removed. Belongings checked and signed. quality assurance monitor removed cleaned and stored. Left floor safely, accompanied by RN.
--- NOTE | 2019-01-28 17:45 | Consultation ---
DATE OF CONSULTATION: 01/28/2019 INFECTIOUS DISEASE CONSULTATION CONSULTING PHYSICIAN: Yogesh Medel M.D. REFERRING PHYSICIAN: Miguel A Bella M.D. REASON FOR CONSULTATION: Urinary tract infection. HISTORY OF PRESENT ILLNESS: This is a 63-year-old lady with history of hypertension, perforated diverticulitis status post surgery, and COPD, who comes in after she had a CT chest, abdomen and pelvis, which showed a kidney mass. She was found to have urinary tract infection. An Infectious Disease consultation has been obtained for antibiotics. PAST MEDICAL HISTORY: 1. History of hypertension. 2. Hyperlipidemia. 3. Diverticulitis with perforation, status post surgery. 4. COPD. 5. Brain aneurysm. SOCIAL HISTORY: She is a smoker. She drinks alcohol socially. No history of drug use. FAMILY HISTORY: Positive for heart disease in her father. REVIEW OF SYSTEMS: RESPIRATORY: No fever or chills. No cough. She has shortness of breath. No chest pain. CARDIAC: No chest pain. No palpitations. No dizziness. No syncope. GASTROINTESTINAL: She has nausea. No abdominal pain. She has diarrhea. No vomiting. MEDICATIONS: As an inpatient, she is on Zosyn, albuterol, ipratropium, morphine, iopamidol, Senokot, Lasix, atorvastatin, insulin, Zofran, amlodipine, aspirin, potassium, Entresto, subcutaneous heparin, albuterol, milk of magnesia, metoprolol, and nicotine. ALLERGIES: 1. Levofloxacin. 2. Lorazepam. 3. Midazolam. PHYSICAL EXAMINATION: VITAL SIGNS: Temperature 98.3, T-max 98.3, pulse 72, respiratory rate 20, and blood pressure 120/74. O2 saturation of 95%. HEENT: Pupils are equally reactive to light and accommodation. Mouth appears clean without thrush. NECK: Supple. No adenopathy. No JVD. CARDIOVASCULAR: Regular rate and rhythm. No murmurs. LUNGS: Clear to auscultation bilaterally. No crackles. No wheezes. ABDOMEN: Soft and nontender. No organomegaly. EXTREMITIES: No cyanosis. No clubbing. No edema. LABORATORY AND DIAGNOSTIC DATA: White count 8.1, hemoglobin 14.3, hematocrit 44.2, MCV 93, and platelet count 246,000 with neutrophils of 68%. Sodium 141, potassium 4.3, chloride 106, bicarb 26, BUN 21, and creatinine 1.2. Glucose 116. Calcium 10. Total bilirubin 0.3, AST 24, ALT 32, and alkaline phosphatase 69. Troponin 0.04. Beta-natriuretic peptide 299. Total protein 7.2, albumin 3.1. UA showing 2 to 4 white cells. Urine culture is growing Enterococcus, which is susceptible to ampicillin and Dorothy glabrata. CT angiogram showing no evidence of pulmonary embolus. Patchy bilateral infiltrates at the lung bases. Trace right-sided pleural effusion noted. Abdominal ultrasound showing right kidney solid-appearing lesion in the lower pole. Bilateral renal cyst. CT abdomen and pelvis showing 2.6 left interpolar region enhancing mass. Bilateral renal cyst noted. Right ureteral mild right hydronephrosis noted. Colonic diverticulosis. CT chest, abdomen and pelvis on 01/21/2019 showing 3 cm mass in the left renal interpolar region. Ventral hernia, diverticulosis noted. Chest x-ray on 01/20/2019 was unremarkable. ASSESSMENT: This is a 63-year-old lady who comes in, found to have left renal mass and is found to have, 1. Urinary tract infection with Enterococcus and Dorotyh glabrata. 2. She also possibly has pneumonia. 3. Hypertension. 4. COPD. PLAN: 1. Continue Zosyn. 2. We will start the patient on fluconazole. 3. We will follow up cultures. I would like to thank Dr. Bella for this consultation. Yogesh Medel M.D. DR: CRISTOBAL JOB#: [id number] CC:
--- NOTE | 2019-01-28 21:52 | Cardiology Progress Note ---
Assessment/Plan Assessment/Plan CHF dilated CMP, non ischemic hypertensive heart disease poor compliance the patient needs nephrectomy d/w Dr Bella Subjective Subjective The patient feels better, she has less dyspnea, she still has a little bit of chest pain on the left side, worse with respiration Objective Last 24 Hour Vital Signs Date Time Temp Pulse Resp B/P (MAP) Pulse Ox O2 Delivery O2 Flow Rate FiO2 01/28/19 16:00 98.4 70 18 129/74 (92) 98 01/28/19 12:00 98.5 66 18 124/80 (95) 95 01/28/19 11:39 72 20 95 Room Air 21 01/28/19 09:00 Nasal Cannula 2.0 01/28/19 09:00 98.3 70 18 120/74 (89) 95 01/28/19 08:36 70 120/74 01/28/19 08:35 70 120/74 01/28/19 08:00 73 01/28/19 04:00 70 01/28/19 04:00 98.1 70 18 126/73 (90) 95 01/28/19 00:00 66 01/28/19 00:00 98.1 66 18 131/74 (93) 96 General Appearance: no apparent distress EENT: PERRL/EOMI Neck: supple, JVD Rhythm: NSR Cardiovascular: normal rate Respiratory/Chest: crackles/rales Abdomen: soft Extremities: trace edema Intake and Output 01/27/19 01/28/19 19:00 07:00 Intake Total 930 ml Balance 930 ml Intake Oral 930 ml # Voids 5 2 Jimena Messina MD Jan 28, 2019 21:52
--- NOTE | 2019-01-29 22:41 | Discharge Summary ---
Discharge Summary Discharge Summary _ DATE OF ADMISSION: 01/19/2019 DATE OF DISCHARGE: 01/28/2019 DISCHARGED BY: Dr. Miguel A Bella CONSULTANTS: Dr. Shiva Medel BRIEF HOSPITAL COURSE: Patient is a 63-year-old female, a direct admit from [facility] due to respiratory distress. Dashawn and required intubation stayed in the ICU until she was diuresed and stabilized. She was transferred to [facility]. She complained of abdominal pain. Surgeon was called CT scan centimeter mass in the left renal interpolar region, not evident previously. Concerning for renal neoplasm. Ectasia of the right ureter. Unusual appearance to the bladder , similar to previous exam. Very large broad-based ventral hernia and associated diastases of the rectus abdominis tendon, unchanged. No evidence of obstruction or stricture. No evidence of diverticulitis. Abdominal hernia was noted on examination. Surgeon did not recommend intervention, she was informed can follow-up as outpatient if desired. She was given laxatives. She was given milk of magnesia. Oncologist was consulted. Left kidney lesion, consistent with possible malignancy. She was recommended evaluation by urology for possible nephrectomy Abdominal ultrasound showed nonmobile gallstone versus polyp. Negative for dilated ducts. Glass Vial Bending Conveyor Feeder was consulted. Patient was admitted to [facility] over a month ago due to chest pain. Nuclear stress test done was normal. She has history of systolic and diastolic dysfunction, dilated cardiomyopathy. On arrival to [facility], troponin were elevated. There were no EKG changes seen. Patient was probably noncompliant with fluid intake and medications she was given diuresis. She was given Entresto. Venous duplex was negative for acute DVT. CTA of the chest did not show any evidence of pulmonary bruise, aortic dissection or aneurysm. There was patchy bilateral infiltrates at the bases. ID was consulted. Patient was given Zosyn. Urine culture with growth of enterococcus and Dorothy. Patient was started on fluconazole. Patient was discharged home. To continue antibiotic for 7 days. To admit to [facility] once patient was surgically optimized. FINAL DIAGNOSES: Acute on chronic systolic and diastolic heart failure UTI Possible pneumonia Hypertension Type 2 diabetes mellitus Chest pain Left renal mass Abdominal pain Dilated cardiomyopathy, nonischemic Hypertensive heart disease DISPOSITION: Patient was discharged home. DISCHARGE MEDICATIONS: Refer to Discharge Medication List. DISCHARGE INSTRUCTIONS: Follow-up in a week. I have been assigned to complete a discharge summary on this account, I was not involved with the patient's management.--AGUSTINA Rod Jacqueline Robles NP Jan 29, 2019 22:41
== END 2019-01-28 17:21 | disposition home or self-care (01) | DRG 698 ==
LOC: 2E 20:00
DX: N28.89 Other specified disorders of kidney and ureter (principal); I50.43 Acute on chronic combined systolic (congestive) and diastolic (congestive) heart failure; J18.9 Pneumonia, unspecified organism; J44.1 Chronic obstructive pulmonary disease with (acute) exacerbation; I42.0 Dilated cardiomyopathy; N17.9 Acute kidney failure, unspecified; N39.0 Urinary tract infection, site not specified; R10.12 Left upper quadrant pain; I11.0 Hypertensive heart disease with heart failure; K43.9 Ventral hernia without obstruction or gangrene; Z88.1 Allergy status to other antibiotic agents; Z88.8 Allergy status to other drugs, medicaments and biological substances; E78.5 Hyperlipidemia, unspecified; B95.2 Enterococcus as the cause of diseases classified elsewhere; E11.9 Type 2 diabetes mellitus without complications; Z79.4 Long term (current) use of insulin; K57.90 Diverticulosis of intestine, part unspecified, without perforation or abscess without bleeding; F17.200 Nicotine dependence, unspecified, uncomplicated; Z91.19 Patient's noncompliance with other medical treatment and regimen
CPT/HCPCS: 36415; 71046; 71250; 71275; 74176; 74177; 76700; 80048; 80053; 81001; 82962; 83036; 83880; 84484; 85025; 85610; 85651; 85730; 86140; 87086; 87181; 93005; 93970; 94640; 94664; J1815; J2405; J7620; J8499; S5561

== ENCOUNTER 2019-03-26 02:10 | Emergency (ER) | payer MEDICARE, OTHER ==
[~2019-03-26] VITALS: Ht 170.2 cm; Wt 93.9 kg
[~2019-03-26 02:10] MED LIST changes: +COREG CR40 MG ORAL; +CRESTOR20 MG ORAL; +ENTRESTO 49 MG1 EACH PO; +MILK OF MA400 MG/51 ORAL; +POTASSIUM CHLO20 ME1 ORAL; +PROAIR HFA8.5 GM INH; +XANAX2 MG ORAL
[2019-03-26 02:20] VITALS: BP 150/90
--- NOTE | 2019-03-26 02:20 | NUR ---
ED Nurse Note: pt walked in to ED C/O Bilateral flank pain x 1 week. pt stated she has a canceraous cell removed from her right kidney on 02/15/19. pt is alert x4. VSS
--- NOTE | 2019-03-26 02:21 | NUR ---
ED Nurse Note: pt stated she was having SOB with Sp02 88-91% room air. oxygen 2L/min via NC applied. sp02 went up to 96%
--- NOTE | 2019-03-26 02:35 | Emergency Room Report ---
History of Present Illness General Chief Complaint: Back Pain-No Injury Source: Patient Present Illness HPI 64-year-old female with a history of high blood pressure. She also has history of abdominal surgery. She presents with chief complaint of abdominal pain. Been ongoing for a week. She is got discharged from [facility] and she said she was there for 4 days. She said they did not do anything. She had blood work done in urinalysis. Was not discharged on pain medication or antibiotics. Pain is mostly in the right side. Pain is severe. 10 out of 10. No trauma. No fever chills but no nausea no vomiting. Nothing made it better. Movement and palpation made it worse. Allergies: Coded Allergies: LEVOFLOXACIN (Verified Allergy, Severe, Hives, 01/19/19) LORAZEPAM (Verified Allergy, Severe, 01/19/19) Patient gets confusion MIDAZOLAM (Verified Adverse Reaction, Unknown, 05/15/15) Patient History Past Medical History: see triage record, old chart reviewed Past Surgical History: other Pertinent Family History: none Social History: Denies: smoking Now: No Immunizations: other Reviewed Nursing Documentation: PMH: Agreed; PSxH: Agreed Nursing Documentation-PMH Hx Cardiac Problems: Yes - CHF, CVA Hx Hypertension: Yes Hx COPD: Yes Hx Diabetes: Yes Hx Cancer: Yes - kidney Hx Gastrointestinal Problems: Yes Hx Neurological Problems: Yes Hx Seizures: Yes - 2016 Hx Headaches: Yes Hx Neurologic Surgery: No Hx Brain Shunt: No Review of Systems Eye: Denies: eye pain, blurred vision ENT: Denies: ear pain, nose congestion, throat swelling Respiratory: Denies: cough, shortness of breath Cardiovascular: Denies: chest pain, palpitations Gastrointestinal: Reports: abdominal pain; Denies: diarrhea, nausea, vomiting Musculoskeletal: Denies: back pain, joint pain Skin: Denies: rash Neurological: Denies: headache, numbness Endocrine: Denies: increased thirst, increased urine Hematologic/Lymphatic: Denies: easy bruising All Other Systems: negative except mentioned in HPI Physical Exam Vital Signs Date Time Temp Pulse Resp B/P (MAP) Pulse Ox O2 Delivery O2 Flow Rate FiO2 03/26/19 02:14 98.8 96 22 156/90 (112) 98 Room Air Vitals with high blood pressure Sp02 EP Interpretation: reviewed, normal General Appearance: well appearing, no apparent distress, alert Head: normocephalic, atraumatic Eyes: bilateral eye PERRL, bilateral eye EOMI ENT: hearing grossly normal, normal pharynx Neck: full range of motion, supple, no meningismus Respiratory: chest non-tender, lungs clear, normal breath sounds Cardiovascular #1: regular rate, rhythm, no murmur Gastrointestinal: normal bowel sounds, no mass, no organomegaly, no bruit, non- distended, tenderness - Right flank and abdominal pain Musculoskeletal: back normal, gait/station normal, normal range of motion Psychiatric: mood/affect normal Medical Decision Making Diagnostic Impression: Primary Impression: Pyelonephritis ER Course Patient presents with right flank pain and has right hydro-utero nephrosis with increasing right perinephric stranding. There is no kidney stone. May be an obstructive pattern or stenosis. Urine is positive. We will treat her for pyelonephritis. No evidence of any obstruction. Pain is well controlled. Labs at baseline. Will discharge home. CT/MRI/US Diagnostic Results CT/MRI/US Diagnostic Results : Imaging Test Ordered: CT abdomen pelvis Impression Read by radiologist. Worsening right hydronephrosis. Increased right perinephric stranding. No kidney stone. Bladder is mildly thickened. Copious amount of stool throughout the colon. Last Vital Signs Date Time Temp Pulse Resp B/P (MAP) Pulse Ox O2 Delivery O2 Flow Rate FiO2 03/26/19 02:14 98.8 96 22 156/90 (112) 98 Room Air Status: improved Disposition: HOME, SELF-CARE Condition: Stable Scripts Hydrocodone/Acetaminophen 5-325* (HYDROCODONE/ACETAMINOPHEN 5-325*) 1 Each Tablet 1 TAB ORAL Q6H PRN for For Pain, #20 TAB 0 Refills Prov: Dawson Carter MD 03/26/19 Cephalexin* (KEFLEX*) 500 Mg Capsule 500 MG ORAL TID, #30 CAP Prov: Dawson Carter MD 03/26/19 Additional Instructions: Increase fluids. Follow-up with your doctor in 3 to 7 days for recheck. Return if worse. Dawson Carter MD Mar 26, 2019 02:35
--- NOTE | 2019-03-26 02:42 | NUR ---
ED Nurse Note: urine and blood sample sent to lab
[2019-03-26] MEDS ORDERED: HYDROmorphone 1mg/ml Carpuject IVP ONE (02:45)
[2019-03-26 03:01] LABS: BILIRUBIN, URINE NEGATIVE (NEGATIVE); COLOR,URINE PALE YELLOW; GLUCOSE, URINE (UA) NEGATIVE (NEGATIVE); KETONES,URINE NEGATIVE (NEGATIVE); LEUKOCYTE ESTERASE ,URINE 3+ (NEGATIVE); NITRITE,URINE POSITIVE (NEGATIVE); PH,URINE 5 (4.5-8.0); PROTEIN,URINE 3+ (NEGATIVE); UROBILINOGEN,URINE NORMAL MG/DL (0.0-1.0)
[2019-03-26 03:03] LABS: ANION GAP 10 mmol/L (5-15); BLOOD UREA NITROGEN 29 mg/dL (7-18); CARBON DIOXIDE 28 MMOL/L (21-32); CHLORIDE 102 MMOL/L (98-107); CREATININE 1.5 MG/DL (0.55-1.30); HEMATOCRIT 39.4 % (37.0-47.0); MEAN CORPUSCULAR VOLUME 87 FL (80-99); PLATELET COUNT 260 K/UL (150-450); POTASSIUM 3.9 MMOL/L (3.5-5.1); RED BLOOD COUNT 4.53 M/UL (4.20-5.40); RED CELL DISTRIBUTION WIDTH 12.8 % (11.6-14.8); SODIUM 140 MMOL/L (136-145); WHITE BLOOD COUNT 15.4 K/UL (4.8-10.8)
[2019-03-26 03:10] LABS: APPEARANCE,URINE CLOUDY
--- NOTE | 2019-03-26 03:10 | NUR ---
ED Nurse Note: pt taken to CT by safety relief valve technician.
--- NOTE | 2019-03-26 03:25 | NUR ---
ED Nurse Note: back from ct
--- NOTE | 2019-03-26 03:49 | Diagnostic Imaging Report ---
Indication: Abdominal pain for 3 days Technique: Spiral acquisitions obtained through the abdomen and pelvis. No oral contrast utilized, per emergency room physician request No IV contrast utilized, per referring physician request.. Multiplanar reconstructions were generated. Total dose length product 1187 mGycm. CTDIvol(s) 20 mGy. Dose reduction achieved using automated exposure control Comparison: Contrast study 01/23/2019 Findings: Again demonstrated is mild to moderate right hydronephrosis, and marked proximal right hydroureter. Degree of distention is slightly increased from the previous study. As previously, the right ureter appears to insert on the dome of the bladder. What is probably a stump of a previous normal right ureter is also noted. There is perinephric fat stranding on the right which is not evident previously, however. Lack of IV contrast limits assessment of the renal parenchyma. Patient has undergone interim partial left nephrectomy. There is a staple line in the region of the previously reported left renal mass. The cysts described on the previous exam are not well-demonstrated on the current noncontrast study. The bladder is nondistended, somewhat irregular in shape as previously demonstrated. The uterus has been removed. Lack of IV contrast limits assessment of the other solid organs. The liver demonstrates parenchymal calcifications in the right lobe. The gallbladder, bile ducts, pancreas, spleen, adrenals are unremarkable. No pelvic mass or adenopathy. Surgical staple line is seen in the sigmoid colon. There is another surgical staple line in the left pelvic small bowel. There is abundant retained colonic stool There is colonic diverticulosis. No evidence of acute diverticulitis. Appendix is normal. No small bowel distention. No free or loculated intraperitoneal gas or fluid is evident. As previously, there is diastases of the rectus abdominis tendon. There is a surgical scar and the left mid abdominal subcutaneous fat, not evident previously. The distal esophagus, stomach, duodenum are unremarkable. The included lung bases demonstrate groundglass opacity and mild interstitial edema. Small bullae or pneumatoceles are seen at the right lung base. The heart is enlarged. The bones are unremarkable Impression: Slightly increased right hydronephrosis and hydroureter, considerable perinephric fat stranding. Findings are suspicious for infection. Findings also indicate recent stone passage. Correlate with clinical and laboratory findings Presumed postsurgical changes of the right kidney, as described Interim partial left nephrectomy. Unable to assess for presence or absence of residual/recurrent tumor on noncontrast exam Other postsurgical changes as described, including evidence of prior sigmoid and small bowel resections, prior hysterectomy Colonic diverticulosis. No evidence of diverticulitis Abundant retained colonic stool. Correlate with any clinical history of constipation Cardiomegaly Bilateral basilar groundglass opacity and mild interstitial edema Other findings as noted, including diastases of the rectus abdominis tendon. This agrees with the preliminary interpretation provided overnight by [facility] teleradiology service. The CT scanner at [facility] is accredited by the [employer] and the scans are performed using protocols designed to limit radiation exposure to as low as reasonably achievable to attain images of sufficient resolution adequate for diagnostic evaluation.
[2019-03-26] MEDS ORDERED: CEPHALEXIN500 MG ORAL (03:55)
[2019-03-26] MEDS ORDERED: HYDROCODON-ACE1 EA15 ORAL (03:55)
[2019-03-26] MEDS ORDERED: LACTULOSE20 GM/301 ORAL (03:58)
[2019-03-26] MEDS ORDERED: cefTRIAXone 2 GM in NS 55 ML IVPB ONE (04:00)
[2019-03-26 04:17] VITALS: BP 128/87
[2019-03-26 04:37] VITALS: BP 130/84
--- NOTE | 2019-03-26 04:37 | NUR ---
ER DISCHARGE NOTE: Patient is cleared to be discharged per ERMD, pt is aox4, on room air, with stable vital signs. pt was given dc and prescription instructions, pt was able to verbalize understanding, pt id band and iv site removed without complications. pt is able to ambulate with steady gait. pt took all belongings.
== END 2019-03-26 04:37 | disposition home or self-care (01) ==
LOC: EMR 02:33
DX: N12 Tubulo-interstitial nephritis, not specified as acute or chronic (principal); I11.0 Hypertensive heart disease with heart failure; I50.9 Heart failure, unspecified; J44.9 Chronic obstructive pulmonary disease, unspecified; E11.9 Type 2 diabetes mellitus without complications; Z85.528 Personal history of other malignant neoplasm of kidney; Z88.1 Allergy status to other antibiotic agents; Z88.8 Allergy status to other drugs, medicaments and biological substances
CPT/HCPCS: 36415; 74176; 80048; 81003; 85025; 87086; 87181; 96365; 96375; 99284; J0696; J1170; J2405

== ENCOUNTER 2020-04-20 21:47 | Inpatient (IN) | payer MEDICARE, OTHER ==
[~2020-04-20] VITALS: Ht 170.2 cm; Wt 81.6 kg
[~2020-04-20 21:47] MED LIST changes: +HYDROCODON-ACE1 EA15 ORAL; +LACTULOSE20 GM/301 ORAL
[2020-04-20] MEDS ORDERED: cefTRIAXone 2 GM in NS 110 ML IV ONE (22:15)
[2020-04-20] MEDS ORDERED: Albuterol/Ipratropium 3ml neb HHN PRN (22:15)
[2020-04-20 23:00] VITALS: BP 123/67
[2020-04-20 23:52] LABS: HEMOGLOBIN 12.4 G/DL (12.0-16.0); MEAN CORPUSCULAR VOLUME 95 FL (80-99); PLATELET COUNT 294 K/UL (150-450); RED BLOOD COUNT 4.12 M/UL (4.20-5.40); RED CELL DISTRIBUTION WIDTH 16.8 % (11.6-14.8); WHITE BLOOD COUNT 10.7 K/UL (4.8-10.8)
--- NOTE | 2020-04-20 23:57 | Emergency Room Report ---
History of Present Illness General Chief Complaint: Dyspnea/Respdistress Present Illness HPI 65-year-old female with past medical history of CHF, previous CVA, COPD, diabetes brought in by ambulance for respiratory distress. Patient is a resident of [facility]. On EMS arrival, patient was found to be hypertensive, tripoding, and 84% on room air. She is aphasic at baseline. EMS administered 3 tabs of nitroglycerin with decreasing respiratory distress. History is limited secondary to patient's clinical condition. She is able to nod yes or no. She nods "no" when asked if she has chest pain, back pain, or abdominal pain. The patient's symptoms were gradual onset, severity was moderate, duration since unknown amount of time. Quality: Short of breath Past medical history: CHF, CVA, COPD, diabetes Past surgical history: G-tube Smoking: Denies Alcohol use: Denies Drug use: Denies Review of systems: CONST: No fevers or chills, No night sweats PULMONARY: No productive cough, ++ shortness of breath CARDIAC: No chest pain, No palpitations GI: No vomiting, No diarrhea , No melena_or_BRBPR : No dysuria, No hematuria, No discharge NEURO: No new_focal_weakness_or_numbness, No confusion, No vision changes 14 point Review of Systems is otherwise negative except per HPI Physical Exam: GENERAL: Awake_alert_ nontoxic, mild acute distress Spo2 84% on RA - abnormal EYES: Extraocular muscles are intact. Conjunctivae clear. Lids without swelling ENT: External nose and ear normal_in_appearance. Oropharynx clear. Head_atraumatic, Moist_oral_mucosa NECK: ++ JVD. No meningismus. No thyromegaly. Supple. Trachea midline RESP: Increased respiratory effort. Symmetric rise. No stridor. Coarse breath sounds bilaterally CARDIAC: Tachycardic and regular rhytm. Mild pedal edema. ABDOMEN: Soft. Nondistended. Nontender_No_rebound_or_guarding. MSK: Normal muscle tone, without rigidity. Extremities without asymmetric deformity or swelling. SKIN: Warm and dry. No visible cyanosis or pallor NEUROLOGIC: Alert, oriented x0. Unable to assess secondary to clinical status Psych: Normal mood and affect, normal judgment and insight - COORDINATION OF CARE Case was discussed with: Patient , Patient's Physician Any labs and imaging that were ordered were interpreted as part of the medical decision making: Medical Decision Making/Plan: Differential includes CHF, pulmonary edema, pulmonary embolism, pneumonia, pleural effusions, pneumothorax, among others. Patient is acutely hypervolemic on my examination. Also hypertensive, hypoxic, and tachypneic. After nitroglycerin, blood pressure down trended. She was placed on facemask with resolution of her hypoxia. Labs show mildly elevated troponin at 0.07. Suspect demand ischemia secondary to CHF exacerbation. EKG shows normal sinus rhythm with LVH. QT interval is mildly prolonged. There are ST depressions in the lateral leads but no acute ST elevation MS ED intervention included Lasix diuresis, nitro, and aspirin. Covid swab was negative Symptoms are not likely to be due to pulmonary embolism, the patient has no significant PE risk factors and has a more likely alternate cause of their symptoms, given their chest xray findings, lung exam and presentation so workup was deferred and not pursued. The patient appears to be in decompensated CHF in exacerbation and not a suitable candidate for outpatient treatment so will be admitted for inpatient diuresis and further evaluation and treatment. I spoke with Dr. Mercado, and reviewed the patients presentation, workup, results, and treatment. They will admit the patient for further care and evaluation, and assume care of the patient at this time. - CRITICAL CARE TIME - I spent 35 minutes of critical care time. This time excludes any separately billable procedures. Treatments/Evaluations: Emergent and rapid respiratory assessment and management with continuous monitoring. Advanced airway equipment at the ready, while the patient's respiratory symptoms were stabilized. Given the patients presentation with CHF requiring oxygen, there existed the potential for imminent deterioration in the patient's condition due to respiratory compromise. Organ systems at risk for failure without immediate intervention include pulmonary / respiratory Allergies: Coded Allergies: LEVOFLOXACIN (Verified Allergy, Severe, Hives, 01/19/19) LORAZEPAM (Verified Allergy, Severe, 01/19/19) Patient gets confusion MIDAZOLAM (Verified Adverse Reaction, Unknown, 05/15/15) COVID-19 Screening Contact w/high risk pt: Yes Experienced COVID-19 symptoms?: Yes COVID-19 Testing performed CHIEF LIBRARIAN EXTENSION DEPARTMENT: No Nursing Documentation-PMH Hx Cardiac Problems: Yes - CHF, CVA, carotid siphon and bifurcation Hx Hypertension: Yes Hx COPD: Yes Hx Diabetes: Yes Hx Cancer: Yes - kidney Hx Gastrointestinal Problems: Yes - g-tube, gerd Hx Neurological Problems: Yes Hx Cerebrovascular Accident: Yes - 2006 Hx Seizures: Yes - 2016 Hx Headaches: Yes Hx Neurologic Surgery: No Hx Brain Shunt: No Physical Exam Vital Signs Date Time Temp Pulse Resp B/P (MAP) Pulse Ox O2 Delivery O2 Flow Rate FiO2 04/20/20 21:52 111 25 198/130 (152) 84 Room Air Sp02 EP Interpretation: reviewed, abnormal Medical Decision Making Diagnostic Impression: Primary Impression: CHF exacerbation Additional Impression: NSTEMI (non-ST elevated myocardial infarction) EKG Diagnostic Results Troponin ordered: Yes When was troponin ordered?: Apr 21, 2020 EKG Time: 00:25 EP Interpretation: Elevated Rate: tachycardiac Rhythm: NSR ST Segments: other - LVH, nonspecific ST changes ASA given to the pt in ED: Yes Rhythm Strip Diag. Results Rhythm Strip Time: 00:26 EP Interpretation: yes Rate: 74 Rhythm: NSR, no PVC's, no ectopy Chest X-Ray Diagnostic Results Chest X-Ray Diagnostic Results : Chest X-Ray Ordered: Yes GAUTAM Scribe Text Chest X-Ray: Views: 1 view(s) Indication: Hypoxia Findings: Cardiomegaly, pleural effusions on the left, interstitial edema Impression: CHF The X-ray(s) were independently viewed and interpreted contemporaneously Electronically signed by Ashly chowdhury DO Reevaluation Time: 00:27 Last Vital Signs Date Time Temp Pulse Resp B/P (MAP) Pulse Ox O2 Delivery O2 Flow Rate FiO2 04/20/20 21:52 111 25 198/130 (152) 84 Room Air Status: improved Disposition: ADMITTED INPATIENT Admit Decision Time: 12:00 Condition: Stable Referrals: Miguel A Bella MD (PCP) Ashly Rodrigues D.O. Apr 20, 2020 23:57
[2020-04-21] VITALS (7 sets, daily range): BP systolic 123–162; BP diastolic 81–95
[2020-04-21 00:11] LABS: CALCIUM 10.6 MG/DL (8.5-10.1); CREATININE 1.3 MG/DL (0.55-1.30); POTASSIUM 3.9 MMOL/L (3.5-5.1)
[2020-04-21 00:27] LABS: ALBUMIN 3.5 G/DL (3.4-5.0); ALBUMIN/GLOBULIN RATIO 0.7 (1.0-2.7); BILIRUBIN,TOTAL 0.8 MG/DL (0.2-1.0); CKMB 0.6 NG/ML (0.0-3.6); PHOSPHORUS 5.9 MG/DL (2.5-4.9)
[2020-04-21] MEDS: Heparin 5000 units/ml inj SUBQ SCH ×3 (05:57→21:09)
[2020-04-21] MEDS: NovoLOG Insulin Flexpen SUBQ SCH ×4 (05:58→21:00)
[2020-04-21 07:32] LABS: BASOPHILS % (AUTO) 0.8 % (0.0-2.0); EOSINOPHILS % (AUTO) 0.8 % (0.0-3.0); HEMATOCRIT 30.9 % (37.0-47.0); HEMOGLOBIN 10.1 G/DL (12.0-16.0); LYMPHOCYTES % (AUTO) 22.9 % (20.0-45.0); MEAN CORPUSCULAR VOLUME 90 FL (80-99); MONOCYTES % (AUTO) 8.9 % (1.0-10.0); NEUTROPHILS % (AUTO) 66.6 % (45.0-75.0); PLATELET COUNT 261 K/UL (150-450); RED BLOOD COUNT 3.44 M/UL (4.20-5.40); RED CELL DISTRIBUTION WIDTH 17.3 % (11.6-14.8); WHITE BLOOD COUNT 6.4 K/UL (4.8-10.8)
[2020-04-21 08:22] LABS: CALCIUM 10.5 MG/DL (8.5-10.1); CREATININE 1.2 MG/DL (0.55-1.30); POTASSIUM 3.6 MMOL/L (3.5-5.1)
[2020-04-21] MEDS: Lisinopril 20mg tab ORAL SCH (09:56)
[2020-04-21] MEDS: Docusate 100mg cap ORAL SCH ×2 (09:56→21:08)
[2020-04-21] MEDS: cefTRIAXone 1 GM in NS 55 ML IVPB SCH (09:56)
--- NOTE | 2020-04-21 16:30 | History and Physical Report ---
DATE OF ADMISSION: 04/20/2020 CHIEF COMPLAINT: Shortness of breath. HISTORY OF PRESENT ILLNESS: This is a 65-year-old female, who is a resident of [facility]. The patient was just discharged from due to bleeding diverticula. She underwent clipping of bleeding vessels in the diverticula. She had massive GI bleed necessitating transfusion of 6 units of red blood cells. The patient was discharged on 04/09/2020. She was stable for about the 12 days. The patient developed the abrupt shortness of breath and 911 was called. Usually the patient goes per the request of her family to , but [facility] was closed due to saturation. The patient was rerouted to this hospital ER. She is admitted here. The initial clinical impression was congestive heart failure. The patient is nonverbal due to multiple strokes. PAST MEDICAL HISTORY: 1. Status post cerebrovascular accidents with left hemiparesis. 2. Type 2 diabetes mellitus. 3. Hypertensive cardiovascular disease. 4. Diastolic heart failure. 5. Chronic obstructive pulmonary disease. 6. Stage IV sacral decubitus ulcer. 7. Status post left partial nephrectomy due to renal cell carcinoma. MEDICATIONS: jail medications tube feeding, Tylenol p.r.n., ascorbic acid, baby aspirin, polyethylene glycol, labetalol every 12 hours, Lantus 24 units at bedtime, lisinopril, milk of magnesia, multivitamins, Protonix, potassium chloride, rosuvastatin, Santyl ointment locally, zinc sulfate. ALLERGIES: No known drug allergies. FAMILY HISTORY: Unable to obtain due to mental status. SOCIAL HISTORY: Unable to obtain due to mental status. REVIEW OF SYSTEMS: Unable to obtain due to mental status. PHYSICAL EXAMINATION: GENERAL: This is an elderly female, who is in no acute distress. VITAL SIGNS: Blood pressure 144/82, pulse 80 and regular, respirations 22, temperature 98.2 axillary Fahrenheit, O2 saturation is 96% on 2 liters/minute nasal cannula. HEENT: The head is normocephalic and atraumatic. Pupils are equal, round and reactive to light and accommodation. NECK: Supple. Trachea midline. There was no lymphadenopathy or thyromegaly. LUNGS: Few bilateral wheezes. HEART: Regular rate and rhythm without rubs, murmurs, or gallops. ABDOMEN: Soft and nontender. Bowel sounds were active. She has a G-tube. EXTREMITIES: No clubbing, cyanosis, or edema. SKIN: She has stage IV decubitus ulcer. NEUROLOGIC: She is alert, responsive, but dysarthric. She has left hemiparesis. LABORATORY AND ANCILLARY DATA: CBC initially hemoglobin 12.4, today 10.1. Chemistry, electrolytes within normal limits, BUN 33, creatinine 1.2, calcium 10.5, magnesium 2.5. Imaging reports chest x-ray not reported, but according to the ER physician shows CHF. ASSESSMENT: 1. Pulmonary edema, resolving. 2. Status post cerebrovascular accidents with left hemiparesis. 3. Type 2 diabetes mellitus. 4. Hypertensive cardiovascular disease. 5. Diastolic heart failure. 6. Chronic obstructive pulmonary disease. 7. Stage IV sacral decubitus ulcer. 8. Status post left partial nephrectomy due to renal cell carcinoma. PLAN: 1. Obtain Cardiology consult. 2. Monitor the patient. Currently, the patient seems to be back to her baseline. 3. Continue custodial medications. Miguel A Bella M.D. DR: OTTONIEL JOB#: [id number] CC: LYNDSAY
--- NOTE | 2020-04-21 21:50 | Cardiology Progress Note ---
Subjective Subjective [id number] Objective Last 24 Hour Vital Signs Date Time Temp Pulse Resp B/P (MAP) Pulse Ox O2 Delivery O2 Flow Rate FiO2 04/21/20 21:08 81 160/88 04/21/20 16:00 77 04/21/20 16:00 99.3 79 20 162/93 (116) 100 04/21/20 12:00 99.9 75 18 162/81 (108) 97 04/21/20 12:00 78 04/21/20 09:56 160/95 04/21/20 09:56 80 160/95 04/21/20 09:00 Nasal Cannula 2.0 04/21/20 08:00 96.6 80 20 160/95 (116) 96 04/21/20 08:00 85 04/21/20 06:38 79 18 95 Room Air 21 04/21/20 04:00 98.2 80 22 144/82 (102) 96 04/21/20 04:00 80 04/21/20 01:57 Nasal Cannula 2.0 04/21/20 01:45 97.7 78 20 149/85 (106) 100 04/21/20 01:37 78 04/21/20 01:30 98.2 88 22 123/87 98 Simple Mask 8.0 86 04/21/20 00:28 74 24 123/87 98 Simple Mask 8.0 04/20/20 23:00 83 25 Non-Rebreather 8.0 04/20/20 23:00 98.2 85 25 123/67 84 Room Air 04/20/20 21:52 111 25 198/130 (152) 84 Room Air Intake and Output 04/20/20 04/21/20 19:00 07:00 Intake Total 250 ml Balance 250 ml Intake Free Water 100 ml Tube Feeding 150 ml # Voids 2 Laboratory Tests Test 04/20/20 22:02 04/20/20 23:30 04/21/20 05:41 04/21/20 05:45 Arterial Blood pH 7.384 (7.350-7.450) Arterial Blood Partial Pressure CO2 44.7 mmHg (35.0-45.0) Arterial Blood Partial Pressure O2 157.1 mmHg (75.0-100.0) H Arterial Blood HCO3 26.1 mmol/L (22.0-26.0) H Arterial Blood Oxygen Saturation 98.8 % (95-100) Arterial Blood Base Excess 0.7 (-2-2) Devon Test Positive White Blood Count 10.7 K/UL (4.8-10.8) 6.4 K/UL (4.8-10.8) Red Blood Count 4.12 M/UL (4.20-5.40) L 3.44 M/UL (4.20-5.40) L Hemoglobin 12.4 G/DL (12.0-16.0) 10.1 G/DL (12.0-16.0) L Hematocrit 39.0 % (37.0-47.0) 30.9 % (37.0-47.0) L Mean Corpuscular Volume 95 FL (80-99) 90 FL (80-99) Mean Corpuscular Hemoglobin 30.2 PG (27.0-31.0) 29.5 PG (27.0-31.0) Mean Corpuscular Hemoglobin Concent 31.9 G/DL (32.0-36.0) L 32.8 G/DL (32.0-36.0) Red Cell Distribution Width 16.8 % (11.6-14.8) H 17.3 % (11.6-14.8) H Platelet Count 294 K/UL (150-450) 261 K/UL (150-450) Mean Platelet Volume 7.7 FL (6.5-10.1) 8.1 FL (6.5-10.1) Neutrophils (%) (Auto) % (45.0-75.0) 66.6 % (45.0-75.0) Lymphocytes (%) (Auto) % (20.0-45.0) 22.9 % (20.0-45.0) Monocytes (%) (Auto) % (1.0-10.0) 8.9 % (1.0-10.0) Eosinophils (%) (Auto) % (0.0-3.0) 0.8 % (0.0-3.0) Basophils (%) (Auto) % (0.0-2.0) 0.8 % (0.0-2.0) Prothrombin Time 11.3 SEC (9.30-11.50) Prothromb Time International Ratio 1.0 (0.9-1.1) Activated Partial Thromboplast Time 27 SEC (23-33) Sodium Level 138 MMOL/L (136-145) 140 MMOL/L (136-145) Potassium Level 3.9 MMOL/L (3.5-5.1) 3.6 MMOL/L (3.5-5.1) Chloride Level 101 MMOL/L (98-107) 104 MMOL/L (98-107) Carbon Dioxide Level 29 MMOL/L (21-32) 25 MMOL/L (21-32) Anion Gap 8 mmol/L (5-15) 11 mmol/L (5-15) Blood Urea Nitrogen 32 mg/dL (7-18) H 33 mg/dL (7-18) H Creatinine 1.3 MG/DL (0.55-1.30) 1.2 MG/DL (0.55-1.30) Estimat Glomerular Filtration Rate 50.2 mL/min (>60) 54.9 mL/min (>60) Glucose Level 234 MG/DL (74-106) H 90 MG/DL (74-106) # Hemoglobin A1c 5.3 % (4.3-6.0) Lactic Acid Level 1.70 mmol/L (0.4-2.0) Calcium Level 10.6 MG/DL (8.5-10.1) H 10.5 MG/DL (8.5-10.1) H Phosphorus Level 5.9 MG/DL (2.5-4.9) H Magnesium Level 2.6 MG/DL (1.8-2.4) H 2.5 MG/DL (1.8-2.4) H Ferritin 369 NG/ML (8-388) Total Bilirubin 0.8 MG/DL (0.2-1.0) Aspartate Amino Transf (AST/SGOT) 14 U/L (15-37) L Alanine Aminotransferase (ALT/SGPT) 21 U/L (12-78) Alkaline Phosphatase 73 U/L (46-116) Lactate Dehydrogenase 184 U/L (81-234) Total Creatine Kinase 20 U/L (26-308) L Creatine Kinase MB 0.6 NG/ML (0.0-3.6) Creatine Kinase MB Relative Index 3.0 Troponin I 0.078 ng/mL (0.000-0.056) C-Reactive Protein, Quantitative 1.5 mg/dL (0.00-0.90) H Pro-B-Type Natriuretic Peptide 9049 pg/mL (0-125) H 8507 pg/mL (0-125) H Total Protein 8.5 G/DL (6.4-8.2) H Albumin 3.5 G/DL (3.4-5.0) Globulin 5.0 g/dL Albumin/Globulin Ratio 0.7 (1.0-2.7) L Lipase 79 U/L (73-393) POC Whole Blood Glucose 101 MG/DL (74-106) D-Dimer 2.04 mg/L FEU (0.00-0.49) H Test 04/21/20 12:06 04/21/20 16:07 04/21/20 16:48 04/21/20 20:32 POC Whole Blood Glucose 118 MG/DL (74-106) H 125 MG/DL (74-106) H 139 MG/DL (74-106) H Arterial Blood pH 7.499 (7.350-7.450) Arterial Blood Partial Pressure CO2 34.9 mmHg (35.0-45.0) L Arterial Blood Partial Pressure O2 57.9 mmHg (75.0-100.0) L Arterial Blood HCO3 26.5 mmol/L (22.0-26.0) H Arterial Blood Oxygen Saturation 90.3 % (95-100) L Arterial Blood Base Excess 3.4 (-2-2) H Devon Test Positive Microbiology Date/Time Source Procedure Growth Status 04/21/20 01:00 Rectum Received 04/20/20 23:30 Nasopharynx SARS-CoV-2 RdRp Gene Assay - Final Complete Jimena Messina MD Apr 21, 2020 21:50
--- NOTE | 2020-04-21 23:30 | Consultation ---
DATE OF CONSULTATION: 04/21/2020 CARDIOLOGY CONSULTATION REFERRING PHYSICIAN: Miguel A Bella MD PATIENT ID: This is a 65-year-old black female. REASON FOR EVALUATION: Acute respiratory distress. HISTORY OF PRESENT ILLNESS: Taken from review of the chart and discussion with Dr. Bella. The patient was brought from the facility where she lives and she was in acute respiratory distress, so she was hypertensive. She was gasping for air and she had saturation of 84% on room air. She received nitroglycerin and she received Lasix and her condition improved. By the time I saw her, she was much better. She does have evidence of shortness of breath. Unfortunately, the patient is not verbal. She nods and she moves her head. She follows the instructions, but she does not speak. I had not seen this patient for approximately 9 months and I know her pretty well. The patient has a history of hypertensive heart disease with low ejection fraction, 35-40%. She also has clean coronary arteries. She has severe hypertension as I mentioned. The patient also has history of brain aneurysm and she had surgery for it, but it was remote. The patient also has history of small-bowel obstruction and she had abdominal surgery, and she had multiple episodes of congestive heart failure, systolic, acute. HABITS: She has history of drug abuse, smoking, and she quit smoking recently. SOCIAL HISTORY: Now, she is dependent, lives in a senior care. REVIEW OF SYSTEMS: Not obtainable because the patient was not verbal. She was moving her head, so I asked simple questions such as does she have shortness of breath, does she had the chest pain or abdominal pain or chills or fever or nausea, but she said no to every question. PHYSICAL EXAMINATION: GENERAL: This is an ill-appearing patient, but she was not in acute respiratory distress. Her blood pressure is 160/95. Her heart rate was 85 beats per minute. She was afebrile. Oxygen saturation on room air was 96%. HEENT: She has some facial droop, but there is no evidence of stroke. She has also the scar on her bed due to the brain surgery in the past. NECK: Supple. Her neck veins were elevated to 12 cm. She had preserved carotid upstroke with bilateral bruits. LUNGS: She has scattered rales. HEART: PMI in the left intercostal space. Accentuated A2 and she had systolic ejection murmur in the aorta, 3/6, radiating to both carotids. BREASTS: No significant masses. ABDOMEN: Soft. There is postsurgical scar. She has postsurgical abdominal hernia. LOWER EXTREMITIES: There is no edema. Distal pulses palpable. NEUROLOGICAL: The patient is aphasic, which is in my opinion new for her, but I have not seen her for a significant amount of time, so I do not know if she has suffered a stroke or she just has new neurologic changes due to other event. That is going to be discussed with Dr. Bella. In terms of cardiac status, unfortunately I cannot see chest x-ray. Her EKG did not show evidence of acute ischemic changes. It was more compatible with LVH, and so I doubt that she has acute myocardial infarction as a cause for her congestive heart failure. The patient should be treated with Entresto. She was on Entresto before and responded really well with that. I also agree with furosemide for her. She is to be on aspirin, blood pressure control, and I am not planning to do any additional testing on her because she has a typical presentation for pulmonary edema due to systolic left ventricular dysfunction. I am going to follow her troponin, however. Thank you very much for your consultation. I am going to follow this patient with you. Jimena Messina M.D. DR: CIRA JOB#: [id number] CC: [email or web address]
[2020-04-22] VITALS: BP 157/88
[2020-04-22 04:00] VITALS: BP 158/79
[2020-04-22] MEDS: Heparin 5000 units/ml inj SUBQ SCH ×3 (05:53→22:14)
[2020-04-22] MEDS: NovoLOG Insulin Flexpen SUBQ SCH ×4 (05:54→21:00)
[2020-04-22 07:19] LABS: EOSINOPHILS % (AUTO) 2.3 % (0.0-3.0); HEMATOCRIT 33.4 % (37.0-47.0); HEMOGLOBIN 10.3 G/DL (12.0-16.0); MEAN CORPUSCULAR VOLUME 95 FL (80-99); MONOCYTES % (AUTO) 10.2 % (1.0-10.0); NEUTROPHILS % (AUTO) 65.5 % (45.0-75.0); PLATELET COUNT 261 K/UL (150-450); RED BLOOD COUNT 3.51 M/UL (4.20-5.40); RED CELL DISTRIBUTION WIDTH 16.5 % (11.6-14.8); WHITE BLOOD COUNT 5.7 K/UL (4.8-10.8)
[2020-04-22 07:35] LABS: ANION GAP 10 mmol/L (5-15); BLOOD UREA NITROGEN 37 mg/dL (7-18); CALCIUM 10.8 MG/DL (8.5-10.1); CARBON DIOXIDE 28 MMOL/L (21-32); CHLORIDE 106 MMOL/L (98-107); CREATININE 1.2 MG/DL (0.55-1.30); POTASSIUM 3.3 MMOL/L (3.5-5.1); SODIUM 144 MMOL/L (136-145)
[2020-04-22 07:50] LABS: % IRON SATURATION 18 % (15-50); IRON 35 ug/dL (50-175); TOTAL IRON BINDING CAPACITY 192 ug/dL (250-450)
[2020-04-22 08:00] VITALS: BP 167/81
[2020-04-22] MEDS: Docusate 100mg cap ORAL SCH ×3 (09:32→22:13)
[2020-04-22] MEDS: Lisinopril 20mg tab ORAL SCH (09:32)
[2020-04-22] MEDS: cefTRIAXone 1 GM in NS 55 ML IVPB SCH (09:32)
[2020-04-22 12:00] VITALS: BP 139/91
--- NOTE | 2020-04-22 13:26 | Nephrology Progress Note ---
Assessment/Plan Plan CHF -improving Modify meds Subjective Subjective no new c/o Objective Objective Last 24 Hour Vital Signs Date Time Temp Pulse Resp B/P (MAP) Pulse Ox O2 Delivery O2 Flow Rate FiO2 04/22/20 12:00 97.8 79 22 139/91 (107) 97 04/22/20 09:33 83 161/98 04/22/20 09:32 161/98 04/22/20 09:00 Nasal Cannula 2.0 04/22/20 08:00 84 04/22/20 08:00 98.8 83 20 167/81 (109) 95 04/22/20 04:00 75 04/22/20 04:00 97.2 88 20 158/79 (105) 95 04/22/20 00:00 78 04/22/20 00:00 97.9 80 20 157/88 (111) 97 04/21/20 21:08 81 160/88 04/21/20 21:00 Nasal Cannula 2.0 04/21/20 20:00 98.8 81 22 160/88 (112) 97 04/21/20 20:00 84 04/21/20 16:00 77 04/21/20 16:00 99.3 79 20 162/93 (116) 100 Intake and Output 04/21/20 04/22/20 19:00 07:00 Intake Total 385 ml Balance 385 ml IV Total 55 ml Tube Feeding 330 ml # Voids 3 2 Laboratory Tests 04/21/20 16:07: POC Whole Blood Glucose 125H 04/21/20 16:48: Arterial Blood pH 7.499H, Arterial Blood Partial Pressure CO2 34.9L, Arterial Blood Partial Pressure O2 57.9L, Arterial Blood HCO3 26.5H, Arterial Blood Oxygen Saturation 90.3L, Arterial Blood Base Excess 3.4H, Devon Test Positive 04/21/20 20:32: POC Whole Blood Glucose 139H 04/22/20 05:39: POC Whole Blood Glucose 120H 04/22/20 06:00: White Blood Count 5.7, Red Blood Count 3.51L, Hemoglobin 10.3L, Hematocrit 33.4L , Mean Corpuscular Volume 95, Mean Corpuscular Hemoglobin 29.3, Mean Corpuscular Hemoglobin Concent 30.8L, Red Cell Distribution Width 16.5H, Platelet Count 261, Mean Platelet Volume 8.2, Neutrophils (%) (Auto) 65.5, Lymphocytes (%) (Auto) 21.0, Monocytes (%) (Auto) 10.2H, Eosinophils (%) (Auto) 2.3, Basophils (%) (Auto) 1.0, Sodium Level 144, Potassium Level 3.3L, Chloride Level 106, Carbon Dioxide Level 28, Anion Gap 10, Blood Urea Nitrogen 37H, Creatinine 1.2, Estimat Glomerular Filtration Rate 54.9, Glucose Level 118H, Calcium Level 10.8H, Magnesium Level 2.4, Iron Level 35L, Total Iron Binding Capacity 192L, Percent Iron Saturation 18, Unsaturated Iron Binding 157 04/22/20 10:54: POC Whole Blood Glucose 137H Height (Feet): 5 Height (Inches): 7.00 Weight (Pounds): 180 Objective More alert + oriented Cv RR Lungs CTA Abd SNT. BS + E No CCE Neuro L hemiparesis Miguel A Bella MD Apr 22, 2020 13:25
[2020-04-22 16:00] VITALS: BP 130/61
--- NOTE | 2020-04-22 16:37 | Cardiology Report ---
APPROVED REPORT EKG Measurement Heart [id number] ID [id number] <Conclusion> Normal sinus rhythm Left axis deviation Left ventricular hypertrophy with repolarization abnormality Prolonged QT Abnormal ECG
[2020-04-22 20:00] VITALS: BP 165/95
--- NOTE | 2020-04-22 22:00 | Cardiology Progress Note ---
Subjective The patient is conversatn today, and saying "I am sick" cannot understand if she is short of breath Objective Last 24 Hour Vital Signs Date Time Temp Pulse Resp B/P (MAP) Pulse Ox O2 Delivery O2 Flow Rate FiO2 04/22/20 16:00 98.8 81 19 130/61 (84) 97 04/22/20 16:00 82 04/22/20 12:00 97.8 79 22 139/91 (107) 97 04/22/20 12:00 77 04/22/20 09:33 83 161/98 04/22/20 09:32 161/98 04/22/20 09:00 Nasal Cannula 2.0 04/22/20 08:00 84 04/22/20 08:00 98.8 83 20 167/81 (109) 95 04/22/20 04:00 75 04/22/20 04:00 97.2 88 20 158/79 (105) 95 04/22/20 00:00 78 04/22/20 00:00 97.9 80 20 157/88 (111) 97 Alert, musoca dry JVD 8 cm lungs rhonchi heart regular, accent A2 abdomen g tube neuro, left hemiparesis Laboratory Tests Test 04/22/20 05:39 04/22/20 06:00 04/22/20 10:54 04/22/20 16:17 POC Whole Blood Glucose 120 MG/DL (74-106) H 137 MG/DL (74-106) H 134 MG/DL (74-106) H White Blood Count 5.7 K/UL (4.8-10.8) Red Blood Count 3.51 M/UL (4.20-5.40) L Hemoglobin 10.3 G/DL (12.0-16.0) L Hematocrit 33.4 % (37.0-47.0) L Mean Corpuscular Volume 95 FL (80-99) Mean Corpuscular Hemoglobin 29.3 PG (27.0-31.0) Mean Corpuscular Hemoglobin Concent 30.8 G/DL (32.0-36.0) L Red Cell Distribution Width 16.5 % (11.6-14.8) H Platelet Count 261 K/UL (150-450) Mean Platelet Volume 8.2 FL (6.5-10.1) Neutrophils (%) (Auto) 65.5 % (45.0-75.0) Lymphocytes (%) (Auto) 21.0 % (20.0-45.0) Monocytes (%) (Auto) 10.2 % (1.0-10.0) H Eosinophils (%) (Auto) 2.3 % (0.0-3.0) Basophils (%) (Auto) 1.0 % (0.0-2.0) Sodium Level 144 MMOL/L (136-145) Potassium Level 3.3 MMOL/L (3.5-5.1) L Chloride Level 106 MMOL/L (98-107) Carbon Dioxide Level 28 MMOL/L (21-32) Anion Gap 10 mmol/L (5-15) Blood Urea Nitrogen 37 mg/dL (7-18) H Creatinine 1.2 MG/DL (0.55-1.30) Estimat Glomerular Filtration Rate 54.9 mL/min (>60) Glucose Level 118 MG/DL (74-106) H Calcium Level 10.8 MG/DL (8.5-10.1) H Magnesium Level 2.4 MG/DL (1.8-2.4) Iron Level 35 ug/dL (50-175) L Total Iron Binding Capacity 192 ug/dL (250-450) L Percent Iron Saturation 18 % (15-50) Unsaturated Iron Binding 157 ug/dL (112-346) Microbiology Date/Time Source Procedure Growth Status 04/21/20 01:00 Rectum Received 04/20/20 23:30 Nasopharynx SARS-CoV-2 RdRp Gene Assay - Final Complete 04/20/20 23:30 Blood Blood Culture - Preliminary NO GROWTH AFTER 24 HOURS Resulted 04/20/20 23:15 Blood Blood Culture - Preliminary NO GROWTH AFTER 24 HOURS Resulted Assessment/Plan Assessment/Plan respiratory status improved, will order CXr, could not fine CXR no evidence of cardiac ischemia BP control, no entresto available at [facility] [place] Jimena Messina MD Apr 22, 2020 22:00
[2020-04-23] VITALS: BP 183/109
--- NOTE | 2020-04-23 02:56 | Diagnostic Imaging Report ---
EXAM: XR Chest, 1 View CLINICAL HISTORY: COUGH TECHNIQUE: Frontal view of the chest. COMPARISON: No relevant prior studies available. FINDINGS: Lungs: Bilateral pulmonary opacities. Reduced lung volumes. Pleural space: No pneumothorax. Cannot exclude left pleural effusion. Heart: Large cardiomediastinal silhouette. Mediastinum: See above. Bones/joints: No acute fracture. Other findings: Single view 04/20/20 at 2255. Presented for interpretation 04/22/20 at 7:21 PM. IMPRESSION: Bilateral pulmonary opacities. May be from pneumonia and/or edema. There is a broader differential.
[2020-04-23 04:00] VITALS: BP 190/110
[2020-04-23] MEDS: Heparin 5000 units/ml inj SUBQ SCH ×3 (05:44→21:48)
[2020-04-23] MEDS: NovoLOG Insulin Flexpen SUBQ SCH ×4 (05:47→21:00)
[2020-04-23 08:00] VITALS: BP 186/105
[2020-04-23] MEDS: Lisinopril 20mg tab ORAL SCH ×2 (09:00→17:49)
[2020-04-23] MEDS: Docusate 100mg cap ORAL SCH ×2 (09:00→21:00)
[2020-04-23] MEDS: cefTRIAXone 1 GM in NS 55 ML IVPB SCH (10:00)
--- NOTE | 2020-04-23 10:24 | Nephrology Progress Note ---
Assessment/Plan Plan CHF -improving Modify meds G tube clogged, as a result BP very High. To add Catapress TTS as a bridging. GI Dr. Shields was called. + BC GPC in cluster only 1 bottle, m/p contaminant. Subjective Subjective . G tube clogged. No new c/o Objective Objective Last 24 Hour Vital Signs Date Time Temp Pulse Resp B/P (MAP) Pulse Ox O2 Delivery O2 Flow Rate FiO2 04/23/20 09:00 90 186/105 04/23/20 09:00 186/105 04/23/20 09:00 90 186/105 04/23/20 08:00 98.0 90 20 186/105 (132) 95 04/23/20 08:00 90 04/23/20 04:00 92 04/23/20 04:00 97.7 92 18 190/110 (136) 95 04/23/20 00:00 88 04/23/20 00:00 97.7 89 18 183/109 (133) 97 04/22/20 21:00 Nasal Cannula 2.0 04/22/20 20:00 97.8 90 18 165/95 (118) 98 04/22/20 20:00 82 04/22/20 16:00 98.8 81 19 130/61 (84) 97 04/22/20 16:00 82 04/22/20 12:00 97.8 79 22 139/91 (107) 97 04/22/20 12:00 77 Intake and Output 04/22/20 04/23/20 19:00 07:00 Intake Total 330 ml Balance 330 ml Tube Feeding 330 ml # Voids 3 # Bowel Movements 1 Laboratory Tests 04/22/20 10:54: POC Whole Blood Glucose 137H 04/22/20 16:17: POC Whole Blood Glucose 134H 04/22/20 22:10: POC Whole Blood Glucose 125H 04/23/20 05:40: POC Whole Blood Glucose 123H Height (Feet): 5 Height (Inches): 7.00 Weight (Pounds): 180 Objective More alert + oriented Cv RR Lungs CTA Abd SNT. BS + E No CCE Neuro L hemiparesis Miguel A Bella MD Apr 23, 2020 10:24
[2020-04-23 12:00] VITALS: BP 188/109
--- NOTE | 2020-04-23 14:55 | Diagnostic Imaging Report ---
EXAM: XR Abdomen, one view CLINICAL HISTORY: TUBE PLACEMENT TECHNIQUE: Frontal view of the abdomen/pelvis . COMPARISON: No relevant prior studies available. FINDINGS/IMPRESSION: Contrast administered through the gastrostomy tube fills the stomach lumen, passing into the small bowel. No evidence of contrast leakage.
--- NOTE | 2020-04-23 15:58 | General Progress Note ---
Subjective Allergies: Coded Allergies: LEVOFLOXACIN (Verified Allergy, Severe, Hives, 01/19/19) LORAZEPAM (Verified Allergy, Severe, 01/19/19) Patient gets confusion MIDAZOLAM (Verified Adverse Reaction, Unknown, 05/15/15) Objective Last 24 Hour Vital Signs Date Time Temp Pulse Resp B/P (MAP) Pulse Ox O2 Delivery O2 Flow Rate FiO2 04/23/20 13:00 186/105 04/23/20 12:00 97.7 91 20 188/109 (135) 100 04/23/20 12:00 86 04/23/20 09:00 90 186/105 04/23/20 09:00 186/105 04/23/20 09:00 90 186/105 04/23/20 09:00 Nasal Cannula 2.0 04/23/20 08:00 98.0 90 20 186/105 (132) 95 04/23/20 08:00 90 04/23/20 04:00 92 04/23/20 04:00 97.7 92 18 190/110 (136) 95 04/23/20 00:00 88 04/23/20 00:00 97.7 89 18 183/109 (133) 97 04/22/20 21:00 Nasal Cannula 2.0 04/22/20 20:00 97.8 90 18 165/95 (118) 98 04/22/20 20:00 82 04/22/20 16:00 98.8 81 19 130/61 (84) 97 04/22/20 16:00 82 Intake and Output 04/22/20 04/23/20 19:00 07:00 Intake Total 330 ml Balance 330 ml Tube Feeding 330 ml # Voids 3 # Bowel Movements 1 Laboratory Tests 04/22/20 16:17: POC Whole Blood Glucose 134H 04/22/20 22:10: POC Whole Blood Glucose 125H 04/23/20 05:40: POC Whole Blood Glucose 123H 04/23/20 12:51: POC Whole Blood Glucose 121H Height (Feet): 5 Height (Inches): 7.00 Weight (Pounds): 180 Assessment/Plan Assessment/Plan: Assessment - CVA, L donald - dysphagia, GT --> occluded --> replaced - DM - HTN - CHF - COPD - decub ulcer - S/p partial nephrectomy Recommendations - check KUB - restart GT feeds and meds - elevate HOB - GT care Robin Weston MD Apr 23, 2020 15:57
[2020-04-23 16:00] VITALS: BP 198/107
--- NOTE | 2020-04-23 17:42 | Cardiology Progress Note ---
Assessment/Plan Problem List: (1) COPD (chronic obstructive pulmonary disease) (2) Acute respiratory failure (3) Shortness of breath (4) H/o CVA (5) Chronic systolic heart failure Status: stable, unchanged Status Narrative Pt w/ hx of HTN, CHF, adm w/ dyspnea BP poorly controlled. Assessment/Plan Will continue lisinopril 40 mg/d Inc labetalol to 200 mg bid. Followup labs. CXR ordered Will also recheck ECHO - evaluate LV function Subjective ROS Limited/Unobtainable: Yes Subjective Cardiology for Dr. Messina Pt awake, minimal responses to questions Objective Last 24 Hour Vital Signs Date Time Temp Pulse Resp B/P (MAP) Pulse Ox O2 Delivery O2 Flow Rate FiO2 04/23/20 13:00 186/105 04/23/20 12:00 97.7 91 20 188/109 (135) 100 04/23/20 12:00 86 04/23/20 09:00 90 186/105 04/23/20 09:00 186/105 04/23/20 09:00 90 186/105 04/23/20 09:00 Nasal Cannula 2.0 04/23/20 08:00 98.0 90 20 186/105 (132) 95 04/23/20 08:00 90 04/23/20 04:00 92 04/23/20 04:00 97.7 92 18 190/110 (136) 95 04/23/20 00:00 88 04/23/20 00:00 97.7 89 18 183/109 (133) 97 04/22/20 21:00 Nasal Cannula 2.0 04/22/20 20:00 97.8 90 18 165/95 (118) 98 04/22/20 20:00 82 General Appearance: WD/WN, no apparent distress, alert EENT: PERRL/EOMI Neck: supple, no JVD Rhythm: NSR Cardiovascular: normal rate, regular rhythm, no gallop/murmur Respiratory/Chest: other - fairly clear anteriorly. Poor cooperation w/ deep inspiratory effort Abdomen: normal bowel sounds, soft Extremities: no swelling Intake and Output 04/22/20 04/23/20 19:00 07:00 Intake Total 330 ml Balance 330 ml Tube Feeding 330 ml # Voids 3 # Bowel Movements 1 Laboratory Tests Test 04/22/20 22:10 04/23/20 05:40 04/23/20 12:51 POC Whole Blood Glucose 125 MG/DL (74-106) H 123 MG/DL (74-106) H 121 MG/DL (74-106) H Microbiology Date/Time Source Procedure Growth Status 04/21/20 01:00 Rectum - Final NO CARBAPENEM-RESISTANT ENTEROBACTERI... Complete 04/21/20 01:00 Rectum VRE Culture - Final NO VANCOMYCIN RESISTANT ENTEROCOCCUS ... Complete 04/21/20 01:00 Nasal Nares MRSA Culture - Final NO METHICILLIN RESISTANT STAPH AUREUS... Complete 04/20/20 23:30 Nasopharynx SARS-CoV-2 RdRp Gene Assay - Final Complete 04/20/20 23:30 Blood Blood Culture - Preliminary NO GROWTH AFTER 48 HOURS Resulted 04/20/20 23:15 Blood Blood Culture - Preliminary Gram Positive Cocci Resulted Chantal Flores MD Apr 23, 2020 17:42
--- NOTE | 2020-04-23 17:59 | Consultation ---
DATE OF CONSULTATION: 04/23/2020 INFECTIOUS DISEASE CONSULT This consult is for coverage of Dr. Medel. PRIMARY ATTENDING PHYSICIAN: Miguel A Bella M.D. REASON FOR CONSULT: Bacteremia, COPD, pneumonia. HISTORY OF PRESENT ILLNESS: The patient is a 65-year-old female who is a intermediate resident, admitted on 04/20/2020 because of respiratory distress. The patient has no fever, but the chest x-ray was abnormal and showed pulmonary edema versus pneumonia. PAST MEDICAL HISTORY: Diastolic CHF, status post G-tube placement, status post CVA with left hemiparesis, diabetes mellitus type 2, sacral pressure ulcer, history of renal cell carcinoma, status post partial nephrectomy, recent admission to [facility] because of bleeding diverticulosis that was clipped & anemia. ALLERGIES: Allergic to Levaquin, lorazepam, midazolam. MEDICATIONS: Getting clonidine, labetalol, lisinopril, ceftriaxone, Colace, Protonix, metoprolol, heparin, Zofran, albuterol, ipratropium inhaler, Tylenol. SOCIAL HISTORY: assisted resident. No history of alcohol or drug abuse. She had a history of smoking before. REVIEW OF SYSTEMS: Unobtainable. The patient had a blocked G-tube that is not working. PHYSICAL EXAMINATION: VITAL SIGNS: Temperature 98, pulse 90, blood pressure 186/105. GENERAL APPEARANCE: Seems to have normal weight. HEAD AND NECK: Denair conjunctivae. HEART: Normal rate. LUNGS: Clear. ABDOMEN: Soft, with a G-tube in place. EXTREMITIES: No edema. SKIN: Sacral pressure ulcer. NEUROLOGIC: Opens eyes, communicating mostly with nodding. LABORATORY DATA: Blood culture x1 is positive for gram-positive cocci. COVID test is negative. MRSA VRE screen is negative. Chest x-ray showed bilateral pulmonary opacities, pneumonia, or edema. IMPRESSION: WBC 5.7, hemoglobin 10.3, hematocrit 33.4, and platelets 261. Sodium 144, potassium 3.2, chloride 106, bicarb 28, BUN 37, creatinine 1.2, glucose is 125, calcium 10.8. IMPRESSION: Positive blood culture, bacteremia. The patient does not look septic. May have pneumonia, pulmonary edema, COPD, diastolic CHF, diabetes mellitus, anemia, status post G-tube placement. RECOMMENDATION: Continue ceftriaxone. Follow up the cultures. At the end of my exam, I thank Dr. Bella for involving me in the care of this patient. Jonas Ford M.D. DR: JOANNE JOB#: [id number] CC: LYNDSAY
--- NOTE | 2020-04-23 18:44 | Consultation ---
DATE OF CONSULTATION: 04/23/2020 GASTROENTEROLOGY CONSULTATION CONSULTING PHYSICIAN: Robin Mata MD REFERRING PHYSICIAN: Miguel A Bella MD CHIEF COMPLAINT: I was asked to see this patient by Dr. Miguel A Bella for evaluation of gastrostomy and anemia. HISTORY OF PRESENT ILLNESS: The patient is an unfortunate 65-year-old woman, who had a brain aneurysm and a subsequent stroke in the middle of this year at an outside hospital. She was evaluated and treated there according to the daughter, whom I spoke with on the phone. The patient did have an endoscopy and colonoscopy at that time in about the middle of the year, perhaps about 5 months ago. She says that the endoscopy and colonoscopy were unrevealing. She says she also had a procedure in the same way about a few years ago. Recently, the patient was anemic and reportedly received a blood transfusion. Her blood level now is somewhat lower than the previous admission, but there were no reports of gastrointestinal bleeding and the patient is on proton-pump inhibitor. In addition, the patient's gastrostomy tube today became occluded, which was another reason for which consultation was generated. The patient herself is unable to provide any history and most of the information is only available from the chart and discussion with the patient's daughter. According to the daughter, the patient did have an episode of complicated diverticulitis for which she has had an emergency surgery, temporary colostomy, and eventual reversal. PAST MEDICAL HISTORY: History of hypertension, coronary artery disease, brain aneurysm, stroke, abdominal acute process either diverticulitis or small-bowel obstruction, status post temporary colostomy and reversal, bedbound state, status gastrostomy tube placement, and anemia. FAMILY HISTORY: Noncontributory. SOCIAL HISTORY: The patient has had a previous history of smoking according to the chart as well as drug use. Her daughter looks after her affairs. REVIEW OF SYSTEMS: Unobtainable. PHYSICAL EXAMINATION: GENERAL: Debilitated woman seen in her room HEENT: Normocephalic and atraumatic. NECK: Supple. CHEST: Revealed coarse breath sounds. CARDIAC: Revealed regular rate. ABDOMEN: Obese. There is gastrostomy. The gastrostomy appeared to be occluded and could not be cleared despite efforts. It was therefore removed. This was a 15-Telugu catheter and was replaced with a 20-Telugu gastrostomy replacement catheter. X-rays were ordered to verify placement. EXTREMITIES: Revealed no edema. LABORATORY DATA: Noted. ASSESSMENT: This patient has a recent history of anemia of unclear etiology. She has had endoscopy and colonoscopy just a few months ago and in a discussion with the patient's daughter, she felt that it would not be worthwhile, given overall poor health, to repeat these studies. Instead, she will be given supportive care with iron infusions, proton-pump inhibitor, and followup. The gastrostomy tube has not been replaced and can be checked once verified use. The gastrostomy care will be per standard nursing protocol. RECOMMENDATIONS: Per above discussion and per orders written in the chart. Thank you for asking me to participate in the care of this patient. Robin Mata M.D. DR: Jeremias JOB#: [id number] CC:
[2020-04-23 20:00] VITALS: BP 177/87
[2020-04-23] MEDS: Iron Sucrose 100 MG in NS 55 ML IVPB SCH (21:47)
[2020-04-24] VITALS: BP 168/93
[2020-04-24 04:00] VITALS: BP 149/89
[2020-04-24] MEDS: NovoLOG Insulin Flexpen SUBQ SCH ×4 (06:22→21:54)
[2020-04-24] MEDS: Heparin 5000 units/ml inj SUBQ SCH ×3 (06:26→21:20)
[2020-04-24 08:00] VITALS: BP 157/87
[2020-04-24 08:22] LABS: ANION GAP 10 mmol/L (5-15); BLOOD UREA NITROGEN 43 mg/dL (7-18); CALCIUM 10.8 MG/DL (8.5-10.1); CARBON DIOXIDE 27 MMOL/L (21-32); CHLORIDE 113 MMOL/L (98-107); POTASSIUM 3.2 MMOL/L (3.5-5.1); SODIUM 150 MMOL/L (136-145)
[2020-04-24] MEDS: Docusate 100mg cap ORAL SCH ×2 (09:00→21:17)
[2020-04-24] MEDS: Lisinopril 20mg tab ORAL SCH (09:24)
[2020-04-24] MEDS: cefTRIAXone 1 GM in NS 55 ML IVPB SCH (09:26)
--- NOTE | 2020-04-24 09:58 | Diagnostic Imaging Report ---
EXAM: XR Chest, 1 View CLINICAL HISTORY: DYSPNEA TECHNIQUE: Frontal view of the chest. COMPARISON: Chest radiograph April 20, 2020 FINDINGS/IMPRESSION: Small left pleural effusion. Mild vascular congestion. No definite infiltrate however, if there is high suspicion for infiltrate, correlate with lateral view. Overall, the lung pelayo appear more clear on the current study than when compared to April 20, 2020. No pneumothorax. Cardiomegaly. Calcified aorta. Osseous demineralization.
--- NOTE | 2020-04-24 11:09 | Infectious Diseases Prog Note ---
Assessment/Plan Assessment/Plan antibiotics : ceftriaxone A 1. pneumonia 2. + blood culture with coag neg staph likely contaminated 3. diabetes mellitus 4. CHF 5. CVA 6. renal cell carcinoma P 1. continue ceftriaxone 2. will follow up cultures Subjective ROS Limited/Unobtainable: Yes Allergies: Coded Allergies: LEVOFLOXACIN (Verified Allergy, Severe, Hives, 01/19/19) LORAZEPAM (Verified Allergy, Severe, 01/19/19) Patient gets confusion MIDAZOLAM (Verified Adverse Reaction, Unknown, 05/15/15) Objective Last 24 Hour Vital Signs Date Time Temp Pulse Resp B/P (MAP) Pulse Ox O2 Delivery O2 Flow Rate FiO2 04/24/20 09:25 70 157/87 04/24/20 09:24 70 157/87 04/24/20 09:24 157/87 04/24/20 04:00 97.7 82 16 149/89 (109) 98 04/24/20 04:00 82 04/24/20 00:00 84 04/24/20 00:00 97.5 83 20 168/93 (118) 93 04/23/20 21:47 82 177/87 04/23/20 21:00 Nasal Cannula 2.0 04/23/20 21:00 82 177/87 04/23/20 20:00 97.5 82 20 177/87 (117) 93 04/23/20 17:49 198/107 04/23/20 17:48 91 198/107 04/23/20 17:42 91 198/107 04/23/20 16:00 91 04/23/20 16:00 97.9 89 20 198/107 (137) 100 04/23/20 13:00 186/105 04/23/20 12:00 97.7 91 20 188/109 (135) 100 04/23/20 12:00 86 Height (Feet): 5 Height (Inches): 7.00 Weight (Pounds): 180 Respiratory/Chest: lungs clear Cardiovascular: normal rate, regular rhythm, no gallop/murmur Abdomen: soft, non tender Extremities: no edema Laboratory Tests Test 04/23/20 12:51 04/23/20 21:22 04/24/20 05:51 04/24/20 06:25 POC Whole Blood Glucose 121 MG/DL (74-106) H 126 MG/DL (74-106) H 133 MG/DL (74-106) H Sodium Level 150 MMOL/L (136-145) H Potassium Level 3.2 MMOL/L (3.5-5.1) L Chloride Level 113 MMOL/L (98-107) H Carbon Dioxide Level 27 MMOL/L (21-32) Anion Gap 10 mmol/L (5-15) Blood Urea Nitrogen 43 mg/dL (7-18) H Creatinine 1.0 MG/DL (0.55-1.30) Estimat Glomerular Filtration Rate > 60 mL/min (>60) Glucose Level 130 MG/DL (74-106) H Calcium Level 10.8 MG/DL (8.5-10.1) H Pro-B-Type Natriuretic Peptide 7584 pg/mL (0-125) H Current Medications Medications (Trade) Dose Ordered Sig/Guillermo Route PRN Reason Start Time Stop Time Status Last Admin Dose Admin Acetaminophen (Tylenol) 650 mg Q4H PRN ORAL Mild Pain (Pain Scale 1-3) 04/20/20 22:15 05/20/20 22:14 Albuterol/ Ipratropium (Albuterol/ Ipratropium) 3 ml EVERY 6 HOURS PRN HHN Shortness of Breath 04/20/20 22:15 04/25/20 22:14 Ceftriaxone Sodium 1 gm/ Sodium Chloride 55 ml @ 110 mls/hr DAILY IVPB 04/21/20 09:00 04/28/20 08:59 04/24/20 09:26 Clonidine HCl (Catapres TTS-3) 1 patch QWEEK TDERMAL 04/23/20 12:00 07/22/20 11:59 04/23/20 13:00 Dextrose (Dextrose 50%) 25 ml Q30M PRN IV Hypoglycemia 04/20/20 22:15 07/19/20 22:14 Dextrose (Dextrose 50%) 50 ml Q30M PRN IV Hypoglycemia 04/20/20 22:15 07/19/20 22:14 Docusate Sodium (Colace) 100 mg EVERY 12 HOURS ORAL 04/21/20 09:00 05/21/20 08:59 04/22/20 09:32 Heparin Sodium (Porcine) (Heparin 5000 units/ml) 5,000 units EVERY 8 HOURS SUBQ 04/21/20 06:00 1/3/21 05:59 04/24/20 06:26 Insulin Aspart (NovoLOG) BEFORE MEALS AND HS SUBQ 04/21/20 06:30 07/20/20 06:29 Iron Sucrose 100 mg/Sodium Chloride 60 ml @ 240 mls/hr BEDTIME IVPB 04/23/20 21:00 04/27/20 21:14 04/23/20 21:47 Labetalol HCl (Normodyne) 200 mg Q12HR ORAL 04/23/20 17:45 05/22/20 20:59 04/24/20 09:24 Lisinopril (PriniviL) 40 mg DAILY ORAL 04/21/20 09:00 05/21/20 08:59 04/24/20 09:24 Metoprolol Tartrate (Lopressor) 25 mg EVERY 12 HOURS ORAL 04/21/20 09:00 07/20/20 08:59 04/24/20 09:25 Ondansetron HCl (Zofran) 4 mg Q6H PRN IVP Nausea & Vomiting 04/20/20 22:15 05/20/20 22:14 Pantoprazole (Protonix) 40 mg DAILY ORAL 04/21/20 09:00 05/21/20 08:59 04/24/20 09:25 Yogesh Medel MD Apr 24, 2020 11:09
[2020-04-24 12:00] VITALS: BP 133/74
--- NOTE | 2020-04-24 14:01 | Nephrology Progress Note ---
Assessment/Plan Plan CHF -improving Modify meds G tube clogged, as a result BP very High. To add Catapres TTS as a bridging. GI Dr. Shields noted. Na 150 - to recheck tomorrow. + BC GPC in cluster only 1 bottle, m/p contaminant. ID noted. Subjective Subjective . G tube clogged. No new c/o Objective Objective Last 24 Hour Vital Signs Date Time Temp Pulse Resp B/P (MAP) Pulse Ox O2 Delivery O2 Flow Rate FiO2 04/24/20 09:25 70 157/87 04/24/20 09:24 70 157/87 04/24/20 09:24 157/87 04/24/20 08:00 72 04/24/20 04:00 97.7 82 16 149/89 (109) 98 04/24/20 04:00 82 04/24/20 00:00 84 04/24/20 00:00 97.5 83 20 168/93 (118) 93 04/23/20 21:47 82 177/87 04/23/20 21:00 Nasal Cannula 2.0 04/23/20 21:00 82 177/87 04/23/20 20:00 97.5 82 20 177/87 (117) 93 04/23/20 17:49 198/107 04/23/20 17:48 91 198/107 04/23/20 17:42 91 198/107 04/23/20 16:00 91 04/23/20 16:00 97.9 89 20 198/107 (137) 100 Intake and Output 04/23/20 04/24/20 19:00 07:00 Intake Total 30 ml 30 ml Balance 30 ml 30 ml Tube Feeding 30 ml 30 ml # Voids 2 # Bowel Movements 2 3 Laboratory Tests 04/23/20 21:22: POC Whole Blood Glucose 126H 04/24/20 05:51: POC Whole Blood Glucose 133H 04/24/20 06:25: Sodium Level 150H, Potassium Level 3.2L, Chloride Level 113H, Carbon Dioxide Level 27, Anion Gap 10, Blood Urea Nitrogen 43H, Creatinine 1.0, Estimat Glomerular Filtration Rate > 60, Glucose Level 130H, Calcium Level 10.8H, Pro-B-Type Natriuretic Peptide 7584H 04/24/20 12:02: POC Whole Blood Glucose [Pending] Height (Feet): 5 Height (Inches): 7.00 Weight (Pounds): 180 Objective More alert + oriented Cv RR Lungs CTA Abd SNT. BS + E No CCE Neuro L hemiparesis Miguel A Bella MD Apr 24, 2020 14:01
[2020-04-24 16:00] VITALS: BP 139/80
--- NOTE | 2020-04-24 16:11 | General Progress Note ---
Subjective Allergies: Coded Allergies: LEVOFLOXACIN (Verified Allergy, Severe, Hives, 01/19/19) LORAZEPAM (Verified Allergy, Severe, 01/19/19) Patient gets confusion MIDAZOLAM (Verified Adverse Reaction, Unknown, 05/15/15) Subjective above noted GT position verified position in stomach TF started Objective Last 24 Hour Vital Signs Date Time Temp Pulse Resp B/P (MAP) Pulse Ox O2 Delivery O2 Flow Rate FiO2 04/24/20 12:00 76 04/24/20 12:00 98.1 79 20 133/74 (93) 100 04/24/20 09:25 70 157/87 04/24/20 09:24 70 157/87 04/24/20 09:24 157/87 04/24/20 09:00 Nasal Cannula 2.0 04/24/20 08:00 97.7 70 20 157/87 (110) 100 04/24/20 08:00 72 04/24/20 04:00 97.7 82 16 149/89 (109) 98 04/24/20 04:00 82 04/24/20 00:00 84 04/24/20 00:00 97.5 83 20 168/93 (118) 93 04/23/20 21:47 82 177/87 04/23/20 21:00 Nasal Cannula 2.0 04/23/20 21:00 82 177/87 04/23/20 20:00 97.5 82 20 177/87 (117) 93 04/23/20 17:49 198/107 04/23/20 17:48 91 198/107 04/23/20 17:42 91 198/107 Intake and Output 04/23/20 04/24/20 18:59 06:59 Intake Total 30 ml 30 ml Balance 30 ml 30 ml Tube Feeding 30 ml 30 ml # Voids 2 # Bowel Movements 2 3 Laboratory Tests 04/23/20 21:22: POC Whole Blood Glucose 126H 04/24/20 05:51: POC Whole Blood Glucose 133H 04/24/20 06:25: Sodium Level 150H, Potassium Level 3.2L, Chloride Level 113H, Carbon Dioxide Level 27, Anion Gap 10, Blood Urea Nitrogen 43H, Creatinine 1.0, Estimat Glom erular Filtration Rate > 60, Glucose Level 130H, Calcium Level 10.8H, Pro-B-Type Natriuretic Peptide 7584H 04/24/20 12:02: POC Whole Blood Glucose [Pending] Height (Feet): 5 Height (Inches): 7.00 Weight (Pounds): 180 Objective Obese woman NCAT supple CTA RR abd obese, (+) GT no edema non communicative Assessment/Plan Status: stable, unchanged Assessment/Plan: Assessment - CVA, L donald - dysphagia, GT --> occluded --> replaced - DM - HTN - CHF - COPD - decub ulcer - S/p partial nephrectomy Recommendations - advance TF - elevate HOB - GT care Robin Mata MD Apr 24, 2020 16:10
--- NOTE | 2020-04-24 19:43 | Cardiology Progress Note ---
Assessment/Plan Problem List: (1) COPD (chronic obstructive pulmonary disease) (2) Acute respiratory failure (3) Shortness of breath (4) H/o CVA (5) Chronic systolic heart failure Status: stable, unchanged Status Narrative Pt w/ hx of HTN, CHF, previous CVA, s/p g tube adm w/ dyspnea BP poorly controlled. Assessment/Plan Will continue lisinopril 40 mg/d and clonidine patch Continue increased labetalol dose. Titrate prn Monitor on telemetry Followup labs. CXR - per report mild vascular congestion and small L pl effusion ( unable to view images) Will also recheck ECHO - evaluate LV function Subjective ROS Limited/Unobtainable: Yes Subjective Cardiology for Dr. Messina Pt awake, no c/o dyspnea. c/o abd pain Objective Last 24 Hour Vital Signs Date Time Temp Pulse Resp B/P (MAP) Pulse Ox O2 Delivery O2 Flow Rate FiO2 04/24/20 16:00 72 04/24/20 16:00 97.9 70 20 139/80 (99) 100 04/24/20 12:00 76 04/24/20 12:00 98.1 79 20 133/74 (93) 100 04/24/20 09:25 70 157/87 04/24/20 09:24 70 157/87 04/24/20 09:24 157/87 04/24/20 09:00 Nasal Cannula 2.0 04/24/20 08:00 97.7 70 20 157/87 (110) 100 04/24/20 08:00 72 04/24/20 04:00 97.7 82 16 149/89 (109) 98 04/24/20 04:00 82 04/24/20 00:00 84 04/24/20 00:00 97.5 83 20 168/93 (118) 93 04/23/20 21:47 82 177/87 04/23/20 21:00 Nasal Cannula 2.0 04/23/20 21:00 82 177/87 04/23/20 20:00 97.5 82 20 177/87 (117) 93 General Appearance: other - chronically ill appearing AAF EENT: PERRL/EOMI Neck: no JVD Rhythm: NSR Cardiovascular: normal rate, regular rhythm, no gallop/murmur Respiratory/Chest: other - clear anteriorly Abdomen: normal bowel sounds, soft, other - mild tenderness at g tube site Extremities: no swelling Intake and Output 04/23/20 04/24/20 19:00 07:00 Intake Total 30 ml 30 ml Balance 30 ml 30 ml Tube Feeding 30 ml 30 ml # Voids 2 # Bowel Movements 2 3 Laboratory Tests Test 04/23/20 21:22 04/24/20 05:51 04/24/20 06:25 04/24/20 12:02 POC Whole Blood Glucose 126 MG/DL (74-106) H 133 MG/DL (74-106) H Pending Sodium Level 150 MMOL/L (136-145) H Potassium Level 3.2 MMOL/L (3.5-5.1) L Chloride Level 113 MMOL/L (98-107) H Carbon Dioxide Level 27 MMOL/L (21-32) Anion Gap 10 mmol/L (5-15) Blood Urea Nitrogen 43 mg/dL (7-18) H Creatinine 1.0 MG/DL (0.55-1.30) Estimat Glomerular Filtration Rate > 60 mL/min (>60) Glucose Level 130 MG/DL (74-106) H Calcium Level 10.8 MG/DL (8.5-10.1) H Pro-B-Type Natriuretic Peptide 7584 pg/mL (0-125) H Test 04/24/20 16:36 POC Whole Blood Glucose 139 MG/DL (74-106) H Chantal Flores MD Apr 24, 2020 19:43
[2020-04-24 20:00] VITALS: BP 153/80
[2020-04-24] MEDS: Iron Sucrose 100 MG in NS 55 ML IVPB SCH (21:18)
[2020-04-25] VITALS: BP 137/70
[2020-04-25 04:00] VITALS: BP 107/67
[2020-04-25] MEDS: NovoLOG Insulin Flexpen SUBQ SCH ×4 (06:13→22:37)
[2020-04-25] MEDS: Heparin 5000 units/ml inj SUBQ SCH ×3 (06:15→21:55)
[2020-04-25 06:38] LABS: BASOPHILS % (AUTO) 0.5 % (0.0-2.0); EOSINOPHILS % (AUTO) 2.2 % (0.0-3.0); HEMATOCRIT 34.9 % (37.0-47.0); HEMOGLOBIN 10.5 G/DL (12.0-16.0); LYMPHOCYTES % (AUTO) 17.4 % (20.0-45.0); MEAN CORPUSCULAR VOLUME 98 FL (80-99); PLATELET COUNT 271 K/UL (150-450); RED BLOOD COUNT 3.58 M/UL (4.20-5.40); RED CELL DISTRIBUTION WIDTH 17.1 % (11.6-14.8); WHITE BLOOD COUNT 6.1 K/UL (4.8-10.8)
[2020-04-25 07:00] LABS: ANION GAP 7 mmol/L (5-15); BLOOD UREA NITROGEN 49 mg/dL (7-18); CALCIUM 10.6 MG/DL (8.5-10.1); CARBON DIOXIDE 30 MMOL/L (21-32); CHLORIDE 115 MMOL/L (98-107); CREATININE 1.1 MG/DL (0.55-1.30); POTASSIUM 3.5 MMOL/L (3.5-5.1); SODIUM 151 MMOL/L (136-145)
[2020-04-25 08:00] VITALS: BP 154/71
[2020-04-25] MEDS: Docusate 100mg cap ORAL SCH (09:00)
[2020-04-25] MEDS: Lisinopril 20mg tab ORAL SCH (10:11)
[2020-04-25] MEDS: cefTRIAXone 1 GM in NS 55 ML IVPB SCH (10:13)
--- NOTE | 2020-04-25 11:42 | Infectious Diseases Prog Note ---
Assessment/Plan Assessment/Plan antibiotics : ceftriaxone A 1. pneumonia 2. + blood culture with coag neg staph likely contaminated 3. diabetes mellitus 4. CHF 5. CVA 6. renal cell carcinoma P 1. d/c ceftriaxone 2. start and continue po levoquin 4 more days 3. will follow up cultures Subjective Constitutional: Denies: fever, chills Respiratory: Reports: dry cough; Denies: shortness of breath Gastrointestinal/Abdominal: Denies: nausea, vomiting, diarrhea Musculoskeletal: Denies: pain Allergies: Coded Allergies: LEVOFLOXACIN (Verified Allergy, Severe, Hives, 01/19/19) LORAZEPAM (Verified Allergy, Severe, 01/19/19) Patient gets confusion MIDAZOLAM (Verified Adverse Reaction, Unknown, 05/15/15) Objective Last 24 Hour Vital Signs Date Time Temp Pulse Resp B/P (MAP) Pulse Ox O2 Delivery O2 Flow Rate FiO2 04/25/20 10:12 67 154/71 04/25/20 10:12 67 154/71 04/25/20 10:11 154/71 04/25/20 09:00 Nasal Cannula 2.0 04/25/20 08:00 97.9 68 20 154/71 (98) 99 04/25/20 08:00 67 04/25/20 04:00 97.9 68 20 107/67 (80) 100 04/25/20 04:00 69 04/25/20 00:00 68 04/25/20 00:00 97.7 70 20 137/70 (92) 99 04/24/20 21:18 88 157/84 04/24/20 21:17 88 157/84 04/24/20 21:00 Nasal Cannula 2.0 04/24/20 20:00 98.6 70 20 153/80 (104) 100 04/24/20 20:00 68 04/24/20 16:00 72 04/24/20 16:00 97.9 70 20 139/80 (99) 100 04/24/20 12:00 76 04/24/20 12:00 98.1 79 20 133/74 (93) 100 Height (Feet): 5 Height (Inches): 7.00 Weight (Pounds): 180 Respiratory/Chest: lungs clear Cardiovascular: normal rate, regular rhythm, no gallop/murmur Abdomen: soft, non tender Extremities: no edema Laboratory Tests Test 04/24/20 12:02 04/24/20 16:36 04/24/20 21:48 04/25/20 05:45 POC Whole Blood Glucose Pending 139 MG/DL (74-106) H 152 MG/DL (74-106) H 128 MG/DL (74-106) H Test 04/25/20 05:50 White Blood Count 6.1 K/UL (4.8-10.8) Red Blood Count 3.58 M/UL (4.20-5.40) L Hemoglobin 10.5 G/DL (12.0-16.0) L Hematocrit 34.9 % (37.0-47.0) L Mean Corpuscular Volume 98 FL (80-99) Mean Corpuscular Hemoglobin 29.4 PG (27.0-31.0) Mean Corpuscular Hemoglobin Concent 30.1 G/DL (32.0-36.0) L Red Cell Distribution Width 17.1 % (11.6-14.8) H Platelet Count 271 K/UL (150-450) Mean Platelet Volume 7.4 FL (6.5-10.1) Neutrophils (%) (Auto) 71.0 % (45.0-75.0) Lymphocytes (%) (Auto) 17.4 % (20.0-45.0) L Monocytes (%) (Auto) 9.0 % (1.0-10.0) Eosinophils (%) (Auto) 2.2 % (0.0-3.0) Basophils (%) (Auto) 0.5 % (0.0-2.0) Sodium Level 151 MMOL/L (136-145) H Potassium Level 3.5 MMOL/L (3.5-5.1) Chloride Level 115 MMOL/L (98-107) H Carbon Dioxide Level 30 MMOL/L (21-32) Anion Gap 7 mmol/L (5-15) Blood Urea Nitrogen 49 mg/dL (7-18) H Creatinine 1.1 MG/DL (0.55-1.30) Estimat Glomerular Filtration Rate > 60 mL/min (>60) Glucose Level 133 MG/DL (74-106) H Calcium Level 10.6 MG/DL (8.5-10.1) H Magnesium Level 2.6 MG/DL (1.8-2.4) H Current Medications Medications (Trade) Dose Ordered Sig/Guillermo Route PRN Reason Start Time Stop Time Status Last Admin Dose Admin Acetaminophen (Tylenol) 650 mg Q4H PRN ORAL Mild Pain (Pain Scale 1-3) 04/20/20 22:15 05/20/20 22:14 Albuterol/ Ipratropium (Albuterol/ Ipratropium) 3 ml EVERY 6 HOURS PRN HHN Shortness of Breath 04/20/20 22:15 04/25/20 22:14 Ceftriaxone Sodium 1 gm/ Sodium Chloride 55 ml @ 110 mls/hr DAILY IVPB 04/21/20 09:00 04/28/20 08:59 04/25/20 10:13 Clonidine HCl (Catapres TTS-3) 1 patch QWEEK TDERMAL 04/23/20 12:00 07/22/20 11:59 04/23/20 13:00 Dextrose (Dextrose 50%) 25 ml Q30M PRN IV Hypoglycemia 04/20/20 22:15 07/19/20 22:14 Dextrose (Dextrose 50%) 50 ml Q30M PRN IV Hypoglycemia 04/20/20 22:15 07/19/20 22:14 Docusate Sodium (Colace) 100 mg EVERY 12 HOURS ORAL 04/21/20 09:00 05/21/20 08:59 04/24/20 21:17 Heparin Sodium (Porcine) (Heparin 5000 units/ml) 5,000 units EVERY 8 HOURS SUBQ 04/21/20 06:00 06/05/20 05:59 04/25/20 06:15 Insulin Aspart (NovoLOG) BEFORE MEALS AND HS SUBQ 04/21/20 06:30 07/20/20 06:29 04/24/20 21:54 Iron Sucrose 100 mg/Sodium Chloride 60 ml @ 240 mls/hr BEDTIME IVPB 04/23/20 21:00 04/27/20 21:14 04/24/20 21:18 Labetalol HCl (Normodyne) 200 mg Q12HR ORAL 04/23/20 17:45 05/22/20 20:59 04/25/20 10:12 Lisinopril (PriniviL) 40 mg DAILY ORAL 04/21/20 09:00 05/21/20 08:59 04/25/20 10:11 Metoprolol Tartrate (Lopressor) 25 mg EVERY 12 HOURS ORAL 04/21/20 09:00 07/20/20 08:59 04/25/20 10:12 Ondansetron HCl (Zofran) 4 mg Q6H PRN IVP Nausea & Vomiting 04/20/20 22:15 05/20/20 22:14 Pantoprazole (Protonix) 40 mg DAILY ORAL 04/21/20 09:00 05/21/20 08:59 04/24/20 09:25 Yogesh Medel MD Apr 25, 2020 11:42
[2020-04-25] MEDS ORDERED: Levofloxacin 500mg tab ORAL SCH (11:45)
[2020-04-25 12:00] VITALS: BP 166/80
[2020-04-25] MEDS ORDERED: Doxycycline Monohydrate 100mg ORAL SCH (12:30)
--- NOTE | 2020-04-25 14:39 | Nephrology Progress Note ---
Assessment/Plan Plan CHF -improving Modify meds G tube unclogged, as a result BP very High. To added Catapres TTS as a bridging. GI Dr. Shields noted. Na 150 - 151. m/p due to doxycycline. DC'ed. Added Free H2O. Recheck Labs tomorrow. Subjective Subjective G tube unclogged. No new c/o. More lethargic. Objective Objective Last 24 Hour Vital Signs Date Time Temp Pulse Resp B/P (MAP) Pulse Ox O2 Delivery O2 Flow Rate FiO2 04/25/20 12:00 65 04/25/20 12:00 97.9 67 20 166/80 (108) 99 04/25/20 10:12 67 154/71 04/25/20 10:12 67 154/71 04/25/20 10:11 154/71 04/25/20 09:00 Nasal Cannula 2.0 04/25/20 08:00 97.9 68 20 154/71 (98) 99 04/25/20 08:00 67 04/25/20 04:00 97.9 68 20 107/67 (80) 100 04/25/20 04:00 69 04/25/20 00:00 68 04/25/20 00:00 97.7 70 20 137/70 (92) 99 04/24/20 21:18 88 157/84 04/24/20 21:17 88 157/84 04/24/20 21:00 Nasal Cannula 2.0 04/24/20 20:00 98.6 70 20 153/80 (104) 100 04/24/20 20:00 68 04/24/20 16:00 72 04/24/20 16:00 97.9 70 20 139/80 (99) 100 Intake and Output 04/24/20 04/25/20 19:00 07:00 Intake Total 415 ml Balance 415 ml Tube Feeding 415 ml # Voids 2 # Bowel Movements 3 1 Laboratory Tests 04/24/20 16:36: POC Whole Blood Glucose 139H 04/24/20 21:48: POC Whole Blood Glucose 152H 04/25/20 05:45: POC Whole Blood Glucose 128H 04/25/20 05:50: White Blood Count 6.1, Red Blood Count 3.58L, Hemoglobin 10.5L, Hematocrit 34.9L , Mean Corpuscular Volume 98, Mean Corpuscular Hemoglobin 29.4, Mean Corpuscular Hemoglobin Concent 30.1L, Red Cell Distribution Width 17.1H, Platelet Count 271, Mean Platelet Volume 7.4, Neutrophils (%) (Auto) 71.0, Lymphocytes (%) (Auto) 17.4L, Monocytes (%) (Auto) 9.0, Eosinophils (%) (Auto) 2.2, Basophils (%) (Auto) 0.5, Sodium Level 151H, Potassium Level 3.5, Chloride Level 115H, Carbon Dioxide Level 30, Anion Gap 7, Blood Urea Nitrogen 49H, Creatinine 1.1, Estimat Glomerular Filtration Rate > 60, Glucose Level 133H, Calcium Level 10.6H, Magnesium Level 2.6H Height (Feet): 5 Height (Inches): 7.00 Weight (Pounds): 180 Objective More lethargic Cv RR Lungs CTA Abd SNT. BS + E No CCE Neuro L hemiparesis Miguel A Bella MD Apr 25, 2020 14:39
[2020-04-25 16:00] VITALS: BP 154/77
[2020-04-25] MEDS: D5W w/KCl 20mEq 1,000 ML IV SCH (17:09)
--- NOTE | 2020-04-25 17:26 | Cardiology Progress Note ---
Assessment/Plan Assessment/Plan Her CXR improved, after Lasix, infiltrates resolved, probably it was CHF, and not pneumonia, otherwise her CXR would not improe so fast, noted elevated Na, agree with IVF, probably should give more water by GT Subjective Subjective Resting in bed, asnwering some questions, confused, Objective Last 24 Hour Vital Signs Date Time Temp Pulse Resp B/P (MAP) Pulse Ox O2 Delivery O2 Flow Rate FiO2 04/25/20 16:00 97.9 67 20 154/77 (102) 99 04/25/20 12:00 65 04/25/20 12:00 97.9 67 20 166/80 (108) 99 04/25/20 10:12 67 154/71 04/25/20 10:12 67 154/71 04/25/20 10:11 154/71 04/25/20 09:00 Nasal Cannula 2.0 04/25/20 08:00 97.9 68 20 154/71 (98) 99 04/25/20 08:00 67 04/25/20 04:00 97.9 68 20 107/67 (80) 100 04/25/20 04:00 69 04/25/20 00:00 68 04/25/20 00:00 97.7 70 20 137/70 (92) 99 04/24/20 21:18 88 157/84 04/24/20 21:17 88 157/84 04/24/20 21:00 Nasal Cannula 2.0 04/24/20 20:00 98.6 70 20 153/80 (104) 100 04/24/20 20:00 68 General Appearance: other - confused, bedridden EENT: other - facial droop Neck: JVD Rhythm: NSR Cardiovascular: regular rhythm Respiratory/Chest: crackles/rales Abdomen: soft Neurologic: other - left sided weakness Intake and Output 04/24/20 04/25/20 19:00 07:00 Intake Total 415 ml Balance 415 ml Tube Feeding 415 ml # Voids 2 # Bowel Movements 3 1 Laboratory Tests Test 04/24/20 21:48 04/25/20 05:45 04/25/20 05:50 POC Whole Blood Glucose 152 MG/DL (74-106) H 128 MG/DL (74-106) H White Blood Count 6.1 K/UL (4.8-10.8) Red Blood Count 3.58 M/UL (4.20-5.40) L Hemoglobin 10.5 G/DL (12.0-16.0) L Hematocrit 34.9 % (37.0-47.0) L Mean Corpuscular Volume 98 FL (80-99) Mean Corpuscular Hemoglobin 29.4 PG (27.0-31.0) Mean Corpuscular Hemoglobin Concent 30.1 G/DL (32.0-36.0) L Red Cell Distribution Width 17.1 % (11.6-14.8) H Platelet Count 271 K/UL (150-450) Mean Platelet Volume 7.4 FL (6.5-10.1) Neutrophils (%) (Auto) 71.0 % (45.0-75.0) Lymphocytes (%) (Auto) 17.4 % (20.0-45.0) L Monocytes (%) (Auto) 9.0 % (1.0-10.0) Eosinophils (%) (Auto) 2.2 % (0.0-3.0) Basophils (%) (Auto) 0.5 % (0.0-2.0) Sodium Level 151 MMOL/L (136-145) H Potassium Level 3.5 MMOL/L (3.5-5.1) Chloride Level 115 MMOL/L (98-107) H Carbon Dioxide Level 30 MMOL/L (21-32) Anion Gap 7 mmol/L (5-15) Blood Urea Nitrogen 49 mg/dL (7-18) H Creatinine 1.1 MG/DL (0.55-1.30) Estimat Glomerular Filtration Rate > 60 mL/min (>60) Glucose Level 133 MG/DL (74-106) H Calcium Level 10.6 MG/DL (8.5-10.1) H Magnesium Level 2.6 MG/DL (1.8-2.4) H Objective Alert, musoca dry JVD 8 cm lungs rhonchi heart regular, accent A2 abdomen g tube neuro, left hemiparesis Jimena Messina MD Apr 25, 2020 17:26
[2020-04-25] MEDS: Docusate 100mg/10ml Liq NG SCH (18:00)
[2020-04-25 20:00] VITALS: BP 157/79
[2020-04-25] MEDS: Iron Sucrose 100 MG in NS 55 ML IVPB SCH (21:49)
--- NOTE | 2020-04-25 23:13 | General Progress Note ---
Subjective Allergies: Coded Allergies: LEVOFLOXACIN (Verified Allergy, Severe, Hives, 01/19/19) LORAZEPAM (Verified Allergy, Severe, 01/19/19) Patient gets confusion MIDAZOLAM (Verified Adverse Reaction, Unknown, 05/15/15) Subjective above noted tolerating TF non communicative Objective Last 24 Hour Vital Signs Date Time Temp Pulse Resp B/P (MAP) Pulse Ox O2 Delivery O2 Flow Rate FiO2 04/25/20 21:48 75 157/78 04/25/20 20:00 98.1 71 20 157/79 (105) 96 04/25/20 16:00 97.9 67 20 154/77 (102) 99 04/25/20 16:00 68 04/25/20 12:00 65 04/25/20 12:00 97.9 67 20 166/80 (108) 99 04/25/20 10:12 67 154/71 04/25/20 10:12 67 154/71 04/25/20 10:11 154/71 04/25/20 09:00 Nasal Cannula 2.0 04/25/20 08:00 97.9 68 20 154/71 (98) 99 04/25/20 08:00 67 04/25/20 04:00 97.9 68 20 107/67 (80) 100 04/25/20 04:00 69 04/25/20 00:00 68 04/25/20 00:00 97.7 70 20 137/70 (92) 99 Intake and Output 04/24/20 04/25/20 19:00 07:00 Intake Total 415 ml Balance 415 ml Tube Feeding 415 ml # Voids 2 # Bowel Movements 3 1 Laboratory Tests 04/25/20 05:45: POC Whole Blood Glucose 128H 04/25/20 05:50: White Blood Count 6.1, Red Blood Count 3.58L, Hemoglobin 10.5L, Hematocrit 34.9L , Mean Corpuscular Volume 98, Mean Corpuscular Hemoglobin 29.4, Mean Corpuscular Hemoglobin Concent 30.1L, Red Cell Distribution Width 17.1H, Platelet Count 271, Mean Platelet Volume 7.4, Neutrophils (%) (Auto) 71.0, Lymphocytes (%) (Auto) 17.4L, Monocytes (%) (Auto) 9.0, Eosinophils (%) (Auto) 2.2, Basophils (%) (Auto ) 0.5, Sodium Level 151H, Potassium Level 3.5, Chloride Level 115H, Carbon Dioxide Level 30, Anion Gap 7, Blood Urea Nitrogen 49H, Creatinine 1.1, Estimat Glomerular Filtration Rate > 60, Glucose Level 133H, Calcium Level 10.6H, Magnesium Level 2.6H Height (Feet): 5 Height (Inches): 7.00 Weight (Pounds): 180 Objective Obese woman NCAT supple CTA RR abd obese, (+) GT no edema non communicative Assessment/Plan Status: stable, unchanged Assessment/Plan: Assessment - CVA, L donald - dysphagia, GT --> occluded --> replaced - DM - HTN - CHF - COPD - decub ulcer - S/p partial nephrectomy Recommendations - advance TF - elevate HOB - GT care Robin Mata MD Apr 25, 2020 23:13
[2020-04-26] VITALS: BP 112/61
[2020-04-26 04:00] VITALS: BP 160/74
[2020-04-26] MEDS: NovoLOG Insulin Flexpen SUBQ SCH ×4 (05:40→21:00)
[2020-04-26] MEDS: Heparin 5000 units/ml inj SUBQ SCH ×3 (05:42→22:09)
[2020-04-26 07:00] LABS: BLOOD UREA NITROGEN 45 mg/dL (7-18); CALCIUM 10.8 MG/DL (8.5-10.1); CARBON DIOXIDE 31 MMOL/L (21-32); CHLORIDE 114 MMOL/L (98-107); POTASSIUM 3.8 MMOL/L (3.5-5.1); SODIUM 150 MMOL/L (136-145)
[2020-04-26 08:00] VITALS: BP 166/76
[2020-04-26] MEDS: Lisinopril 20mg tab ORAL SCH (08:55)
[2020-04-26] MEDS: Docusate 100mg/10ml Liq NG SCH ×2 (08:55→17:55)
[2020-04-26] MEDS: Pantoprazole Inj IVP SCH (08:55)
--- NOTE | 2020-04-26 10:57 | Infectious Diseases Prog Note ---
Assessment/Plan Assessment/Plan antibiotics : none A 1. pneumonia 2. + blood culture with coag neg staph likely contaminated 3. diabetes mellitus 4. CHF 5. CVA 6. renal cell carcinoma P 1. continue off antibiotics 2. will follow up cultures Subjective ROS Limited/Unobtainable: Yes Allergies: Coded Allergies: LEVOFLOXACIN (Verified Allergy, Severe, Hives, 01/19/19) LORAZEPAM (Verified Allergy, Severe, 01/19/19) Patient gets confusion MIDAZOLAM (Verified Adverse Reaction, Unknown, 05/15/15) Objective Last 24 Hour Vital Signs Date Time Temp Pulse Resp B/P (MAP) Pulse Ox O2 Delivery O2 Flow Rate FiO2 04/26/20 09:00 Nasal Cannula 2.0 04/26/20 08:55 166/76 04/26/20 08:54 65 166/76 04/26/20 08:00 97.4 65 19 166/76 (106) 95 04/26/20 08:00 71 04/26/20 07:16 99 Nasal Cannula 2.0 28 04/26/20 04:00 65 04/26/20 04:00 97.2 73 18 160/74 (102) 95 04/26/20 00:00 70 04/26/20 00:00 97.9 73 20 112/61 (78) 92 04/25/20 21:48 75 157/78 04/25/20 21:00 Nasal Cannula 2.0 04/25/20 20:00 98.1 71 20 157/79 (105) 96 04/25/20 20:00 73 04/25/20 16:00 97.9 67 20 154/77 (102) 99 04/25/20 16:00 68 04/25/20 12:00 65 04/25/20 12:00 97.9 67 20 166/80 (108) 99 Height (Feet): 5 Height (Inches): 7.00 Weight (Pounds): 180 Respiratory/Chest: lungs clear Cardiovascular: normal rate, regular rhythm, no gallop/murmur Abdomen: soft, non tender, other - GT Extremities: no edema Laboratory Tests Test 04/25/20 22:33 04/26/20 05:49 POC Whole Blood Glucose Pending Sodium Level 150 MMOL/L (136-145) H Potassium Level 3.8 MMOL/L (3.5-5.1) Chloride Level 114 MMOL/L (98-107) H Carbon Dioxide Level 31 MMOL/L (21-32) Blood Urea Nitrogen 45 mg/dL (7-18) H Creatinine 1.0 MG/DL (0.55-1.30) Estimat Glomerular Filtration Rate > 60 mL/min (>60) Glucose Level 119 MG/DL (74-106) H Calcium Level 10.8 MG/DL (8.5-10.1) H Current Medications Medications (Trade) Dose Ordered Sig/Guillermo Route PRN Reason Start Time Stop Time Status Last Admin Dose Admin Acetaminophen (Tylenol) 650 mg Q4H PRN ORAL Mild Pain (Pain Scale 1-3) 04/20/20 22:15 05/20/20 22:14 Clonidine HCl (Catapres TTS-3) 1 patch QWEEK TDERMAL 04/23/20 12:00 07/22/20 11:59 04/23/20 13:00 Dextrose (Dextrose 50%) 25 ml Q30M PRN IV Hypoglycemia 04/20/20 22:15 07/19/20 22:14 Dextrose (Dextrose 50%) 50 ml Q30M PRN IV Hypoglycemia 04/20/20 22:15 07/19/20 22:14 Dextrose/ Electrolytes 1,000 ml @ 50 mls/hr Q20H IV 04/25/20 16:00 05/25/20 15:59 04/25/20 17:09 Docusate Sodium (Colace) 100 mg TWICE A DAY NG 04/25/20 18:00 05/25/20 17:59 04/26/20 08:55 Heparin Sodium (Porcine) (Heparin 5000 units/ml) 5,000 units EVERY 8 HOURS SUBQ 04/21/20 06:00 06/05/20 05:59 04/26/20 05:42 Insulin Aspart (NovoLOG) BEFORE MEALS AND HS SUBQ 04/21/20 06:30 07/20/20 06:29 04/25/20 22:37 Iron Sucrose 100 mg/Sodium Chloride 60 ml @ 240 mls/hr BEDTIME IVPB 04/23/20 21:00 04/27/20 21:14 04/25/20 21:49 Labetalol HCl (Normodyne) 300 mg Q12HR ORAL 04/25/20 21:00 05/22/20 20:59 04/26/20 08:54 Lisinopril (PriniviL) 40 mg DAILY ORAL 04/21/20 09:00 05/21/20 08:59 04/26/20 08:55 Ondansetron HCl (Zofran) 4 mg Q6H PRN IVP Nausea & Vomiting 04/20/20 22:15 05/20/20 22:14 Pantoprazole (Protonix) 40 mg DAILY IVP 04/26/20 09:00 05/26/20 08:59 04/26/20 08:55 Yogesh Medel MD Apr 26, 2020 10:57
[2020-04-26 12:00] VITALS: BP 145/72
[2020-04-26] MEDS: D5W w/KCl 20mEq 1,000 ML IV SCH (12:27)
--- NOTE | 2020-04-26 15:01 | Nephrology Progress Note ---
Assessment/Plan Plan CHF -improving Modify meds G tube unclogged, as a result BP very High. To added Catapres TTS as a bridging. GI Dr. Shields noted. Na 150 - 151-150. m/p due to doxycycline. DC'ed. Added Free H2O. Recheck Labs tomorrow. Subjective Subjective G tube unclogged. No new c/o. More lethargic. Objective Objective Last 24 Hour Vital Signs Date Time Temp Pulse Resp B/P (MAP) Pulse Ox O2 Delivery O2 Flow Rate FiO2 04/26/20 12:00 98.1 66 19 145/72 (96) 100 04/26/20 12:00 65 04/26/20 09:00 Nasal Cannula 2.0 04/26/20 08:55 166/76 04/26/20 08:54 65 166/76 04/26/20 08:00 97.4 65 19 166/76 (106) 95 04/26/20 08:00 71 04/26/20 07:16 99 Nasal Cannula 2.0 28 04/26/20 04:00 65 04/26/20 04:00 97.2 73 18 160/74 (102) 95 04/26/20 00:00 70 04/26/20 00:00 97.9 73 20 112/61 (78) 92 04/25/20 21:48 75 157/78 04/25/20 21:00 Nasal Cannula 2.0 04/25/20 20:00 98.1 71 20 157/79 (105) 96 04/25/20 20:00 73 04/25/20 16:00 97.9 67 20 154/77 (102) 99 04/25/20 16:00 68 Intake and Output 04/25/20 04/26/20 19:00 07:00 Intake Total 45 ml Balance 45 ml Tube Feeding 45 ml # Voids 2 1 # Bowel Movements 2 1 Laboratory Tests 04/25/20 22:33: POC Whole Blood Glucose [Pending] 04/26/20 05:49: Sodium Level 150H, Potassium Level 3.8, Chloride Level 114H, Carbon Dioxide Level 31, Blood Urea Nitrogen 45H, Creatinine 1.0, Estimat Glomerular Filtration Rate > 60, Glucose Level 119H, Calcium Level 10.8H Height (Feet): 5 Height (Inches): 7.00 Weight (Pounds): 180 Objective More lethargic Cv RR Lungs CTA Abd SNT. BS + E No CCE Neuro L hemiparesis Miguel A Bella MD Apr 26, 2020 15:01
[2020-04-26 16:00] VITALS: BP 140/69
[2020-04-26 20:00] VITALS: BP 162/76
--- NOTE | 2020-04-26 21:05 | General Progress Note ---
Subjective Allergies: Coded Allergies: LEVOFLOXACIN (Verified Allergy, Severe, Hives, 01/19/19) LORAZEPAM (Verified Allergy, Severe, 01/19/19) Patient gets confusion MIDAZOLAM (Verified Adverse Reaction, Unknown, 05/15/15) Subjective above noted tolerating TF non communicative Objective Last 24 Hour Vital Signs Date Time Temp Pulse Resp B/P (MAP) Pulse Ox O2 Delivery O2 Flow Rate FiO2 04/26/20 18:58 99 Nasal Cannula 2.0 28 04/26/20 16:00 97.2 68 18 140/69 (92) 98 04/26/20 16:00 67 04/26/20 12:00 98.1 66 19 145/72 (96) 100 04/26/20 12:00 65 04/26/20 09:00 Nasal Cannula 2.0 04/26/20 08:55 166/76 04/26/20 08:54 65 166/76 04/26/20 08:00 97.4 65 19 166/76 (106) 95 04/26/20 08:00 71 04/26/20 07:16 99 Nasal Cannula 2.0 28 04/26/20 04:00 65 04/26/20 04:00 97.2 73 18 160/74 (102) 95 04/26/20 00:00 70 04/26/20 00:00 97.9 73 20 112/61 (78) 92 04/25/20 21:48 75 157/78 Intake and Output 04/25/20 04/26/20 19:00 07:00 Intake Total 45 ml Balance 45 ml Tube Feeding 45 ml # Voids 2 1 # Bowel Movements 2 1 Laboratory Tests 04/25/20 22:33: POC Whole Blood Glucose [Pending] 04/26/20 05:49: Sodium Level 150H, Potassium Level 3.8, Chloride Level 114H, Carbon Dioxide Level 31, Blood Urea Nitrogen 45H, Creatinine 1.0, Estimat Glomerular Filtration Rate > 60, Glucose Level 119H, Calcium Level 10.8H 04/26/20 16:28: POC Whole Blood Glucose 138H Height (Feet): 5 Height (Inches): 7.00 Weight (Pounds): 180 Objective Obese woman NCAT supple CTA RR abd obese, (+) GT no edema non communicative Assessment/Plan Status: stable, unchanged Assessment/Plan: Assessment - CVA, L donald - dysphagia, GT --> occluded --> replaced - DM - HTN - CHF - COPD - decub ulcer - S/p partial nephrectomy Recommendations - continue TF - elevate HOB - GT care Robin Mata MD Apr 26, 2020 21:05
[2020-04-26] MEDS: Iron Sucrose 100 MG in NS 55 ML IVPB SCH (22:01)
[2020-04-27] VITALS: BP 159/75
[2020-04-27] MEDS: D5W w/KCl 20mEq 1,000 ML IV SCH ×2 (02:59→17:38)
[2020-04-27 04:00] VITALS: BP 154/92
[2020-04-27] MEDS: Heparin 5000 units/ml inj SUBQ SCH ×3 (05:59→22:26)
[2020-04-27] MEDS: NovoLOG Insulin Flexpen SUBQ SCH ×4 (06:02→20:47)
--- NOTE | 2020-04-27 07:42 | General Progress Note ---
Subjective Allergies: Coded Allergies: LEVOFLOXACIN (Verified Allergy, Severe, Hives, 01/19/19) LORAZEPAM (Verified Allergy, Severe, 01/19/19) Patient gets confusion MIDAZOLAM (Verified Adverse Reaction, Unknown, 05/15/15) Subjective above noted tolerating TF resting comfortably Objective Last 24 Hour Vital Signs Date Time Temp Pulse Resp B/P (MAP) Pulse Ox O2 Delivery O2 Flow Rate FiO2 04/27/20 04:00 98.1 79 18 154/92 (112) 96 04/27/20 04:00 77 04/27/20 00:00 98.1 72 18 159/75 (103) 100 04/27/20 00:00 73 04/26/20 22:07 69 162/76 04/26/20 21:00 Nasal Cannula 2.0 04/26/20 20:00 71 04/26/20 20:00 97.7 69 18 162/76 (104) 98 04/26/20 18:58 99 Nasal Cannula 2.0 28 04/26/20 16:00 97.2 68 18 140/69 (92) 98 04/26/20 16:00 67 04/26/20 12:00 98.1 66 19 145/72 (96) 100 04/26/20 12:00 65 04/26/20 09:00 Nasal Cannula 2.0 04/26/20 08:55 166/76 04/26/20 08:54 65 166/76 04/26/20 08:00 97.4 65 19 166/76 (106) 95 04/26/20 08:00 71 Intake and Output 04/26/20 04/27/20 19:00 07:00 Intake Total 50 ml 725 ml Balance 50 ml 725 ml IV Total 675 ml Tube Feeding 50 ml 50 ml # Voids 2 3 # Bowel Movements 1 1 Laboratory Tests 04/26/20 11:22: POC Whole Blood Glucose 165H 04/26/20 16:28: POC Whole Blood Glucose 138H 04/26/20 21:54: POC Whole Blood Glucose 139H 04/27/20 04:50: Urine Osmolality [Pending] 04/27/20 05:23: Sodium Level [Pending], Potassium Level [Pending], Chloride Level [Pending], Carbon Dioxide Level [Pending], Blood Urea Nitrogen [Pending], Creatinine [Pending], Estimat Glomerular Filtration Rate [Pending], Glucose Level [Pending], Calcium Level [Pending] 04/27/20 05:55: POC Whole Blood Glucose 173H Height (Feet): 5 Height (Inches): 7.00 Weight (Pounds): 180 Objective Obese woman NCAT supple CTA RR abd obese, (+) GT no edema non communicative Assessment/Plan Status: stable, unchanged Assessment/Plan: Assessment - CVA, L donald - dysphagia, GT --> occluded --> replaced - DM - HTN - CHF - COPD - decub ulcer - S/p partial nephrectomy Recommendations - continue TF - elevate HOB - GT care Robin Mata MD Apr 27, 2020 07:42
[2020-04-27 07:49] LABS: ANION GAP 6 mmol/L (5-15); BLOOD UREA NITROGEN 43 mg/dL (7-18); CALCIUM 10.2 MG/DL (8.5-10.1); CARBON DIOXIDE 28 MMOL/L (21-32); CHLORIDE 111 MMOL/L (98-107); CREATININE 1.1 MG/DL (0.55-1.30); POTASSIUM 4.1 MMOL/L (3.5-5.1); SODIUM 145 MMOL/L (136-145)
[2020-04-27 08:00] VITALS: BP 157/83
[2020-04-27] MEDS: Lisinopril 20mg tab ORAL SCH (09:54)
[2020-04-27] MEDS: Docusate 100mg/10ml Liq NG SCH ×2 (09:55→17:38)
--- NOTE | 2020-04-27 10:44 | Cardiology Progress Note ---
Assessment/Plan Assessment/Plan CHF, systolic, stable, will add furosemide daily, might need potassium Vascular dementia post stoke, on statin and ASA monitor Na level on furosemide Subjective Subjective Difficult historian, just repeating "I am sick" Objective Last 24 Hour Vital Signs Date Time Temp Pulse Resp B/P (MAP) Pulse Ox O2 Delivery O2 Flow Rate FiO2 04/27/20 09:54 72 157/83 04/27/20 09:54 157/83 04/27/20 08:00 98.1 72 18 157/83 (107) 99 04/27/20 04:00 98.1 79 18 154/92 (112) 96 04/27/20 04:00 77 04/27/20 00:00 98.1 72 18 159/75 (103) 100 04/27/20 00:00 73 04/26/20 22:07 69 162/76 04/26/20 21:00 Nasal Cannula 2.0 04/26/20 20:00 71 04/26/20 20:00 97.7 69 18 162/76 (104) 98 04/26/20 18:58 99 Nasal Cannula 2.0 28 04/26/20 16:00 97.2 68 18 140/69 (92) 98 04/26/20 16:00 67 04/26/20 12:00 98.1 66 19 145/72 (96) 100 04/26/20 12:00 65 General Appearance: other - ill appearing EENT: other - facial droop Neck: JVD Rhythm: NSR Cardiovascular: regular rhythm Respiratory/Chest: crackles/rales - at bases Abdomen: soft - G tube Neurologic: other - lateralized weakness Intake and Output 04/26/20 04/27/20 19:00 07:00 Intake Total 50 ml 725 ml Balance 50 ml 725 ml IV Total 675 ml Tube Feeding 50 ml 50 ml # Voids 2 3 # Bowel Movements 1 1 Laboratory Tests Test 04/26/20 11:22 04/26/20 16:28 04/26/20 21:54 04/27/20 04:50 POC Whole Blood Glucose 165 MG/DL (74-106) H 138 MG/DL (74-106) H 139 MG/DL (74-106) H Urine Osmolality 589 mOsm/kg (429-449) H Test 04/27/20 05:23 04/27/20 05:55 Sodium Level 145 MMOL/L (136-145) Potassium Level 4.1 MMOL/L (3.5-5.1) Chloride Level 111 MMOL/L (98-107) H Carbon Dioxide Level 28 MMOL/L (21-32) Anion Gap 6 mmol/L (5-15) Blood Urea Nitrogen 43 mg/dL (7-18) H Creatinine 1.1 MG/DL (0.55-1.30) Estimat Glomerular Filtration Rate > 60 mL/min (>60) Glucose Level 182 MG/DL (74-106) H Calcium Level 10.2 MG/DL (8.5-10.1) H POC Whole Blood Glucose 173 MG/DL (74-106) H Objective Alert, musoca dry JVD 8 cm lungs rhonchi heart regular, accent A2 abdomen g tube neuro, left hemiparesis Jimena Messina MD Apr 27, 2020 10:44
--- NOTE | 2020-04-27 11:19 | Infectious Diseases Prog Note ---
Assessment/Plan Assessment/Plan antibiotics : none A 1. pneumonia 2. + blood culture with coag neg staph likely contaminated 3. diabetes mellitus 4. CHF 5. CVA 6. renal cell carcinoma P 1. continue off antibiotics 2. will follow up cultures Subjective ROS Limited/Unobtainable: Yes Allergies: Coded Allergies: LEVOFLOXACIN (Verified Allergy, Severe, Hives, 01/19/19) LORAZEPAM (Verified Allergy, Severe, 01/19/19) Patient gets confusion MIDAZOLAM (Verified Adverse Reaction, Unknown, 05/15/15) Objective Last 24 Hour Vital Signs Date Time Temp Pulse Resp B/P (MAP) Pulse Ox O2 Delivery O2 Flow Rate FiO2 04/27/20 09:54 72 157/83 04/27/20 09:54 157/83 04/27/20 08:00 70 04/27/20 08:00 98.1 72 18 157/83 (107) 99 04/27/20 04:00 98.1 79 18 154/92 (112) 96 04/27/20 04:00 77 04/27/20 00:00 98.1 72 18 159/75 (103) 100 04/27/20 00:00 73 04/26/20 22:07 69 162/76 04/26/20 21:00 Nasal Cannula 2.0 04/26/20 20:00 71 04/26/20 20:00 97.7 69 18 162/76 (104) 98 04/26/20 18:58 99 Nasal Cannula 2.0 28 04/26/20 16:00 97.2 68 18 140/69 (92) 98 04/26/20 16:00 67 04/26/20 12:00 98.1 66 19 145/72 (96) 100 04/26/20 12:00 65 Height (Feet): 5 Height (Inches): 7.00 Weight (Pounds): 180 Respiratory/Chest: lungs clear Cardiovascular: normal rate, regular rhythm, no gallop/murmur Abdomen: soft, non tender Extremities: no edema Laboratory Tests Test 04/26/20 11:22 04/26/20 16:28 04/26/20 21:54 04/27/20 04:50 POC Whole Blood Glucose 165 MG/DL (74-106) H 138 MG/DL (74-106) H 139 MG/DL (74-106) H Urine Osmolality 589 mOsm/kg (429-449) H Test 04/27/20 05:23 04/27/20 05:55 04/27/20 11:10 Sodium Level 145 MMOL/L (136-145) Potassium Level 4.1 MMOL/L (3.5-5.1) Chloride Level 111 MMOL/L (98-107) H Carbon Dioxide Level 28 MMOL/L (21-32) Anion Gap 6 mmol/L (5-15) Blood Urea Nitrogen 43 mg/dL (7-18) H Creatinine 1.1 MG/DL (0.55-1.30) Estimat Glomerular Filtration Rate > 60 mL/min (>60) Glucose Level 182 MG/DL (74-106) H Calcium Level 10.2 MG/DL (8.5-10.1) H POC Whole Blood Glucose 173 MG/DL (74-106) H 181 MG/DL (74-106) H Current Medications Medications (Trade) Dose Ordered Sig/Guillermo Route PRN Reason Start Time Stop Time Status Last Admin Dose Admin Acetaminophen (Tylenol) 650 mg Q4H PRN ORAL Mild Pain (Pain Scale 1-3) 04/20/20 22:15 05/20/20 22:14 Clonidine HCl (Catapres TTS-3) 1 patch QWEEK TDERMAL 04/23/20 12:00 07/22/20 11:59 04/23/20 13:00 Dextrose (Dextrose 50%) 25 ml Q30M PRN IV Hypoglycemia 04/20/20 22:15 07/19/20 22:14 Dextrose (Dextrose 50%) 50 ml Q30M PRN IV Hypoglycemia 04/20/20 22:15 07/19/20 22:14 Dextrose/ Electrolytes 1,000 ml @ 75 mls/hr [id number] IV 04/25/20 16:00 05/25/20 15:59 04/27/20 02:59 Docusate Sodium (Colace) 100 mg TWICE A DAY NG 04/25/20 18:00 05/25/20 17:59 04/27/20 09:55 Furosemide (Lasix) 40 mg DAILY ORAL 04/27/20 10:45 05/27/20 10:44 Heparin Sodium (Porcine) (Heparin 5000 units/ml) 5,000 units EVERY 8 HOURS SUBQ 04/21/20 06:00 06/05/20 05:59 04/27/20 05:59 Insulin Aspart (NovoLOG) BEFORE MEALS AND HS SUBQ 04/21/20 06:30 07/20/20 06:29 04/27/20 06:02 Iron Sucrose 100 mg/Sodium Chloride 60 ml @ 240 mls/hr BEDTIME IVPB 04/23/20 21:00 04/27/20 21:14 04/26/20 22:01 Labetalol HCl (Normodyne) 300 mg Q12HR ORAL 04/25/20 21:00 05/22/20 20:59 04/27/20 09:54 Lisinopril (PriniviL) 40 mg DAILY ORAL 04/21/20 09:00 05/21/20 08:59 04/27/20 09:54 Ondansetron HCl (Zofran) 4 mg Q6H PRN IVP Nausea & Vomiting 04/20/20 22:15 05/20/20 22:14 Pantoprazole (Protonix) 40 mg DAILY IVP 04/26/20 09:00 05/26/20 08:59 04/26/20 08:55 Yogesh Medel MD Apr 27, 2020 11:19
[2020-04-27] MEDS: Furosemide 40mg tab ORAL SCH (11:23)
[2020-04-27 12:00] VITALS: BP 175/98
--- NOTE | 2020-04-27 12:08 | Nephrology Progress Note ---
Assessment/Plan Plan CHF -resolved Modify meds Na 150 - 151-150. Correcting with IVF. Malig HTN -needs higher doses. Unstable for DC yet. Subjective Subjective Much more alert! Objective Objective Last 24 Hour Vital Signs Date Time Temp Pulse Resp B/P (MAP) Pulse Ox O2 Delivery O2 Flow Rate FiO2 04/27/20 12:00 98.2 68 19 175/98 (123) 97 04/27/20 09:54 72 157/83 04/27/20 09:54 157/83 04/27/20 09:00 Nasal Cannula 2.0 04/27/20 08:00 70 04/27/20 08:00 98.1 72 18 157/83 (107) 99 04/27/20 04:00 98.1 79 18 154/92 (112) 96 04/27/20 04:00 77 04/27/20 00:00 98.1 72 18 159/75 (103) 100 04/27/20 00:00 73 04/26/20 22:07 69 162/76 04/26/20 21:00 Nasal Cannula 2.0 04/26/20 20:00 71 04/26/20 20:00 97.7 69 18 162/76 (104) 98 04/26/20 18:58 99 Nasal Cannula 2.0 28 04/26/20 16:00 97.2 68 18 140/69 (92) 98 04/26/20 16:00 67 Intake and Output 04/26/20 04/27/20 19:00 07:00 Intake Total 50 ml 725 ml Balance 50 ml 725 ml IV Total 675 ml Tube Feeding 50 ml 50 ml # Voids 2 3 # Bowel Movements 1 1 Laboratory Tests 04/26/20 16:28: POC Whole Blood Glucose 138H 04/26/20 21:54: POC Whole Blood Glucose 139H 04/27/20 04:50: Urine Osmolality 589H 04/27/20 05:23: Sodium Level 145, Potassium Level 4.1, Chloride Level 111H, Carbon Dioxide Level 28, Anion Gap 6, Blood Urea Nitrogen 43H, Creatinine 1.1, Estimat Glomerular Filtration Rate > 60, Glucose Level 182H, Calcium Level 10.2H 04/27/20 05:55: POC Whole Blood Glucose 173H 04/27/20 11:10: POC Whole Blood Glucose 181H Height (Feet): 5 Height (Inches): 7.00 Weight (Pounds): 180 Objective Much more alert. BP's very high 180/100!! Cv RR Lungs CTA Abd SNT. BS + E No CCE Neuro L hemiparesis Miguel A Bella MD Apr 27, 2020 12:08
[2020-04-27] MEDS: Pantoprazole Inj IVP SCH (12:17)
[2020-04-27 16:00] VITALS: BP 167/89
[2020-04-27 20:00] VITALS: BP 141/69
[2020-04-27] MEDS: Minoxidil 2.5mg tab ORAL SCH (20:45)
[2020-04-27] MEDS: Iron Sucrose 100 MG in NS 55 ML IVPB SCH (20:45)
[2020-04-28] VITALS: BP 140/68
[2020-04-28 04:00] VITALS: BP 137/75
[2020-04-28] MEDS: Heparin 5000 units/ml inj SUBQ SCH ×3 (06:13→21:42)
[2020-04-28] MEDS: NovoLOG Insulin Flexpen SUBQ SCH ×4 (06:13→21:43)
[2020-04-28 07:07] LABS: ANION GAP 5 mmol/L (5-15); BLOOD UREA NITROGEN 39 mg/dL (7-18); CARBON DIOXIDE 28 MMOL/L (21-32); CHLORIDE 108 MMOL/L (98-107); CREATININE 1.1 MG/DL (0.55-1.30); POTASSIUM 4.4 MMOL/L (3.5-5.1); SODIUM 141 MMOL/L (136-145)
[2020-04-28 08:00] VITALS: BP 137/81
[2020-04-28] MEDS: Docusate 100mg/10ml Liq NG SCH ×2 (08:14→17:01)
[2020-04-28] MEDS: Lisinopril 20mg tab ORAL SCH (08:14)
[2020-04-28] MEDS: Minoxidil 2.5mg tab ORAL SCH ×2 (08:15→21:38)
[2020-04-28] MEDS: Furosemide 40mg tab ORAL SCH (08:15)
[2020-04-28] MEDS: Pantoprazole Inj IVP SCH (09:42)
--- NOTE | 2020-04-28 11:37 | Nephrology Progress Note ---
Assessment/Plan Plan CHF -resolved Modify meds Na 150 - 151-150. Correcting with IVF--->141. Taper IVF off. Malig HTN -needs higher doses. Today BP finally under control. Unstable for DC yet. Subjective Subjective Much more alert! Objective Objective Last 24 Hour Vital Signs Date Time Temp Pulse Resp B/P (MAP) Pulse Ox O2 Delivery O2 Flow Rate FiO2 04/28/20 09:07 Nasal Cannula 2.0 04/28/20 08:15 137/81 04/28/20 08:15 81 137/81 04/28/20 08:14 137/81 04/28/20 08:00 65 04/28/20 08:00 98.1 81 20 137/81 (99) 96 04/28/20 04:00 99.0 68 24 137/75 (95) 97 04/28/20 03:35 67 04/28/20 00:00 98.5 69 24 140/68 (92) 100 04/27/20 23:32 68 04/27/20 21:00 Nasal Cannula 2.0 04/27/20 20:46 71 141/69 04/27/20 20:45 141/69 04/27/20 20:08 99 Nasal Cannula 2.0 28 04/27/20 20:00 98.2 71 24 141/69 (93) 99 04/27/20 20:00 75 04/27/20 16:00 65 04/27/20 16:00 97.8 86 20 167/89 (115) 96 04/27/20 12:00 68 04/27/20 12:00 98.2 68 19 175/98 (123) 97 Intake and Output 04/27/20 04/28/20 19:00 07:00 Intake Total 50 ml 685 ml Output Total 650 ml Balance 50 ml 35 ml Intake Free Water 60 ml IV Total 300 ml Tube Feeding 50 ml 325 ml Output Urine Total 650 ml # Voids 2 # Bowel Movements 1 Laboratory Tests 04/27/20 16:06: POC Whole Blood Glucose 163H 04/27/20 20:18: POC Whole Blood Glucose 91 04/28/20 05:27: POC Whole Blood Glucose 144H 04/28/20 05:43: Sodium Level 141, Potassium Level 4.4, Chloride Level 108H, Carbon Dioxide Level 28, Anion Gap 5, Blood Urea Nitrogen 39H, Creatinine 1.1, Estimat Glomerular Filtration Rate > 60, Glucose Level 147H, Calcium Level 10.0, Magnesium Level 2.2 Height (Feet): 5 Height (Inches): 7.00 Weight (Pounds): 180 Objective Much more alert. BP's very high 180/100!! Cv RR Lungs CTA Abd SNT. BS + E No CCE Neuro L hemiparesis Miguel A Bella MD Apr 28, 2020 11:37
[2020-04-28 11:48] VITALS: BP 130/96
--- NOTE | 2020-04-28 13:13 | General Progress Note ---
Subjective Allergies: Coded Allergies: LEVOFLOXACIN (Verified Allergy, Severe, Hives, 01/19/19) LORAZEPAM (Verified Allergy, Severe, 01/19/19) Patient gets confusion MIDAZOLAM (Verified Adverse Reaction, Unknown, 05/15/15) Subjective above noted tolerating TF resting comfortably Objective Last 24 Hour Vital Signs Date Time Temp Pulse Resp B/P (MAP) Pulse Ox O2 Delivery O2 Flow Rate FiO2 04/28/20 11:48 96.6 59 19 130/96 (107) 98 04/28/20 09:07 Nasal Cannula 2.0 04/28/20 08:19 97 Nasal Cannula 2.0 28 04/28/20 08:15 137/81 04/28/20 08:15 81 137/81 04/28/20 08:14 137/81 04/28/20 08:00 65 04/28/20 08:00 98.1 81 20 137/81 (99) 96 04/28/20 04:00 99.0 68 24 137/75 (95) 97 04/28/20 03:35 67 04/28/20 00:00 98.5 69 24 140/68 (92) 100 04/27/20 23:32 68 04/27/20 21:00 Nasal Cannula 2.0 04/27/20 20:46 71 141/69 04/27/20 20:45 141/69 04/27/20 20:08 99 Nasal Cannula 2.0 28 04/27/20 20:00 98.2 71 24 141/69 (93) 99 04/27/20 20:00 75 04/27/20 16:00 65 04/27/20 16:00 97.8 86 20 167/89 (115) 96 Intake and Output 04/27/20 04/28/20 19:00 07:00 Intake Total 50 ml 685 ml Output Total 650 ml Balance 50 ml 35 ml Intake Free Water 60 ml IV Total 300 ml Tube Feeding 50 ml 325 ml Output Urine Total 650 ml # Voids 2 # Bowel Movements 1 Laboratory Tests 04/27/20 16:06: POC Whole Blood Glucose 163H 04/27/20 20:18: POC Whole Blood Glucose 91 04/28/20 05:27: POC Whole Blood Glucose 144H 04/28/20 05:43: Sodium Level 141, Potassium Level 4.4, Chloride Level 108H, Carbon Dioxide Level 28, Anion Gap 5, Blood Urea Nitrogen 39H, Creatinine 1.1, Estimat Glomerular Filtration Rate > 60, Glucose Level 147H, Calcium Level 10.0, Magnesium Level 2.2 04/28/20 11:44: POC Whole Blood Glucose 177H Height (Feet): 5 Height (Inches): 7.00 Weight (Pounds): 180 Objective Obese woman NCAT supple CTA RR abd obese, (+) GT no edema non communicative Assessment/Plan Status: stable, unchanged Assessment/Plan: Assessment - CVA, L donald - dysphagia, GT --> occluded --> replaced - DM - HTN - CHF - COPD - decub ulcer - S/p partial nephrectomy Recommendations - continue TF - elevate HOB - GT care Robin Mata MD Apr 28, 2020 13:13
--- NOTE | 2020-04-28 14:00 | Infectious Diseases Prog Note ---
Assessment/Plan Assessment/Plan A 1. pneumonia 2. + blood culture with coag neg staph likely contaminated 3. diabetes mellitus 4. CHF 5. CVA 6. renal cell carcinoma P 1. continue off antibiotics Subjective ROS Limited/Unobtainable: Yes Constitutional: Denies: fever Allergies: Coded Allergies: LEVOFLOXACIN (Verified Allergy, Severe, Hives, 01/19/19) LORAZEPAM (Verified Allergy, Severe, 01/19/19) Patient gets confusion MIDAZOLAM (Verified Adverse Reaction, Unknown, 05/15/15) Objective Last 24 Hour Vital Signs Date Time Temp Pulse Resp B/P (MAP) Pulse Ox O2 Delivery O2 Flow Rate FiO2 04/28/20 11:48 96.6 59 19 130/96 (107) 98 04/28/20 09:07 Nasal Cannula 2.0 04/28/20 08:19 97 Nasal Cannula 2.0 28 04/28/20 08:15 137/81 04/28/20 08:15 81 137/81 04/28/20 08:14 137/81 04/28/20 08:00 65 04/28/20 08:00 98.1 81 20 137/81 (99) 96 04/28/20 04:00 99.0 68 24 137/75 (95) 97 04/28/20 03:35 67 04/28/20 00:00 98.5 69 24 140/68 (92) 100 04/27/20 23:32 68 04/27/20 21:00 Nasal Cannula 2.0 04/27/20 20:46 71 141/69 04/27/20 20:45 141/69 04/27/20 20:08 99 Nasal Cannula 2.0 28 04/27/20 20:00 98.2 71 24 141/69 (93) 99 04/27/20 20:00 75 04/27/20 16:00 65 04/27/20 16:00 97.8 86 20 167/89 (115) 96 Height (Feet): 5 Height (Inches): 7.00 Weight (Pounds): 180 General Appearance: no acute distress HEENT: mucous membranes moist Cardiovascular: normal rate Abdomen: soft, non tender, other - GT feeding Extremities: no edema Neurologic/Psychiatric: other - sleeping Laboratory Tests Test 04/27/20 16:06 04/27/20 20:18 04/28/20 05:27 04/28/20 05:43 POC Whole Blood Glucose 163 MG/DL (74-106) H 91 MG/DL (74-106) 144 MG/DL (74-106) H Sodium Level 141 MMOL/L (136-145) Potassium Level 4.4 MMOL/L (3.5-5.1) Chloride Level 108 MMOL/L (98-107) H Carbon Dioxide Level 28 MMOL/L (21-32) Anion Gap 5 mmol/L (5-15) Blood Urea Nitrogen 39 mg/dL (7-18) H Creatinine 1.1 MG/DL (0.55-1.30) Estimat Glomerular Filtration Rate > 60 mL/min (>60) Glucose Level 147 MG/DL (74-106) H Calcium Level 10.0 MG/DL (8.5-10.1) Magnesium Level 2.2 MG/DL (1.8-2.4) Test 04/28/20 11:44 POC Whole Blood Glucose 177 MG/DL (74-106) H Current Medications Medications (Trade) Dose Ordered Sig/Guillermo Route PRN Reason Start Time Stop Time Status Last Admin Dose Admin Acetaminophen (Tylenol) 650 mg Q4H PRN ORAL Mild Pain (Pain Scale 1-3) 04/20/20 22:15 05/20/20 22:14 Clonidine HCl (Catapres TTS-3) 1 patch QWEEK TDERMAL 04/23/20 12:00 07/22/20 11:59 04/23/20 13:00 Dextrose (Dextrose 50%) 25 ml Q30M PRN IV Hypoglycemia 04/20/20 22:15 07/19/20 22:14 Dextrose (Dextrose 50%) 50 ml Q30M PRN IV Hypoglycemia 04/20/20 22:15 07/19/20 22:14 Dextrose/ Electrolytes 1,000 ml @ 25 mls/hr Q24H IV 04/25/20 16:00 05/25/20 15:59 04/27/20 17:38 Docusate Sodium (Colace) 100 mg TWICE A DAY NG 04/25/20 18:00 05/25/20 17:59 04/28/20 08:14 Furosemide (Lasix) 40 mg DAILY ORAL 04/27/20 10:45 05/27/20 10:44 04/28/20 08:15 Heparin Sodium (Porcine) (Heparin 5000 units/ml) 5,000 units EVERY 8 HOURS SUBQ 04/21/20 06:00 06/05/20 05:59 04/28/20 06:13 Insulin Aspart (NovoLOG) BEFORE MEALS AND HS SUBQ 04/21/20 06:30 07/20/20 06:29 04/28/20 12:21 Labetalol HCl (Normodyne) 300 mg Q12HR ORAL 04/25/20 21:00 05/22/20 20:59 04/28/20 08:15 Lisinopril (PriniviL) 40 mg DAILY ORAL 04/21/20 09:00 05/21/20 08:59 04/28/20 08:14 Minoxidil (Loniten) 2.5 mg Q12HR ORAL 04/27/20 21:00 07/26/20 20:59 04/28/20 08:15 Ondansetron HCl (Zofran) 4 mg Q6H PRN IVP Nausea & Vomiting 04/20/20 22:15 05/20/20 22:14 Pantoprazole (Protonix) 40 mg DAILY IVP 04/26/20 09:00 05/26/20 08:59 04/28/20 09:42 Jonas Ford MD Apr 28, 2020 14:00
[2020-04-28] MEDS: D5W w/KCl 20mEq 1,000 ML IV SCH (14:10)
--- NOTE | 2020-04-28 15:00 | Cardiology Progress Note ---
Assessment/Plan Assessment/Plan (1) COPD (chronic obstructive pulmonary disease) (2) Acute respiratory failure (3) Shortness of breath (4) H/o CVA (5) Chronic systolic heart failure ef 35% i saw pt for ochoa bp is better reportedly ef 35% used to be on entresto not available here on oral lsix cxr reviewed tele persoanlly reviewed nsvt noted Subjective ROS Limited/Unobtainable: Yes Objective Last 24 Hour Vital Signs Date Time Temp Pulse Resp B/P (MAP) Pulse Ox O2 Delivery O2 Flow Rate FiO2 04/28/20 12:00 66 04/28/20 11:48 96.6 59 19 130/96 (107) 98 04/28/20 09:07 Nasal Cannula 2.0 04/28/20 08:19 97 Nasal Cannula 2.0 28 04/28/20 08:15 137/81 04/28/20 08:15 81 137/81 04/28/20 08:14 137/81 04/28/20 08:00 65 04/28/20 08:00 98.1 81 20 137/81 (99) 96 04/28/20 04:00 99.0 68 24 137/75 (95) 97 04/28/20 03:35 67 04/28/20 00:00 98.5 69 24 140/68 (92) 100 04/27/20 23:32 68 04/27/20 21:00 Nasal Cannula 2.0 04/27/20 20:46 71 141/69 04/27/20 20:45 141/69 04/27/20 20:08 99 Nasal Cannula 2.0 28 04/27/20 20:00 98.2 71 24 141/69 (93) 99 04/27/20 20:00 75 04/27/20 16:00 65 04/27/20 16:00 97.8 86 20 167/89 (115) 96 General Appearance: no apparent distress, alert Neck: supple Cardiovascular: normal rate Respiratory/Chest: crackles/rales - few only Abdomen: normal bowel sounds, non tender, soft Extremities: no swelling Intake and Output 04/27/20 04/28/20 19:00 07:00 Intake Total 50 ml 685 ml Output Total 650 ml Balance 50 ml 35 ml Intake Free Water 60 ml IV Total 300 ml Tube Feeding 50 ml 325 ml Output Urine Total 650 ml # Voids 2 # Bowel Movements 1 Laboratory Tests Test 04/27/20 16:06 04/27/20 20:18 04/28/20 05:27 04/28/20 05:43 POC Whole Blood Glucose 163 MG/DL (74-106) H 91 MG/DL (74-106) 144 MG/DL (74-106) H Sodium Level 141 MMOL/L (136-145) Potassium Level 4.4 MMOL/L (3.5-5.1) Chloride Level 108 MMOL/L (98-107) H Carbon Dioxide Level 28 MMOL/L (21-32) Anion Gap 5 mmol/L (5-15) Blood Urea Nitrogen 39 mg/dL (7-18) H Creatinine 1.1 MG/DL (0.55-1.30) Estimat Glomerular Filtration Rate > 60 mL/min (>60) Glucose Level 147 MG/DL (74-106) H Calcium Level 10.0 MG/DL (8.5-10.1) Magnesium Level 2.2 MG/DL (1.8-2.4) Test 04/28/20 11:44 POC Whole Blood Glucose 177 MG/DL (74-106) H Aneudy Lopez MD Apr 28, 2020 15:00
[2020-04-28 16:03] VITALS: BP 148/75
[2020-04-28 20:00] VITALS: BP 165/82
[2020-04-29] VITALS: BP 139/70
[2020-04-29 04:00] VITALS: BP 130/74
[2020-04-29] MEDS: Heparin 5000 units/ml inj SUBQ SCH ×2 (06:17→14:00)
[2020-04-29] MEDS: NovoLOG Insulin Flexpen SUBQ SCH ×3 (06:19→16:30)
[2020-04-29 07:26] LABS: CALCIUM 10.3 MG/DL (8.5-10.1); CREATININE 1.2 MG/DL (0.55-1.30); POTASSIUM 4.1 MMOL/L (3.5-5.1)
[2020-04-29 08:00] VITALS: BP 130/81
[2020-04-29] MEDS: Furosemide 40mg tab ORAL SCH (08:57)
[2020-04-29] MEDS: Docusate 100mg/10ml Liq NG SCH (08:57)
[2020-04-29] MEDS: Pantoprazole Inj IVP SCH (08:57)
[2020-04-29] MEDS: Minoxidil 2.5mg tab ORAL SCH (08:58)
[2020-04-29] MEDS: Lisinopril 20mg tab ORAL SCH (08:58)
--- NOTE | 2020-04-29 09:53 | General Progress Note ---
Subjective Allergies: Coded Allergies: LEVOFLOXACIN (Verified Allergy, Severe, Hives, 01/19/19) LORAZEPAM (Verified Allergy, Severe, 01/19/19) Patient gets confusion MIDAZOLAM (Verified Adverse Reaction, Unknown, 05/15/15) Subjective above noted tolerating TF resting comfortably Objective Last 24 Hour Vital Signs Date Time Temp Pulse Resp B/P (MAP) Pulse Ox O2 Delivery O2 Flow Rate FiO2 04/29/20 08:58 130/81 04/29/20 08:58 130/81 04/29/20 08:57 71 130/81 04/29/20 08:00 98.1 71 20 130/81 (97) 98 04/29/20 04:00 98.1 71 20 130/74 (92) 98 04/29/20 04:00 72 04/29/20 00:00 98.4 73 20 139/70 (93) 95 04/29/20 00:00 72 04/28/20 21:38 165/82 04/28/20 21:37 73 165/82 04/28/20 21:00 Nasal Cannula 2.0 04/28/20 20:00 72 04/28/20 20:00 98.8 73 18 165/82 (109) 97 04/28/20 16:03 98.4 69 18 148/75 (99) 97 04/28/20 16:00 72 04/28/20 12:00 66 04/28/20 11:48 96.6 59 19 130/96 (107) 98 Intake and Output 04/28/20 04/29/20 19:00 07:00 Intake Total 815 ml 975 ml Output Total 400 ml Balance 815 ml 575 ml Intake Free Water 190 ml 150 ml IV Total 25 ml 275 ml Tube Feeding 600 ml 550 ml Output Urine Total 400 ml # Bowel Movements 2 Laboratory Tests 04/28/20 11:44: POC Whole Blood Glucose 177H 04/28/20 16:28: POC Whole Blood Glucose 154H 04/28/20 20:17: POC Whole Blood Glucose 161H 04/29/20 05:45: POC Whole Blood Glucose 162H 04/29/20 06:35: Sodium Level 141, Potassium Level 4.1, Chloride Level 108H, Carbon Dioxide Level 29, Anion Gap 4L, Blood Urea Nitrogen 40H, Creatinine 1.2, Estimat Glomerular Filtration Rate 54.9, Glucose Level 170H, Calcium Level 10.3H, Magnesium Level 2.4 Height (Feet): 5 Height (Inches): 7.00 Weight (Pounds): 180 Objective Obese woman NCAT supple CTA RR abd obese, (+) GT no edema non communicative Assessment/Plan Status: stable, unchanged Assessment/Plan: Assessment - CVA, L donald - dysphagia, GT --> occluded --> replaced - DM - HTN - CHF - COPD - decub ulcer - S/p partial nephrectomy Recommendations - continue TF - elevate HOB - GT care Robin Mata MD Apr 29, 2020 09:53
--- NOTE | 2020-04-29 11:15 | Infectious Diseases Prog Note ---
Assessment/Plan Assessment/Plan antibiotics : none A 1. pneumonia s/p rx 2. + blood culture with coag neg staph likely contaminated 3. diabetes mellitus 4. CHF 5. CVA 6. renal cell carcinoma P 1. continue off antibiotics 2. will follow up cultures Subjective Constitutional: Denies: fever, chills Respiratory: Denies: shortness of breath, dry cough Gastrointestinal/Abdominal: Denies: nausea, vomiting, diarrhea Musculoskeletal: Denies: pain Allergies: Coded Allergies: LEVOFLOXACIN (Verified Allergy, Severe, Hives, 01/19/19) LORAZEPAM (Verified Allergy, Severe, 01/19/19) Patient gets confusion MIDAZOLAM (Verified Adverse Reaction, Unknown, 05/15/15) Objective Last 24 Hour Vital Signs Date Time Temp Pulse Resp B/P (MAP) Pulse Ox O2 Delivery O2 Flow Rate FiO2 04/29/20 09:00 Nasal Cannula 2.0 04/29/20 08:58 130/81 04/29/20 08:58 130/81 04/29/20 08:57 71 130/81 04/29/20 08:00 98.1 71 20 130/81 (97) 98 04/29/20 08:00 72 04/29/20 04:00 98.1 71 20 130/74 (92) 98 04/29/20 04:00 72 04/29/20 00:00 98.4 73 20 139/70 (93) 95 04/29/20 00:00 72 04/28/20 21:38 165/82 04/28/20 21:37 73 165/82 04/28/20 21:00 Nasal Cannula 2.0 04/28/20 20:00 72 04/28/20 20:00 98.8 73 18 165/82 (109) 97 04/28/20 16:03 98.4 69 18 148/75 (99) 97 04/28/20 16:00 72 04/28/20 12:00 66 04/28/20 11:48 96.6 59 19 130/96 (107) 98 Height (Feet): 5 Height (Inches): 7.00 Weight (Pounds): 180 Respiratory/Chest: lungs clear Cardiovascular: normal rate, regular rhythm, no gallop/murmur Abdomen: soft, non tender, other - GT Extremities: no edema Laboratory Tests Test 04/28/20 11:44 04/28/20 16:28 04/28/20 20:17 04/29/20 05:45 POC Whole Blood Glucose 177 MG/DL (74-106) H 154 MG/DL (74-106) H 161 MG/DL (74-106) H 162 MG/DL (74-106) H Test 04/29/20 06:35 Sodium Level 141 MMOL/L (136-145) Potassium Level 4.1 MMOL/L (3.5-5.1) Chloride Level 108 MMOL/L (98-107) H Carbon Dioxide Level 29 MMOL/L (21-32) Anion Gap 4 mmol/L (5-15) L Blood Urea Nitrogen 40 mg/dL (7-18) H Creatinine 1.2 MG/DL (0.55-1.30) Estimat Glomerular Filtration Rate 54.9 mL/min (>60) Glucose Level 170 MG/DL (74-106) H Calcium Level 10.3 MG/DL (8.5-10.1) H Magnesium Level 2.4 MG/DL (1.8-2.4) Current Medications Medications (Trade) Dose Ordered Sig/Guillermo Route PRN Reason Start Time Stop Time Status Last Admin Dose Admin Acetaminophen (Tylenol) 650 mg Q4H PRN ORAL Mild Pain (Pain Scale 1-3) 04/20/20 22:15 05/20/20 22:14 Clonidine HCl (Catapres TTS-3) 1 patch QWEEK TDERMAL 04/23/20 12:00 07/22/20 11:59 04/23/20 13:00 Dextrose (Dextrose 50%) 25 ml Q30M PRN IV Hypoglycemia 04/20/20 22:15 07/19/20 22:14 Dextrose (Dextrose 50%) 50 ml Q30M PRN IV Hypoglycemia 04/20/20 22:15 07/19/20 22:14 Dextrose/ Electrolytes 1,000 ml @ 25 mls/hr Q24H IV 04/25/20 16:00 05/25/20 15:59 04/28/20 14:10 Docusate Sodium (Colace) 100 mg TWICE A DAY NG 04/25/20 18:00 05/25/20 17:59 04/29/20 08:57 Furosemide (Lasix) 40 mg DAILY ORAL 04/27/20 10:45 05/27/20 10:44 04/29/20 08:57 Heparin Sodium (Porcine) (Heparin 5000 units/ml) 5,000 units EVERY 8 HOURS SUBQ 04/21/20 06:00 06/05/20 05:59 04/29/20 06:17 Insulin Aspart (NovoLOG) BEFORE MEALS AND HS SUBQ 04/21/20 06:30 07/20/20 06:29 04/29/20 06:19 Labetalol HCl (Normodyne) 300 mg Q12HR ORAL 04/25/20 21:00 05/22/20 20:59 04/29/20 08:57 Lisinopril (PriniviL) 40 mg DAILY ORAL 04/21/20 09:00 05/21/20 08:59 04/29/20 08:58 Minoxidil (Loniten) 2.5 mg Q12HR ORAL 04/27/20 21:00 07/26/20 20:59 04/29/20 08:58 Ondansetron HCl (Zofran) 4 mg Q6H PRN IVP Nausea & Vomiting 04/20/20 22:15 05/20/20 22:14 Pantoprazole (Protonix) 40 mg DAILY IVP 04/26/20 09:00 05/26/20 08:59 04/29/20 08:57 Yogesh Medel MD Apr 29, 2020 11:15
[2020-04-29 12:00] VITALS: BP 143/61
--- NOTE | 2020-04-29 12:53 | Nephrology Progress Note ---
Assessment/Plan Plan CHF -resolved Modify meds Na 150 - 151-150. Correcting with IVF--->141. DC IVF. Malig HTN -needs higher doses. Today BP finally under control. DC to SNF. Subjective Subjective Much more alert! Objective Objective Last 24 Hour Vital Signs Date Time Temp Pulse Resp B/P (MAP) Pulse Ox O2 Delivery O2 Flow Rate FiO2 04/29/20 12:00 98.7 81 19 143/61 (88) 96 04/29/20 09:00 Nasal Cannula 2.0 04/29/20 08:58 130/81 04/29/20 08:58 130/81 04/29/20 08:57 71 130/81 04/29/20 08:00 98.1 71 20 130/81 (97) 98 04/29/20 08:00 72 04/29/20 04:00 98.1 71 20 130/74 (92) 98 04/29/20 04:00 72 04/29/20 00:00 98.4 73 20 139/70 (93) 95 04/29/20 00:00 72 04/28/20 21:38 165/82 04/28/20 21:37 73 165/82 04/28/20 21:00 Nasal Cannula 2.0 04/28/20 20:00 72 04/28/20 20:00 98.8 73 18 165/82 (109) 97 04/28/20 16:03 98.4 69 18 148/75 (99) 97 04/28/20 16:00 72 Intake and Output 04/28/20 04/29/20 19:00 07:00 Intake Total 815 ml 975 ml Output Total 400 ml Balance 815 ml 575 ml Intake Free Water 190 ml 150 ml IV Total 25 ml 275 ml Tube Feeding 600 ml 550 ml Output Urine Total 400 ml # Bowel Movements 2 Laboratory Tests 04/28/20 16:28: POC Whole Blood Glucose 154H 04/28/20 20:17: POC Whole Blood Glucose 161H 04/29/20 05:45: POC Whole Blood Glucose 162H 04/29/20 06:35: Sodium Level 141, Potassium Level 4.1, Chloride Level 108H, Carbon Dioxide Level 29, Anion Gap 4L, Blood Urea Nitrogen 40H, Creatinine 1.2, Estimat Glomerular Filtration Rate 54.9, Glucose Level 170H, Calcium Level 10.3H, Magnesium Level 2.4 Height (Feet): 5 Height (Inches): 7.00 Weight (Pounds): 180 Objective Much more alert. BP's very high 180/100!! Cv RR Lungs CTA Abd SNT. BS + E No CCE Neuro L hemiparesis Miguel A Bella MD Apr 29, 2020 12:53
[2020-04-29] MEDS ORDERED: LONITEN2.5 MG ORAL (13:00)
[2020-04-29] MEDS ORDERED: FUROSEMIDE40 MG ORAL (13:00)
[2020-04-29] MEDS ORDERED: NORMODYNE100 MG ORAL (13:00)
[2020-04-29] MEDS ORDERED: HEPARIN SO5000 UNIT2 SUBQ (13:00)
[2020-04-29] MEDS ORDERED: CATAPRES-TTS 31 EACH TDERMAL (13:00)
[2020-04-29 16:00] VITALS: BP 149/65
[2020-04-29] MEDS ORDERED: Tubing IV Secondary IV ONE (16:54)
--- NOTE | 2020-04-29 18:29 | Cardiology Progress Note ---
Assessment/Plan Assessment/Plan reviewed rhythm strip, she had two episdoes of nonsustain vtach, 6 beats. If she has more frequent episodes, or sustained vtach (more than 30 seconds) will start Amiodarone, for now no additional medications Subjective Subjective confused, cannot give any information Objective Last 24 Hour Vital Signs Date Time Temp Pulse Resp B/P (MAP) Pulse Ox O2 Delivery O2 Flow Rate FiO2 04/29/20 16:00 97.6 86 19 149/65 (93) 96 04/29/20 12:00 73 04/29/20 12:00 98.7 81 19 143/61 (88) 96 04/29/20 09:00 Nasal Cannula 2.0 04/29/20 08:58 130/81 04/29/20 08:58 130/81 04/29/20 08:57 71 130/81 04/29/20 08:00 98.1 71 20 130/81 (97) 98 04/29/20 08:00 72 04/29/20 04:00 98.1 71 20 130/74 (92) 98 04/29/20 04:00 72 04/29/20 00:00 98.4 73 20 139/70 (93) 95 04/29/20 00:00 72 04/28/20 21:38 165/82 04/28/20 21:37 73 165/82 04/28/20 21:00 Nasal Cannula 2.0 04/28/20 20:00 72 04/28/20 20:00 98.8 73 18 165/82 (109) 97 General Appearance: other - confused, EENT: other - facial droop Neck: JVD Rhythm: NSR, VT Cardiovascular: normal rate, systolic murmur Respiratory/Chest: crackles/rales Abdomen: soft Neurologic: other - left sided weakness Intake and Output 04/28/20 04/29/20 19:00 07:00 Intake Total 815 ml 975 ml Output Total 400 ml Balance 815 ml 575 ml Intake Free Water 190 ml 150 ml IV Total 25 ml 275 ml Tube Feeding 600 ml 550 ml Output Urine Total 400 ml # Bowel Movements 2 Laboratory Tests Test 04/28/20 20:17 04/29/20 05:45 04/29/20 06:35 POC Whole Blood Glucose 161 MG/DL (74-106) H 162 MG/DL (74-106) H Sodium Level 141 MMOL/L (136-145) Potassium Level 4.1 MMOL/L (3.5-5.1) Chloride Level 108 MMOL/L (98-107) H Carbon Dioxide Level 29 MMOL/L (21-32) Anion Gap 4 mmol/L (5-15) L Blood Urea Nitrogen 40 mg/dL (7-18) H Creatinine 1.2 MG/DL (0.55-1.30) Estimat Glomerular Filtration Rate 54.9 mL/min (>60) Glucose Level 170 MG/DL (74-106) H Calcium Level 10.3 MG/DL (8.5-10.1) H Magnesium Level 2.4 MG/DL (1.8-2.4) Objective Alert, musoca dry JVD 8 cm lungs rhonchi heart regular, accent A2 abdomen g tube neuro, left hemiparesis Jimena Messina MD Apr 29, 2020 18:29
--- NOTE | 2020-05-01 09:55 | Discharge Summary ---
Discharge Summary Discharge Summary _ DATE OF ADMISSION: 04/20/2020 DATE OF DISCHARGE: 04/29/2020 DISCHARGED BY: Dr. Miguel A Bella CONSULTANTS: Dr. Jimena Mata BRIEF HOSPITAL COURSE: Patient is a 65-year-old female who is a resident of [facility]. Patient was just discharged from [facility] due to a bleeding diverticuli. She underwent clipping of bleeding vessels in the diverticular. She had massive GI bleed necessitating transfusion of 6 units of red blood cells. The patient was discharged on 04/09/2020. She was stable for about 12 days. The patient developed abrupt shortness of breath and 911 was called. She has medical history significant for CVA with left hemiparesis, type 2 diabetes mellitus, hypertensive cardiovascular disease, diastolic heart failure, COPD, stage IV sacral decubitus ulcer, status post left partial nephrectomy due to renal cell carcinoma. Upon evaluation at the ED, blood pressure was 198/130, pulse rate 111, she was saturating 84% on room air. Blood work showed mildly elevated troponin at 0.07. proBNP 9049. EKG showed normal sinus rhythm with LVH. ST depression in the lateral leads but no acute ST elevation. Chest x-ray showed bilateral pulmonary opacities. She was given Lasix diuresis, nitroglycerin and aspirin. Rapid C ovid swab was negative. Initial clinical impression was congestive heart failure. Patient was admitted to monitored floor. Extension Professor was consulted. She was recommended to be treated with Entresto, however medication is not available at the hospital. She was given furosemide, aspirin and blood pressure control. EKG did not show any acute ischemic changes. Upon admission, she was noted to have sacral stage II ulcer. She was given local wound care. G-tube got clogged. Unable to get medication. Catapres-TTS was added to her regimen. GI was consulted. Blood culture was positive for gram-positive cocci. ID specialist was consulted. G-tube was replaced at bedside. G-tube position was verified, position and stoma. Tube feeding was started. According to family, patient recently had an upper and lower endoscopy which were unrevealing. Patient was given ceftriaxone for possible pneumonia. Blood culture finding possibly contaminant. Antibiotic was changed to p.o. Antihypertensives were titrated. Patient was given lisinopril 40 mg, clonidine patch, and labetalol. Chest x-ray improved after Lasix. Sodium was elevated. Doxycycline was discontinued. Sodium level normalized. IV fluid was discontinued. Blood pressure was under control. Patient was tolerating tube feeding. Patient had nonsustained V. tach of 6 beats. Per cardio recommendation, if patient with more frequent episodes, may benefit from amiodarone. No additional medication required for now. Patient was cleared for discharge back to long term. FINAL DIAGNOSES: Acute on chronic systolic CHF, resolved Malignant hypertension Pneumonia Positive blood culture with coagulase-negative staph, likely contaminated Diabetes mellitus CVA with left hemiparesis History of renal cell carcinoma status post partial nephrectomy Dysphagia with occluded GT, status post bedside change Decubitus ulcer, present on admission DISPOSITION: DC back to SNF. DISCHARGE MEDICATIONS: Refer to Discharge Medication List. I have been assigned to complete a discharge summary on this account, I was not involved with the patient's management.--AGUSTINA Rod Jacqueline Robles NP May 01, 2020 09:55
== END 2020-04-29 16:55 | DRG 291 ==
LOC: EDBD 21:47 → EMR 22:09 → 2E 22:30 → EDBEDREQ 23:11 → 2E 04-21 03:57
PROC: 0D20XUZ Change Feeding Device in Upper Intestinal Tract, External Approach (ICD-10-PCS; principal; 2020-04-23)
DX: I11.0 Hypertensive heart disease with heart failure (principal); L89.154 Pressure ulcer of sacral region, stage 4; J18.9 Pneumonia, unspecified organism; J96.00 Acute respiratory failure, unspecified whether with hypoxia or hypercapnia; I69.354 Hemiplegia and hemiparesis following cerebral infarction affecting left non-dominant side; K94.23 Gastrostomy malfunction; J44.0 Chronic obstructive pulmonary disease with (acute) lower respiratory infection; I50.23 Acute on chronic systolic (congestive) heart failure; Z85.528 Personal history of other malignant neoplasm of kidney; E11.9 Type 2 diabetes mellitus without complications; R13.10 Dysphagia, unspecified; Z87.891 Personal history of nicotine dependence; Z88.1 Allergy status to other antibiotic agents; Z88.8 Allergy status to other drugs, medicaments and biological substances; Z90.5 Acquired absence of kidney; Z79.82 Long term (current) use of aspirin; Z79.4 Long term (current) use of insulin; F19.11 Other psychoactive substance abuse, in remission
CPT/HCPCS: 36415; 71045; 74018; 80048; 80053; 82550; 82553; 82728; 82803; 82962; 83036; 83540; 83550; 83605; 83615; 83690; 83735; 83880; 83935; 84100; 84484; 85025; 85379; 85610; 85730; 86140; 87040; 87081; 87181; 93005; 94664; 96365; 99291; J1815; J8499; U0002